=== PATIENT | female | born 1950 | race Caucasian/White ===

== ENCOUNTER → 2018-01-24 13:00 | Outpatient (CLI) | payer MEDICARE, OTHER, SELFPAY ==
[2018-01-24 14:26] LABS: Amphetamine Urine VISTA NEGATIVE (<1000 ng/mL); Barbiturate Urine VISTA NEGATIVE (< 200 ng/mL); Benzodiazepine Urine VISTA NEGATIVE (< 200 ng/mL); Cocaine Urine VISTA NEGATIVE (< 300 ng/mL); Ecstacy Urine VISTA NEGATIVE (< 500 ng/mL); Methadone Urine VISTA NEGATIVE (< 300 ng/mL); PCP Urine VISTA NEGATIVE (< 25 ng/mL); THC Urine VISTA NEGATIVE (< 50 ng/mL); Vista UDS pH Range 5
== END ==
PROVIDERS: Visit Provider Anesthesiology Pain Medicine
DX: F11.20 Opioid dependence, uncomplicated (principal)
CPT/HCPCS: 80307

== ENCOUNTER → 2018-02-11 12:52 | Outpatient (CLI) | payer MEDICARE, OTHER, SELFPAY ==
[2018-02-11 13:38] LABS: Hematocrit 37.8 % (37-47); Hemoglobin 12.4 g/dl (12.0-15.0); Mean Corp Hgb Conc 32.8 g/gl (32-36); Mean Corpuscular Hgb 30.4 pg (27.0-32.0); Mean Corpuscular Volume 92.6 fL (81-99); Mean Platelet Vol. 9.1 fl (6.2-12.0); Platelet Count 239 K/mm3 (150-450); RBC Distribution Width CV 13.7 % (11.6-14.6); RBC Distribution Width SD 45.7 fl (35.1-43.9); Red Blood Count 4.08 M/mm3 (4.2-5.4); White Blood Count 6.8 K/mm3 (4.4-11.0)
[2018-02-11 13:47] LABS: Scan Indicated on CBC? Y/N NO
[2018-02-11 14:03] LABS: Microalbumin,Random Urine 15.1 mg/L (NO RANGE EST.)
[2018-02-11 14:26] LABS: Albumin, Serum 3.6 g/dL (3.2-5.0); BUN 26 mg/dL (7-18); BUN/Creat Ratio 15.3 RATIO (10-20); Calcium,Total 8.7 mg/dL (8.5-10.1); Chloride 106 mmol/L (98-107); EST Glomerular Filtration Rate 32 mL/min (>60); Est Glom Filt Rate - Afr Amer 38 mL/min (>60); Glucose 118 mg/dL (74-106); Phosphorus 4.3 mg/dL (2.5-4.9); Potassium 4.3 mmol/L (3.5-5.1); Sodium Level 140 mmol/L (136-145)
== END ==
PROVIDERS: Visit Provider Internal Medicine Nephrology
DX: N17.9 Acute kidney failure, unspecified (principal); E11.22 Type 2 diabetes mellitus with diabetic chronic kidney disease; N18.3 Chronic kidney disease, stage 3 (moderate)
CPT/HCPCS: 36415; 80069; 82043; 82570; 85027

== ENCOUNTER → 2018-03-26 13:33 | Outpatient (CLI) | payer MEDICARE, OTHER, SELFPAY ==
[2018-03-26 15:29] LABS: Absolute Lymphocyte Count 1.73 X10^3/ul (0.83-4.51); Basophil# 0.05 X10^3/uL; Basophil% 0.5 % (0-1); Eosinophils% 1.8 % (0-5); Hematocrit 38.3 % (37-47); Hemoglobin 12.4 g/dl (12.0-15.0); Lymphocyte # 1.73 X10^3/ul (4.0); Lymphocyte % 15.8 % (19-41); Mean Corp Hgb Conc 32.4 g/gl (32-36); Mean Corpuscular Volume 92.7 fL (81-99); Mean Platelet Vol. 9.2 fl (6.2-12.0); Monocyte# 0.97 X10^3/uL; Monocyte% 8.9 % (0-10); Neutrophil # 7.97 X10^3/uL (2.7-7.7); Neutrophil % 72.8 % (47-70); POSITIVE COUNT NO; POSITIVE DIFFERENTIAL NO; POSITIVE MORPHOLOGY NO; Platelet Count 266 K/mm3 (150-450); RBC Distribution Width CV 13.8 % (11.6-14.6); RBC Distribution Width SD 46.9 fl (35.1-43.9); Red Blood Count 4.13 M/mm3 (4.2-5.4); White Blood Count 10.9 K/mm3 (4.4-11.0)
[2018-03-26 16:08] LABS: AST(SGOT) 29 U/L (15-37); Alanine Aminotransfer ALT/SGPT 32 U/L (13-56); Albumin, Serum 3.6 g/dL (3.2-5.0); Alkaline Phosphatase 86 U/L (45-117); Anion Gap 12 (5-15); BUN 19 mg/dL (7-18); BUN/Creat Ratio 11.8 RATIO (10-20); Calcium,Total 8.7 mg/dL (8.5-10.1); Chloride 105 mmol/L (98-107); Creatinine, Serum 1.61 mg/dL (0.55-1.02); EST Glomerular Filtration Rate 34 mL/min (>60); Est Glom Filt Rate - Afr Amer 41 mL/min (>60); Globulin 3.5 g/dL (2.2-4.2); Glucose 203 mg/dL (74-106); Protein, Total 7.1 g/dL (6.4-8.2); Sodium Level 140 mmol/L (136-145)
== END ==
PROVIDERS: Visit Provider Internal Medicine Rheumatology
DX: M06.4 Inflammatory polyarthropathy (principal); M79.7 Fibromyalgia; M35.00 Sjogren syndrome, unspecified; M15.9 Polyosteoarthritis, unspecified; M17.0 Bilateral primary osteoarthritis of knee; K58.0 Irritable bowel syndrome with diarrhea; M48.061 Spinal stenosis, lumbar region without neurogenic claudication; I10 Essential (primary) hypertension; E11.42 Type 2 diabetes mellitus with diabetic polyneuropathy
CPT/HCPCS: 36415; 80053; 85025

== ENCOUNTER → 2018-04-19 13:08 | Outpatient (CLI) | payer MEDICARE, OTHER, SELFPAY ==
--- NOTE | 2018-04-19 13:08 | DT_ITS ---
This patient was seen during an EMR downtime April 15, 2018 - April 22, 2018. This patient may have a combination of paper and electronic documentation or all paper documentation. All documentation is viewable within the e-chart portion of [employer] for each patient visit.
--- NOTE | 2018-04-19 13:08 | DT_ITS ---
This patient was seen during an EMR downtime April 15, 2018 - April 22, 2018. This patient may have a combination of paper and electronic documentation or all paper documentation. All documentation is viewable within the e-chart portion of [employer] for each patient visit.
--- NOTE | 2018-04-19 13:15 | RAD_ITS ---
STUDY: X-RAY - CERVICAL SPINE REASON FOR EXAM: Female, 67 years old. Left neck pain radiating left arm for one week. TECHNIQUE: 6 view(s) of the cervical spine were obtained. COMPARISON: July 10, 2016. FINDINGS: There are degenerative changes of the anterior atlantoaxial articulation. Normal odontoid process. There is straightening of the normal cervical lordosis. There is multi-level endplate spondylosis. There is multi-level degenerative disc disease with multilevel disc space narrowing. There is diffuse bilateral neural foraminal narrowing most marked in the upper neck. There is no evidence of acute fracture or loss of vertebral axial height. There is maintenance of normal alignment. The soft tissue structures are unremarkable. RAD/Cerv Spine 4 or 5 Views IMPRESSION: Stable degenerative changes of cervical spine. Electronically Signed: Jeremy Estrada DO at 8:34 EDT Tel [phone], Service support ,
== END ==
PROVIDERS: Visit Provider Anesthesiology Pain Medicine
DX: M54.2 Cervicalgia (principal)
CPT/HCPCS: 72050

== ENCOUNTER → 2018-06-27 12:58 | Outpatient (CLI) | payer MEDICARE, OTHER, SELFPAY ==
[2018-06-27 13:30] LABS: Hematocrit 32.1 % (37-47); Hemoglobin 10.8 g/dl (12.0-15.0); Mean Corp Hgb Conc 33.6 g/gl (32-36); Mean Corpuscular Hgb 30.9 pg (27.0-32.0); Mean Corpuscular Volume 91.7 fL (81-99); Mean Platelet Vol. 9.2 fl (6.2-12.0); Platelet Count 192 K/mm3 (150-450); RBC Distribution Width CV 13.2 % (11.6-14.6); Scan Indicated on CBC? Y/N NO; White Blood Count 7.5 K/mm3 (4.4-11.0)
[2018-06-27 13:56] LABS: Albumin, Serum 3.3 g/dL (3.2-5.0); BUN 17 mg/dL (7-18); BUN/Creat Ratio 12.8 RATIO (10-20); Calcium,Total 8.6 mg/dL (8.5-10.1); Chloride 107 mmol/L (98-107); Creatinine, Serum 1.33 mg/dL (0.55-1.02); EST Glomerular Filtration Rate 42 mL/min (>60); Est Glom Filt Rate - Afr Amer 51 mL/min (>60); Glucose 168 mg/dL (74-106); Potassium 4.3 mmol/L (3.5-5.1); Sodium Level 140 mmol/L (136-145)
[2018-06-27 14:03] LABS: Microalbumin:Creatinine Ratio 91.6 mg/g CRE (<30 mg/g CRE)
== END ==
PROVIDERS: Visit Provider Internal Medicine Nephrology
DX: N17.9 Acute kidney failure, unspecified (principal); D63.8 Anemia in other chronic diseases classified elsewhere; E11.9 Type 2 diabetes mellitus without complications; N39.0 Urinary tract infection, site not specified
CPT/HCPCS: 36415; 80069; 82043; 82570; 85027; 87077; 87086; 87088; 87186

== ENCOUNTER 2018-07-19 09:10 | Emergency (ER) | payer MEDICARE, OTHER, SELFPAY ==
[2018-07-19 09:11] VITALS: BP 104/66; PULSE 57; RESP 16; TEMP 37.1; O2SAT 97; BMI 36.3
--- NOTE | 2018-07-19 09:30 | ED.VISSUMM ---
- ER Visit Summary Date of Service: 07/19/18 Chief Complaint: Right shoulder injury History of Present Illness: The patient is a 68 F who presents after a right shoulder injury that occurred today. Patient states she slipped in her bare feet and fell. Patient states she landed on her right shoulder. Patient denies any head injury or loss of consciousness. Patient denies any paresthesias or weakness. Patient states her pain is worse with any movement. Patient denies any other injuries. Physical Examination: Vital signs are stable. Patient is afebrile. Patient is in no acute distress. Examination of the right shoulder revealed tenderness and edema over the right shoulder and proximal humerus. There is no obvious deformity noted. Range of motion was limited all motions of the right shoulder secondary to pain. Radial pulses are equal bilaterally. Sensation was intact to light touch in the radial, median, and ulnar areas. Strength is 5/5 in the radial, median, and ulnar areas. There is no tenderness over the elbow. There is no tenderness over the cervical spine. The remaining physical exam is within normal limits. Test Results: X-rays of the right shoulder and right humerus were obtained. There is no acute fracture. Emergency Department Course and Treatment: Patient was given a dose of [place] here. Patient was instructed to ice and elevate the right shoulder. Patient was instructed to take Tylenol or ibuprofen as needed for pain. Patient was instructed to follow-up with her primary care physician in 5-7 days. Patient and family understood and were agreeable with the plan. All questions were answered. Disposition: Discharge home Impression: Right arm contusion This note was generated with [employer] dictation software. It may contain incorrect words, spelling, and punctuation that were not noted in review of the chart prior to signing ED Disposition - Plan for ED Patient: Disposition: Home or Assisted Living Chief Complaint: Fall Diagnosis: Contusion of arm, right Instructions: ED Mechanical Fall, ED Contusion Upper Ext Referrals: Tigre Whitley [Primary Care Provider] -
[2018-07-19] MEDS: HYDROcodone Bitartrate/Apap 5/325 Tablet PO (10:06)
[2018-07-19 12:34] VITALS: BP 145/68; PULSE 59; RESP 18; O2SAT 100
== END 2018-07-19 12:35 | disposition home or self-care (01) ==
PROVIDERS: Emergency Provider Emergency Medicine
DX: S40.021A Contusion of right upper arm, initial encounter (principal); W01.0XXA Fall on same level from slipping, tripping and stumbling without subsequent striking against object, initial encounter; Y93.9 Activity, unspecified; Y92.9 Unspecified place or not applicable; Y99.9 Unspecified external cause status; E11.9 Type 2 diabetes mellitus without complications; Z79.84 Long term (current) use of oral hypoglycemic drugs; Z79.82 Long term (current) use of aspirin; Z79.899 Other long term (current) drug therapy
CPT/HCPCS: 73030; 73060; 99283

== ENCOUNTER → 2018-09-24 12:22 | Outpatient (CLI) | payer MEDICARE, OTHER, SELFPAY ==
[2018-09-24 13:37] LABS: Absolute Lymphocyte Count 0.83 X10^3/ul (0.83-4.51); Basophil# 0.03 X10^3/uL; Basophil% 0.4 % (0-1); Eosinophil# 0.04 X10^3/uL; Eosinophils% 0.5 % (0-5); Hematocrit 37.7 % (37-47); Lymphocyte # 0.83 X10^3/ul (4.0); Mean Corp Hgb Conc 31.8 g/gl (32-36); Mean Corpuscular Hgb 28.8 pg (27.0-32.0); Mean Corpuscular Volume 90.6 fL (81-99); Mean Platelet Vol. 9.1 fl (6.2-12.0); Monocyte# 0.43 X10^3/uL; Monocyte% 5.2 % (0-10); Neutrophil # 6.98 X10^3/uL (2.7-7.7); Neutrophil % 83.7 % (47-70); Platelet Count 157 K/mm3 (150-450); RBC Distribution Width CV 14.1 % (11.6-14.6); RBC Distribution Width SD 46.4 fl (35.1-43.9); Red Blood Count 4.16 M/mm3 (4.2-5.4); White Blood Count 8.3 K/mm3 (4.4-11.0)
[2018-09-24 13:38] LABS: POSITIVE COUNT NO; POSITIVE DIFFERENTIAL NO; POSITIVE MORPHOLOGY NO
[2018-09-24 14:09] LABS: ALB/GLOB Ratio 0.9 RATIO (0.9-2.4); AST(SGOT) 26 U/L (15-37); Alanine Aminotransfer ALT/SGPT 24 U/L (13-56); Albumin, Serum 3.4 g/dL (3.2-5.0); Alkaline Phosphatase 96 U/L (45-117); Anion Gap 12 (5-15); BUN 14 mg/dL (7-18); BUN/Creat Ratio 10.9 RATIO (10-20); Calcium,Total 8.7 mg/dL (8.5-10.1); Chloride 103 mmol/L (98-107); Creatinine, Serum 1.28 mg/dL (0.55-1.02); EST Glomerular Filtration Rate 44 mL/min (>60); Est Glom Filt Rate - Afr Amer 53 mL/min (>60); Globulin 3.7 g/dL (2.2-4.2); Glucose 115 mg/dL (74-106); Potassium 3.9 mmol/L (3.5-5.1); Protein, Total 7.1 g/dL (6.4-8.2); Sodium Level 142 mmol/L (136-145)
== END ==
PROVIDERS: Referring Provider Internal Medicine Rheumatology; Visit Provider Internal Medicine Rheumatology
DX: M06.4 Inflammatory polyarthropathy (principal); M35.00 Sjogren syndrome, unspecified; M79.7 Fibromyalgia; M17.0 Bilateral primary osteoarthritis of knee; K58.0 Irritable bowel syndrome with diarrhea; M48.061 Spinal stenosis, lumbar region without neurogenic claudication; I10 Essential (primary) hypertension; E11.42 Type 2 diabetes mellitus with diabetic polyneuropathy
CPT/HCPCS: 36415; 80053; 85025

== ENCOUNTER → 2019-01-20 12:16 | Outpatient (CLI) | payer MEDICARE, OTHER, SELFPAY ==
[2019-01-20 12:55] LABS: Color, Urine Yellow (Yellow); Glucose, Dipstick Normal (Normal); Ketone-Dipstick Negative (Negative); Leukocyte Esterase-Dipstick 500 /ul (Negative); Nitrite-Dipstick Negative (Negative); Occult Blood-Urine 25 /ul (Negative); Protein-Dipstick 30 mg/dl (Negative); Specific Gravity, Urine 1.015 (1.002-1.030); Urine Bilirubin Dipstick Negative (Negative); Urine Clarity Sl. Cloudy (Clear); Urine Urobilinogen Normal (Normal)
[2019-01-20 12:56] LABS: Absolute Lymphocyte Count 1.32 X10^3/ul (0.83-4.51); Absolute Neutrophil Count 5.8 X10^3/uL (2.0-7.7); Basophil# 0.06 X10^3/uL; Basophil% 0.7 % (0-1); Eosinophil# 0.17 X10^3/uL; Eosinophils% 2.1 % (0-5); Hematocrit 39.3 % (37-47); Hemoglobin 12.5 g/dl (12.0-15.0); Lymphocyte # 1.32 X10^3/ul (4.0); Lymphocyte % 16.3 % (19-41); Mean Corp Hgb Conc 31.8 g/gl (32-36); Mean Corpuscular Hgb 29.4 pg (27.0-32.0); Mean Corpuscular Volume 92.5 fL (81-99); Mean Platelet Vol. 9.2 fl (6.2-12.0); Monocyte# 0.68 X10^3/uL; Monocyte% 8.4 % (0-10); Neutrophil # 5.79 X10^3/uL (2.7-7.7); Neutrophil % 71.8 % (47-70); Platelet Count 188 K/mm3 (150-450); RBC Distribution Width CV 13.3 % (11.6-14.6); RBC Distribution Width SD 43.9 fl (35.1-43.9); Red Blood Count 4.25 M/mm3 (4.2-5.4); White Blood Count 8.1 K/mm3 (4.4-11.0)
[2019-01-20 12:57] LABS: POSITIVE COUNT NO; POSITIVE DIFFERENTIAL NO; POSITIVE MORPHOLOGY NO
[2019-01-20 13:25] LABS: Hemoglobin A1c 6.9 % (4.2-6.3)
[2019-01-20 13:28] LABS: Vitamin B12 1386 pg/mL (211-911)
[2019-01-20 13:57] LABS: ALB/GLOB Ratio 0.9 RATIO (0.9-2.4); AST(SGOT) 26 U/L (15-37); Alanine Aminotransfer ALT/SGPT 24 U/L (13-56); Albumin, Serum 3.6 g/dL (3.2-5.0); Alkaline Phosphatase 112 U/L (45-117); Anion Gap 13 (5-15); BUN 19 mg/dL (7-18); Calcium,Total 8.8 mg/dL (8.5-10.1); Chloride 106 mmol/L (98-107); Cholesterol 193 mg/dL (200); Creatinine, Serum 1.36 mg/dL (0.55-1.02); EST Glomerular Filtration Rate 41 mL/min (>60); Est Glom Filt Rate - Afr Amer 49 mL/min (>60); Globulin 3.9 g/dL (2.2-4.2); Glucose 123 mg/dL (74-106); High Density Lipoprotein 48 mg/dL; Iron 66 ug/dL (50-170); Potassium 4.6 mmol/L (3.5-5.1); Protein, Total 7.5 g/dL (6.4-8.2); Sodium Level 143 mmol/L (136-145); Triglycerides 281 mg/dL; Very Low Density Lipoprotein 56 mg/dL (5-40)
== END ==
PROVIDERS: Referring Provider Family Medicine; Visit Provider Family Medicine
DX: Z00.00 Encounter for general adult medical examination without abnormal findings (principal); E11.65 Type 2 diabetes mellitus with hyperglycemia; I10 Essential (primary) hypertension; D50.9 Iron deficiency anemia, unspecified; E53.8 Deficiency of other specified B group vitamins; E78.5 Hyperlipidemia, unspecified
CPT/HCPCS: 36415; 80053; 80061; 81002; 82607; 83036; 83540; 85025

== ENCOUNTER → 2019-02-19 11:46 | Outpatient (CLI) | payer MEDICARE, OTHER, SELFPAY ==
--- NOTE | 2019-02-19 11:50 | BI_ITS ---
MAMMOGRAPHY - BILATERAL SCREENING REASON FOR EXAM: Female, 68 years old. Routine annual screening examination. PERTINENT HISTORY: Sister with breast cancer. Aunt with breast cancer. TECHNIQUE: Digital bilateral breast gregory (3D mammographic acquisition) in the CC and MLO projections. 2-D mediolateral oblique (MLO) and craniocaudad (CC) views of both breasts were obtained. CAD: Full Field Digital Mammography with Computer Added Detection was performed. COMPARISON: Comparison is made with prior study dated July 17, 2017 and January 13, 2016. FINDINGS: Breast Composition: There are scattered areas of fibroglandular density. There are no dominant masses or suspicious calcifications. No other significant abnormalities are identified. There has been no significant change since the prior study. BI/SCREENING MAMM (CAD), BILAT IMPRESSION: Stable bilateral screening mammogram. Yearly follow-up mammogram recommended. (A) ASSESSMENT CATEGORY: BIRADS Category 1: Negative. A letter regarding these results will be sent to the patient by the facility within 30 days. Approximately 10% of breast cancers are not detected by mammography. A normal mammogram should not delay biopsy of a clinically suspicious abnormality. [id number] Electronically Signed: Wayne Guan, at 14:50 EDT , Service support ,
== END ==
PROVIDERS: Referring Provider Family Medicine; Visit Provider Family Medicine
DX: Z12.31 Encounter for screening mammogram for malignant neoplasm of breast (principal)
CPT/HCPCS: 77063; 77067

== ENCOUNTER → 2019-02-24 12:36 | Outpatient (CLI) | payer MEDICARE, OTHER, SELFPAY ==
[2019-02-24 13:41] LABS: Hematocrit 38.3 % (37-47); Hemoglobin 12.1 g/dl (12.0-15.0); Mean Corp Hgb Conc 31.6 g/gl (32-36); Mean Corpuscular Hgb 28.9 pg (27.0-32.0); Mean Corpuscular Volume 91.6 fL (81-99); Mean Platelet Vol. 9.1 fl (6.2-12.0); Platelet Count 165 K/mm3 (150-450); RBC Distribution Width CV 13.7 % (11.6-14.6); Red Blood Count 4.18 M/mm3 (4.2-5.4); White Blood Count 6.1 K/mm3 (4.4-11.0)
[2019-02-24 13:42] LABS: Scan Indicated on CBC? Y/N NO
[2019-02-24 14:21] LABS: Albumin, Serum 3.7 g/dL (3.2-5.0); BUN 13 mg/dL (7-18); BUN/Creat Ratio 9.8 RATIO (10-20); Calcium,Total 8.8 mg/dL (8.5-10.1); Chloride 105 mmol/L (98-107); Creatinine, Serum 1.32 mg/dL (0.55-1.02); EST Glomerular Filtration Rate 42 mL/min (>60); Est Glom Filt Rate - Afr Amer 51 mL/min (>60); Glucose 160 mg/dL (74-106); Phosphorus 3.1 mg/dL (2.5-4.9); Potassium 4.3 mmol/L (3.5-5.1); Sodium Level 141 mmol/L (136-145)
== END ==
PROVIDERS: Referring Provider Internal Medicine Nephrology; Visit Provider Internal Medicine Nephrology
DX: N18.3 Chronic kidney disease, stage 3 (moderate) (principal); D63.8 Anemia in other chronic diseases classified elsewhere
CPT/HCPCS: 36415; 80069; 85027

== ENCOUNTER → 2019-03-11 12:42 | Outpatient (CLI) | payer MEDICARE, OTHER, SELFPAY ==
[2019-03-11 13:43] LABS: Absolute Lymphocyte Count 1.17 X10^3/ul (0.83-4.51); Absolute Neutrophil Count 6.4 X10^3/uL (2.0-7.7); Basophil# 0.03 X10^3/uL; Basophil% 0.4 % (0-1); Eosinophil# 0.11 X10^3/uL; Eosinophils% 1.3 % (0-5); Hematocrit 37.6 % (37-47); Hemoglobin 12.3 g/dl (12.0-15.0); Lymphocyte # 1.17 X10^3/ul (4.0); Lymphocyte % 13.7 % (19-41); Mean Corp Hgb Conc 32.7 g/gl (32-36); Mean Corpuscular Hgb 29.5 pg (27.0-32.0); Mean Corpuscular Volume 90.2 fL (81-99); Mean Platelet Vol. 9.6 fl (6.2-12.0); Monocyte# 0.77 X10^3/uL; Neutrophil % 75.1 % (47-70); Platelet Count 182 K/mm3 (150-450); RBC Distribution Width CV 13.5 % (11.6-14.6); Red Blood Count 4.17 M/mm3 (4.2-5.4); White Blood Count 8.5 K/mm3 (4.4-11.0)
[2019-03-11 13:46] LABS: POSITIVE COUNT NO; POSITIVE DIFFERENTIAL NO; POSITIVE MORPHOLOGY NO
[2019-03-11 14:21] LABS: ALB/GLOB Ratio 1.1 RATIO (0.9-2.4); AST(SGOT) 23 U/L (15-37); Alanine Aminotransfer ALT/SGPT 25 U/L (13-56); Albumin, Serum 3.6 g/dL (3.2-5.0); Alkaline Phosphatase 82 U/L (45-117); Anion Gap 7 (5-15); BUN 23 mg/dL (7-18); BUN/Creat Ratio 15.2 RATIO (10-20); Calcium,Total 9.1 mg/dL (8.5-10.1); Chloride 107 mmol/L (98-107); Creatinine, Serum 1.51 mg/dL (0.55-1.02); EST Glomerular Filtration Rate 36 mL/min (>60); Est Glom Filt Rate - Afr Amer 44 mL/min (>60); Globulin 3.4 g/dL (2.2-4.2); Glucose 72 mg/dL (74-106); Potassium 4.6 mmol/L (3.5-5.1); Sodium Level 141 mmol/L (136-145)
== END ==
PROVIDERS: Referring Provider Internal Medicine Rheumatology; Visit Provider Internal Medicine Rheumatology
DX: M06.4 Inflammatory polyarthropathy (principal); M35.00 Sjogren syndrome, unspecified; M17.0 Bilateral primary osteoarthritis of knee; E11.42 Type 2 diabetes mellitus with diabetic polyneuropathy; I10 Essential (primary) hypertension; K58.0 Irritable bowel syndrome with diarrhea; M79.7 Fibromyalgia
CPT/HCPCS: 36415; 80053; 85025

== ENCOUNTER → 2019-03-25 13:19 | Outpatient (CLI) | payer MEDICARE, OTHER, SELFPAY ==
[2019-03-25 17:15] LABS: Microalbumin,Random Urine 78.5 mg/L (NO RANGE EST.)
== END ==
PROVIDERS: Visit Provider Internal Medicine Nephrology
DX: E11.9 Type 2 diabetes mellitus without complications (principal)
CPT/HCPCS: 82043; 82570

== ENCOUNTER → 2019-06-13 09:53 | Outpatient (CLI) | payer MEDICARE, SELFPAY ==
[2019-06-13 11:02] LABS: Absolute Lymphocyte Count 0.66 X10^3/uL (0.83-4.51); Absolute Neutrophil Count 6.4 X10^3/uL (2.0-7.7); Basophil# 0.05 X10^3/uL; Basophil% 0.6 % (0-1); Eosinophil# 0.19 X10^3/uL; Eosinophils% 2.4 % (0-5); Hematocrit 35.3 % (37-47); Hemoglobin 11.7 g/dL (12.0-15.0); Lymphocyte # 0.66 X10^3/ul (4.0); Lymphocyte % 8.3 % (19-41); Mean Corp Hgb Conc 33.1 g/dL (32-36); Mean Corpuscular Volume 93.6 fL (81-99); Mean Platelet Vol. 9.6 fl (6.2-12.0); Monocyte# 0.63 X10^3/uL; Monocyte% 7.9 % (0-10); NRBC Flagged by Analyzer 0 % (0-5); Neutrophil # 6.35 X10^3/uL (2.7-7.7); Neutrophil % 79.9 % (47-70); Platelet Count 159 K/mm3 (150-450); RBC Distribution Width SD 44.6 fl (35.1-43.9); Red Blood Count 3.77 M/mm3 (4.2-5.4)
[2019-06-13 11:28] LABS: Hemoglobin A1c 6.7 % (4.2-6.3); Vitamin B12 1297 pg/mL (211-911)
[2019-06-13 11:34] LABS: AST(SGOT) 28 U/L (15-37); Alanine Aminotransfer ALT/SGPT 20 U/L (13-56); Albumin, Serum 3.6 g/dL (3.2-5.0); Alkaline Phosphatase 91 U/L (45-117); Bilirubin, Direct 0.19 mg/dL (0.00-0.30); Cholesterol 147 mg/dL (200); Ferritin 29 ng/mL (8-252); Globulin 3.5 g/dL (2.2-4.2); High Density Lipoprotein 54 mg/dL; Iron 49 ug/dL (50-170); Protein, Total 7.1 g/dL (6.4-8.2); Triglycerides 166 mg/dL; Very Low Density Lipoprotein 33 mg/dL (5-40)
== END ==
PROVIDERS: Referring Provider Family Medicine; Visit Provider Family Medicine
DX: D50.9 Iron deficiency anemia, unspecified (principal); E11.65 Type 2 diabetes mellitus with hyperglycemia; E78.5 Hyperlipidemia, unspecified; E53.8 Deficiency of other specified B group vitamins
CPT/HCPCS: 36415; 80061; 80076; 82607; 82728; 83036; 83540; 85025

== ENCOUNTER → 2019-09-09 | Outpatient (CLI) | payer MEDICARE, SELFPAY ==
[2019-09-09 13:49] LABS: Absolute Lymphocyte Count 0.85 X10^3/uL (0.83-4.51); Absolute Neutrophil Count 6.1 X10^3/uL (2.0-7.7); Basophil# 0.06 X10^3/uL; Basophil% 0.8 % (0-1); Eosinophil# 0.17 X10^3/uL; Eosinophils% 2.2 % (0-5); Hematocrit 37.2 % (37-47); Hemoglobin 12.1 g/dL (12.0-15.0); Lymphocyte # 0.85 X10^3/ul (4.0); Lymphocyte % 10.8 % (19-41); Mean Corp Hgb Conc 32.5 g/dL (32-36); Mean Corpuscular Hgb 29.2 pg (27.0-32.0); Mean Corpuscular Volume 89.9 fL (81-99); Mean Platelet Vol. 9.9 fl (6.2-12.0); Monocyte# 0.62 X10^3/uL; Monocyte% 7.9 % (0-10); NRBC Flagged by Analyzer 0 % (0-5); Neutrophil # 6.07 X10^3/uL (2.7-7.7); Neutrophil % 77.3 % (47-70); Platelet Count 171 K/mm3 (150-450); RBC Distribution Width CV 13.6 % (11.6-14.6); RBC Distribution Width SD 44.5 fl (35.1-43.9); Red Blood Count 4.14 M/mm3 (4.2-5.4); White Blood Count 7.9 K/mm3 (4.4-11.0)
[2019-09-09 14:18] LABS: ALB/GLOB Ratio 0.9 RATIO (0.9-2.4); AST(SGOT) 23 U/L (15-37); Alanine Aminotransfer ALT/SGPT 19 U/L (13-56); Albumin, Serum 3.5 g/dL (3.2-5.0); Alkaline Phosphatase 93 U/L (45-117); Anion Gap 6 (5-15); BUN 18 mg/dL (7-18); BUN/Creat Ratio 13.5 RATIO (10-20); Chloride 109 mmol/L (98-107); Creatinine, Serum 1.33 mg/dL (0.55-1.02); EST Glomerular Filtration Rate 42 mL/min (>60); Est Glom Filt Rate - Afr Amer 51 mL/min (>60); Globulin 3.7 g/dL (2.2-4.2); Glucose 133 mg/dL (74-106); Potassium 4.2 mmol/L (3.5-5.1); Protein, Total 7.2 g/dL (6.4-8.2); Sodium Level 141 mmol/L (136-145)
== END | disposition home or self-care (01) ==
PROVIDERS: Referring Provider Internal Medicine Rheumatology; Visit Provider Internal Medicine Rheumatology
DX: M06.4 Inflammatory polyarthropathy (principal); M79.7 Fibromyalgia; M35.00 Sjogren syndrome, unspecified; M15.9 Polyosteoarthritis, unspecified; M17.0 Bilateral primary osteoarthritis of knee; K58.0 Irritable bowel syndrome with diarrhea; M48.061 Spinal stenosis, lumbar region without neurogenic claudication; I10 Essential (primary) hypertension; E11.42 Type 2 diabetes mellitus with diabetic polyneuropathy
CPT/HCPCS: 36415; 80053; 85025

== ENCOUNTER → 2019-10-16 12:25 | Outpatient (CLI) | payer MEDICARE, SELFPAY ==
[2019-10-16 13:46] LABS: Amphetamine Urine VISTA NEGATIVE (<1000 ng/mL); Barbiturate Urine VISTA NEGATIVE (< 200 ng/mL); Benzodiazepine Urine VISTA NEGATIVE (< 200 ng/mL); Cocaine Urine VISTA NEGATIVE (< 300 ng/mL); Ecstacy Urine VISTA NEGATIVE (< 500 ng/mL); Methadone Urine VISTA NEGATIVE (< 300 ng/mL); PCP Urine VISTA NEGATIVE (< 25 ng/mL); THC Urine VISTA NEGATIVE (< 50 ng/mL); Vista UDS pH Range 5
== END ==
PROVIDERS: Referring Provider Anesthesiology Pain Medicine; Visit Provider Anesthesiology Pain Medicine
DX: F11.20 Opioid dependence, uncomplicated (principal)
CPT/HCPCS: 80307

== ENCOUNTER → 2019-11-26 13:29 | Outpatient (CLI) | payer MEDICARE, SELFPAY ==
[2019-11-26 16:10] LABS: Albumin, Serum 3.5 g/dL (3.2-5.0); BUN 19 mg/dL (7-18); BUN/Creat Ratio 13.3 RATIO (10-20); Calcium,Total 8.8 mg/dL (8.5-10.1); Chloride 106 mmol/L (98-107); Creatinine, Serum 1.43 mg/dL (0.55-1.02); EST Glomerular Filtration Rate 38 mL/min (>60); Est Glom Filt Rate - Afr Amer 47 mL/min (>60); Glucose 136 mg/dL (74-106); Phosphorus 3.3 mg/dL (2.5-4.9); Potassium 4.1 mmol/L (3.5-5.1); Sodium Level 139 mmol/L (136-145)
== END ==
PROVIDERS: Referring Provider Internal Medicine Nephrology; Visit Provider Internal Medicine Nephrology
DX: N18.3 Chronic kidney disease, stage 3 (moderate) (principal)
CPT/HCPCS: 36415; 80069

== ENCOUNTER 2019-12-15 20:22 | Emergency (ER) | payer MEDICARE, SELFPAY ==
[2019-12-15 20:23] VITALS: BP 138/77; PULSE 70; RESP 20; TEMP 38; O2SAT 98; BMI 34.7
--- NOTE | 2019-12-15 21:19 | EKG12_ITS ---
Test Reason : DYSRHYTHMIA Blood Pressure : / mmHG Vent. Rate : 070 BPM Atrial Rate : 070 BPM P-R Int : 126 ms QRS Dur : 074 ms QT Int : 404 ms P-R-T Axes : -19 017 -77 degrees QTc Int : 436 ms Normal sinus rhythm Nonspecific ST & T wave abnormality Abnormal ECG Confirmed by DARIO MELGAR, ADELA ([id number]), editor [employer] SORIN GUZMAN ([id number]) on 12/17/2019 9:00:58 AM Referred By: WILLIAM Confirmed By:ADELA BISHOP MD
--- NOTE | 2019-12-15 21:20 | RAD_ITS ---
STUDY: X-RAY - RIGHT TIBIA AND FIBULA REASON FOR EXAM: Female, 69 years old. RIGHT LEG PAIN TECHNIQUE: 2 view(s) of the tibia and fibula were obtained. COMPARISON: None. FINDINGS: There is demineralization of the tibia. There is a age indeterminate partially visualized nondisplaced fracture of the medial malleolus. There is a suggestion of possible avulsion injury of the distal fibula. There is a small plantar spur visualized. RAD/Tibia & Fibula 2 Views IMPRESSION: Partial visualization of age indeterminate fracture of the medial malleolus recommend dedicated ankle x-ray. Cannot exclude subtle avulsion injury of the distal fibula. Electronically Signed: Trina Mcbride MD at 22:55 EST Tel , Service support ,
--- NOTE | 2019-12-15 21:24 | ED.RN ---
NO OLD EKG
--- NOTE | 2019-12-15 21:26 | US_ITS ---
STUDY: VENOUS DOPPLER ULTRASOUND - RIGHT LOWER EXTREMITY REASON FOR EXAM: Female, 69 years old. PAIN TECHNIQUE: Ultrasound evaluation of the deep vein system to include storey-scale imaging and compression was performed. Storey-scale imaging and Doppler sonographic evaluation, including duplex spectral analysis and qualitative color flow sonography, was performed. COMPARISON: None. FINDINGS: Common Femoral Vein: Normal compression, spontaneity and augmentation. Normal color Doppler. Common Femoral Vein/Greater Saphenous Junction: Normal compression, spontaneity and augmentation. Normal color Doppler. Deep Femoral Vein: Normal compression, spontaneity and augmentation. Normal color Doppler. Femoral Proximal: Normal compression, spontaneity and augmentation. Normal color Doppler. Femoral Middle: Normal compression, spontaneity and augmentation. Normal color Doppler. Femoral Distal: Normal compression, spontaneity and augmentation. Normal color Doppler. Popliteal Vein: Normal compression, spontaneity and augmentation. Normal color Doppler. Posterior Tibial Vein: Normal Doppler. US/Venous Duplex Imag/Limited/Uni IMPRESSION: Normal venous Doppler ultrasound of the lower extremity. Electronically Signed: Trina Mcbride MD at 23:13 EST Tel , Service support ,
[2019-12-15] MEDS: Meclizine HCl 25 MG Tablet PO (21:37)
[2019-12-15] MEDS: Morphine 4 MG/ML Syringe IV (21:38)
[2019-12-15] MEDS: Ondansetron 4 MG/2 ML Vial IV (21:38)
[2019-12-15 21:47] VITALS: BP 159/90; PULSE 68; RESP 15; O2SAT 98
[2019-12-15 21:58] LABS: Basophil# 0.04 X10^3/uL; Basophil% 0.7 % (0-1); Eosinophil# 0.08 X10^3/uL; Eosinophils% 1.3 % (0-5); Hematocrit 36.2 % (37-47); Hemoglobin 11.9 g/dL (12.0-15.0); Lymphocyte % 6.6 % (19-41); Mean Corp Hgb Conc 32.9 g/dL (32-36); Mean Corpuscular Hgb 30.1 pg (27.0-32.0); Mean Corpuscular Volume 91.4 fL (81-99); Mean Platelet Vol. 9.7 fl (6.2-12.0); Monocyte# 0.52 X10^3/uL; Monocyte% 8.6 % (0-10); NRBC Flagged by Analyzer 0 % (0-5); Neutrophil # 4.96 X10^3/uL (2.7-7.7); POSITIVE DIFFERENTIAL YES; Platelet Count 122 K/mm3 (150-450); RBC Distribution Width CV 13.4 % (11.6-14.6); Red Blood Count 3.96 M/mm3 (4.2-5.4); White Blood Count 6.1 K/mm3 (4.4-11.0)
[2019-12-15 22:01] LABS: Differential Indicated SCAN CRITERIA MET
--- NOTE | 2019-12-15 22:17 | RAD_ITS ---
STUDY: X-RAY CHEST REASON FOR EXAM: Female, 69 years old. WEAKNESS TECHNIQUE: PA and lateral views of the chest. COMPARISON: July 24, 2011 chest x-ray FINDINGS: The lungs are underexpanded. There is no demonstrated pleural abnormality. There is mild cardiac enlargement. Normal mediastinum and greg. Normal visualized pulmonary arteries. Normal visualized aortic arch and descending thoracic aorta. There are diffuse degenerative changes of the visualized thoracic spine. Normal visualized ribs, clavicles, and shoulders. There is no demonstrated abnormality of the visualized soft tissue structures of the upper abdomen. RAD/Chest PA and Lateral IMPRESSION: Nonspecific underexpansion of the lungs. There is central atelectasis. No definitive focal infiltrate. Electronically Signed: Trina Mcbride MD at 22:40 EST Tel , Service support ,
[2019-12-15 22:18] LABS: Differential Comment SCANNED
[2019-12-15 22:21] LABS: ALB/GLOB Ratio 0.9 RATIO (0.9-2.4); AST(SGOT) 21 U/L (15-37); Alanine Aminotransfer ALT/SGPT 21 U/L (13-56); Albumin, Serum 3.3 g/dL (3.2-5.0); Alkaline Phosphatase 79 U/L (45-117); Anion Gap 7 (5-15); BUN 12 mg/dL (7-18); BUN/Creat Ratio 9.1 RATIO (10-20); Calcium,Total 8.1 mg/dL (8.5-10.1); Chloride 104 mmol/L (98-107); Creatinine, Serum 1.32 mg/dL (0.55-1.02); EST Glomerular Filtration Rate 42 mL/min (>60); Est Glom Filt Rate - Afr Amer 51 mL/min (>60); Estimated Creatinine Clearance 48.15 ml/min; Globulin 3.5 g/dL (2.2-4.2); Glucose 110 mg/dL (74-106); Potassium 3.8 mmol/L (3.5-5.1); Protein, Total 6.8 g/dL (6.4-8.2); Sodium Level 138 mmol/L (136-145)
[2019-12-15 22:44] VITALS: BP 157/87; PULSE 70; RESP 19; O2SAT 99
--- NOTE | 2019-12-15 23:02 | RAD_ITS ---
STUDY: X-RAY - RIGHT ANKLE REASON FOR EXAM: Female, 69 years old. RIGHT LEG PAIN TECHNIQUE: 3 view(s) of the ankle. COMPARISON: None. FINDINGS: The bones are osteopenic of the distal tibia and fibula.. Normal medial and lateral malleoli. Normal tibiotalar articulation and ankle mortise. There is a well-corticated fragment distal to the medial malleolus. There is trace irregularity of the inferior aspect of the fibula which likely represents degenerative change. The visualized plantar spur. The visualized subtalar, talonavicular, calcaneocuboid and tarsal articulations are normal. The soft tissue structures are unremarkable. RAD/Ankle min 3 Views IMPRESSION: Probable old injuries of the distal tibia and fibula. Well-corticated soft tissue calcification distal to the medial malleolus. Calcaneal spur. Electronically Signed: Trina Mcbride MD at 23:53 EST Tel , Service support ,
--- NOTE | 2019-12-15 23:38 | ED.DCSUM_ITS ---
- ER Visit Summary Date of Service: 12/15/19 Chief Complaint: Cough History of Present Illness: The patient is a [address] Whitley. She reports she has a cough that began 2 weeks ago. She reports nonproductive at this point, but was productive yellow sputum initially. She has had chills, but no fever. She reports that she has had chest pain for the past 2 days. She reports still intermittent pain lasts seconds at a time. Is not seem to be caused by exertion. Reports that she has had mild shortness of breath. She denies any wheezing. Patient reports that she is had diarrhea for the past 2 weeks off and on. States that she does not get this daily. She is had it twice today. No blood in her stools or black tarry stools. She denies any abdominal pain. She had nausea without vomiting. Patient reports that she had right ankle swelling for the past 2 weeks. She denies any injury. No fall, MVA, or change in activity. However, she reports the pain is 10 on 10 in severity. Patient reports that she has vertigo once in a while. She states that last seconds. It seems to be worse today. Is brought on by movement of her head. She reports her left ear is been ringing for the past 2 weeks. She denies any change in her hearing. She reports that she is had similar symptoms previously with a vertigo approximate 5 years ago. Physical Examination: Vitals: Stable. Afebrile. General: Well-nourished and well-developed. Head: Normocephalic atraumatic. Neck: Supple, no lymphadenopathy. No JVD. Nontender. Cardiovascular: Regular rate and rhythm. No murmurs. Respiratory: No respiratory distress. Clear to auscultation bilaterally. Abdominal: Soft, nontender, nondistended, normal bowel sounds. No guarding, rebound, or peritoneal signs. Back: Nontender. Extremities: Mild tenderness palpation just distal to her lateral malleolus. There is soft tissue swelling in this back area. She also has mild pain to the proximal fibula. There is no pain over the medial malleolus. No pain over the base of the fifth metatarsal., no edema. Good range of motion with minimal pain. No erythema warmth to suggest a septic joint. Skin: Normal color, no rash. Neurologic: Alert and oriented ?3. Cranial nerves II through XII are intact. Normal strength and sensation. Psych: Normal affect. Test Results: EKG is sinus at [address] changes. She has T wave inversions lead V3 to V6. There is no old EKG for comparison. Opponent is negative. Chem-7 shows a glucose of 110, calcium of 8.1, creatinine 1.33. CBC shows an H&H 11.9 36.2, platelets 123, segmented for 72, lymphocytes of 7. Right lower extremity Doppler is negative. Clinical Impression(s) from Imaging Studies Tibia/Fibula X-Ray 12/15/19 21:20 IMPRESSION: Partial visualization of age indeterminate fracture of the medial malleolus recommend dedicated ankle x-ray. Cannot exclude subtle avulsion injury of the distal fibula. Electronically Signed: Trina Mcbride MD at 22:55 EST Tel , Service support , Venous Duplex 12/15/19 21:26 IMPRESSION: Normal venous Doppler ultrasound of the lower extremity. Electronically Signed: Trina Mcbride MD at 23:13 EST Tel , Service support , Chest X-Ray 12/15/19 22:17 IMPRESSION: Nonspecific underexpansion of the lungs. There is central atelectasis. No definitive focal infiltrate. Electronically Signed: Trina Mcbride MD at 22:40 EST Tel , Service support , Ankle X-Ray 12/15/19 23:02 IMPRESSION: Probable old injuries of the distal tibia and fibula. Well-corticated soft tissue calcification distal to the medial malleolus. Calcaneal spur. Electronically Signed: Trina Mcbride MD at 23:53 EST Tel , Service support , Emergency Department Course and Treatment: Patient was given a dose of Tylenol p.o. she was given Antivert p.o. She was given morphine and Zofran IV. She is resting comfortably. Treatment Plan: I discussed with the patient the findings of the ankle x-ray. She reports that she has a cane and a walker at home. She will be discharged in a walking boot to use as needed. Follow-up with her primary care physician 1 week if not improving. Return to the emergency department for any worsening symptoms. Disposition: To home in improved and stable condition. Impression: 1. URI. 2. Diarrhea. 3. Right ankle sprain. This note was generated with [employer] dictation software. It may contain incorrect words, spelling, and punctuation that were not noted in review of the chart prior to signing ED Disposition - Plan for ED Patient: Disposition: Home or Assisted Living Instructions: Sprain, Ankle, with X-Ray, URI, Viral, No Abx (Adult) Prescriptions: Docusate Sodium [Colace] 100 mg PO DAILY #20 cap Prescription Printed Hydrocodone Bitart/Apap 5-325 [[place] 5MG-325MG] 1 tab PO Q4H PRN PRN 2 Days #10 tab PRN Reason: Pain Prescription Printed Referrals: Tigre Whitley [Primary Care Provider] - 3-5 Days
[2019-12-15] MEDS: Acetaminophen 325 MG Tablet 1000 MG PO (23:58)
[2019-12-16 00:14] VITALS: PULSE 78; RESP 19; O2SAT 97
== END 2019-12-16 00:16 | disposition home or self-care (01) ==
LOC: ED 21:30
PROVIDERS: Emergency Provider Emergency Medicine
DX: J06.9 Acute upper respiratory infection, unspecified (principal); R19.7 Diarrhea, unspecified; S93.401A Sprain of unspecified ligament of right ankle, initial encounter; X58.XXXA Exposure to other specified factors, initial encounter; Y93.9 Activity, unspecified; M79.89 Other specified soft tissue disorders; I10 Essential (primary) hypertension; E11.9 Type 2 diabetes mellitus without complications; Z79.84 Long term (current) use of oral hypoglycemic drugs; Z79.899 Other long term (current) drug therapy
CPT/HCPCS: 71046; 73590; 73610; 80053; 84484; 85025; 93005; 93971; 96361; 96374; 96375; 99285; J7040; J2405

== ENCOUNTER → 2020-04-16 11:43 | Outpatient (CLI) | payer MEDICARE, SELFPAY ==
[2020-04-16 12:14] LABS: Absolute Lymphocyte Count 1.09 X10^3/uL (0.83-4.51); Absolute Neutrophil Count 7.5 X10^3/uL (2.0-7.7); Basophil# 0.07 X10^3/uL; Basophil% 0.7 % (0-1); Eosinophil# 0.17 X10^3/uL; Eosinophils% 1.7 % (0-5); Hematocrit 35.4 % (37-47); Hemoglobin 11.3 g/dL (12.0-15.0); Lymphocyte # 1.09 X10^3/ul (4.0); Lymphocyte % 11.2 % (19-41); Mean Corp Hgb Conc 31.9 g/dL (32-36); Mean Corpuscular Hgb 29.7 pg (27.0-32.0); Mean Corpuscular Volume 93.2 fL (81-99); Mean Platelet Vol. 9.1 fl (6.2-12.0); Monocyte# 0.87 X10^3/uL; Monocyte% 8.9 % (0-10); NRBC Flagged by Analyzer 0 % (0-5); Neutrophil # 7.47 X10^3/uL (2.7-7.7); Neutrophil % 76.8 % (47-70); Platelet Count 206 K/mm3 (150-450); RBC Distribution Width CV 14.2 % (11.6-14.6); RBC Distribution Width SD 47.6 fl (35.1-43.9); White Blood Count 9.7 K/mm3 (4.4-11.0)
[2020-04-16 13:07] LABS: ALB/GLOB Ratio 0.9 RATIO (0.9-2.4); AST(SGOT) 19 U/L (15-37); Alanine Aminotransfer ALT/SGPT 24 U/L (13-56); Albumin, Serum 3.3 g/dL (3.2-5.0); Alkaline Phosphatase 102 U/L (45-117); Anion Gap 8 (5-15); BUN 31 mg/dL (7-18); BUN/Creat Ratio 22.1 RATIO (10-20); Calcium,Total 8.8 mg/dL (8.5-10.1); Chloride 109 mmol/L (98-107); EST Glomerular Filtration Rate 39 mL/min (>60); Est Glom Filt Rate - Afr Amer 48 mL/min (>60); Globulin 3.6 g/dL (2.2-4.2); Glucose 134 mg/dL (74-106); Potassium 4.2 mmol/L (3.5-5.1); Protein, Total 6.9 g/dL (6.4-8.2); Sodium Level 141 mmol/L (136-145)
== END ==
PROVIDERS: Visit Provider Internal Medicine Rheumatology
DX: M06.4 Inflammatory polyarthropathy (principal); M79.7 Fibromyalgia; M35.00 Sjogren syndrome, unspecified; M15.9 Polyosteoarthritis, unspecified; K58.0 Irritable bowel syndrome with diarrhea; M48.061 Spinal stenosis, lumbar region without neurogenic claudication; I10 Essential (primary) hypertension; E11.42 Type 2 diabetes mellitus with diabetic polyneuropathy
CPT/HCPCS: 36415; 80053; 85025

== ENCOUNTER → 2020-05-17 14:07 | Outpatient (CLI) | payer MEDICARE, SELFPAY ==
[2020-05-17 15:05] LABS: Hemoglobin 11.6 g/dL (12.0-15.0); Mean Corp Hgb Conc 32.2 g/dL (32-36); Mean Corpuscular Hgb 30.2 pg (27.0-32.0); Mean Corpuscular Volume 93.8 fL (81-99); Mean Platelet Vol. 9.5 fl (6.2-12.0); Platelet Count 178 K/mm3 (150-450); RBC Distribution Width CV 14.5 % (11.6-14.6); RBC Distribution Width SD 49.3 fl (35.1-43.9); Red Blood Count 3.84 M/mm3 (4.2-5.4); White Blood Count 10.5 K/mm3 (4.4-11.0)
[2020-05-17 15:21] LABS: Albumin, Serum 3.3 g/dL (3.2-5.0); BUN 21 mg/dL (7-18); Calcium,Total 7.7 mg/dL (8.5-10.1); Chloride 107 mmol/L (98-107); Creatinine, Serum 1.61 mg/dL (0.55-1.02); EST Glomerular Filtration Rate 33 mL/min (>60); Est Glom Filt Rate - Afr Amer 41 mL/min (>60); Glucose 114 mg/dL (74-106); Phosphorus 4.1 mg/dL (2.5-4.9); Potassium 3.7 mmol/L (3.5-5.1); Sodium Level 139 mmol/L (136-145); Uric Acid 9.4 mg/dL (2.6-6.0)
== END ==
PROVIDERS: Referring Provider Internal Medicine Nephrology; Visit Provider Internal Medicine Nephrology
DX: E11.22 Type 2 diabetes mellitus with diabetic chronic kidney disease (principal); N18.3 Chronic kidney disease, stage 3 (moderate); D63.1 Anemia in chronic kidney disease
CPT/HCPCS: 36415; 80069; 84550; 85027

== ENCOUNTER → 2020-05-18 13:21 | Outpatient (CLI) | payer MEDICARE, SELFPAY ==
[2020-05-18 14:05] LABS: Microalbumin:Creatinine Ratio 48.1 mg/g CRE (<30 mg/g CRE)
== END ==
LOC: LABSPEC 13:23 → LAB 13:29
PROVIDERS: Referring Provider Internal Medicine Nephrology; Visit Provider Internal Medicine Nephrology
DX: E11.22 Type 2 diabetes mellitus with diabetic chronic kidney disease (principal); N18.3 Chronic kidney disease, stage 3 (moderate); D63.1 Anemia in chronic kidney disease
CPT/HCPCS: 82043; 82570

== ENCOUNTER → 2020-10-18 11:56 | Outpatient (CLI) | payer MEDICARE, SELFPAY ==
[2020-10-18 15:08] LABS: Absolute Lymphocyte Count 0.98 X10^3/uL (0.83-4.51); Absolute Neutrophil Count 9.3 X10^3/uL (2.0-7.7); Basophil# 0.07 X10^3/uL; Basophil% 0.6 % (0-1); Eosinophil# 0.19 X10^3/uL; Eosinophils% 1.7 % (0-5); Hematocrit 36.2 % (37-47); Hemoglobin 11.3 g/dL (12.0-15.0); Lymphocyte # 0.98 X10^3/ul (4.0); Lymphocyte % 8.6 % (19-41); Mean Corp Hgb Conc 31.2 g/dL (32-36); Mean Corpuscular Hgb 29.2 pg (27.0-32.0); Mean Corpuscular Volume 93.5 fL (81-99); Mean Platelet Vol. 10.5 fl (6.2-12.0); Monocyte# 0.84 X10^3/uL; Monocyte% 7.3 % (0-10); NRBC Flagged by Analyzer 0 % (0-5); Neutrophil # 9.28 X10^3/uL (2.7-7.7); Neutrophil % 81.2 % (47-70); Platelet Count 208 K/mm3 (150-450); RBC Distribution Width CV 13.4 % (11.6-14.6); RBC Distribution Width SD 45.9 fl (35.1-43.9); Red Blood Count 3.87 M/mm3 (4.2-5.4); White Blood Count 11.4 K/mm3 (4.4-11.0)
[2020-10-18 15:20] LABS: AST(SGOT) 22 U/L (15-37); Alanine Aminotransfer ALT/SGPT 18 U/L (13-56); Albumin, Serum 3.7 g/dL (3.2-5.0); Alkaline Phosphatase 94 U/L (45-117); Anion Gap 8 (5-15); BUN 23 mg/dL (7-18); Calcium,Total 8.5 mg/dL (8.5-10.1); Chloride 105 mmol/L (98-107); Creatinine, Serum 1.44 mg/dL (0.55-1.02); EST Glomerular Filtration Rate 38 mL/min (>60); Est Glom Filt Rate - Afr Amer 46 mL/min (>60); Globulin 3.6 g/dL (2.2-4.2); Glucose 138 mg/dL (74-106); Potassium 4.4 mmol/L (3.5-5.1); Protein, Total 7.3 g/dL (6.4-8.2); Sodium Level 136 mmol/L (136-145)
== END ==
PROVIDERS: Referring Provider Internal Medicine Rheumatology; Visit Provider Internal Medicine Rheumatology
DX: M06.4 Inflammatory polyarthropathy (principal); M79.7 Fibromyalgia; M35.00 Sjogren syndrome, unspecified; M15.9 Polyosteoarthritis, unspecified; K58.0 Irritable bowel syndrome with diarrhea; M48.061 Spinal stenosis, lumbar region without neurogenic claudication; I10 Essential (primary) hypertension; E11.42 Type 2 diabetes mellitus with diabetic polyneuropathy
CPT/HCPCS: 36415; 80053; 85025

== ENCOUNTER → 2020-10-21 11:27 | Outpatient (CLI) | payer MEDICARE, SELFPAY ==
--- NOTE | 2020-10-21 11:30 | RAD_ITS ---
STUDY: X-RAY - LEFT HUMERUS REASON FOR EXAM: Left humeral pain, fall. TECHNIQUE: 2 view(s) of the humerus. COMPARISON: None. FINDINGS: Normal visualized humerus. There is no demonstrated fracture or osseous destructive process. There is no demonstrated soft tissue abnormality. RAD/Humerus min 2 Views IMPRESSION: Normal x-ray examination of the left humerus. Electronically Signed: Greg Mueller MD at 12:35 EST Tel , Service support ,
--- NOTE | 2020-10-21 11:30 | RAD_ITS ---
STUDY: X-RAY - LEFT SHOULDER REASON FOR EXAM: Left shoulder pain, fall. TECHNIQUE: 4 view(s) of the shoulder. COMPARISON: None. FINDINGS: Normal glenohumeral articulation. There is acromioclavicular arthrosis. Normal acromion. Normal humeral head and visualized proximal humerus. There is narrowing of the acromiohumeral distance. Normal visualized pulmonary apex. RAD/Shoulder min 2 Views IMPRESSION: Narrowing of the acromiohumeral distance suggestive of rotator cuff pathology. Acromioclavicular arthrosis. Electronically Signed: Greg Mueller MD at 12:12 EST Tel , Service support ,
== END ==
PROVIDERS: Referring Provider Anesthesiology Pain Medicine; Visit Provider Anesthesiology Pain Medicine
DX: M19.012 Primary osteoarthritis, left shoulder (principal)
CPT/HCPCS: 73030; 73060

== ENCOUNTER 2020-12-09 13:50 | Inpatient (IN) | payer MEDICARE, SELFPAY ==
[2020-12-09] VITALS (7 sets, daily range): BP systolic 114–126; BP diastolic 63–84; PULSE 76–92; RESP 16–19; TEMP 36.6–36.7; O2SAT 99–100; BMI 31.1; BMI 31.2; BMI 30.3
[2020-12-09] MEDS: Dextrose 50%-Water 25 GM/50 ML DISP.SYRIN IV (14:02)
--- NOTE | 2020-12-09 14:10 | EKG12_ITS ---
Test Reason : Blood Pressure : / mmHG Vent. Rate : 083 BPM Atrial Rate : 083 BPM P-R Int : 172 ms QRS Dur : 086 ms QT Int : 486 ms P-R-T Axes : 051 030 193 degrees QTc Int : 571 ms Sinus rhythm with marked sinus arrhythmia ST & T wave abnormality, consider inferior ischemia ST & T wave abnormality, consider anterolateral ischemia Prolonged QT Abnormal ECG Confirmed by SUSANNA MELGAR, MALATHI ([id number]), electronic news gathering editor SORIN GUZMAN ([id number]) on 12/13/2020 10:51:14 AM Referred By: BRE Confirmed By:BANDAR MULLINS MD
[2020-12-09 14:11] LABS: Bedside Glucose 38 mg/dL (70-110)
[2020-12-09 14:29] LABS: Absolute Lymphocyte Count 0.45 X10^3/uL (0.83-4.51); Absolute Neutrophil Count 6.9 X10^3/uL (2.0-7.7); Basophil# 0.05 X10^3/uL; Basophil% 0.6 % (0-1); Eosinophils% 1.2 % (0-5); Hematocrit 36.1 % (37-47); Hemoglobin 11.5 g/dL (12.0-15.0); Lymphocyte # 0.45 X10^3/ul (4.0); Lymphocyte % 5.5 % (19-41); Mean Corp Hgb Conc 31.9 g/dL (32-36); Mean Corpuscular Hgb 29.3 pg (27.0-32.0); Mean Corpuscular Volume 91.9 fL (81-99); Mean Platelet Vol. 9.2 fl (6.2-12.0); Monocyte# 0.68 X10^3/uL; Monocyte% 8.3 % (0-10); NRBC Flagged by Analyzer 0 % (0-5); Neutrophil # 6.88 X10^3/uL (2.7-7.7); Neutrophil % 83.8 % (47-70); POSITIVE DIFFERENTIAL YES; Platelet Count 173 K/mm3 (150-450); RBC Distribution Width CV 15.4 % (11.6-14.6); RBC Distribution Width SD 51.8 fl (35.1-43.9); Red Blood Count 3.93 M/mm3 (4.2-5.4); White Blood Count 8.2 K/mm3 (4.4-11.0)
--- NOTE | 2020-12-09 14:29 | ED.VISSUMM ---
- ER Visit Summary Date of Service: 12/09/20 Chief Complaint: Low blood sugar History of Present Illness: The patient is a 70 F presenting with low blood sugar. EMS was called this morning due to a fall. She refused transport at that time. They helped her up. Family went to check on her later in the day and found her on the floor. EMS was called again. Her blood sugar on EMS arrival was 47. They gave her oral glucose. It came up to 110. On arrival to the ED her blood sugar was back down to 37. She states she has had some insurance changes and her medications have changed. She no longer takes insulin and is on oral hypoglycemics. She denies chest pain or other complaints. Physical Examination: Vitals are stable. Patient is afebrile. Alert no acute distress. HEENT exam is unremarkable. Neck is supple. Lungs are clear and equal bilaterally. Heart is regular rate and rhythm. Abdomen is soft nontender nondistended. Extremities symmetric edema Skin is warm and dry. No focal neurologic deficit. Remainder of exam is unremarkable. Emergency Department Course and Treatment: EKG is sinus rate of [address] depression and T wave inversion. CBC shows hemoglobin 11.5. BGT initially 38 after amp of D50 it increased to 98. Covid is negative. CK 272. Chest xray read by myself and radiology shows vascular congestion and mild CHF. Troponin is 2.97. She was started on heparin drip and given aspirin. Discussed with Dr. Berrios and the hospitalist for admission. Disposition: Admission Impression: NSTEMI, hypoglycemia This note was generated with [employer] dictation software. It may contain incorrect words, spelling, and punctuation that were not noted in review of the chart prior to signing ED Disposition - Plan for ED Patient: Referrals: Tigre Whitley [Primary Care Provider] -
[2020-12-09 14:31] LABS: Differential Indicated SCAN CRITERIA MET
[2020-12-09 14:42] LABS: ALB/GLOB Ratio 0.9 RATIO (0.9-2.4); AST(SGOT) 38 U/L (15-37); Alanine Aminotransfer ALT/SGPT 22 U/L (13-56); Albumin, Serum 2.9 g/dL (3.2-5.0); Alkaline Phosphatase 88 U/L (45-117); Anion Gap 5 (5-15); BUN 17 mg/dL (7-18); BUN/Creat Ratio 18.4 RATIO (10-20); Calcium,Total 7.8 mg/dL (8.5-10.1); Chloride 108 mmol/L (98-107); Creatinine, Serum 0.92 mg/dL (0.55-1.02); EST Glomerular Filtration Rate 63 mL/min (>60); Est Glom Filt Rate - Afr Amer 77 mL/min (>60); Estimated Creatinine Clearance 61.17 ml/min; Globulin 3.1 g/dL (2.2-4.2); Glucose 49 mg/dL (74-106); Potassium 3.4 mmol/L (3.5-5.1); Sodium Level 141 mmol/L (136-145)
--- NOTE | 2020-12-09 14:55 | RAD_ITS ---
STUDY: X-RAY CHEST REASON FOR EXAM: Female, 70 years old. SHORT OF BREATH, HYPOGLYCEMIA TECHNIQUE: Single AP portable view of the chest. COMPARISON: Comparison is made with prior study dated 12/15/2019. FINDINGS: EKG electrodes are seen. There is evidence of vascular congestion and mild degree of CHF. There is no demonstrated pleural abnormality. There is borderline cardiomegaly. Normal mediastinum and greg. Normal visualized pulmonary arteries. There is atherosclerotic tortuosity of the aortic arch and descending thoracic aorta. There are diffuse degenerative changes of the visualized thoracic spine. Normal visualized ribs, clavicles, and shoulders. There is no demonstrated abnormality of the visualized soft tissue structures of the upper abdomen. RAD/Chest 1 View (Portable) IMPRESSION: Vascular congestion and mild CHF. Electronically Signed: Wayne Guan MD at 15:18 EST , Service support ,
[2020-12-09 14:56] LABS: Bedside Glucose 98 mg/dL (70-110)
[2020-12-09 15:01] LABS: CPK Total, Creatine Kinase 272 U/L (26-192)
[2020-12-09 15:03] LABS: Differential Comment SCANNED
[2020-12-09 15:35] LABS: Mucous, Urine 0 SEEN /hpf (<or=2+)
[2020-12-09 15:47] LABS: Color, Urine Yellow (Yellow); Glucose, Dipstick 100 mg/dl (Normal); Ketone-Dipstick Negative (Negative); Leukocyte Esterase-Dipstick 500 /ul (Negative); Nitrite-Dipstick Positive (Negative); Occult Blood-Urine 10 /ul (Negative); Protein-Dipstick 15 mg/dl (Negative); Specific Gravity, Urine 1.015 (1.002-1.030); Urine Bilirubin Dipstick Negative (Negative); Urine Clarity Cloudy (Clear); Urine Urobilinogen Normal (Normal)
[2020-12-09 15:56] LABS: Bacteria 2+ /hpf (None Seen); Red Blood Cells-Urine 0-5 SEEN /hpf (0-5); Squamous Epithelial Cells - UA 0-5 SEEN /hpf (5-10); White Blood Cells >100 SEEN /hpf (0-5)
--- NOTE | 2020-12-09 16:01 | HP.PCM_ITS ---
<Sherri Mathias ARMHOLE PRESSER - Last Filed: 12/09/20 17:25> Problem List (1) Hypoglycemia Status: Acute (2) Chronic kidney disease, stage III (moderate) Status: Chronic (3) Chronic back pain Status: Chronic (4) Type II diabetes mellitus Status: Chronic (5) Hypertension Status: Chronic History of Present Illness Date of Admission: 12/09/20 Chief Complaint: Fall at home, low blood sugar. The patient is a 70 year old F who presents to the emergency room due to fall and low blood sugar. Patient states she fell early this morning and was unable to get herself up. EMS was called and helped her up, she refused transport at that time. Later in the day her daughter checked on her and found her lying on the floor. Her daughter checked her blood sugar and reports it was in the 40s. She received oral glucose and blood sugar improved. She denies chest pain. Patient states she has shortness of breath with exertion which has been ongoing and thinks it is due to getting old. She denies frequent falls. She states her daughter is typically with her during the day to help her. Patient states she had a cold about 4 weeks ago and reports chest pain during that time however she states it resolved when her cold symptoms resolved. She has a past medical history of type 2 diabetes mellitus, hypertension, chronic back pain, hyperlipidemia, depression, anxiety. Past Medical History Past Medical History (Chronic Problems): Chronic Problems Chronic kidney disease, stage III (moderate) (Chronic) Chronic back pain (Chronic) Type II diabetes mellitus (Chronic) Hypertension (Chronic) Allergies ciprofloxacin [From Cipro] Allergy (Verified 12/09/20 13:52) Hives ciprofloxacin HCl [From Cipro] Allergy (Verified 12/09/20 13:52) Hives Penicillins Allergy (Verified 12/09/20 13:52) Hives Home Medications: Ambulatory Orders Medication Instructions Recorded Amlodipine [Norvasc] 5 mg PO QHS 05/11/16 Duloxetine Hcl [Cymbalta] 60 mg PO QHS 05/11/16 Pregabalin [Lyrica] 75 mg PO DAILY 05/11/16 Atorvastatin Calcium [Lipitor] 10 mg PO QHS 08/16/17 Hydroxychloroquine Sulfate 300 mg PO DAILY 07/19/18 [Plaquenil] Sitagliptin Phosphate [Januvia] 100 mg PO DAILY 07/19/18 Allopurinol 100 mg PO DAILY 12/09/20 Bupropion HCl [Bupropion Xl] 150 mg PO DAILY 12/09/20 Glimepiride [Amaryl] 4 mg PO DAILY 12/09/20 Hydrochlorothiazide [Hctz] 25 mg PO DAILY 12/09/20 Hydrocodone Bitart/Apap 5-325 1 tab PO BID 12/09/20 [[place] 5MG-325MG] Hydroxyzine HCl 10 - 20 mg PO QHS 12/09/20 Lisinopril [Zestril] 10 mg PO DAILY 12/09/20 Prednisone 5 mg PO UD PRN 12/09/20 Surgical History: hysterectomy, total knee arthroplasty Psychiatric History: No 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 Denies: Cough, Sputum production, Wheezing Gastrointestinal: Denies: Abdominal Pain, Nausea, Vomiting Genitourinary: Denies: Dysuria Musculoskeletal: Denies: Joint Pain, Joint Tenderness Skin: Denies: Rash, Wounds Neurological: Denies: Numbness, Tingling, Focal weakness Psychiatric: Reports: Anxiety, Depression. Denies: Homicidal Ideations, Suicidal Ideations Hematologic/ Lymphatic: Denies: Easy Bruising, Easy Bleeding VTE Information - Inpt Only VTE Present on Admission: No VTE Mechan Device Prophylaxis: None VTE Pharm Prophylaxis ordered?: Yes - Physical Exam Vitals/I&O's: Vital Signs Temp Pulse Resp BP Pulse Ox 98.0 F 76 19 H 114/63 100 12/09/20 13:52 12/09/20 13:56 12/09/20 13:56 12/09/20 13:56 12/09/20 13:56 Oxygen Delivery Method Room Air Weight: 154 lb 8.705 oz Body Mass Index (BMI) 31.1 Finger Stick Blood Glucose 98 General: Alert, Oriented x3, Cooperative HEENT: Atraumatic, PERRLA, EOMI, Normocephalic Neck: Supple, No JVD, Negative Carotid Bruits Lungs: Clear to auscultation, Normal air movement Cardiovascular: Regular rate, No murmurs Abdomen: Bowel Sounds Present, Soft, Non Tender, Non-Distended Extremities: No clubbing, No cyanosis, Edema - +1 bilateral lower extremity edema Skin: No rashes, No breakdown Musculoskeletal: No Tenderness to Palpation of Joints or Extremities, - - Left arm weakness following left shoulder injury/fall Neurological: Cranial nerves II-XII grossly intact Psych/Mental Status: Normal Affect, Appropriate Microbiology Past 72 Hours 12/09/20 14:18 Mucosa - Nose SARS-CoV-2 Antigen (Rapid) - Final Laboratory Results 12/09/20 13:57: POC Glucose 38 L* 12/09/20 13:58: WBC 8.2, RBC 3.93 L, Hgb 11.5 L, Hct 36.1 L, MCV 91.9, MCH 29.3, MCHC 31.9 L, RDW Std Deviation 51.8 H, RDW Coeff of Janusz 15.4 H, Plt Count 173, MPV 9.2, Immature Gran % (Auto) 0.600, Neut % (Auto) 83.8 H, Lymph % (Auto) 5.5 L, Maverick % (Auto) 8.3, Eos % (Auto) 1.2, Baso % (Auto) 0.6, Absolute Neuts (auto) 6.9, Absolute Lymphs (auto) 0.45 L, Nucleated RBC % 0, Differential Comment SCANNED 12/09/20 13:58: Sodium 141, Potassium 3.4 L, Chloride 108 H, Carbon Dioxide 28.0, Anion Gap 5, BUN 17, Creatinine 0.92, Estim Creat Clear Calc 61.17, Est GFR (MDRD) Af Amer 77, Est GFR (MDRD) Non-Af 63, BUN/Creatinine Ratio 18.4, Glucose 49 L, Calcium 7.8 L, Total Bilirubin 0.90, AST 38 H, ALT 22, Alkaline Phosphatase 88, Total Protein 6.0 L, Albumin 2.9 L, Globulin 3.1, Albumin/Globulin Ratio 0.9 12/09/20 13:58: Total Creatine Kinase 272 H 12/09/20 13:58: Troponin I 2.970 H* 12/09/20 13:58: APTT Pending 12/09/20 14:46: POC Glucose 98 12/09/20 15:24: Urine Color Yellow, Urine Clarity Cloudy, Urine pH 5.0, Ur Specific [place] 1.015, Urine Protein 15 H, Urine Glucose (UA) 100 H, Urine Ketones Negative, Urine Occult Blood 10 H, Urine Nitrite Positive H, Urine Bilirubin Negative, Urine Urobilinogen Normal, Ur Leukocyte Esterase 500 H, Urine RBC 0-5 SEEN, Urine WBC >100 SEEN, Ur Squamous Epith Cells 0-5 SEEN, Urine Bacteria 2+, Urine Mucus 0 SEEN Current Medications Heparin Sodium (Porcine) (Heparin Injection (Vial) 5,000 Unit/Ml Vial) 0 unit IV UD PRN; Protocol PRN Reason: dose adjustment Heparin Sodium/Dextrose () 25,000 units in 250 mls @ 10 mls/hr IV .Q25H FREDERICK; Protocol Assessment/Plan All Active Problems Hypoglycemia (Acute) 1. NSTEMI-cardiology consulted in ER. On heparin drip. Trend enzymes. Heart cath in a.m. 2. Hypoglycemia in the context of type 2 diabetes mellitus-received dextrose in ER. Hold home oral regimen. Every 6 hours Accu-Cheks. 3. Probable UTI-patient denies symptoms. UA with 2+ bacteria, greater than 100 WBC and positive nitrite. Will obtain urine culture. IV Rocephin pending culture. 4. Mild traumatic rhabdomyolysis-secondary to recurrent fall, found on floor at home. Underlying debility with recurrent fall. IV fluids. PT/OT. 5. Hypertension-stable, continue amlodipine, lisinopril. Hold HCTZ. 6. Chronic back pain-as needed pain regimen. 7. Hyperlipidemia-continue statin. 8. Depression/Anxiety-continue Cymbalta, bupropion. DVT prophylaxis-Heparin drip This patient was seen by JENNY Danielson under the supervision of Dr. Shelton. <Ian Shelton F - Last Filed: 12/09/20 20:26> History of Present Illness The patient is a 70 year old F [] Past Medical History Allergies ciprofloxacin [From Cipro] Allergy (Verified 12/09/20 13:52) Hives ciprofloxacin HCl [From Cipro] Allergy (Verified 12/09/20 13:52) Hives Penicillins Allergy (Verified 12/09/20 13:52) Hives - Physical Exam Vitals/I&O's: Vital Signs Temp Pulse Resp BP Pulse Ox 97.9 F 81 16 115/84 H 100 12/09/20 17:12 12/09/20 17:12 12/09/20 17:12 12/09/20 17:12 12/09/20 17:12 Oxygen Delivery Method Room Air Weight: 150 lb 3.2 oz Body Mass Index (BMI) 30.3 Finger Stick Blood Glucose 98 Intake and Output for Last 24 Hours 12/07/20 12/08/20 12/09/20 23:59 23:59 23:59 Intake Total 500.2 / 500.2 Balance 500.2 / 500.2 Microbiology Past 72 Hours 12/09/20 14:18 Mucosa - Nose SARS-CoV-2 Antigen (Rapid) - Final Laboratory Results 12/09/20 13:57: POC Glucose 38 L* 12/09/20 13:58: WBC 8.2, RBC 3.93 L, Hgb 11.5 L, Hct 36.1 L, MCV 91.9, MCH 29.3, MCHC 31.9 L, RDW Std Deviation 51.8 H, RDW Coeff of Janusz 15.4 H, Plt Count 173, MPV 9.2, Immature Gran % (Auto) 0.600, Neut % (Auto) 83.8 H, Lymph % (Auto) 5.5 L, Maverick % (Auto) 8.3, Eos % (Auto) 1.2, Baso % (Auto) 0.6, Absolute Neuts (auto) 6.9, Absolute Lymphs (auto) 0.45 L, Nucleated RBC % 0, Differential Comment SCANNED 12/09/20 13:58: Sodium 141, Potassium 3.4 L, Chloride 108 H, Carbon Dioxide 28.0, Anion Gap 5, BUN 17, Creatinine 0.92, Estim Creat Clear Calc 61.17, Est GFR (MDRD) Af Amer 77, Est GFR (MDRD) Non-Af 63, BUN/Creatinine Ratio 18.4, Glucose 49 L, Calcium 7.8 L, Total Bilirubin 0.90, AST 38 H, ALT 22, Alkaline Phosphatase 88, Total Protein 6.0 L, Albumin 2.9 L, Globulin 3.1, Albumin/Globulin Ratio 0.9 12/09/20 13:58: Total Creatine Kinase 272 H 12/09/20 13:58: Troponin I 2.970 H* 12/09/20 13:58: APTT 31.0 12/09/20 14:46: POC Glucose 98 12/09/20 15:24: Urine Color Yellow, Urine Clarity Cloudy, Urine pH 5.0, Ur Speci fic [place] 1.015, Urine Protein 15 H, Urine Glucose (UA) 100 H, Urine Ketones Negative, Urine Occult Blood 10 H, Urine Nitrite Positive H, Urine Bilirubin Negative, Urine Urobilinogen Normal, Ur Leukocyte Esterase 500 H, Urine RBC 0-5 SEEN, Urine WBC >100 SEEN, Ur Squamous Epith Cells 0-5 SEEN, Urine Bacteria 2+, Urine Mucus 0 SEEN 12/09/20 15:31: APTT Cancelled 12/09/20 19:00: Troponin I 2.160 H* 12/09/20 22:15: APTT > 250.0 H* Current Medications Acetaminophen (Acetaminophen 325 Mg Tablet) 650 mg PO Q6H PRN PRN PRN Reason: Pain Score 1-10/Temp > 100.7 F Allopurinol (Allopurinol 100 Mg Tablet) 100 mg PO DAILYCM [facility] Amlodipine Besylate (Amlodipine 5 Mg Tablet) 5 mg PO QHS [facility] Atorvastatin Calcium (Atorvastatin Calcium 10 Mg Tablet) 10 mg PO QHS [facility] Bupropion HCl (Bupropion (Xl) 150 Mg Tablet.Xl) 150 mg PO DAILY [facility] Duloxetine HCl (Duloxetine Hcl 60 Mg Capsule) 60 mg PO QHS [facility] Heparin Sodium (Porcine) (Heparin Injection (Vial) 5,000 Unit/Ml Vial) 0 unit IV UD PRN; Protocol PRN Reason: dose adjustment Hydroxychloroquine Sulfate (Hydroxychloroquine 200 Mg Tablet) 300 mg PO DAILYCM [facility] Heparin Sodium/Dextrose () 25,000 units in 250 mls @ 10 mls/hr IV .Q25H [facility]; Protocol Last Admin: 12/09/20 17:55 Dose: Not Given Documented by: Lisinopril (Lisinopril 10 Mg Tablet) 10 mg PO DAILY [facility] Melatonin (Melatonin 3 Mg Tablet) 3 mg PO QHS PRN PRN PRN Reason: INSOMNIA Nitroglycerin (Nitroglycerin (Inpatient Use) 0.4 Mg Tab.Subl) 0.4 mg SUBLINGUAL Q5M PRN PRN Reason: CARDIAC/CHEST PAIN Ondansetron HCl (Ondansetron 4 Mg/2 Ml Vial) 4 mg IV Q8H PRN PRN PRN Reason: NAUSEA/VOMITING Oxycodone HCl (Oxycodone 5 Mg Tablet) 5 mg PO Q4H PRN PRN PRN Reason: Pain Score 6-10 Pregabalin (Pregabalin 75 Mg Capsule) 75 mg PO DAILY [facility] Trimethoprim/Sulfamethoxazole (Smz/Tmp Ds Tablet) 1 tablet PO BID [facility] Addendum: Dr. Shelton I personally examined the patient and reviewed the chart. I agree with the above. 70-year-old female with a history of hypertension, and hyperlipidemia, diabetes, anxiety, and depression presented to the hospital with some falls today and weakness. A couple weeks ago she said she had a cold and she had a chest pain with a tight brain band across her chest for about a day however did not seek any medical treatment at that time. Today however her daughter felt that she was not acting appropriately so she called EMS who checked a blood aldrich gar on her and it was low down in the 40s. She refused transfer to the hospital at that time so later on in the day her daughter checked checked on her and found her lying on the floor. She has been having some increased shortness of breath with exertion especially with going up stairs, she says now she is not able to go upstairs anymore. She does not have any issues with laying flat. However incidentally on admission she was found to have ST depressions and an elevated troponin to 2.97 which has decreased to 2.160. She was given a dose of aspirin in the ER and started on a heparin drip. Cardiology was consulted and will plan for a cardiac cath in the morning. Inpatient E&M: [id number] Init Hosp L3
[2020-12-09] MEDS: HEPARIN/D5w 25,000 UNITS 25,000 UNITS/250 ML IV.SOLN. 0.1 UNITS IV (16:18)
[2020-12-09] MEDS: Heparin Injection (Vial) 5,000 UNIT/ML VIAL 4500 UNIT IV (16:19)
[2020-12-09] MEDS: Aspirin 325 MG Tablet PO (16:19)
[2020-12-09 18:16] LABS: Partial Thromboplast Time > 250.0 Seconds (24.1-36.2)
[2020-12-09] MEDS: HEPARIN/D5w 25,000 UNITS 25,000 UNITS/250 ML IV.SOLN. 7 UNITS IV (20:15)
[2020-12-09] MEDS: amLODIPine 5 MG Tablet PO (20:42)
[2020-12-09] MEDS: Smz/Tmp Ds Tablet 1 TABLET PO (20:42)
[2020-12-09] MEDS: DULoxetine Hcl 60 MG Capsule PO (20:42)
[2020-12-09] MEDS: Atorvastatin Calcium 10 MG Tablet PO (20:42)
[2020-12-10] VITALS (17 sets, daily range): BP systolic 110–149; BP diastolic 66–83; PULSE 75–96; RESP 16–18; TEMP 36.6–36.8; O2SAT 95–99
--- NOTE | 2020-12-10 00:07 | NURSING ---
Pts primary rn aware of trop value of 1.08 at this time.
[2020-12-10 02:29] LABS: Absolute Lymphocyte Count 0.63 X10^3/uL (0.83-4.51); Basophil# 0.06 X10^3/uL; Basophil% 0.8 % (0-1); Eosinophil# 0.11 X10^3/uL; Eosinophils% 1.5 % (0-5); Hematocrit 32.2 % (37-47); Hemoglobin 10.3 g/dL (12.0-15.0); Lymphocyte # 0.63 X10^3/ul (4.0); Lymphocyte % 8.4 % (19-41); Mean Corpuscular Hgb 29.5 pg (27.0-32.0); Mean Corpuscular Volume 92.3 fL (81-99); Mean Platelet Vol. 9.1 fl (6.2-12.0); Monocyte# 0.64 X10^3/uL; Monocyte% 8.6 % (0-10); NRBC Flagged by Analyzer 0 % (0-5); Neutrophil # 5.98 X10^3/uL (2.7-7.7); Neutrophil % 80.2 % (47-70); Platelet Count 161 K/mm3 (150-450); RBC Distribution Width CV 15.4 % (11.6-14.6); RBC Distribution Width SD 52.7 fl (35.1-43.9); Red Blood Count 3.49 M/mm3 (4.2-5.4); White Blood Count 7.5 K/mm3 (4.4-11.0)
[2020-12-10 02:39] LABS: Partial Thromboplast Time 50.3 Seconds (24.1-36.2)
[2020-12-10 02:44] LABS: Anion Gap 6 (5-15); BUN 17 mg/dL (7-18); BUN/Creat Ratio 20.7 RATIO (10-20); Calcium,Total 7.5 mg/dL (8.5-10.1); Chloride 110 mmol/L (98-107); Cholesterol 177 mg/dL (200); Creatinine, Serum 0.82 mg/dL (0.55-1.02); EST Glomerular Filtration Rate 73 mL/min (>60); Est Glom Filt Rate - Afr Amer 88 mL/min (>60); Glucose 68 mg/dL (74-106); High Density Lipoprotein 52 mg/dL; Potassium 3.6 mmol/L (3.5-5.1); Sodium Level 141 mmol/L (136-145); Triglycerides 147 mg/dL; Very Low Density Lipoprotein 29 mg/dL (5-40)
--- NOTE | 2020-12-10 05:28 | EKG12_ITS ---
Test Reason : AM EKG Blood Pressure : / mmHG Vent. Rate : 079 BPM Atrial Rate : 079 BPM P-R Int : 146 ms QRS Dur : 084 ms QT Int : 470 ms P-R-T Axes : 021 056 183 degrees QTc Int : 538 ms Normal sinus rhythm ST & Marked T wave abnormality, consider anterolateral ischemia Prolonged QT Abnormal ECG When compared with ECG of 09-DEC-2020 14:37, MANUAL COMPARISON REQUIRED, DATA IS UNCONFIRMED Confirmed by MICAELA MELGAR, DESIRAE ([id number]), state editor RANDY ARCEO ([id number]) on 12/14/2020 8:47:29 AM Referred By: DR INIGUEZ Confirmed By:DESIRAE HINOJOSA MD
[2020-12-10 07:45] LABS: Bedside Glucose 96 mg/dL (70-110)
[2020-12-10 08:59] LABS: Partial Thromboplast Time 63.4 Seconds (24.1-36.2)
--- NOTE | 2020-12-10 11:41 | CASEMGMT ---
According to the [facility] PT website, the following are in-network tertiary facilities: [facility], [place], [facility], [facility], [facility], and . Erik ROJAS CM
[2020-12-10 11:45] LABS: Bedside Glucose 72 mg/dL (70-110)
--- NOTE | 2020-12-10 12:30 | CASEMGMT ---
RN CM DIRECTOR OF SEARCH ENGINE MARKETING CM to room to meet with patient for initial transition planning/care coordination assessment. CRYSTAL ADAMSON introduced self and role at [facility]. Pt voices understanding and consents to assessment at this time. Pt sitting up in chair in room in no distress at this time. Pt is A/O at this time and answers all questions appropriately. Care providers, pharmacy, and demographics verified/updated at this time. PCP: Dr Whitley Specialists:Dr Khoury--nephrology, Dr Persaud--pain mgmt, Dr Saenz--arthritis Preferred Pharmacy: [facility] Insurance: [employer] Prescription Benefit: Yes Living Will/HPOA: Has both LW and Healthcare POA, who is her daughter, Kacey LNOK: Daughter, Kacey Living Arrangements:Lives alone in 2-story home w/basement. 10 steps to enter. Pt states she does okay with the steps. I just take them one at a time. FFSU. Daughter works night auditor but goes to pt's home and stays with her most days from 8 or 9 AM to 7 PM. Daughter assists w/showering, laundry, meals/cooking, med mgmt. Pt able to dress herself independently and prepares light meals. Transportation: daughter DME: has the following DME: built-in shower seat, rails/grab bars, hand held shower, cane, walker, carton packaging machine operator, glucometer Pt is interested in getting a medical alert button. Information sheet of local [employer] that provide this given to pt at this time. SNF/HHC: no history of either. PT/OT notes reviewed and additional therapy recommended. Discussed options of SNF, HHC, and OP therapy--pt declines all of these. She was made aware, if in the future, she would have interest in HHC or OP therapy, to discuss this with her PCP. She voices understanding. Pt wishes to return home and states has no concerns with going home at time of discharge. CM to follow for any discharge planning/needs. Pt voices no home-going concerns/needs at this time. Advised pt to ask for CM if any questions/concerns/needs arise. Voices understanding. D/C Plan: Home w/family support and discharge plans in place. Elaine MOMIN RN, CM
--- NOTE | 2020-12-10 13:03 | PCM.CONS.C ---
Reason for Consult Date of Consultation: 12/10/20 Reason for Consultation: Elevated troponin History of Present Illness: The patient is a 70 year old F [coming to [facility] after a fall. Patient had 2 falls recently. During the first episode she was apparently watching TV and then dozed off and fell from her chair. The second time she is unsure exactly how it happened but does remember having a fall. After she had a fall she had some left-sided chest discomfort. She denies any chest discomfort prior to that. She is a somewhat poor historian. She says that sometimes she gets lightheaded when she gets up from a sitting position. Patient was found to be hypoglycemic after the fall. Patient's troponin went up to 2 and then came down to around 1. T wave inversions in the anterior leads. Review of systems: All systems reviewed. All others negative except that in HPI.] Past Medical History Allergies/Adverse Reactions: Allergies ciprofloxacin [From Cipro] Allergy (Verified 12/09/20 13:52) Hives ciprofloxacin HCl [From Cipro] Allergy (Verified 12/09/20 13:52) Hives Penicillins Allergy (Verified 12/09/20 13:52) Hives Home Medications: Ambulatory Orders Medication Instructions Recorded Amlodipine [Norvasc] 5 mg PO QHS 05/11/16 Duloxetine Hcl [Cymbalta] 60 mg PO QHS 05/11/16 Pregabalin [Lyrica] 75 mg PO DAILY 05/11/16 Atorvastatin Calcium [Lipitor] 10 mg PO QHS 08/16/17 Hydroxychloroquine Sulfate 300 mg PO DAILY 07/19/18 [Plaquenil] Sitagliptin Phosphate [Januvia] 100 mg PO DAILY 07/19/18 Allopurinol 100 mg PO DAILY 12/09/20 Bupropion HCl [Bupropion Xl] 150 mg PO DAILY 12/09/20 Glimepiride [Amaryl] 4 mg PO DAILY 12/09/20 Hydrochlorothiazide [Hctz] 25 mg PO DAILY 12/09/20 Hydrocodone Bitart/Apap 5-325 1 tab PO BID 12/09/20 [[place] 5MG-325MG] Hydroxyzine HCl 10 - 20 mg PO QHS 12/09/20 Lisinopril [Zestril] 10 mg PO DAILY 12/09/20 Prednisone 5 mg PO UD PRN 12/09/20 Past Medical History (Chronic Problems): Chronic Problems Chronic kidney disease, stage III (moderate) (Chronic) Chronic back pain (Chronic) Type II diabetes mellitus (Chronic) Hypertension (Chronic) Surgical History: hysterectomy, total knee arthroplasty Psychiatric History: No pertinent psych hx 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 - *Family History Maternal History Items: Cancer - Colon, Heart Disease, - Paternal History Items: Cancer - Colon, Heart Disease Lives: Alone Smoking Status: Former smoker Tobacco Use: Non-smoker Alcohol: None Drugs: None Objective: Vital Signs Temp Pulse Resp BP Pulse Ox 98.0 F 96 16 110/67 97 12/10/20 08:29 12/10/20 11:16 12/10/20 08:29 12/10/20 08:29 12/10/20 08:29 Oxygen Delivery Method Room Air Weight: 150 lb 3.2 oz Body Mass Index (BMI) 30.3 Finger Stick Blood Glucose 98 Intake and Output for Last 24 Hours 12/08/20 12/09/20 12/10/20 23:59 23:59 23:59 Intake Total 500.2 / 500.2 43.75 / 43.75 Output Total 3 / 3 Balance 500.2 / 500.2 40.75 / 40.75 General: Awake, Alert, Oriented x 3 HEENT: Atraumatic Oral: Moist Mucosa Neck: Supple Lungs: Clear to auscultation Cardiovascular: Regular Rhythm Abdomen: Soft Extremities: No edema Skin: No Rashes Psych/Mental Status: Appropriate 12/09/20 13:58: WBC 8.2, RBC 3.93 L, Hgb 11.5 L, Hct 36.1 L, MCV 91.9, MCH 29.3, MCHC 31.9 L, Plt Count 173, MPV 9.2, Immature Gran % (Auto) 0.600, Neut % (Auto) 83.8 H, Lymph % (Auto) 5.5 L, [place] % (Auto) 8.3, Eos % (Auto) 1.2, Baso % (Auto) 0.6, Absolute Neuts (auto) 6.9, Nucleated RBC % 0 12/09/20 13:58: Sodium 141, Potassium 3.4 L, Chloride 108 H, Carbon Dioxide 28.0, Anion Gap 5, BUN 17, Creatinine 0.92, Est GFR (MDRD) Af Amer 77, Est GFR (MDRD) Non-Af 63, BUN/Creatinine Ratio 18.4, Glucose 49 L, Calcium 7.8 L, Total Bilirubin 0.90 12/09/20 13:58: Troponin I 2.970 H* 12/09/20 13:58: APTT 31.0 12/09/20 15:24: Urine Color Yellow, Urine Clarity Cloudy, Urine pH 5.0, Ur Specific [place] 1.015, Urine Protein 15 H, Urine Glucose (UA) 100 H, Urine Ketones Negative, Urine Occult Blood 10 H, Urine Nitrite Positive H, Urine Bilirubin Negative, Urine Urobilinogen Normal, Ur Leukocyte Esterase 500 H, Urine RBC 0-5 SEEN, Urine WBC >100 SEEN 12/09/20 15:31: APTT Cancelled 12/09/20 19:00: Troponin I 2.160 H* 12/09/20 22:15: APTT > 250.0 H* 12/09/20 23:18: Troponin I 1.080 H* 12/10/20 02:20: WBC 7.5, RBC 3.49 L, Hgb 10.3 L, Hct 32.2 L, MCV 92.3, MCH 29.5, MCHC 32.0, Plt Count 161, MPV 9.1, Immature Gran % (Auto) 0.500, Neut % (Auto) 80.2 H, Lymph % (Auto) 8.4 L, [place] % (Auto) 8.6, Eos % (Auto) 1.5, Baso % (Auto) 0.8, Absolute Neuts (auto) 6.0, Nucleated RBC % 0 12/10/20 02:20: Sodium 141, Potassium 3.6, Chloride 110 H, Carbon Dioxide 25.0, Anion Gap 6, BUN 17, Creatinine 0.82, Est GFR (MDRD) Af Amer 88, Est GFR (MDRD) Non-Af 73, BUN/Creatinine Ratio 20.7 H, Glucose 68 L, Calcium 7.5 L, Triglycerides 147, Cholesterol 177, LDL Cholesterol 96, VLDL Cholesterol 29, HDL Cholesterol 52 12/10/20 02:20: APTT 50.3 H 12/10/20 08:37: APTT 63.4 H Rhythm: EKG: ECHO: Stress Test: Cardiac Cath: PCI: CT Surgery: Holter monitor: EPS: PPM: CXR: Chest CT Scan: Assessment/Plan 1. Elevated troponin: Patient had a fall and apparently was on the floor for a while before she could get up. She has mild rhabdomyolysis but troponin is out of proportion to that. She could have underlying Takotsubo cardiomyopathy and her EKG changes and troponin could be secondary to that. However it is reasonable to rule out significant LAD stenosis as a cause for her EKG changes and troponin elevation as well. We will proceed with coronary angiography. Rest of the management will be based on angiography findings. Telemetry has been unremarkable.
--- NOTE | 2020-12-10 14:07 | PN_ITS ---
<Sherri Mathias HOT BRAIDER - Last Filed: 12/10/20 14:19> Patient Problems: Active and Suspected Problems (Last Updated 12/10/20 @ 15:33 by Lucia Lee) Hypoglycemia (Acute) Subjective: Patient seen and examined. Denies chest pain, shortness of breath. To undergo heart cath later today. Patient amenable to plan. - Physical Exam Vitals/I&O's: Vital Signs Temp Pulse Resp BP Pulse Ox 98.0 F 96 16 110/67 97 12/10/20 08:29 12/10/20 11:16 12/10/20 08:29 12/10/20 08:29 12/10/20 08:29 Oxygen Delivery Method Room Air Weight: 150 lb 3.2 oz Body Mass Index (BMI) 30.3 Finger Stick Blood Glucose 98 Intake and Output for Last 24 Hours 12/08/20 12/09/20 12/10/20 23:59 23:59 23:59 Intake Total 500.2 / 500.2 43.75 / 43.75 Output Total 3 / 3 Balance 500.2 / 500.2 40.75 / 40.75 General: Alert, Oriented x3, Cooperative HEENT: Atraumatic, PERRLA, EOMI, Normocephalic Neck: Supple, No JVD, Negative Carotid Bruits Lungs: Clear to auscultation, Normal air movement Cardiovascular: Regular rate, No murmurs Abdomen: Bowel Sounds Present, Soft, Non Tender, Non-Distended Extremities: No clubbing, No cyanosis, Capillary Refill Less than 3 Seconds, Edema - 1+ bilateral lower extremities Skin: No rashes, No breakdown Musculoskeletal: No Tenderness to Palpation of Joints or Extremities, - - Left arm weakness following left shoulder injury/fall Neurological: Cranial nerves II-XII grossly intact, Neuro grossly intact Psych/Mental Status: Normal Affect, Appropriate Microbiology Past 72 Hours 12/09/20 19:05 Urine Catheter - Catheter Urine Culture - Preliminary Presumptive E. coli 12/09/20 14:18 Mucosa - Nose SARS-CoV-2 Antigen (Rapid) - Final Laboratory Results 12/09/20 13:57: POC Glucose 38 L* 12/09/20 13:58: WBC 8.2, RBC 3.93 L, Hgb 11.5 L, Hct 36.1 L, MCV 91.9, MCH 29.3, MCHC 31.9 L, RDW Std Deviation 51.8 H, RDW Coeff of Janusz 15.4 H, Plt Count 173, MPV 9.2, Immature Gran % (Auto) 0.600, Neut % (Auto) 83.8 H, Lymph % (Auto) 5.5 L, [place] % (Auto) 8.3, Eos % (Auto) 1.2, Baso % (Auto) 0.6, Absolute Neuts (auto) 6.9, Absolute Lymphs (auto) 0.45 L, Nucleated RBC % 0, Differential Comment SCANNED 12/09/20 13:58: Sodium 141, Potassium 3.4 L, Chloride 108 H, Carbon Dioxide 28.0, Anion Gap 5, BUN 17, Creatinine 0.92, Estim Creat Clear Calc 61.17, Est GFR (MDRD) Af Amer 77, Est GFR (MDRD) Non-Af 63, BUN/Creatinine Ratio 18.4, Glucose 49 L, Calcium 7.8 L, Total Bilirubin 0.90, AST 38 H, ALT 22, Alkaline Phosphatase 88, Total Protein 6.0 L, Albumin 2.9 L, Globulin 3.1, Albumin/Globulin Ratio 0.9 12/09/20 13:58: Total Creatine Kinase 272 H 12/09/20 13:58: Troponin I 2.970 H* 12/09/20 13:58: APTT 31.0 12/09/20 14:46: POC Glucose 98 12/09/20 15:24: Urine Color Yellow, Urine Clarity Cloudy, Urine pH 5.0, Ur Specific [place] 1.015, Urine Protein 15 H, Urine Glucose (UA) 100 H, Urine Ketones Negative, Urine Occult Blood 10 H, Urine Nitrite Positive H, Urine B ilirubin Negative, Urine Urobilinogen Normal, Ur Leukocyte Esterase 500 H, Urine RBC 0-5 SEEN, Urine WBC >100 SEEN, Ur Squamous Epith Cells 0-5 SEEN, Urine Bacteria 2+, Urine Mucus 0 SEEN 12/09/20 15:31: APTT Cancelled 12/09/20 19:00: Troponin I 2.160 H* 12/09/20 22:15: APTT > 250.0 H* 12/09/20 23:18: Troponin I 1.080 H* 12/10/20 02:20: WBC 7.5, RBC 3.49 L, Hgb 10.3 L, Hct 32.2 L, MCV 92.3, MCH 29.5, MCHC 32.0, RDW Std Deviation 52.7 H, RDW Coeff of Janusz 15.4 H, Plt Count 161, MPV 9.1, Immature Gran % (Auto) 0.500, Neut % (Auto) 80.2 H, Lymph % (Auto) 8.4 L, [place] % (Auto) 8.6, Eos % (Auto) 1.5, Baso % (Auto) 0.8, Absolute Neuts (auto) 6.0, Absolute Lymphs (auto) 0.63 L, Nucleated RBC % 0 12/10/20 02:20: Sodium 141, Potassium 3.6, Chloride 110 H, Carbon Dioxide 25.0, Anion Gap 6, BUN 17, Creatinine 0.82, Estim Creat Clear Calc 66.70, Est GFR (MDRD) Af Amer 88, Est GFR (MDRD) Non-Af 73, BUN/Creatinine Ratio 20.7 H, Glucose 68 L, Calcium 7.5 L, Triglycerides 147, Cholesterol 177, LDL Cholesterol 96, VLDL Cholesterol 29, HDL Cholesterol 52 12/10/20 02:20: APTT 50.3 H 12/10/20 07:40: POC Glucose 96 12/10/20 08:37: APTT 63.4 H 12/10/20 11:38: POC Glucose 72 Current Medications Acetaminophen (Acetaminophen 325 Mg Tablet) 650 mg PO Q6H PRN PRN PRN Reason: Pain Score 1-10/Temp > 100.7 F Allopurinol (All[facility]ol 100 Mg Tablet) [facility] Amlodipine Besylate (Amlodipine 5 Mg Tablet) 5 mg PO QHS [facility] Last Admin: 12/09/20 20:42 Dose: 5 mg Documented by: Atorvastatin Calcium (Atorvastatin Calcium 10 Mg Tablet) 10 mg PO QHS [facility] Last Admin: 12/09/20 20:42 Dose: 10 mg Documented by: Bupropion HCl (Bupropion (Xl) 150 Mg Tablet.Xl) 150 mg PO DAILY [facility] Duloxetine HCl (Duloxetine Hcl 60 Mg Capsule) 60 mg PO QHS [facility] Last Admin: 12/09/20 20:42 Dose: 60 mg Documented by: Heparin Sodium (Porcine) (Heparin Injection (Vial) 5,000 Unit/Ml Vial) 0 unit IV UD PRN; Protocol PRN Reason: dose adjustment Hydroxychloroquine Sulfate (Hydroxychloroquine 200 Mg Tablet) [facility] Heparin Sodium/Dextrose () 25,000 units in 250 mls @ 10 mls/hr IV .Q25H [facility]; Protocol Last Titration: 12/10/20 02:30 Dose: 800 units/hr, 8 mls/hr Documented by: Lisinopril (Lisinopril 10 Mg Tablet) 10 mg PO DAILY [facility] Melatonin (Melatonin 3 Mg Tablet) 3 mg PO QHS PRN PRN PRN Reason: INSOMNIA Nitroglycerin (Nitroglycerin (Inpatient Use) 0.4 Mg Tab.Subl) 0.4 mg SUBLINGUAL Q5M PRN PRN Reason: CARDIAC/CHEST PAIN Ondansetron HCl (Ondansetron 4 Mg/2 Ml Vial) 4 mg IV Q8H PRN PRN PRN Reason: NAUSEA/VOMITING Oxycodone HCl (Oxycodone 5 Mg Tablet) 5 mg PO Q4H PRN PRN PRN Reason: Pain Score 6-10 Pregabalin (Pregabalin 75 Mg Capsule) 75 mg PO DAILY [facility] Trimethoprim/Sulfamethoxazole (Smz/Tmp Ds Tablet) 1 tablet PO BID [facility] Last Admin: 12/09/20 20:42 Dose: 1 tablet Documented by: Medical Necessity - Tobacco Use Smoking Status: Former smoker Tobacco Use: Non-smoker Assessment/Plan All Active Problems (Last Updated 12/10/20 @ 15:33 by Lucia Lee) Hypoglycemia (Acute) 1. NSTEMI-cardiology consulted. On heparin drip. Enzymes trended down. Heart cath pending. Continue aspirin, statin. 2. Hypoglycemia in the context of type 2 diabetes mellitus-improved. Continue to hold home regimen. Every 6 hours Accu-Cheks. 3. Acute E. coli cystitis- Patient is asymptomatic, no leukocytosis, afebrile. Continue oral Bactrim. 4. Mild traumatic rhabdomyolysis-secondary to recurrent fall, found on floor at home. Underlying debility with recurrent fall. IV fluids. PT/OT. 5. Hypertension-stable, continue amlodipine, lisinopril. Hold HCTZ. 6. Chronic back pain-as needed pain regimen. 7. Hyperlipidemia-continue statin. 8. Depression/Anxiety-continue Cymbalta, bupropion. DVT prophylaxis-Heparin drip This patient was seen by JENNY Danielson under the supervision of Dr. Solorzano. <Manny Solorzano - Last Filed: 12/10/20 16:15> Subjective: Seen and examined. Patient was admitted with fall and possible syncope. Was found hypoglycemic. Objective: Please see discharge summary for full physical exam findings. - Physical Exam Vitals/I&O's: Vital Signs Temp Pulse Resp BP Pulse Ox 98.0 F 78 16 140/75 H 97 12/10/20 08:29 12/10/20 15:45 12/10/20 16:00 12/10/20 16:00 12/10/20 16:00 Oxygen Delivery Method Room Air Weight: 150 lb 3.2 oz Body Mass Index (BMI) 30.3 Finger Stick Blood Glucose 98 Intake and Output for Last 24 Hours 12/08/20 12/09/20 12/10/20 23:59 23:59 23:59 Intake Total 500.2 / 500.2 141.75 / 141.75 Output Total 3 / 3 Balance 500.2 / 500.2 138.75 / 138.75 Microbiology Past 72 Hours 12/09/20 19:05 Urine Catheter - Catheter Urine Culture - Preliminary Presumptive E. coli 12/09/20 14:18 Mucosa - Nose SARS-CoV-2 Antigen (Rapid) - Final Laboratory Results 12/09/20 13:58: APTT 31.0 12/09/20 15:31: APTT Cancelled 12/09/20 19:00: Troponin I 2.160 H* 12/09/20 22:15: APTT > 250.0 H* 12/09/20 23:18: Troponin I 1.080 H* 12/10/20 02:20: WBC 7.5, RBC 3.49 L, Hgb 10.3 L, Hct 32.2 L, MCV 92.3, MCH 29.5, MCHC 32.0, RDW Std Deviation 52.7 H, RDW Coeff of Janusz 15.4 H, Plt Count 161, MPV 9.1, Immature Gran % (Auto) 0.500, Neut % (Auto) 80.2 H, Lymph % (Auto) 8.4 L, [place] % (Auto) 8.6, Eos % (Auto) 1.5, Baso % (Auto) 0.8, Absolute Neuts (auto) 6.0, Absolute Lymphs (auto) 0.63 L, Nucleated RBC % 0 12/10/20 02:20: Sodium 141, Potassium 3.6, Chloride 110 H, Carbon Dioxide 25.0, Anion Gap 6, BUN 17, Creatinine 0.82, Estim Creat Clear Calc 66.70, Est GFR (MDRD) Af Amer 88, Est GFR (MDRD) Non-Af 73, BUN/Creatinine Ratio 20.7 H, Glucose 68 L, Calcium 7.5 L, Triglycerides 147, Cholesterol 177, LDL Cholesterol 96, VLDL Cholesterol 29, HDL Cholesterol 52 12/10/20 02:20: APTT 50.3 H 12/10/20 07:40: POC Glucose 96 12/10/20 08:37: APTT 63.4 H 12/10/20 11:38: POC Glucose 72 Current Medications Acetaminophen (Acetaminophen 325 Mg Tablet) 650 mg PO Q6H PRN PRN PRN Reason: Pain Score 1-10/Temp > 100.7 F Allopurinol (Allopurinol 100 Mg Tablet) [facility] Amlodipine Besylate (Amlodipine 5 Mg Tablet) 5 mg PO QHS [facility] Last Admin: 12/09/20 20:42 Dose: 5 mg Documented by: Aspirin (Aspirin E.C. 81 Mg Tablet) 81 mg PO DAILY@0800 [facility] Atorvastatin Calcium (Atorvastatin Calcium 10 Mg Tablet) 10 mg PO QHS [facility] Last Admin: 12/09/20 20:42 Dose: 10 mg Documented by: Bupropion HCl (Bupropion (Xl) 150 Mg Tablet.Xl) 150 mg PO DAILY [facility] Duloxetine HCl (Duloxetine Hcl 60 Mg Capsule) 60 mg PO QHS [facility] Last Admin: 12/09/20 20:42 Dose: 60 mg Documented by: Heparin Sodium (Porcine) (Heparin Injection (Vial) 5,000 Unit/Ml Vial) 0 unit IV UD PRN; Protocol PRN Reason: dose adjustment Hydroxychloroquine Sulfate (Hydroxychloroquine 200 Mg Tablet) 300 [facility] Sodium Chloride () 1,000 mls @ 60 mls/hr IV .[id number] [facility] Stop: 12/10/20 20:34 Last Admin: 12/10/20 15:10 Dose: 60 mls/hr Documented by: Lisinopril (Lisinopril 10 Mg Tablet) 10 mg PO DAILY [facility] Melatonin (Melatonin 3 Mg Tablet) 3 mg PO QHS PRN PRN PRN Reason: INSOMNIA Nitroglycerin (Nitroglycerin (Inpatient Use) 0.4 Mg Tab.Subl) 0.4 mg SUBLINGUAL Q5M PRN PRN Reason: CARDIAC/CHEST PAIN Nutritional Formula (Lactose Free) (Glucerna Shake 120 Ml Liquid) 120 ml PO TIDCM [facility] Ondansetron HCl (Ondansetron 4 Mg/2 Ml Vial) 4 mg IV Q8H PRN PRN PRN Reason: NAUSEA/VOMITING Oxycodone HCl (Oxycodone 5 Mg Tablet) 5 mg PO Q4H PRN PRN PRN Reason: Pain Score 6-10 Pregabalin (Pregabalin 75 Mg Capsule) 75 mg PO DAILY [facility] Trimethoprim/Sulfamethoxazole (Smz/Tmp Ds Tablet) 1 tablet PO BID [facility] Last Admin: 12/09/20 20:42 Dose: 1 tablet Documented by: Assessment/Plan This patient was seen in conjunction with HOT BRAIDERSherri. I have independently interviewed and examined the patient and reviewed pertinent history, examination findings, laboratory and plan of management. I have reviewed the note and agree with the documented findings with the few additional points. In brief, patient is admitted for hypoglycemia, fall and syncope. Was found to non-STEMI. Please see discharge summary for further details. I have discussed my assessment with Sherri CHARLES and orders have been reviewed.
--- NOTE | 2020-12-10 14:58 | CL.D_ITS ---
Patient Name: ERIK GARCIA Study Date: 12/10/2020 Performing: Toni Berrios MD Ht: 59 inches 150 cm : 1950 Wt: 150.1 lbs 68 kg Age: 70 Gender: female BSA: 1.63 PROCEDURE(S) PERFORMED YE17-MND/COR/LV DC11-AO ROOT ANGIO WITH HEART CATH CLINICAL PROFILE AND INDICATIONS Indications: ACS <= 24 hrs Heart Failure: None Stress/Imaging Stress/Image Study Performed: No CAD Presentations: Non-STEMI. Symptom onset Date/Time: 12/09/20 Time Not Available CONCLUSIONS Multivessel CAD. Severe LV dysfunction. EF is 25%. No significant or MR. Aberrant R subclavian art angelina RECOMMENDATIONS CT surgery consult to discuss revascularization options (CABG vs PCI of LCx +/- LAD) DESCRIPTION OF PROCEDURE The patient arrived to the procedure lab. The risks and benefits of the procedure as well as a full d escription of our services here and current unavailability of surgical backup were fully explained to the patient and/or their significant other prior to the catheterization. The Timeout was completed, verifying the correct patient and procedure. The patient's procedural site was prepped and draped in the usual fashion. Local anesthetic was given subcutaneously to right radial region with Lidocaine 2% . Local anesthetic was given subcutaneously to right groin region with Lidocaine 2%. Using a modified Seldinger technique, arterial access was obtained via the right radial artery, a 6Fr sheath was inse rted., arterial access was obtained via the right radial artery, a 5Fr sheath was inserted. LV to AO pullback pressures were then recorded. Left Coronary Artery selective angiography was performed in m ultiple views using a 5 Fr. JL3.5 catheter. Right Coronary Artery selective angiography was then performed in multiple views using a 5 Fr. JR 4 catheter. Left Ventriculography was performed in [place] projection using a 5 Fr. JR4. Ascending (root) aorta selective angiography was then performed in single view using a pigtail catheter. Ascending (root) aorta selective angiography was then perfo rmed in single view using a pigtail catheter.Contrast was injected through the sheath and the Right I liac and Femoral artery were assessed for possible closure device.The arterial sheath was pulled and a Starclose closure device was deployed for hemostasis. The arterial sheath was pulled and a TR Band was applied for hemostasis CORONARY ANGIOGRAPHY DOMINANCE: Right Dominant LEFT HEART ASSESSMENT Left Ventricular Ejection Fraction: by LV Gram 25 % LEFT MAIN: Mild luminal irregularities LEFT ANTERIOR DESCENDING ARTERY: PROX LAD: moderate diffuse disease MID LAD: 80 % Stenosis DISTAL LAD: 70 % Stenosis CIRCUMFLEX ARTERY: PROX CIRC: 99 % Stenosis RIGHT CORONARY ARTERY: PROX RCA: 100 % Stenosis. Distal RCA fills via L to R collaterals VALVE FINDINGS: No Mitral Insufficency No Aortic Valve Stenosis COMPLICATIONS No Complications PROCEDURE MEDICATIONS Fentanyl 50 mcg IV Oxygen: 2 L/min via nasal cannula Heparin given IA 12/10/2020 13:35:04 Verapamil 2.5mg, Ntg 100mcgs, 3000 units of Heparin given IA 12/10/2020 13:35:04 IV Bolus: .9 NaCl 100 ml total 12/10/2020 13:22:58 SUMMARY OF HEMODYNAMIC DATA Time AIR REST ECG 13:09:20 AO 134/72 (98) SA 13:30:41 LV 125/10, 20 13:32:21 LV 135/12, 21 13:32:27 LVp 134/14, 26 13:32:36 AOp 123/82 (101) 13:32:41 AO 145/77 (106) 13:50:39 LV 147/11, 31 13:57:49 LV 151/10, 34 13:57:56 Signed By Toni Berrios MD On 12/10/2020 3:01:56 PM Toni Berrios MD
[2020-12-10] MEDS: 0.9% Normal Saline 1,000 ML 60 ML IV (15:10)
--- NOTE | 2020-12-10 15:45 | PCM.DC.SUM ---
<Sherri Mathias [employer] - Last Filed: 12/10/20 15:50> Discharge Date and Diagnosis - Problem List Patient Problems: Active and Suspected Problems (Last Updated 12/10/20 @ 15:33 by Lucia Lee) Hypoglycemia (Acute) Date of Admission: 12/09/20 Date of Discharge: 12/10/20 - Primary Discharge Diagnosis Acute Problems: Active Problems (Last Updated 12/10/20 @ 15:33 by Lucia Lee) 1. NSTEMI, multivessel CAD 2. Hypoglycemia in the context of type 2 diabetes mellitus 3. Acute E. coli cystitis 4. Mild traumatic rhabdomyolysis-secondary to recurrent fall, found on floor at home. 5. Hypertension 6. Chronic back pain 7. Hyperlipidemia 8. Depression/Anxiety - Secondary Discharge Diagnosis Chronic Problems: Chronic Problems (Last Updated 12/10/20 @ 15:33 by Lucia Lee) Chronic kidney disease, stage III (moderate) (Chronic) Chronic back pain (Chronic) Type II diabetes mellitus (Chronic) Hypertension (Chronic) Hospital Course and Treatment Imaging Results: Diagnostic Data Chest X-Ray 12/09/20 14:55 IMPRESSION: Vascular congestion and mild CHF. Electronically Signed: Wayne Guan MD at 15:18 EST , Service support , Dr. Berrios- Cardiology Operations: None Procedures: Cardiac catheterization Summary of Care Provided: The patient is a 70 year old F admitted 12/09/2020 due to fall at home and low blood sugar. 1. NSTEMI, multivessel CAD, ischemic cardiomyopathy-cardiology consulted. On heparin drip. Enzymes trended down. Patient underwent heart cath which demonstrated multivessel CAD. EF 25%. Patient was recommended transfer for revascularization consult. Transfer to tertiary facility in stable condition. 2. Hypoglycemia in the context of type 2 diabetes mellitus-improved. Continue to hold home regimen. Every 6 hours Accu-Cheks. 3. Acute E. coli cystitis- Patient is asymptomatic, no leukocytosis, afebrile. Continue oral Bactrim. 4. Mild traumatic rhabdomyolysis-secondary to recurrent fall, found on floor at home. Underlying debility with recurrent fall. PT/OT. 5. Hypertension-stable, continue amlodipine, lisinopril. HCTZ on hold during admission. 6. Chronic back pain-as needed pain regimen. 7. Hyperlipidemia-continue statin. 8. Depression/Anxiety-continue Cymbalta, bupropion. General: Alert, Oriented x3, Cooperative HEENT: Atraumatic, PERRLA, EOMI, Normocephalic Neck: Supple, No JVD, Negative Carotid Bruits Lungs: Clear to auscultation, Normal air movement Cardiovascular: Regular rate, No murmurs Abdomen: Bowel Sounds Present, Soft, Non Tender, Non-Distended Extremities: No clubbing, No cyanosis, Capillary Refill Less than 3 Seconds, Edema - 1+ bilateral lower extremities Skin: No rashes, No breakdown Musculoskeletal: No Tenderness to Palpation of Joints or Extremities, - - Left arm weakness following left shoulder injury/fall Neurological: Cranial nerves II-XII grossly intact, Neuro grossly intact Psych/Mental Status: Normal Affect, Appropriate Patient seen and examined prior to discharge. Physical assessment as noted above. Patient is stable for discharge with follow up recommendations as noted above. This patient was seen by JENNY Danielson under the supervision of Dr. Solorzano. Patient Problems: Active and Suspected Problems (Last Updated 12/10/20 @ 15:33 by Lucia Lee) Hypoglycemia (Acute) - Physical Exam Vitals/I&O's: Vital Signs Temp Pulse Resp BP Pulse Ox 98.0 F 75 16 143/73 H 98 12/10/20 08:29 12/10/20 15:30 12/10/20 15:30 12/10/20 15:30 12/10/20 15:30 Oxygen Delivery Method Room Air Weight: 150 lb 3.2 oz Body Mass Index (BMI) 30.3 Finger Stick Blood Glucose 98 Intake and Output for Last 24 Hours 12/08/20 12/09/20 12/10/20 23:59 23:59 23:59 Intake Total 500.2 / 500.2 99.75 / 99.75 Output Total 3 / 3 Balance 500.2 / 500.2 96.75 / 96.75 Microbiology Past 72 Hours 12/09/20 19:05 Urine Catheter - Catheter Urine Culture - Preliminary Presumptive E. coli 12/09/20 14:18 Mucosa - Nose SARS-CoV-2 Antigen (Rapid) - Final Laboratory Results 12/09/20 13:58: APTT 31.0 12/09/20 15:24: Urine Color Yellow, Urine Clarity Cloudy, Urine pH 5.0, Ur Specific [place] 1.015, Urine Protein 15 H, Urine Glucose (UA) 100 H, Urine Ketones Negative, Urine Occult Blood 10 H, Urine Nitrite Positive H, Urine Bilirubin Negative, Urine Urobilinogen Normal, Ur Leukocyte Esterase 500 H, Urine RBC 0-5 SEEN, Urine WBC >100 SEEN, Ur Squamous Epith Cells 0-5 SEEN, Urine Bacteria 2+, Urine Mucus 0 SEEN 12/09/20 15:31: APTT Cancelled 12/09/20 19:00: Troponin I 2.160 H* 12/09/20 22:15: APTT > 250.0 H* 12/09/20 23:18: Troponin I 1.080 H* 12/10/20 02:20: WBC 7.5, RBC 3.49 L, Hgb 10.3 L, Hct 32.2 L, MCV 92.3, MCH 29.5, MCHC 32.0, RDW Std Deviation 52.7 H, RDW Coeff of Janusz 15.4 H, Plt Count 161, MPV 9.1, Immature Gran % (Auto) 0.500, Neut % (Auto) 80.2 H, Lymph % (Auto) 8.4 L, [place] % (Auto) 8.6, Eos % (Auto) 1.5, Baso % (Auto) 0.8, Absolute Neuts (auto) 6.0, Absolute Lymphs (auto) 0.63 L, Nucleated RBC % 0 12/10/20 02:20: Sodium 141, Potassium 3.6, Chloride 110 H, Carbon Dioxide 25.0, Anion Gap 6, BUN 17, Creatinine 0.82, Estim Creat Clear Calc 66.70, Est GFR (MDRD) Af Amer 88, Est GFR (MDRD) Non-Af 73, BUN/Creatinine Ratio 20.7 H, Glucose 68 L, Calcium 7.5 L, Triglycerides 147, Cholesterol 177, LDL Cholesterol 96, VLDL Cholesterol 29, HDL Cholesterol 52 12/10/20 02:20: APTT 50.3 H 12/10/20 07:40: POC Glucose 96 12/10/20 08:37: APTT 63.4 H 12/10/20 11:38: POC Glucose 72 Current Medications Acetaminophen (Acetaminophen 325 Mg Tablet) 650 mg PO Q6H PRN PRN PRN Reason: Pain Score 1-10/Temp > 100.7 F Allopurinol ([facility] 100 Mg Tablet) [facility] Amlodipine Besylate (Amlodipine 5 Mg Tablet) 5 mg PO QHS [facility] Last Admin: 12/09/20 20:42 Dose: 5 mg Documented by: Aspirin (Aspirin E.C. 81 Mg Tablet) 81 mg PO DAILY@0800 [facility] Atorvastatin Calcium (Atorvastatin Calcium 10 Mg Tablet) 10 mg PO QHS [facility] Last Admin: 12/09/20 20:42 Dose: 10 mg Documented by: Bupropion HCl (Bupropion (Xl) 150 Mg Tablet.Xl) 150 mg PO DAILY [facility] Duloxetine HCl (Duloxetine Hcl 60 Mg Capsule) 60 mg PO QHS [facility] Last Admin: 12/09/20 20:42 Dose: 60 mg Documented by: Heparin Sodium (Porcine) (Heparin Injection (Vial) 5,000 Unit/Ml Vial) 0 unit IV UD PRN; Protocol PRN Reason: dose adjustment Hydroxychloroquine Sulfate (Hydroxychloroquine 200 Mg Tablet) [facility] Heparin Sodium/Dextrose () 25,000 units in 250 mls @ 10 mls/hr IV .Q25H [facility]; Protocol Last Titration: 12/10/20 09:30 Dose: 800 units/hr, 8 mls/hr Documented by: Sodium Chloride () 1,000 mls @ 60 mls/hr IV .[id number] [facility] Stop: 12/10/20 20:34 Last Admin: 12/10/20 15:10 Dose: 60 mls/hr Documented by: Lisinopril (Lisinopril 10 Mg Tablet) 10 mg PO DAILY [facility] Melatonin (Melatonin 3 Mg Tablet) 3 mg PO QHS PRN PRN PRN Reason: INSOMNIA Nitroglycerin (Nitroglycerin (Inpatient Use) 0.4 Mg Tab.Subl) 0.4 mg SUBLINGUAL Q5M PRN PRN Reason: CARDIAC/CHEST PAIN Nutritional Formula (Lactose Free) (Glucerna Shake 120 Ml Liquid) 120 ml PO TIDCM [facility] Ondansetron HCl (Ondansetron 4 Mg/2 Ml Vial) 4 mg IV Q8H PRN PRN PRN Reason: NAUSEA/VOMITING Oxycodone HCl (Oxycodone 5 Mg Tablet) 5 mg PO Q4H PRN PRN PRN Reason: Pain Score 6-10 Pregabalin (Pregabalin 75 Mg Capsule) 75 mg PO DAILY [facility] Trimethoprim/Sulfamethoxazole (Smz/Tmp Ds Tablet) 1 tablet PO BID [facility] Last Admin: 12/09/20 20:42 Dose: 1 tablet Documented by: Home Medications: Medications to take at Discharge Amlodipine [Norvasc] 5 mg PO QHS 05/11/16 Duloxetine Hcl [Cymbalta] 60 mg PO QHS 05/11/16 Pregabalin [Lyrica] 75 mg PO DAILY 05/11/16 Atorvastatin Calcium [Lipitor] 10 mg PO QHS 08/16/17 Hydroxychloroquine Sulfate [Plaquenil] 300 mg PO DAILY 07/19/18 Sitagliptin Phosphate [Januvia] 100 mg PO DAILY 07/19/18 Allopurinol 100 mg PO DAILY 12/09/20 Bupropion HCl [Bupropion Xl] 150 mg PO DAILY 12/09/20 Glimepiride [Amaryl] 4 mg PO DAILY 12/09/20 Hydrochlorothiazide [Hctz] 25 mg PO DAILY 12/09/20 Hydrocodone Bitart/Apap 5-325 [[place] 5MG-325MG] 1 tab PO BID 12/09/20 Hydroxyzine HCl 10 - 20 mg PO QHS 12/09/20 Lisinopril [Zestril] 10 mg PO DAILY 12/09/20 Prednisone 5 mg PO UD PRN 12/09/20 Primary Care Physician: Tigre Whitley [Primary Care Provider] - Disposition: Acute care Hospital Minutes spent on discharge:: 35 Patient Condition:: Stable Medical Necessity - Tobacco Use Smoking Status: Former smoker Tobacco Use: Non-smoker Meaningful Use Info Meaningful Use Diagnoses (Choose all that apply): AMI - AMI/Post PCI/Angioplasty Aspirin given w/in 24hrs of arrival?: Yes ASA at discharge?: Yes Statins at discharge?: Yes Will/ARB at discharge?: Yes Beta Laz at discharge?: Yes Done w/ Acute [place] measure.: Yes <Manny Solorzano - Last Filed: 12/10/20 16:22> Discharge Date and Diagnosis - Primary Discharge Diagnosis Acute Problems: Active Problems (Last Updated 12/10/20 @ 15:33 by Lucia Lee) Hypoglycemia (Acute) - Secondary Discharge Diagnosis Chronic Problems: Chronic Problems (Last Updated 12/10/20 @ 15:33 by Lucia Lee) Chronic kidney disease, stage III (moderate) (Chronic) Chronic back pain (Chronic) Type II diabetes mellitus (Chronic) Hypertension (Chronic) Hospital Course and Treatment Summary of Care Provided: This patient was seen in conjunction with Sherri CHARLES. I have independently interviewed and examined the patient and reviewed pertinent history, examination findings, laboratory and plan of management. I have reviewed the note and agree with the documented findings with the few additional points. In brief, patient is 70-year-old female admitted with fall and hypoglycemia. She has dyspnea on exertion for last 3?4 weeks. Serial troponins were done as felt that she has syncope. Troponins were elevated in the range of non-NSTEMI. [facility] was consulted and found triple-vessel disease with EF 25%. Proximal LAD moderate diffuse disease, mid LAD 80%, distal LAD 70%. Proximal circumflex 99%. Proximal RCA 100% stenosis with distal RCA fills via [id number] collaterals. [facility] recommended coronary bypass graft and evaluation by cardiothoracic surgeon. Her daughter was called and she wanted transfer to [facility]. I talked to the transfer line coordinator and hospitalist Dr. Garg who accepted the patient. [facility] Dr. Berrios also talked to Dr. Hayes, cardiothoracic surgeon regarding cardiac cath findings. Patient is excepted and has been transferred to [facility]. Other comorbidities include hypoglycemia due to diabetes mellitus type 2. Glucose is 96 and 72. E. coli acute cystitis: Urine culture shows more than 100,000 E. coli. Patient on oral Bactrim and discontinued. Rest comorbidities as mentioned above Total time spent, exact 35 minutes on discharge meds reconciliation, examination, coordination of care with nurses and ancillary staff, review of imaging and blood test and discussion with the patient, her daughter present in the room, transfer line and hospitalist Dr. Garg in [facility] I have discussed my assessment with Sherri CHARLES and orders have been reviewed. [] Objective: Seen and examined. Heart rate and blood pressure in normal range. Patient is alert awake oriented x3. Denies chest pain but sometimes he feels dyspnea on exertion on 2 flight of stairs last 3 to 4 weeks. Was admitted with fall, hypoglycemia and syncope. Blood sugar is corrected. Denied palpitation, sweating, nervousness/anxiety and restlessness as symptoms of hypoglycemia. She fell forward but denies any major injury. Physical exam General: Alert, Oriented x3, Cooperative HEENT: Atraumatic, PERRLA, EOMI, Normocephalic Oral: No Gingival or Mucosal Lesions/ Ulcerations Neck: Supple, No JVD, Negative Carotid Bruits Lungs: Air entry diminished in bilateral lung bases. No crepitation/rhonchi Cardiovascular: Regular rate, Regular Rhythm, Normal S1, Normal S2, No murmurs Abdomen: Bowel Sounds Present, Soft, Non Tender, Non-Distended : No renal angle tenderness. No suprapubic tenderness. Extremities: No edema, Capillary Refill Less than 3 Seconds Skin: No rashes, No breakdown Musculoskeletal: No Tenderness to Palpation of Joints or Extremities Neurological: Cranial nerves II-XII grossly intact, Deep Tendon Reflexes 2+/4 and Symmetrical, Neuro grossly intact Psych/Mental Status: Normal Affect, Appropriate. - Physical Exam Vitals/I&O's: Vital Signs Temp Pulse Resp BP Pulse Ox 98.0 F 78 16 140/75 H 97 12/10/20 08:29 12/10/20 15:45 12/10/20 16:00 12/10/20 16:00 12/10/20 16:00 Oxygen Delivery Method Room Air Weight: 150 lb 3.2 oz Body Mass Index (BMI) 30.3 Finger Stick Blood Glucose 98 Intake and Output for Last 24 Hours 12/08/20 12/09/20 12/10/20 23:59 23:59 23:59 Intake Total 500.2 / 500.2 141.75 / 141.75 Output Total 3 / 3 Balance 500.2 / 500.2 138.75 / 138.75 Microbiology Past 72 Hours 12/09/20 19:05 Urine Catheter - Catheter Urine Culture - Preliminary Presumptive E. coli 12/09/20 14:18 Mucosa - Nose SARS-CoV-2 Antigen (Rapid) - Final Laboratory Results 12/09/20 15:31: APTT Cancelled 12/09/20 19:00: Troponin I 2.160 H* 12/09/20 22:15: APTT > 250.0 H* 12/09/20 23:18: Troponin I 1.080 H* 12/10/20 02:20: WBC 7.5, RBC 3.49 L, Hgb 10.3 L, Hct 32.2 L, MCV 92.3, MCH 29.5, MCHC 32.0, RDW Std Deviation 52.7 H, RDW Coeff of Janusz 15.4 H, Plt Count 161, MPV 9.1, Immature Gran % (Auto) 0.500, Neut % (Auto) 80.2 H, Lymph % (Auto) 8.4 L, [place] % (Auto) 8.6, Eos % (Auto) 1.5, Baso % (Auto) 0.8, Absolute Neuts (auto) 6.0, Absolute Lymphs (auto) 0.63 L, Nucleated RBC % 0 12/10/20 02:20: Sodium 141, Potassium 3.6, Chloride 110 H, Carbon Dioxide 25.0, Anion Gap 6, BUN 17, Creatinine 0.82, Estim Creat Clear Calc 66.70, Est GFR (MDRD) Af Amer 88, Est GFR (MDRD) Non-Af 73, BUN/Creatinine Ratio 20.7 H, Glucose 68 L, Calcium 7.5 L, Triglycerides 147, Cholesterol 177, LDL Cholesterol 96, VLDL Cholesterol 29, HDL Cholesterol 52 12/10/20 02:20: APTT 50.3 H 12/10/20 07:40: POC Glucose 96 12/10/20 08:37: APTT 63.4 H 12/10/20 11:38: POC Glucose 72 Current Medications Acetaminophen (Acetaminophen 325 Mg Tablet) 650 mg PO Q6H PRN PRN PRN Reason: Pain Score 1-10/Temp > 100.7 F Allopurinol (Allopurinol 100 Mg Tablet) [facility] Amlodipine Besylate (Amlodipine 5 Mg Tablet) 5 mg PO QHS [facility] Last Admin: 12/09/20 20:42 Dose: 5 mg Documented by: Aspirin (Aspirin E.C. 81 Mg Tablet) 81 mg PO DAILY@0800 [facility] Atorvastatin Calcium (Atorvastatin Calcium 10 Mg Tablet) 10 mg PO QHS [facility] Last Admin: 12/09/20 20:42 Dose: 10 mg Documented by: Bupropion HCl (Bupropion (Xl) 150 Mg Tablet.Xl) 150 mg PO DAILY [facility] Duloxetine HCl (Duloxetine Hcl 60 Mg Capsule) 60 mg PO QHS [facility] Last Admin: 12/09/20 20:42 Dose: 60 mg Documented by: Heparin Sodium (Porcine) (Heparin Injection (Vial) 5,000 Unit/Ml Vial) 0 unit IV UD PRN; Protocol PRN Reason: dose adjustment Hydroxychloroquine Sulfate (Hydroxychloroquine 200 Mg Tablet) [facility] Sodium Chloride () 1,000 mls @ 60 mls/hr IV .[id number] [facility] Stop: 12/10/20 20:34 Last Admin: 12/10/20 15:10 Dose: 60 mls/hr Documented by: Lisinopril (Lisinopril 10 Mg Tablet) 10 mg PO DAILY [facility] Melatonin (Melatonin 3 Mg Tablet) 3 mg PO QHS PRN PRN PRN Reason: INSOMNIA Nitroglycerin (Nitroglycerin (Inpatient Use) 0.4 Mg Tab.Subl) 0.4 mg SUBLINGUAL Q5M PRN PRN Reason: CARDIAC/CHEST PAIN Nutritional Formula (Lactose Free) (Glucerna Shake 120 Ml Liquid) 120 ml PO TIDCM [facility] Ondansetron HCl (Ondansetron 4 Mg/2 Ml Vial) 4 mg IV Q8H PRN PRN PRN Reason: NAUSEA/VOMITING Oxycodone HCl (Oxycodone 5 Mg Tablet) 5 mg PO Q4H PRN PRN PRN Reason: Pain Score 6-10 Pregabalin (Pregabalin 75 Mg Capsule) 75 mg PO DAILY [facility] Trimethoprim/Sulfamethoxazole (Smz/Tmp Ds Tablet) 1 tablet PO BID [facility] Last Admin: 12/09/20 20:42 Dose: 1 tablet Documented by: Inpatient E&M: [id number] [facility]
[2020-12-10] MEDS: Smz/Tmp Ds Tablet 1 TABLET PO (16:50)
[2020-12-10] MEDS: Lisinopril 10 MG Tablet PO (16:51)
[2020-12-10] MEDS: Hydroxychloroquine 200 MG Tablet 300 MG PO (16:51)
[2020-12-10] MEDS: Allopurinol 100 MG Tablet PO (16:51)
[2020-12-10] MEDS: buPROPion (XL) 150 MG TABLET.XL PO (16:52)
[2020-12-10] MEDS: Pregabalin 75 MG Capsule PO (16:54)
[2020-12-10 20:31] LABS: Bedside Glucose 132 mg/dL (70-110)
== END 2020-12-10 20:30 | disposition short-term general hospital (02) | DRG 281 ==
LOC: ED 14:47 → PCU 16:25
PROVIDERS: Admitting Provider Family Medicine; Emergency Provider Emergency Medicine; Visit Provider Internal Medicine
DX: I21.4 Non-ST elevation (NSTEMI) myocardial infarction (principal); I13.0 Hypertensive heart and chronic kidney disease with heart failure and stage 1 through stage 4 chronic kidney disease, or unspecified chronic kidney disease; N30.00 Acute cystitis without hematuria; B96.20 Unspecified Escherichia coli [E. coli] as the cause of diseases classified elsewhere; E11.22 Type 2 diabetes mellitus with diabetic chronic kidney disease; N18.30 Chronic kidney disease, stage 3 unspecified; E11.649 Type 2 diabetes mellitus with hypoglycemia without coma; T79.6XXA Traumatic ischemia of muscle, initial encounter; R29.6 Repeated falls; I25.10 Atherosclerotic heart disease of native coronary artery without angina pectoris; I25.5 Ischemic cardiomyopathy; W07.XXXA Fall from chair, initial encounter; Y93.9 Activity, unspecified; Y92.009 Unspecified place in unspecified non-institutional (private) residence as the place of occurrence of the external cause; Y99.9 Unspecified external cause status; E78.5 Hyperlipidemia, unspecified; Z20.822 Contact with and (suspected) exposure to COVID-19; M54.9 Dorsalgia, unspecified; G89.29 Other chronic pain; F32.9 Major depressive disorder, single episode, unspecified; F41.9 Anxiety disorder, unspecified; Z79.84 Long term (current) use of oral hypoglycemic drugs; Z79.52 Long term (current) use of systemic steroids; Z79.899 Other long term (current) drug therapy; Z87.891 Personal history of nicotine dependence
CPT/HCPCS: 36415; 71045; 80048; 80053; 80061; 81001; 82550; 82962; 84484; 85025; 85730; 87086; 87088; 87186; 87426; 93005; 93458; 93567; 97162; 97166; 99152; 99153; 99285; J7030; J7040; Q9967; A4216; C1760; C1769; C1887; C1894

== ENCOUNTER → 2020-12-31 16:33 | Outpatient (CLI) | payer MEDICARE, SELFPAY ==
[2020-12-31 15:47] VITALS: BMI 27.2
[2020-12-31 17:29] LABS: Absolute Lymphocyte Count 0.66 X10^3/uL (0.83-4.51); Basophil# 0.07 X10^3/uL; Basophil% 0.7 % (0-1); Eosinophil# 0.18 X10^3/uL; Eosinophils% 1.8 % (0-5); Hematocrit 34.6 % (37-47); Hemoglobin 11.2 g/dL (12.0-15.0); Lymphocyte # 0.66 X10^3/ul (4.0); Lymphocyte % 6.7 % (19-41); Mean Corp Hgb Conc 32.4 g/dL (32-36); Mean Corpuscular Hgb 30.4 pg (27.0-32.0); Mean Corpuscular Volume 93.8 fL (81-99); Mean Platelet Vol. 9.8 fl (6.2-12.0); Monocyte# 0.88 X10^3/uL; Monocyte% 8.9 % (0-10); NRBC Flagged by Analyzer 0 % (0-5); Neutrophil # 8.01 X10^3/uL (2.7-7.7); Platelet Count 196 K/mm3 (150-450); RBC Distribution Width CV 16.1 % (11.6-14.6); RBC Distribution Width SD 55.8 fl (35.1-43.9); Red Blood Count 3.69 M/mm3 (4.2-5.4); White Blood Count 9.9 K/mm3 (4.4-11.0)
[2020-12-31 17:49] LABS: Anion Gap 8 (5-15); BUN 23 mg/dL (7-18); BUN/Creat Ratio 20.2 RATIO (10-20); Chloride 108 mmol/L (98-107); Creatinine, Serum 1.14 mg/dL (0.55-1.02); EST Glomerular Filtration Rate 50 mL/min (>60); Est Glom Filt Rate - Afr Amer 60 mL/min (>60); Glucose 145 mg/dL (74-106); Potassium 3.6 mmol/L (3.5-5.1); Sodium Level 141 mmol/L (136-145)
[2020-12-31 17:52] LABS: BNP,B-Type NATRIURETIC PEPTIDE 399.3 pg/mL (0-100)
== END ==
PROVIDERS: Referring Provider Physician Assistant Medical; Visit Provider Physician Assistant Medical
DX: I25.10 Atherosclerotic heart disease of native coronary artery without angina pectoris (principal); I25.5 Ischemic cardiomyopathy; I10 Essential (primary) hypertension; R06.00 Dyspnea, unspecified
CPT/HCPCS: 36415; 80048; 83880; 85025

== ENCOUNTER → 2021-03-09 13:56 | Outpatient (CLI) | payer MEDICARE, SELFPAY ==
[2021-02-25 08:51] VITALS: BMI 29.0
[2021-03-09 15:58] LABS: Anion Gap 10 (5-15); BUN 39 mg/dL (7-18); BUN/Creat Ratio 21.4 RATIO (10-20); Calcium,Total 8.9 mg/dL (8.5-10.1); Chloride 100 mmol/L (98-107); Creatinine, Serum 1.82 mg/dL (0.55-1.02); EST Glomerular Filtration Rate 29 mL/min (>60); Est Glom Filt Rate - Afr Amer 35 mL/min (>60); Glucose 339 mg/dL (74-106); Potassium 4.3 mmol/L (3.5-5.1); Sodium Level 133 mmol/L (136-145)
== END ==
PROVIDERS: Referring Provider Physician Assistant Medical; Visit Provider Physician Assistant Medical
DX: I25.10 Atherosclerotic heart disease of native coronary artery without angina pectoris (principal)
CPT/HCPCS: 36415; 80048

== ENCOUNTER → 2021-03-30 12:31 | Outpatient (CLI) | payer MEDICARE, SELFPAY ==
[2021-02-25 08:51] VITALS: BMI 29.0
[2021-03-30 14:07] LABS: Absolute Lymphocyte Count 1.03 X10^3/uL (0.83-4.51); Absolute Neutrophil Count 10.4 X10^3/uL (2.0-7.7); Basophil# 0.03 X10^3/uL; Basophil% 0.2 % (0-1); Eosinophil# 0.07 X10^3/uL; Eosinophils% 0.6 % (0-5); Hemoglobin 13.1 g/dL (12.0-15.0); Lymphocyte # 1.03 X10^3/ul (0.83-4.51); Lymphocyte % 8.2 % (19-41); Mean Corp Hgb Conc 32.8 g/dL (32-36); Mean Corpuscular Hgb 30.2 pg (27.0-32.0); Mean Corpuscular Volume 92.2 fL (81-99); Mean Platelet Vol. 10.1 fl (6.2-12.0); Monocyte# 0.93 X10^3/uL; Monocyte% 7.4 % (0-10); NRBC Flagged by Analyzer 0 % (0-5); Neutrophil # 10.39 X10^3/uL (2.7-7.7); Neutrophil % 82.3 % (47-70); Platelet Count 210 K/mm3 (150-450); RBC Distribution Width CV 13.4 % (11.6-14.6); RBC Distribution Width SD 45.7 fl (35.1-43.9); Red Blood Count 4.34 M/mm3 (4.2-5.4); White Blood Count 12.6 K/mm3 (4.4-11.0)
[2021-03-30 14:31] LABS: PTHIN 140.6 pg/mL (18.4-80.1)
[2021-03-30 14:36] LABS: AST(SGOT) 19 U/L (15-37); Alanine Aminotransfer ALT/SGPT 27 U/L (13-56); Albumin, Serum 3.5 g/dL (3.2-5.0); Alkaline Phosphatase 94 U/L (45-117); Anion Gap 8 (5-15); BUN 34 mg/dL (7-18); BUN/Creat Ratio 26.8 RATIO (10-20); Calcium,Total 8.7 mg/dL (8.5-10.1); Chloride 104 mmol/L (98-107); Creatinine, Serum 1.27 mg/dL (0.55-1.02); EST Glomerular Filtration Rate 44 mL/min (>60); Est Glom Filt Rate - Afr Amer 53 mL/min (>60); Globulin 3.5 g/dL (2.2-4.2); Glucose 252 mg/dL (74-106); Potassium 4.1 mmol/L (3.5-5.1); Sodium Level 138 mmol/L (136-145)
== END ==
LOC: LAB 12:35 → LAB.FUTURE 13:07 → LAB 03-31 06:07
PROVIDERS: Physician Assistant Medical; Referring Provider Internal Medicine Rheumatology; Visit Provider Internal Medicine Rheumatology
DX: M06.4 Inflammatory polyarthropathy (principal); M79.7 Fibromyalgia; M35.00 Sjogren syndrome, unspecified; M17.0 Bilateral primary osteoarthritis of knee; M48.061 Spinal stenosis, lumbar region without neurogenic claudication; K58.0 Irritable bowel syndrome with diarrhea; E11.42 Type 2 diabetes mellitus with diabetic polyneuropathy; M10.9 Gout, unspecified; I12.9 Hypertensive chronic kidney disease with stage 1 through stage 4 chronic kidney disease, or unspecified chronic kidney disease; E11.22 Type 2 diabetes mellitus with diabetic chronic kidney disease; N18.30 Chronic kidney disease, stage 3 unspecified
CPT/HCPCS: 36415; 80053; 83970; 84550; 85025

== ENCOUNTER 2021-05-02 14:20 | Emergency (ER) | payer MEDICARE, SELFPAY ==
[2021-02-25 08:51] VITALS: BMI 29.0
[2021-05-02 14:21] VITALS: BP 109/76; PULSE 73; RESP 18; TEMP 36.5; O2SAT 97; BMI 28.3
--- NOTE | 2021-05-02 15:40 | ED.RN ---
PT [id number]
== END 2021-05-02 15:40 | disposition left against medical advice (07) ==
LOC: ED 15:51
PROVIDERS: Emergency Provider Emergency Medicine
DX: Z53.21 Procedure and treatment not carried out due to patient leaving prior to being seen by health care provider (principal)

== ENCOUNTER → 2021-06-01 13:17 | Outpatient (CLI) | payer MEDICARE, SELFPAY ==
[2021-05-02 14:21] VITALS: BMI 28.3
[2021-06-01 17:04] LABS: Color, Urine Yellow (Yellow); Glucose, Dipstick Normal (Normal); Ketone-Dipstick Negative (Negative); Leukocyte Esterase-Dipstick 500 /ul (Negative); Nitrite-Dipstick Negative (Negative); Occult Blood-Urine 25 /ul (Negative); Protein-Dipstick 30 mg/dl (Negative); Specific Gravity, Urine 1.025 (1.002-1.030); Urine Bilirubin Dipstick Negative (Negative); Urine Clarity Turbid (Clear); Urine Urobilinogen Normal (Normal)
== END ==
PROVIDERS: Referring Provider Family Medicine; Visit Provider Family Medicine
DX: R30.0 Dysuria (principal)
CPT/HCPCS: 81002

== ENCOUNTER 2021-06-30 15:33 | Emergency (ER) | payer MEDICARE, SELFPAY ==
[2021-06-30 15:35] VITALS: BP 140/82; PULSE 70; RESP 14; TEMP 36.2; O2SAT 100; BMI 26.2
--- NOTE | 2021-06-30 16:22 | CT_ITS ---
STUDY: CT BRAIN WITHOUT CONTRAST REASON FOR EXAM: Female, 71 years old. Injury. Pain. Fell and hit back of head. No loss of consciousness. RADIATION DOSAGE (If Supplied By Facility): CTDIvol = ( 44.99 ) mGy, DLP = ( 745.49 ) mGycm TECHNIQUE: Transaxial CT imaging of the brain was performed without administration of intravenous contrast material. Individualized dose optimization techniques were used for this CT. COMPARISON: No relevant priors. FINDINGS: There is a soft tissue hematoma of the midline occipitoparietal region. Normal calvarium. There is mild cerebral atrophy with widening of the extra-axial spaces and ventricular dilatation. There are areas of decreased attenuation within the white matter tracts of the supratentorial brain, consistent with microvascular disease changes. There are small punctate calcifications of the basal ganglia which are seen in the aging brain as a normal variant. Normal brainstem. Normal cerebellum. There is no intracranial hemorrhage. There are no findings of an acute ischemic infarction. Normal visualized paranasal sinuses. CT/Brain/Head without Contrast IMPRESSION: 1. Chronic involutional changes without evidence of acute intracranial or calvarial abnormality. 2. Soft tissue hematoma over the posterior aspect of the skull. There is no underlying fracture. Electronically Signed: Jeremy Estrada DO at 17:08 EDT Tel [phone], Service support ,
--- NOTE | 2021-06-30 16:22 | RAD_ITS ---
STUDY: X-RAY - RIGHT SHOULDER REASON FOR EXAM: Female, 71 years old. Fall. Injury. Pain. TECHNIQUE: 4 view(s) of the shoulder. COMPARISON: Right shoulder, 07/19/2018. FINDINGS: There is cephalad migration of the humeral head consistent with rotator cuff pathology. There is progressive degenerative changes of the acromioclavicular joint. Normal acromion. There is no acute fracture, dislocation or destructive osseous pathology. Normal humeral head and visualized proximal humerus. The soft tissue structures are unremarkable. Normal visualized pulmonary apex. RAD/Shoulder min 2 Views IMPRESSION: Degenerative changes of the right shoulder. Question rotator cuff pathology. Electronically Signed: Jeremy Estrada DO at 17:45 EDT Tel [phone], Service support ,
--- NOTE | 2021-06-30 16:22 | RAD_ITS ---
STUDY: X-RAY - RIGHT RADIUS AND ULNA REASON FOR EXAM: Female, 71 years old. Injury. Pain. TECHNIQUE: 2 view(s) of the forearm. COMPARISON: Humerus, 07/19/2018. FINDINGS: There is no demonstrated soft tissue swelling. There is slight irregularity about the radial head which appears unchanged from prior study thought represent a healed fracture. The radius is otherwise unremarkable. Normal visualized ulna. There is no acute fracture, dislocation or destructive osseous pathology. There are degenerative changes of the wrist and elbow. RAD/Forearm 2 Views IMPRESSION: No acute fracture or dislocation. Electronically Signed: Jeremy Estrada DO at 17:43 EDT Tel [phone], Service support ,
--- NOTE | 2021-06-30 16:22 | RAD_ITS ---
STUDY: X-RAY - THORACIC SPINE REASON FOR EXAM: Female, 71 years old. Injury. Fall. Pain. TECHNIQUE: 3 view(s) of the thoracic spine were obtained. COMPARISON: PA and lateral view of the chest, 12/15/2019. FINDINGS: Normal kyphosis of the thoracic spine. There is no substantial scoliosis. There is demineralization of the thoracic spine with endplate spondylosis. There is multilevel disc space narrowing of the thoracic spine. There is no evidence of acute fracture or loss of vertebral axial height. The soft tissue structures are unremarkable. RAD/Thoracic Spine 2 Views IMPRESSION: Stable degenerative changes of the thoracic spine. There is no acute fracture or subluxation. Electronically Signed: Jeremy Estrada DO at 17:46 EDT Tel [phone], Service support ,
--- NOTE | 2021-06-30 16:23 | EDS_ITS ---
HPI HPI - Fall History of Present Illness Chief Complaint: Fall Informant: patient Occured/Mechanism Occurred: Today Mechanism/Context: Yes same level fall Usually ambulates: Cane Pain/Injury Pain Location: head, back and upper extremity Worsened by: Movement Relieved by: Nothing Associated Symptoms Associated Symptoms: Positive for Parasthesias (Briefly); Negative for Weakness, Loss of function and Loss of consciousness Narrative Narrative: Patient presents for a fall that occurred today. Patient was walking out of the bathroom at [facility] when the door was heavier than she thought and caused her to fall. Patient hit the back of her head. Patient states that the wind was knocked out of her but she did not lose any consciousness. Patient complains of pain in the back of her head, right shoulder, and bilateral forearms. Patient states she did have some tingling in her fingers initially but states this only lasted a few seconds and is resolved. Patient describes her pain as stabbing. Patient denies any pain in her lower extremities. [facility] Medical History ASHD (arteriosclerotic heart disease) Atherosclerosis of coronary artery of [place] without angina pectoris Benign essential hypertension Cardiomyopathy Hyperlipidemia Home Medications pregabalin 75 mg PO DAILY 05/11/16 [History Last Taken 12/08/20] hydroxychloroquine 300 mg PO DAILY 07/19/18 [History Last Taken 07/19/18 200 MG] sitagliptin 100 mg PO DAILY 07/19/18 [History Last Taken 12/08/20] Prednisone 5 mg PO UD PRN 12/09/20 [History Last Taken Unknown] glimepiride 4 mg PO DAILY 12/09/20 [History Last Taken 12/08/20] aspirin 81 mg chewable tablet 1 ea PO DAILY 12/31/20 [History Last Taken Unknown] atorvastatin 40 mg tablet 40 mg PO QHS #30 tab 12/31/20 [Rx Last Taken Unknown] carvedilol 3.125 mg tablet 3.125 mg PO BID #60 tab 12/31/20 [Rx Last Taken Unknown] clopidogrel 75 mg tablet 75 mg PO DAILY #30 tab 12/31/20 [Rx Last Taken Unknown] furosemide 20 mg tablet 20 mg PO DAILY #30 tab 01/05/21 [Rx Last Taken Unknown] lisinopril 2.5 mg tablet 2.5 mg PO DAILY #90 tablet 04/16/21 [Rx Last Taken Unknown] hydrocodone-acetaminophen 1 tab PO Q6H PRN PRN 3 Days #10 tablet 06/30/21 [Rx Last Taken Unknown] Allergy/AdvReac Type Severity Reaction Status Date / Time ciprofloxacin [From Cipro] Allergy Hives Verified 06/30/21 15:35 ciprofloxacin HCl Allergy Hives Verified 06/30/21 15:35 [From Cipro] Penicillins Allergy Hives Verified 06/30/21 15:35 Surgical History History of left heart catheterization (12/10/20) Social History Smoking Status: Former smoker ROS ROS ED Constitutional Constitutional ED: Denies chills or fever(s) Eyes Eyes: Denies blurry vision or change in vision ENT ENT ED: Denies rhinorrhea or sore throat Cardiovascular Cardiovascular: Denies chest pain or palpitations Respiratory/Chest Respiratory/Chest: Denies cough or dyspnea Gastrointestinal Gastrointestinal: Denies nausea or vomiting Genitourinary Genitourinary ED: Denies dysuria or hematuria Musculoskeletal Musculoskeletal: Reports back pain; Denies neck pain Integumentary Denies abscess or rash Neurologic Neurologic: Reports headache(s); Denies weakness Allergic/Immunologic Allergic/Immunologic ED: Denies mouth swelling or urticaria EXAM Physical Exam Const Vital Signs: 06/30/21 15:35 06/30/21 16:40 Temperature 97.1 F L Temperature Source Temporal Pulse Rate 70 Respiratory Rate 14 Respiratory Effort Normal Non-Labored Respiratory Depth Normal Respiratory Pattern Normal Blood Pressure 140/82 H Blood Pressure Mean 101 Pulse Ox 100 Oxygen Delivery Method Room Air Room Air Positive well nourished and well developed General Appearance ED: well developed and NAD HEENT trauma, hematoma and tenderness Eyes PERRL and EOMs intact bilaterally Neck supple General: Negative for tenderness Resp normal respiratory effort and clear to auscultation bilaterally Cardio regular rate and regular rhythm GI non-tender and non-distended Auscultation: normoactive bowel sounds Palpation: soft Back/Spine Thoracic Spine / Upper Back: thoracic spinal tenderness Extremity Extremity Narrative: There is tenderness over the right shoulder and proximal humerus area. There is no obvious deformity noted. Range of motion was limited in all motions of the right shoulder secondary to pain. There is mild tenderness over the forearms bilaterally. There is no edema or ecchymosis. There is no deformity noted. There is good range of motion of the forearms bilaterally. Radial pulses are equal bilaterally. Sensation was intact to light touch bilaterally in the upper and lower extremities. Strength is 5/5 bilaterally upper and lower extremities. Neuro oriented x3, CN's II-XII intact bilaterally, moves all extremities, no focal motor deficits and no sensory deficits noted Sensorium / Orientation: alert Psych mental status grossly normal MDM MDM MDM Narrative Medical decision making narrative: Patient was given a dose of morphine here. CT scan of the brain was obtained. There is no acute intracranial abnormality. There is a soft tissue hematoma of the right occipital area of the scalp. This was interpreted by the radiologist and reviewed by myself. X-rays of the right forearm were obtained. There are 2 views. On my interpretation, there is no acute fracture or dislocation noted. There is no soft tissue swelling. X-rays of the left forearm were obtained. There are 2 views. On my interpretation, there is no acute fracture dislocation noted. There is no soft tissue swelling. X-rays of the right shoulder were obtained. There are 4 views. On my interpretation, there is no acute fracture or dislocation. There are some mild degenerative changes. There is no soft tissue swelling noted. X-rays of the thoracic spine were obtained. There are 2 views. On my interpretation, there are some degenerative changes. There is no acute fracture or spondylolisthesis noted. Radiologist also interpreted all the x-rays and agrees. Patient feels somewhat better on reevaluation. Patient was given a dose of Leoma here. Patient was given a prescription for Leoma. Patient was instructed to follow-up with her primary care physician in 3 to 5 days. Patient and family understood and were agreeable with the plan. All questions were answered. Radiography Diagnostic Testing: Radiology Impression Brain CT 06/30/21 16:22 IMPRESSION: 1. Chronic involutional changes without evidence of acute intracranial or calvarial abnormality. 2. Soft tissue hematoma over the posterior aspect of the skull. There is no underlying fracture. Electronically Signed: Jeremy Estrada DO at 17:08 EDT Tel [phone], Service support , Forearm X-Ray 06/30/21 16:22 IMPRESSION: No acute fracture or dislocation. Electronically Signed: Jeremy Estrada DO at 17:43 EDT Tel [phone], Service support , Shoulder X-Ray 06/30/21 16:22 IMPRESSION: Degenerative changes of the right shoulder. Question rotator cuff pathology. Electronically Signed: Jeremy Estrada DO at 17:45 EDT Tel [phone], Service support , Thoracic Spine X-Ray 06/30/21 16:22 IMPRESSION: Stable degenerative changes of the thoracic spine. There is no acute fracture or subluxation. Electronically Signed: Jeremy Estrada DO at 17:46 EDT Tel [phone], Service support , Forearm X-Ray 06/30/21 16:23 IMPRESSION: No acute fracture or dislocation. Electronically Signed: Jeremy Estrada DO at 17:44 EDT Tel [phone], Service support , Discharge Plan Triage Chief Complaint: Fall ED Provider: Bro Gan Dx/Rx/DC Orders Clinical Impression: Closed head injury, Contusion of right shoulder, initial encounter, Acute thoracic myofascial strain Instructions: ED Back Sprain/Strain, ED Contusion, Upper Extremity, ED Head Injury (Adult) Prescriptions: New hydrocodone-acetaminophen [hydrocodone-acetaminophen] 1 TABLET tablet 1 tab PO Q6H PRN PRN (Reason: Pain) 3 Days Qty: 10 RF: 0 No Action aspirin 81 mg tablet,chewable 1 ea PO DAILY RF: 0 carvedilol 3.125 mg tablet 3.125 mg PO BID Qty: 60 RF: 11 clopidogrel 75 mg tablet 75 mg PO DAILY Qty: 30 RF: 11 atorvastatin 40 mg tablet 40 mg PO QHS Qty: 30 RF: 11 furosemide [Lasix] 20 mg tablet 20 mg PO DAILY Qty: 30 RF: 11 lisinopril 2.5 mg tablet 2.5 mg PO DAILY Qty: 90 RF: 3 Hold Instructions: worsened renal function pregabalin 75 MG capsule 75 mg PO DAILY RF: 0 hydroxychloroquine 200 MG tablet 300 mg PO DAILY RF: 0 sitagliptin 50 MG tablet 100 mg PO DAILY RF: 0 Prednisone 5 MG tablet 5 mg PO UD PRN (Reason: FLARE) RF: 0 glimepiride 4 MG tablet 4 mg PO DAILY RF: 0 Primary Care Provider: Tigre Whitley Referrals: Tigre Whitley [Primary Care Provider] - 3-5 Days Disposition Disposition: Home, Self Care Discharge Date/Time: 06/30/21 18:54
--- NOTE | 2021-06-30 16:23 | RAD_ITS ---
STUDY: X-RAY - LEFT RADIUS AND ULNA REASON FOR EXAM: Female, 71 years old. Pain. Injury. TECHNIQUE: 2 view(s) of the forearm. COMPARISON: None. FINDINGS: There is no demonstrated soft tissue swelling. Normal visualized radius. Normal visualized ulna. There is no acute fracture, dislocation or destructive osseous pathology. There is mild arthrosis of the wrist and elbow. RAD/Forearm 2 Views IMPRESSION: No acute fracture or dislocation. Electronically Signed: Jeremy Estrada DO at 17:44 EDT Tel [phone], Service support ,
[2021-06-30] MEDS: Morphine 4 MG/ML Syringe IM (16:38)
[2021-06-30] MEDS: HYDROcodone Bitartrate/Apap 5/325 Tablet PO (18:48)
== END 2021-06-30 18:54 | disposition home or self-care (01) ==
PROVIDERS: Emergency Provider Emergency Medicine
DX: S00.03XA Contusion of scalp, initial encounter (principal); S40.011A Contusion of right shoulder, initial encounter; S29.012A Strain of muscle and tendon of back wall of thorax, initial encounter; W18.39XA Other fall on same level, initial encounter; Y93.01 Activity, walking, marching and hiking; Y92.512 Supermarket, store or market as the place of occurrence of the external cause; Y99.8 Other external cause status; M19.011 Primary osteoarthritis, right shoulder; I10 Essential (primary) hypertension; E78.5 Hyperlipidemia, unspecified; I25.10 Atherosclerotic heart disease of native coronary artery without angina pectoris; I42.9 Cardiomyopathy, unspecified; Z79.82 Long term (current) use of aspirin; Z79.899 Other long term (current) drug therapy; Z87.891 Personal history of nicotine dependence
CPT/HCPCS: 70450; 72070; 72072; 73030; 73090; 96372; 99283

== ENCOUNTER 2021-07-28 10:00 | Outpatient (RCR) | payer MEDICARE, SELFPAY ==
[2021-07-14 10:10] VITALS: BP 130/72; PULSE 80; RESP 22; TEMP 36.6; BMI 26.4
--- NOTE | 2021-07-14 19:02 | PCM.WC.HP ---
History of Present Illness Date of Service: 07/14/21 Chief Complaint: Left buttock ulcer History of Wound: Ms. Abreu is a 71-year-old who was referred by her primary care physician due to nonhealing left buttock ulcer. Has been present for about a month. She denies any known precipitating factor. Her daughter has been helping and has been applying calmoseptine cream daily. Daughter states that it has improved compared to original size but has been unable to close it. Denies significant drainage. Last A1c was at 6.7. No chills, fever or otherwise feeling of unwell. [facility] Medical History (Updated 07/14/21 @ 19:[address] Joyce Riley MD) ASHD (arteriosclerotic heart disease) Atherosclerosis of coronary artery of [place] heart without angina pectoris Benign essential hypertension Cardiomyopathy Decubitus ulcer of left buttock, stage 3 Hyperlipidemia Home Medications pregabalin 75 mg PO DAILY 05/11/16 [History Last Taken 12/08/20] hydroxychloroquine 300 mg PO DAILY 07/19/18 [History Last Taken 07/19/18 200 MG] sitagliptin 100 mg PO DAILY 07/19/18 [History Last Taken 12/08/20] Prednisone 5 mg PO UD PRN 12/09/20 [History Last Taken Unknown] glimepiride 4 mg PO DAILY 12/09/20 [History Last Taken 12/08/20] aspirin 81 mg chewable tablet 1 ea PO DAILY 12/31/20 [History Last Taken Unknown] atorvastatin 40 mg tablet 40 mg PO QHS #30 tab 12/31/20 [Rx Last Taken Unknown] carvedilol 3.125 mg tablet 3.125 mg PO BID #60 tab 12/31/20 [Rx Last Taken Unknown] clopidogrel 75 mg tablet 75 mg PO DAILY #30 tab 12/31/20 [Rx Last Taken Unknown] furosemide 20 mg tablet 20 mg PO DAILY #30 tab 01/05/21 [Rx Last Taken Unknown] lisinopril 2.5 mg tablet 2.5 mg PO DAILY #90 tablet 02/25/21 [Rx Last Taken Unknown] hydrocodone-acetaminophen 1 tab PO Q6H PRN PRN 3 Days #10 tablet 06/30/21 [Rx Last Taken Unknown] Allergy/AdvReac Type Severity Reaction Status Date / Time ciprofloxacin [From Cipro] Allergy Hives Verified 07/14/21 10:27 ciprofloxacin HCl Allergy Hives Verified 07/14/21 10:27 [From Cipro] Penicillins Allergy Hives Verified 07/14/21 10:27 Surgical History History of left heart catheterization (12/10/20) Social History Smoking Status: Smoker, status unknown tobacco type: cigarettes ROS Constitutional Constitutional: Denies fatigue, frequent falls, headache(s), lethargy or malaise Eyes Eyes: Denies change in eye color, change in vision, discharge from eye(s), dry eyes or erythema ENT HEENT: Denies dysphagia, ear discharge, ear pain, epistaxis or facial pain Cardiovascular Cardiovascular: Denies claudication, clubbing, cold extremities, cyanosis, dyspnea at rest or dyspnea on exertion Respiratory/Chest Respiratory/Chest: Denies dusky skin, dyspnea, excessive phlegm production, hemoptysis or hoarseness Gastrointestinal Gastrointestinal: Denies diarrhea, dry heaves, dyspepsia, dysphagia, hematemesis or hematochezia Genitourinary Genitourinary: Denies abdominal discomfort, anuria, burning urination, dysuria or genital lesions Musculoskeletal Musculoskeletal: Denies joint swelling, muscle cramps, muscle spasms, muscle weakness, myalgias or neck pain Integumentary Integumentary: Denies erythema, furuncle, hirsutism, jaundice or lesions Neurologic Neurologic: Denies convulsions, disequilibrium, dizziness, focal weakness or frequent falls Psychiatric Psychiatric: Denies confusion, hallucinations, homicidal ideation, hopelessness, irritability or mood swings Endocrine Endocrinology: Denies excessive sweating, fatigue, flushing or heat intolerance Hematologic/Lymphatic Hematologic/Lymphatic: Denies anemia, easy bleeding, easy bruising or lymphadenopathy Allergic/Immunologic Allergic/Immunologic: Denies tongue swelling, hives, urticaria, eczemia or wheezing Vital Signs Vital Signs Vital Signs: 07/14/21 10:10 Temperature 98 F Temperature Source Temporal Pulse Rate 80 Respiratory Rate 22 H Blood Pressure 130/72 H Blood Pressure Mean 91 Blood Pressure Source Monitor Weight Weight: 130 lb 9.615 oz Body Mass Index (BMI) 26.4 Physical Exam Const alert, oriented x3 and no apparent distress General Appearance: cooperative, comfortable and well kempt HEENT normocephalic and head/scalp atraumatic Eyes General Eye: normal appearance of both eyes Neck full ROM General: normal visual inspection Resp Effort and Inspection: able to speak in complete sentences Cardio regular rate, regular rhythm, S1 normal heart sound and S2 normal heart sound GI Palpation: soft Skin Wounds: wounds noted Neuro oriented x3, CN's II-XII intact bilaterally, moves all extremities and no focal motor deficits Psych mental status grossly normal Appearance: grossly normal Attitude: calm Speech: normal speech Debridement Note Debridement Note Wound debrided: Left buttock Wound Grade/Stage: Stage III Type of Debridement: Excisional debridement Anesthesia Used: 4% Lidocaine Solution Depth: Down to and including healthy tissue Percentage of wound debrided: 100 Instrument Used: 3mm curette Tissue Removed: Slough and devitalized tissue Severity: Fat Layer Exposed Amount of bleeding with debridement: Mild Bleeding Controlled with: Pressure Patient tolerated procedure: Patient tolerated procedure well Post-Debridement Measurements and Additional Note: Post-Debridement Measurements/Treatment - Nurse 1 - General Ulcer Assessment Start: 07/14/21 10:04 Freq: Status: Active Protocol: PRASANNA.SATNAM Activity Type Activity Date Activity User E-Sign Co-Sign Detail Recorded Client Recorded Date Recorded By Document 07/14/21 10:10 [id number] [id number] 07/14/21 10:23 DL 07/14/21 10:10 - Today's Visit Information Type of service Initial Visit Arrival Mode Ambulatory,Cane Transfer Assistance None Patient Identification Verified (Name & Yes ) Patient Requires Transmission-Based No Precautions Finger Stick Blood Sugar(mg/dl) (if not checked indicated): Blood Sugar Stated by Patient Height and Weight Height 4 ft 11 in Weight 130 lb 9.615 oz Weight in Pounds 130.6 lbs Body Mass Index (BMI) 26.4 BMI Classification Overweight BSA - Graham 1.54 Vital Signs Temperature (97.8 F-99.1 F) 98 F Temperature Source Temporal Pulse Rate (60-100) 80 Pulse Location Monitor Respiratory Rate (12-18) 22 H Respiratory rate source Observation Blood Pressure (90/60-120/80) 130/72 H Blood Pressure Mean 91 Source Monitor Pain Scale: 0-10 Numeric Is Patient Pain Free? Yes Communication Assessment Preferred language Portuguese Able to Read Yes Able to Write No Communication Tools None Right Hearing Abillity Hard of Hearing Left Hearing Abillity Hard of Hearing Visual Assistive Devices Glasses Teaching Assessment Preferences Verbal,Written, Demonstration Barriers to Learning Knowledge Deficit,Hearing Impairment Readiness To Learn Good Willingness to Engage in Self Management Med Activies Readiness to Engage in Self Management Med Activities Anxiety Level Calm Cooperation Cooperative Perception Coherent Interest in Health Problem Asks Questions Education Importance Acknowledges Need Does Patient Smoke tobacco or other No substances Smoking Status Smoker, status unknown Is Patient Diabetic Yes Functional Assessment Recent Decline in Ability to Perform Denies Any Declines Culture/Lutheran/Television Tube Inspector Cultural/Lutheran Needs that may affect No Treatment Plan Would you allow our [facility] kerfer machine operator to No meet you for the purpose of spiritual/ emotional support? Television Tube Inspector to contact place of temple No Teaching: Wound Center Skin Care -Person Taught Patient Diagnostic Tests Ordered -Person Taught Patient Dressing Your Wound -Person Taught Patient *Welcome to the Wound Center -Person Taught Patient WC - Nurse 1 - General Ulcer Measurement Start: 07/14/21 10:04 Freq: Status: Active Protocol: Activity Type Activity Date Activity User E-Sign Co-Sign Detail Recorded Client Recorded Date Recorded By Document 07/14/21 10:10 DL [id number] 07/14/21 10:23 DL 07/14/21 10:10 Wound Center Nurse 1 #1 L Buttocks -Current Size (cm) - Length 0.5 -Current Size (cm) - Width 0.5 -Current Size (cm) - Depth 0.1 -Total Square Cm 0.25 -Photo Taken Yes -Exudate Amt None Present -Wound Margin Distinct, Outline Attached -Granulation Amt Large (67-100%) -Granulation Quality Pale,[place] -Necrosis Amt None Present (0 %) -Structure Exposed N/A -Texture (Kim-wound Skin Appearance) Scarring -Moisture (Kim-wound Skin Appearance) Assessed -Color (Kim-wound Skin Appearance) Erythema,Rubor -Temperature (Kim-wound Skin No Abnormality Appearance) (Pt Warm) -Tenderness on Palpation (Kim-wound No Skin Appearance) -Ulcer Cleansing Wound Cleanser -Foul Odor after Cleansing No -Anesthetic Used 4% Lidocaine Solution WC - Nurse 2 - General Ulcer CM Notes Start: 07/14/21 10:04 Freq: Status: Active Protocol: Activity Type Activity Date Activity User E-Sign Co-Sign Detail Recorded Client Recorded Date Recorded By Document 07/14/21 10:38 PR [id number] 07/14/21 10:45 PR 07/14/21 10:38 Wound Center Nurse 2 -Time 10:40 -Correct Patient Yes -Correct Side, Site, Position Yes -Correct Procedure Yes -Procedure Performed Yes -Type of Procedure Debridement -Clinical Debridement Subcutaneous -Tissue Removed Subcutaneous -Post Debridement (cm) - Length 0.5 -Post Debridement (cm) - Width 0.4 -Post Debridement (cm) - Depth 0.1 -Total Square (Post) (cm) 0.20 -Area of Debridement (cm) - Length 0.5 -Area of Debridement (cm) - Width 0.4 -Total Square (Area) (cm) 0.20 -Tunneling No -Undermining/Tunneling No -Circular Undermining No -Wound/Ulcer Outcome Not Healed -Ulcer Cleansing Rinsed/ Irrigated with Saline -Foul Odor after Cleansing No -Bioengineered Tissue No -Bleeding Controlled with Pressure -Offloading No -Treatment Response Procedure Tolerated Well -Debridement - Subq, 1st 20sq cm Yes Pain Scale: 0-10 Numeric Is Patient Pain Free? Yes Charges/Coding Visit Charges Office Visits / Consults: [id number] OV L3 New Procedures Integumentary [id number]: [id number] Tejal subq tissue 20 sq cm/< Assessment/Plan Assessment/Plan (1) Decubitus ulcer of left buttock, stage 3: CODE(S): L89.323 - Pressure ulcer of left buttock, stage 3 (2) Type II diabetes mellitus: CODE(S): E11.9 - Type 2 diabetes mellitus without complications PLAN: Chronic nonhealing left buttock ulcer with fat layer exposed. Debridement done as documented above, procedure was well-tolerated. Promogran daily with ABD over top. May change twice daily depending on drainage or soilage. Offloading discussed. Increase protein intake. Vitamin C and zinc also recommended. Continue optimal diabetes control. Her questions were answered and they were advised to call with any further questions or concerns. Follow-up in a week. This note was generated with [employer] software. It may contain incorrect words, spelling, and punctuation that were not noted in checking the note before signing.
[2021-07-21 09:41] VITALS: BP 114/63; PULSE 78; TEMP 36.6; BMI 26.4
--- NOTE | 2021-07-21 10:20 | PN.PCM_ITS ---
History of Present Illness Date of Service: 07/21/21 Chief Complaint: Left buttock ulcer History of Wound: Ms. Abreu is a 71-year-old who was referred by her primary care physician due to nonhealing left buttock ulcer. Has been present for about a month. She denies any known precipitating factor. Her daughter has been helping and has been applying calmoseptine cream daily. Daughter states that it has improved compared to original size but has been unable to close it. Denies significant drainage. Last A1c was at 6.7. No chills, fever or otherwise feeling of unwell. Subjective Subjective Improving ulcer. No new concerns at this time. Objective Data Objective Data Vital Signs: Vital Signs Temp Pulse Resp BP 97.9 F 78 22 H 114/63 07/21/21 09:41 07/21/21 09:41 07/14/21 10:10 07/21/21 09:41 Weight: 130 lb 9.615 oz Body Mass Index (BMI) 26.4 Charges/Coding Procedures Integumentary [id number]: [id number] Tejal subq tissue 20 sq cm/< Physical Exam Const alert, oriented x3 and no apparent distress General Appearance: cooperative, comfortable and well kempt HEENT normocephalic and head/scalp atraumatic Eyes General Eye: normal appearance of both eyes Neck full ROM General: normal visual inspection Resp Effort and Inspection: able to speak in complete sentences Cardio regular rate, regular rhythm, S1 normal heart sound and S2 normal heart sound GI Palpation: soft Skin Wounds: wounds noted Neuro oriented x3, CN's II-XII intact bilaterally, moves all extremities and no focal motor deficits Psych mental status grossly normal Appearance: grossly normal Attitude: calm Speech: normal speech Debridement Note Debridement Note Wound debrided: Left buttock Type of Debridement: Excisional debridement Anesthesia Used: 4% Lidocaine Solution Depth: Down to and including healthy tissue and in the subcutaneous layer Percentage of wound debrided: 100 Instrument Used: - (1mm) Severity: Fat Layer Exposed Amount of bleeding with debridement: Mild Bleeding Controlled with: Pressure Patient tolerated procedure: Patient tolerated procedure well Post-Debridement Measurements and Additional Note: Post-Debridement Measurements/Treatment PRASANNA - Nurse 1 - General Ulcer Assessment Start: 07/14/21 10:04 Freq: Status: Active Protocol: SARI Activity Type Activity Date Activity User E-Sign Co-Sign Detail Recorded Client Recorded Date Recorded By Document 07/14/21 10:10 DL [id number] 07/14/21 10:23 DL Document 07/21/21 09:41 KR [id number] 07/21/21 09:45 KR 07/14/21 07/21/21 10:10 09:41 WC - Today's Visit Information Type of service Initial Visit Follow-up Visit (Physician/CLINICAL RESEARCH ANALYST ) Arrival Mode Ambulatory,Cane Ambulatory Transfer Assistance None Patient Identification Verified (Name & Yes Yes ) Patient Requires Transmission-Based No Precautions Finger Stick Blood Sugar(mg/dl) (if not checked indicated): Blood Sugar Stated by Patient Height and Weight Height 4 ft 11 in Weight 130 lb 9.615 oz Weight in Pounds 130.6 lbs Body Mass Index (BMI) 26.4 26.4 BMI Classification Overweight Overweight BSA - Graham 1.54 Vital Signs Temperature (97.8 F-99.1 F) 98 F 97.9 F Temperature Source Temporal Temporal Pulse Rate (60-100) 80 78 Pulse Location Monitor Monitor Respiratory Rate (12-18) 22 H Respiratory rate source Observation Blood Pressure (90/60-120/80) 130/72 H 114/63 Blood Pressure Mean (mm Hg) 91 80 Source Monitor Monitor Position Semi-Fowlers Blood Pressure Location Right Arm History Since Last Visit- (Skip if this is Patient's initial visit) Have you changed medications since your No last visit? Any new allergies or adverse reactions No Had a fall/change in ADL's that may No increase risk of falls Signs or symptoms of abuse and/or No neglect since last visit Have you been in the hospital since your No last visit? Has dressing in place as prescribed Yes Has compression in place as prescribed N/A Has offloadiing in place as prescribed N/A Experienced any changes in pain level or No management Left Footwear Regular Shoe Right Footwear Regular Shoe Pain Scale: 0-10 Numeric Is Patient Pain Free? Yes Yes Communication Assessment Preferred language [place] Able to Read Yes Able to Write No Communication Tools None Right Hearing Abillity Hard of Hearing Left Hearing Abillity Hard of Hearing Visual Assistive Devices Glasses Teaching Assessment Preferences Verbal,Written, Demonstration Barriers to Learning Knowledge Deficit,Hearing Impairment Readiness To Learn Good Willingness to Engage in Self Management Med Activies Readiness to Engage in Self Management Med Activities Anxiety Level Calm Cooperation Cooperative Perception Coherent Interest in Health Problem Asks Questions Education Importance Acknowledges Need Does Patient Smoke tobacco or other No substances Smoking Status Smoker, status unknown Is Patient Diabetic Yes Functional Assessment Recent Decline in Ability to Perform Denies Any Declines Culture/Rastafari/Patrol Supervisor Cultural/Rastafari Needs that may affect No Treatment Plan Would you allow our hospital zone manager to No meet you for the purpose of spiritual/ emotional support? Patrol Supervisor to contact place of adventism No Teaching: Wound Center Skin Care -Person Taught Patient Diagnostic Tests Ordered -Person Taught Patient Dressing Your Wound -Person Taught Patient *Welcome to the Wound Center -Person Taught Patient PRASANNA - Nurse 1 - General Ulcer Measurement Start: 07/14/21 10:04 Freq: Status: Active Protocol: Activity Type Activity Date Activity User E-Sign Co-Sign Detail Recorded Client Recorded Date Recorded By Document 07/14/21 10:10 DL [id number] 07/14/21 10:23 DL Document 07/21/21 09:41 KR [id number] 07/21/21 09:45 KR 07/14/21 07/21/21 10:10 09:41 Wound Center Nurse 1 #1 L Buttocks -Current Size (cm) - Length 0.5 0.1 -Current Size (cm) - Width 0.5 0.1 -Current Size (cm) - Depth 0.1 0.1 -Total Square Cm 0.25 0.01 -Photo Taken Yes -Exudate Amt None Present None Present -Wound Margin Distinct, Distinct, Outline Outline Attached Attached -Granulation Amt Large (67-100%) Small (1-33%) -Granulation Quality Pale,[place] -Necrosis Amt None Present (0 None Present (0 %) %) -Structure Exposed N/A -Texture (Kim-wound Skin Appearance) Scarring Assessed, Scarring -Moisture (Kim-wound Skin Appearance) Assessed No Abnormality, Assessed -Color (Kim-wound Skin Appearance) Erythema,Rubor No Abnormality, Assessed -Temperature (Kim-wound Skin No Abnormality No Abnormality Appearance) (Pt Warm) (Pt Warm) -Tenderness on Palpation (Kim-wound No No Skin Appearance) -Ulcer Cleansing Wound Cleanser Rinsed/ Irrigated with Saline -Foul Odor after Cleansing No No -Anesthetic Used 4% Lidocaine 4% Lidocaine Solution Solution WC - Nurse 2 - General Ulcer CM Notes Start: 07/14/21 10:04 Freq: Status: Active Protocol: Activity Type Activity Date Activity User E-Sign Co-Sign Detail Recorded Client Recorded Date Recorded By Document 07/14/21 10:38 UT [id number] 07/14/21 10:45 UT Document 07/21/21 10:05 UT [id number] 07/21/21 10:07 UT 07/14/21 07/21/21 10:38 10:05 Wound Center Nurse 2 #1 L Buttocks -Time 10:40 10:05 -Correct Patient Yes Yes -Correct Side, Site, Position Yes Yes -Correct Procedure Yes -Procedure Performed Yes -Type of Procedure Debridement Debridement -Clinical Debridement Subcutaneous Subcutaneous -Tissue Removed Subcutaneous Subcutaneous -Post Debridement (cm) - Length 0.5 0.3 -Post Debridement (cm) - Width 0.4 0.2 -Post Debridement (cm) - Depth 0.1 0.1 -Total Square (Post) (cm) 0.20 0.06 -Area of Debridement (cm) - Length 0.5 0.3 -Area of Debridement (cm) - Width 0.4 0.2 -Total Square (Area) (cm) 0.20 0.06 -Tunneling No No -Undermining/Tunneling No No -Circular Undermining No No -Wound/Ulcer Outcome Not Healed Not Healed -Ulcer Cleansing Rinsed/ Rinsed/ Irrigated with Irrigated with Saline Saline -Foul Odor after Cleansing No No -Bioengineered Tissue No No -Bleeding Controlled with Pressure Pressure -Offloading No No -Treatment Response Procedure Procedure Tolerated Well Tolerated Well -Debridement - Subq, 1st 20sq cm Yes Yes Pain Scale: 0-10 Numeric Is Patient Pain Free? Yes Assessment/Plan Assessment/Plan (1) Decubitus ulcer of left buttock, stage 3: CODE(S): L89.323 - Pressure ulcer of left buttock, stage 3 (2) Type II diabetes mellitus: CODE(S): E11.9 - Type 2 diabetes mellitus without complications PLAN: Improving. Debridement done as documented above, procedure was well-tolerated. Promogran daily with ABD over top. May change twice daily depending on drainage or soilage. Continue offloading and increased protein intake. Vitamin C and zinc also recommended. Continue optimal diabetes control. Her questions were answered and they were advised to call with any further questions or concerns. Follow-up in a week. This note was generated with [employer] software. It may contain incorrect words, spelling, and punctuation that were not noted in checking the note before signing.
[2021-07-28 10:07] VITALS: BP 116/65; PULSE 84; TEMP 36.2; BMI 26.4
--- NOTE | 2021-07-28 10:30 | PCM.WC.PN ---
History of Present Illness Date of Service: 07/28/21 Chief Complaint: Left buttock ulcer History of Wound: Ms. Abreu is a 71-year-old who was referred by her primary care physician due to nonhealing left buttock ulcer. Has been present for about a month. She denies any known precipitating factor. Her daughter has been helping and has been applying calmoseptine cream daily. Daughter states that it has improved compared to original size but has been unable to close it. Denies significant drainage. Last A1c was at 6.7. No chills, fever or otherwise feeling of unwell. Subjective Subjective No new concerns. Healed. Objective Data Objective Data Vital Signs: Vital Signs Temp Pulse Resp BP 97.2 F L 84 22 H 116/65 07/28/21 10:07 07/28/21 10:07 07/14/21 10:10 07/28/21 10:07 Weight: 130 lb 9.615 oz Body Mass Index (BMI) 26.4 Charges/Coding Visit Charges Office Visits / Consults: [id number] OV L3 Est Physical Exam Const alert, oriented x3 and no apparent distress General Appearance: cooperative, comfortable and well kempt HEENT normocephalic and head/scalp atraumatic Eyes General Eye: normal appearance of both eyes Neck full ROM General: normal visual inspection Resp Effort and Inspection: able to speak in complete sentences Cardio regular rate, regular rhythm, S1 normal heart sound and S2 normal heart sound GI Palpation: soft Neuro oriented x3, CN's II-XII intact bilaterally, moves all extremities and no focal motor deficits Psych mental status grossly normal Appearance: grossly normal Attitude: calm Speech: normal speech Assessment/Plan Assessment/Plan (1) Decubitus ulcer of left buttock, stage 3: CODE(S): L89.323 - Pressure ulcer of left buttock, stage 3 (2) Type II diabetes mellitus: CODE(S): E11.9 - Type 2 diabetes mellitus without complications PLAN: Healed. No debridement completed today. Zinc oxide twice daily and may cover with gauze. Continue for 1 to 2 weeks. Continue offloading and increased protein intake. Vitamin C and zinc also recommended. Continue optimal diabetes control. Her questions were answered and they were advised to call with any further questions or concerns. Discharge from the wound clinic. This note was generated with [employer] software. It may contain incorrect words, spelling, and punctuation that were not noted in checking the note before signing.
== END 2021-07-28 10:23 | disposition home or self-care (01) ==
LOC: WC 10:00
PROVIDERS: Visit Provider Internal Medicine
DX: E11.622 Type 2 diabetes mellitus with other skin ulcer (principal); L89.323 Pressure ulcer of left buttock, stage 3; E78.5 Hyperlipidemia, unspecified; I25.10 Atherosclerotic heart disease of native coronary artery without angina pectoris; I10 Essential (primary) hypertension; Z79.84 Long term (current) use of oral hypoglycemic drugs; Z79.82 Long term (current) use of aspirin; Z79.899 Other long term (current) drug therapy
CPT/HCPCS: 11042; 99213; G0463

== ENCOUNTER → 2021-09-27 11:34 | Outpatient (CLI) | payer MEDICARE, SELFPAY ==
[2021-09-27 12:38] LABS: Absolute Lymphocyte Count 0.79 X10^3/uL (0.83-4.51); Basophil# 0.05 X10^3/uL; Basophil% 0.7 % (0-1); Eosinophil# 0.17 X10^3/uL; Eosinophils% 2.2 % (0-5); Hematocrit 32.4 % (37-47); Hemoglobin 10.4 g/dL (12.0-15.0); Lymphocyte # 0.79 X10^3/ul (0.83-4.51); Lymphocyte % 10.4 % (19-41); Mean Corp Hgb Conc 32.1 g/dL (32-36); Mean Corpuscular Volume 90.3 fL (81-99); Mean Platelet Vol. 9.5 fl (6.2-12.0); Monocyte# 0.49 X10^3/uL; Monocyte% 6.5 % (0-10); NRBC Flagged by Analyzer 0 % (0-5); Neutrophil # 5.98 X10^3/uL (2.7-7.7); Neutrophil % 79.1 % (47-70); Platelet Count 215 K/mm3 (150-450); RBC Distribution Width CV 13.5 % (11.6-14.6); RBC Distribution Width SD 44.7 fl (35.1-43.9); Red Blood Count 3.59 M/mm3 (4.2-5.4); White Blood Count 7.6 K/mm3 (4.4-11.0)
[2021-09-27 13:08] LABS: BUN 29 mg/dL (7-18); BUN/Creat Ratio 22.3 RATIO (10-20); EST Glomerular Filtration Rate 43 mL/min (>60); Est Glom Filt Rate - Afr Amer 52 mL/min (>60); Glucose 178 mg/dL (74-106); Protein, Total 7.1 g/dL (6.4-8.2)
[2021-09-27 13:09] LABS: ALB/GLOB Ratio 0.7 RATIO (0.9-2.4); AST(SGOT) 16 U/L (15-37); Alanine Aminotransfer ALT/SGPT 13 U/L (13-56); Alkaline Phosphatase 105 U/L (45-117); Anion Gap 9 (5-15); Calcium,Total 8.8 mg/dL (8.5-10.1); Chloride 105 mmol/L (98-107); Globulin 4.1 g/dL (2.2-4.2); Potassium 3.9 mmol/L (3.5-5.1); Sodium Level 137 mmol/L (136-145)
== END ==
PROVIDERS: Referring Provider Internal Medicine Rheumatology; Visit Provider Internal Medicine Rheumatology
DX: M06.4 Inflammatory polyarthropathy (principal); M79.7 Fibromyalgia; M35.00 Sjogren syndrome, unspecified; M17.0 Bilateral primary osteoarthritis of knee; M48.061 Spinal stenosis, lumbar region without neurogenic claudication; K58.0 Irritable bowel syndrome with diarrhea; I10 Essential (primary) hypertension; E11.42 Type 2 diabetes mellitus with diabetic polyneuropathy; I25.10 Atherosclerotic heart disease of native coronary artery without angina pectoris; I25.5 Ischemic cardiomyopathy; Z79.899 Other long term (current) drug therapy
CPT/HCPCS: 36415; 80053; 85025

== ENCOUNTER → 2021-11-01 14:29 | Outpatient (CLI) | payer MEDICARE, SELFPAY ==
[2021-11-01 15:32] LABS: Hematocrit 37.5 % (37-47); Hemoglobin 12.3 g/dL (12.0-15.0); Mean Corp Hgb Conc 32.8 g/dL (32-36); Mean Corpuscular Hgb 29.4 pg (27.0-32.0); Mean Corpuscular Volume 89.5 fL (81-99); Mean Platelet Vol. 8.9 fl (6.2-12.0); Platelet Count 157 K/mm3 (150-450); RBC Distribution Width CV 14.4 % (11.6-14.6); RBC Distribution Width SD 47.2 fl (35.1-43.9); Red Blood Count 4.19 M/mm3 (4.2-5.4); White Blood Count 7.2 K/mm3 (4.4-11.0)
[2021-11-01 15:46] LABS: Albumin, Serum 3.1 g/dL (3.2-5.0); BUN 20 mg/dL (7-18); BUN/Creat Ratio 15.4 RATIO (10-20); Calcium,Total 8.6 mg/dL (8.5-10.1); Chloride 101 mmol/L (98-107); EST Glomerular Filtration Rate 43 mL/min (>60); Est Glom Filt Rate - Afr Amer 52 mL/min (>60); Glucose 383 mg/dL (74-106); Phosphorus 3.1 mg/dL (2.5-4.9); Potassium 3.6 mmol/L (3.5-5.1); Sodium Level 136 mmol/L (136-145)
[2021-11-01 15:51] LABS: Vitamin D,25 Hydroxy 35.4 ng/mL
[2021-11-01 16:00] LABS: Protein, Urine (Random) 29.3 mg/dL (<11.9); Protein:Creat Ratio 613 mg/g CRE (0-200)
[2021-11-02 08:31] LABS: PTHIN 104.6 pg/mL (18.4-80.1)
== END ==
PROVIDERS: Referring Provider Internal Medicine Nephrology; Visit Provider Internal Medicine Nephrology
DX: E11.22 Type 2 diabetes mellitus with diabetic chronic kidney disease (principal); N18.30 Chronic kidney disease, stage 3 unspecified; D63.1 Anemia in chronic kidney disease; E55.9 Vitamin D deficiency, unspecified
CPT/HCPCS: 36415; 80069; 82306; 82570; 83970; 84156; 85027

== ENCOUNTER → 2021-11-09 | Outpatient (CLI) | payer MEDICARE, SELFPAY | END | disposition home or self-care (01) | LOC: POLAB3 13:24 → LABSPEC 13:25 | PROVIDERS: Visit Provider Internal Medicine Nephrology | DX: R35.0 Frequency of micturition (principal) | CPT/HCPCS: 87086; 87088; 87186 ==

== ENCOUNTER 2021-12-26 12:34 | Outpatient (CLI) | payer MEDICARE, SELFPAY ==
[2021-12-26 14:04] LABS: AST(SGOT) 16 U/L (15-37); Alanine Aminotransfer ALT/SGPT 17 U/L (13-56); Albumin, Serum 3.4 g/dL (3.2-5.0); Alkaline Phosphatase 114 U/L (45-117); Bilirubin, Direct 0.14 mg/dL (0.00-0.30); Cholesterol 160 mg/dL (200); Globulin 3.2 g/dL (2.2-4.2); High Density Lipoprotein 48 mg/dL; Protein, Total 6.6 g/dL (6.4-8.2); Triglycerides 324 mg/dL; Very Low Density Lipoprotein 65 mg/dL (5-40)
== END 2021-12-26 23:59 | disposition home or self-care (01) ==
LOC: LAB 12:34
PROVIDERS: Visit Provider Internal Medicine Cardiovascular Disease
DX: I25.10 Atherosclerotic heart disease of native coronary artery without angina pectoris (principal); E78.5 Hyperlipidemia, unspecified
CPT/HCPCS: 36415; 80061; 80076

== ENCOUNTER 2022-01-31 10:45 | Outpatient (CLI) | payer MEDICARE, SELFPAY ==
--- NOTE | 2022-01-31 10:52 | ECHOD_ITS ---
Reason For Study: CAD/ASHD Procedure This was a 2D Doppler, Color Flow transthoracic echocardiogram. The study was technically difficult. Exam performed in department. Left Ventricle Normal LV size. Mild segmental systolic dysfunction (see wall motion). The estimated ejection fraction is 50 %. Septal bounce. Diastolic function is indeterminate. Mid-inferoseptal : Hypokinetic. Mid-anteroseptal : Hypokinetic. Right Ventricle Normal RV size. Normal systolic function. Atria Normal left atrium. Normal right atrium. No doppler evidence for ASD. Mitral Valve There is no mitral annular calcification. Mild diffuse mitral valve thickening. Mild focal mitral valve calcification of the posterior leaflet. Trivial mitral valve insufficiency. Tricuspid Valve Normal tricuspid valve. Mild tricuspid valve insufficiency. Right ventricular systolic pressure estimated to be 26 mmHg. Aortic Valve Trisinus/trileaflet aortic valve. Mild focal aortic valve calcification. Trivial eccentric aortic valve insufficiency. Pulmonic Valve The pulmonic valve is not well visualized. Great Vessels The aortic valve is not well visualized. Pericardium/Pleural No pericardial effusion. MMode/2D Measurements & Calculations LVIDd: 4.9 cm IVSd: 0.96 cm LAV(MOD-bp): 45.2 ml LVIDs: 3.6 cm LVPWd: 1.0 cm LAV(MOD-bp) Indexed: 28.2 ml/m2 RVDd: 3.1 cm FS: 26.8 % LAV(MOD-sp2): 51.0 ml LAV(MOD-sp4): 31.9 ml EDV(MOD-sp4): 75.0 ml EDV(MOD-sp2): 84.4 ml SV(MOD-sp4): 38.3 ml ESV(MOD-sp4): 36.7 ml ESV(MOD-sp2): 41.2 ml EF(MOD-sp4): 51.1 % EF(MOD-sp2): 51.2 % SV(MOD-sp2): 43.2 ml LA dimension(2D): 3.6 cm LA A4 area: 13.0 cm2 RA A4 area: 12.9 cm2 Time Measurements MV dec time: 0.28 sec Doppler Measurements & Calculations MV E max jeffery: 63.4 cm/sec Lat Peak E' Jeffery: 7.4 cm/sec Med Peak E' Jeffery: 3.8 cm/sec MV A max jeffery: 108.5 cm/sec E/E' lat: 8.6 E/E' med: 16.6 MV E/A: 0.58 Ao V2 max: 136.9 cm/sec LV V1 max: 105.0 cm/sec PA V2 max: 92.4 cm/sec Ao max P.5 mmHg LV V1 max P.4 mmHg TR max jeffery: 238.6 cm/sec TR max P.8 mmHg ECHO/Echo Complete Interpretation Summary The study was technically difficult. Mild segmental systolic dysfunction (see wall motion). The estimated ejection fraction is 50 %. Septal bounce. Mild diffuse mitral valve thickening. Mild focal mitral valve calcification of the posterior leaflet. Trivial mitral valve insufficiency. Mild tricuspid valve insufficiency. Mild focal aortic valve calcification. Right ventricular systolic pressure estimated to be 26 mmHg. Diastolic function is indeterminate. Ordering Physician: Mitchel Saini Referring Physician: Tigre Whitley Performed By: Kacey Soares, OUMOU, RVT
== END 2022-01-31 23:59 | disposition home or self-care (01) ==
LOC: CVS 10:46
PROVIDERS: Referring Provider Internal Medicine Cardiovascular Disease; Visit Provider Internal Medicine Cardiovascular Disease
DX: I25.10 Atherosclerotic heart disease of native coronary artery without angina pectoris (principal); I25.5 Ischemic cardiomyopathy; I10 Essential (primary) hypertension; E78.5 Hyperlipidemia, unspecified; Z95.5 Presence of coronary angioplasty implant and graft
CPT/HCPCS: 93306

== ENCOUNTER 2022-03-18 07:33 | Inpatient (IN) | payer MEDICARE, SELFPAY ==
[2022-03-18] VITALS (15 sets, daily range): BP systolic 92–168; BP diastolic 60–95; PULSE 106–137; RESP 20–29; TEMP 36.8–38.7; O2SAT 92–98; BMI 27.9; BMI 27.1
--- NOTE | 2022-03-18 07:56 | RAD_ITS ---
STUDY: X-RAY CHEST REASON FOR EXAM: Female, 71 years old. fever TECHNIQUE: Single AP portable view of the chest. COMPARISON: 12/09/2020 FINDINGS: The lungs are clear and expanded. There is no demonstrated pleural abnormality. Normal size heart. Normal mediastinum and greg. Normal visualized pulmonary arteries. Normal visualized aortic arch and descending thoracic aorta. Normal visualized thoracic spine. Normal visualized ribs, clavicles, and shoulders. There is no demonstrated abnormality of the visualized soft tissue structures of the upper abdomen. RAD/Chest 1 View (Portable) IMPRESSION: Normal x-ray examination of the chest. Electronically Signed: Jason Delatorre MD at 8:48 EDT ,
--- NOTE | 2022-03-18 07:56 | EKG12_ITS ---
Test Reason : SEPSIS Blood Pressure : / mmHG Vent. Rate : 107 BPM Atrial Rate : 107 BPM P-R Int : 164 ms QRS Dur : 082 ms QT Int : 368 ms P-R-T Axes : 054 037 032 degrees QTc Int : 491 ms Sinus tachycardia Otherwise normal ECG Confirmed by MICAELA MELGAR, DESIRAE ([id number]), senior editor SORIN GUZMAN ([id number]) on 03/20/2022 1:28:39 PM Referred By: Confirmed By:DESIRAE HINOJOSA MD
--- NOTE | 2022-03-18 07:57 | CT_ITS ---
STUDY: CT BRAIN WITHOUT CONTRAST REASON FOR EXAM: Female, 71 years old. ams RADIATION DOSAGE (If Supplied By Facility): CTDIvol = ( 44.99 ) mGy, DLP = ( 1490.98 ) mGycm TECHNIQUE: Transaxial CT imaging of the brain was performed without administration of intravenous contrast material. Individualized dose optimization techniques were used for this CT. COMPARISON: 06/30/2021 FINDINGS: Normal soft tissue structures. Normal calvarium. There is mild cerebral atrophy with widening of the extra-axial spaces and ventricular dilatation. There are areas of decreased attenuation within the white matter tracts of the supratentorial brain, consistent with microvascular disease changes. Normal basal ganglia and thalami. Normal brainstem. Normal cerebellum. There is no intracranial hemorrhage. There are no findings of an acute ischemic infarction. Normal visualized paranasal sinuses. CT/Brain/Head without Contrast IMPRESSION: Chronic involutional changes of the brain. Electronically Signed: Jason Delatorre MD at 10:00 EDT ,
--- NOTE | 2022-03-18 08:05 | EDS_ITS ---
HPI History of Present Illness Chief Complaint: Fever Informant: patient, family and EMS Narrative Narrative: 71-year-old female brought to the emergency department for altered mental status. Daughter notes that last night around midnight she got up to urinate and could not get up off the bathroom floor. She had to have the neighbors come and help get her up. Patient noted to be confused and febrile per EMS. Family notes no cough vomiting or diarrhea. Daughter notes that there is a skin tear in the right forearm that occurred last night when she was being helped down to the floor. [facility] Medical History Atherosclerosis of coronary artery of [place] heart without angina pectoris Atherosclerotic heart disease of [place] coronary artery without angina pectoris Benign essential hypertension Cardiomyopathy Decubitus ulcer of left buttock, stage 3 Essential hypertension Hyperlipidemia Ischemic cardiomyopathy Home Medications pregabalin 75 mg PO DAILY 05/11/16 [History Last Taken 12/08/20] hydroxychloroquine 300 mg PO DAILY 07/19/18 [History Last Taken 07/19/18 200 MG] sitagliptin 100 mg PO DAILY 07/19/18 [History Last Taken 12/08/20] Prednisone 5 mg PO UD PRN 12/09/20 [History Last Taken Unknown] glimepiride 4 mg PO DAILY 12/09/20 [History Last Taken 12/08/20] aspirin 81 mg chewable tablet 1 ea PO DAILY 12/31/20 [History Last Taken Unknown] atorvastatin 40 mg tablet 40 mg PO QHS #30 tab 12/31/20 [Rx Last Taken Unknown] bupropion HCl 150 mg 24 hr tablet, extended release 150 mg PO QAM 12/30/21 [History Last Taken Unknown] carvedilol 6.25 mg tablet 6.25 mg PO BID #60 tab 12/30/21 [Rx Last Taken Unknown] clopidogrel 75 mg tablet 75 mg PO DAILY #30 tab 12/30/21 [Rx Last Taken Unknown] duloxetine 60 mg capsule,delayed release 60 mg PO DAILY 12/30/21 [History Last Taken Unknown] furosemide 20 mg tablet 20 mg PO .COMPLEX #30 tab 12/30/21 [Rx Last Taken Unk nown] Allergy/AdvReac Type Severity Reaction Status Date / Time ciprofloxacin [From Cipro] Allergy Hives Verified 12/30/21 13:06 ciprofloxacin HCl Allergy Hives Verified 12/30/21 13:06 [From Cipro] Penicillins Allergy Hives Verified 12/30/21 13:06 Surgical History History of left heart catheterization (12/10/20) Presence of coronary angioplasty implant and graft (~12/16/20) Presence of stent in coronary artery (~12/16/20) Social History Smoking Status: Smoker, status unknown tobacco type: cigarettes ROS ROS ED Review of Systems ROS Unobtainable: due to mental status EXAM Physical Exam Const Vital Signs: 03/18/22 07:42 03/18/22 07:57 03/18/22 09:19 Temperature 100.9 F H 98.3 F 100.5 F H Temperature Source Temporal Oral Temporal Pulse Rate 106 H 115 H Respiratory Rate 29 H 25 H Blood Pressure 168/94 H 147/68 H Blood Pressure Mean 118 94 Pulse Ox 97 97 Oxygen Delivery Method Room Air Room Air 03/18/22 10:00 Temperature 98.3 F Temperature Source Oral Pulse Rate 127 H Respiratory Rate 21 H Blood Pressure 145/95 H Blood Pressure Mean 111 Pulse Ox 97 Oxygen Delivery Method Room Air Positive well nourished and well developed General Appearance ED: well developed HEENT Reports normocephalic, head/scalp atraumatic, TM's clear and dry mucous membranes Negative for trauma Tympanic Membrane ED: Yes TM's clear Mouth ED: Yes dry mucous membranes Mouth: dry mucous membranes Eyes PERRL and EOMs intact bilaterally Neck no lymphadenopathy, supple and no JVD Resp normal respiratory effort and clear to auscultation bilaterally Cardio Rate: tachycardic Rhythm: abnormal rhythm irregularly irregular GI normal to inspection, nondistended, normoactive bowel sounds and non-tender Palpation: soft Back/Spine no CVA tenderness and normal ROM Extremity normal to inspection General Extremety ED: Negative for edema General Extremity: Negative for edema Neuro CN's II-XII intact bilaterally Sensorium / Orientation: alert Motor Exam: strength 5/5 throughout Psych Mood & Affect: Negative for depressed or tearful Skin no rashes or lesions noted Skin Narrative: Decubitus ulcer MDM MDM MDM Narrative Medical decision making narrative: White count 20.9 with a hemoglobin of 12.7 and platelet count of 142. BUN of 24 with a creatinine of 1.36. Sodium of 130. Troponin is 285. Lactic acid is elevated at 3.3. Urinalysis shows 0-5 whites 3+ bacteria negative nitrites. This was sent for culture. Blood cultures obtained. Patient received a dose of Rocephin and Tylenol. She also received a liter of IV fluids. My interpretation of the chest x-ray is no acute process. CT of the brain is negative. Lab Data Attestation: I reviewed the patient's lab results. Labs: Laboratory Results - last 24 hr 03/18/22 03/18/22 03/18/22 08:00 08:00 08:00 WBC 20.9 H RBC 4.01 L Hgb 12.7 Hct 37.9 MCV 94.5 MCH 31.7 MCHC 33.5 RDW Std Deviation 42.7 RDW Coeff of Janusz 12.2 Plt Count 142 L MPV 9.0 Immature Gran % (Auto) 1.500 H Neut % (Auto) 94.3 H Lymph % (Auto) 1.1 L [place] % (Auto) 3.0 Eos % (Auto) 0.0 Baso % (Auto) 0.1 Absolute Neuts (auto) 19.7 H Absolute Lymphs (auto) 0.22 L Nucleated RBC % 0 Differential Comment SCANNED PT 15.8 H INR 1.3 APTT 32.8 Sodium 130 L Potassium 3.5 Chloride 93 L Carbon Dioxide 24.0 Anion Gap 13 BUN 24 H Creatinine 1.36 H Estim Creat Clear Calc 36.47 Est GFR (MDRD) Af Amer 49 L Est GFR (MDRD) Non-Af 40 L BUN/Creatinine Ratio 17.6 Glucose 202 H Lactic Acid Calcium 8.9 Total Bilirubin 1.10 H AST 37 ALT 24 Alkaline Phosphatase 99 Troponin I High Sens 285 H* Total Protein 7.9 Albumin 3.3 Globulin 4.6 H Albumin/Globulin Ratio 0.7 L Urine Color Urine Clarity Urine pH Ur Specific [place] Urine Protein Urine Glucose (UA) Urine Ketones Urine Occult Blood Urine Nitrite Urine Bilirubin Urine Urobilinogen Ur Leukocyte Esterase Urine RBC Urine WBC Ur Squamous Epith Cells Urine Bacteria Urine Mucus 03/18/22 03/18/22 08:00 08:00 WBC RBC Hgb Hct MCV MCH MCHC RDW Std Deviation RDW Coeff of Janusz Plt Count MPV Immature Gran % (Auto) Neut % (Auto) Lymph % (Auto) [place] % (Auto) Eos % (Auto) Baso % (Auto) Absolute Neuts (auto) Absolute Lymphs (auto) Nucleated RBC % Differential Comment PT INR APTT Sodium Potassium Chloride Carbon Dioxide Anion Gap BUN Creatinine Estim Creat Clear Calc Est GFR (MDRD) Af Amer Est GFR (MDRD) Non-Af BUN/Creatinine Ratio Glucose Lactic Acid 3.3 H* Calcium Total Bilirubin AST ALT Alkaline Phosphatase Troponin I High Sens Total Protein Albumin Globulin Albumin/Globulin Ratio Urine Color Yellow Urine Clarity Sl. Cloudy Urine pH 6.0 Ur Specific [place] 1.015 Urine Protein 500 H Urine Glucose (UA) 50 H Urine Ketones 5 H Urine Occult Blood 250 H Urine Nitrite Negative Urine Bilirubin Negative Urine Urobilinogen Normal Ur Leukocyte Esterase Negative Urine RBC 5-10 SEEN Urine WBC 0-5 SEEN Ur Squamous Epith Cells 0 SEEN Urine Bacteria 3+ Urine Mucus 0 SEEN Radiography Diagnostic Testing: Clinical Impression(s) from Imaging Studies Chest X-Ray 03/18/22 07:56 IMPRESSION: Normal x-ray examination of the chest. Electronically Signed: Jason Delatorre MD at 8:48 EDT Reading Location ID and State: [id number] / [employer] Tel , Service support , Brain CT 03/18/22 07:57 IMPRESSION: Chronic involutional changes of the brain. Electronically Signed: Jason Delatorre MD at 10:00 EDT , EKG Initial EKG: Attestation: I personally reviewed and interpreted this EKG as follows: Comments: Sinus tachycardia with a ventricular rate of 107 bpm Discharge Plan Dx/Rx/DC Orders Clinical Impression: Encephalopathy acute, Acute febrile illness, Sepsis, Bacteriuria Disposition Disposition: Located within [facility]
[2022-03-18 08:22] LABS: Mucous, Urine 0 SEEN /hpf (<or=2+); Squamous Epithelial Cells - UA 0 SEEN /hpf (5-10)
[2022-03-18] MEDS: 0.9% Normal Saline 1,000 ML 999 ML IV (08:24)
[2022-03-18] MEDS: Acetaminophen 500 MG Tablet 1000 MG PO (08:24)
[2022-03-18 08:27] LABS: Absolute Lymphocyte Count 0.22 X10^3/uL (0.83-4.51); Absolute Neutrophil Count 19.7 X10^3/uL (2.0-7.7); Basophil# 0.03 X10^3/uL; Basophil% 0.1 % (0-1); Hematocrit 37.9 % (37-47); Hemoglobin 12.7 g/dL (12.0-15.0); Lymphocyte # 0.22 X10^3/ul (0.83-4.51); Lymphocyte % 1.1 % (19-41); Mean Corp Hgb Conc 33.5 g/dL (32-36); Mean Corpuscular Hgb 31.7 pg (27.0-32.0); Mean Corpuscular Volume 94.5 fL (81-99); Monocyte# 0.62 X10^3/uL; NRBC Flagged by Analyzer 0 % (0-5); Neutrophil # 19.74 X10^3/uL (2.7-7.7); Neutrophil % 94.3 % (47-70); POSITIVE DIFFERENTIAL YES; Platelet Count 142 K/mm3 (150-450); RBC Distribution Width CV 12.2 % (11.6-14.6); RBC Distribution Width SD 42.7 fl (35.1-43.9); Red Blood Count 4.01 M/mm3 (4.2-5.4); White Blood Count 20.9 K/mm3 (4.4-11.0)
[2022-03-18 08:28] LABS: Differential Indicated SCAN CRITERIA MET
[2022-03-18 08:40] LABS: Color, Urine Yellow (Yellow); Glucose, Dipstick 50 mg/dl (Normal); International Normalized Ratio 1.3; Ketone-Dipstick 5 mg/dl (Negative); Leukocyte Esterase-Dipstick Negative /ul (Negative); Nitrite-Dipstick Negative (Negative); Occult Blood-Urine 250 /ul (Negative); Partial Thromboplast Time 32.8 Seconds (24.1-36.2); Protein-Dipstick 500 mg/dl (Negative); Prothrombin Time (Protime)PT. 15.8 SECONDS (11.7-14.9); Specific Gravity, Urine 1.015 (1.002-1.030); Urine Bilirubin Dipstick Negative (Negative); Urine Clarity Sl. Cloudy (Clear); Urine Urobilinogen Normal (Normal)
[2022-03-18 08:47] LABS: ALB/GLOB Ratio 0.7 RATIO (0.9-2.4); AST(SGOT) 37 U/L (15-37); Alanine Aminotransfer ALT/SGPT 24 U/L (13-56); Albumin, Serum 3.3 g/dL (3.2-5.0); Alkaline Phosphatase 99 U/L (45-117); Anion Gap 13 (5-15); BUN 24 mg/dL (7-18); BUN/Creat Ratio 17.6 RATIO (10-20); Calcium,Total 8.9 mg/dL (8.5-10.1); Chloride 93 mmol/L (98-107); Creatinine, Serum 1.36 mg/dL (0.55-1.02); EST Glomerular Filtration Rate 40 mL/min (>60); Est Glom Filt Rate - Afr Amer 49 mL/min (>60); Estimated Creatinine Clearance 36.47 ml/min; Globulin 4.6 g/dL (2.2-4.2); Glucose 202 mg/dL (74-106); Potassium 3.5 mmol/L (3.5-5.1); Protein, Total 7.9 g/dL (6.4-8.2); Sodium Level 130 mmol/L (136-145); Troponin-I HS 285 pg/mL (3.0-54.0)
[2022-03-18 08:50] LABS: Differential Comment SCANNED
[2022-03-18 08:58] LABS: Bacteria 3+ /hpf (None Seen); Red Blood Cells-Urine 5-10 SEEN /hpf (0-5); White Blood Cells 0-5 SEEN /hpf (0-5)
[2022-03-18 09:05] LABS: Lactic Acid 3.3 mmol/L (0.4-1.9)
[2022-03-18] MEDS: Ceftriaxone 1 GM/50 ML BAG IV (09:17)
--- NOTE | 2022-03-18 10:21 | NURSING ---
DR JERRICA GODFREY
--- NOTE | 2022-03-18 10:30 | NURSING ---
MED SURG KITTOE SEPSIS, ENCEPHALOPATHY
--- NOTE | 2022-03-18 10:34 | DS.PCM_ITS ---
Providers Primary Care Physician: Tigre Whitley Reason For Visit: Altered Mental Status Medications at Discharge Home Medications pregabalin 75 mg PO DAILY 05/11/16 hydroxychloroquine 300 mg PO DAILY 07/19/18 sitagliptin 100 mg PO DAILY 07/19/18 Prednisone 5 mg PO UD PRN 12/09/20 glimepiride 4 mg PO DAILY 12/09/20 aspirin 81 mg chewable tablet 1 ea PO DAILY 12/31/20 atorvastatin 40 mg tablet 40 mg PO QHS #30 tab 12/31/20 bupropion HCl 150 mg 24 hr tablet, extended release 150 mg PO QAM 12/30/21 carvedilol 6.25 mg tablet 6.25 mg PO BID #60 tab 12/30/21 clopidogrel 75 mg tablet 75 mg PO DAILY #30 tab 12/30/21 duloxetine 60 mg capsule,delayed release 60 mg PO DAILY 12/30/21 furosemide 20 mg tablet 20 mg PO .COMPLEX #30 tab 12/30/21 Weight / BMI Weight Weight: 62.7 kg Body Mass Index (BMI) 27.9 ABG / Lab / Microbiology Data Result Diagrams: 03/18/22 08:00 03/18/22 08:00 Laboratory: Laboratory Results - last 24 hr 03/18/22 08:00: WBC 20.9 H, RBC 4.01 L, Hgb 12.7, Hct 37.9, MCV 94.5, MCH 31.7, MCHC 33.5, RDW Std Deviation 42.7, RDW Coeff of Janusz 12.2, Plt Count 142 L, MPV 9.0, Immature Gran % (Auto) 1.500 H, Neut % (Auto) 94.3 H, Lymph % (Auto) 1.1 L, [place] % (Auto) 3.0, Eos % (Auto) 0.0, Baso % (Auto) 0.1, Absolute Neuts (auto) 19.7 H, Absolute Lymphs (auto) 0.22 L, Nucleated RBC % 0, Differential Comment SCANNED 03/18/22 08:00: PT 15.8 H, INR 1.3, APTT 32.8 03/18/22 08:00: Sodium 130 L, Potassium 3.5, Chloride 93 L, Carbon Dioxide 24.0, Anion Gap 13, BUN 24 H, Creatinine 1.36 H, Estim Creat Clear Calc 36.47, Est GFR (MDRD) Af Amer 49 L, Est GFR (MDRD) Non-Af 40 L, BUN/Creatinine Ratio 17.6, Glucose 202 H, Calcium 8.9, Total Bilirubin 1.10 H, AST 37, ALT 24, Alkaline Phosphatase 99, Troponin I High Sens 285 H*, Total Protein 7.9, Albumin 3.3, Globulin 4.6 H, Albumin/Globulin Ratio 0.7 L 03/18/22 08:00: Lactic Acid 3.3 H* 03/18/22 08:00: Urine Color Yellow, Urine Clarity Sl. Cloudy, Urine pH 6.0, Ur Specific [place] 1.015, Urine Protein 500 H, Urine Glucose (UA) 50 H, Urine Ketones 5 H, Urine Occult Blood 250 H, Urine Nitrite Negative, Urine Bilirubin Negative, Urine Urobilinogen Normal, Ur Leukocyte Esterase Negative, Urine RBC 5-10 SEEN, Urine WBC 0-5 SEEN, Ur Squamous Epith Cells 0 SEEN, Urine Bacteria 3+, Urine Mucus 0 SEEN Microbiology: Microbiology 03/18/22 09:00 Nasal Secretion SARS-CoV-2 & FLU Antigen (Rapid) - Final Radiography Diagnostic Testing: Radiology Impression Chest X-Ray 03/18/22 07:56 IMPRESSION: Normal x-ray examination of the chest. Electronically Signed: Jason Delatorre MD at 8:48 EDT Reading Location ID and State: [id number] / [facility] Tel , Service support , Brain CT 03/18/22 07:57 IMPRESSION: Chronic involutional changes of the brain. Electronically Signed: Jason Delatorre MD at 10:00 EDT , Discharge Plan Dx/Rx/DC Orders Clinical Impression: Encephalopathy acute, Acute febrile illness, Sepsis, Bacteriuria Disposition Disposition: [facility]
--- NOTE | 2022-03-18 10:52 | HP.PCM.HOS_ITS ---
HPI - General General Date of Admission: 03/18/22 Date of Service: 03/18/22 Chief Complaint: Altered mental status HPI Narrative ERIK GARCIA, is a 71 F with multiple comorbidities including diabetes mellitus type 2, chronic kidney disease stage III coronary artery disease who was brought to the emergency department by her daughter on account of altered mental status. Patient history was provided by her daughter who was with her at the time of my assessment. Per patient's daughter patient was found to be profoundly weak and night prior to her being admitted. She had no complaint of any fever no chills no dysuria no shortness of breath. On the morning of her presentation patient was found to be delirious according to the daughter, hence the decision for the ER visit. In the emergency department patient was found to be febrile with leukocytosis and elevated lactic acid level. Chest x-ray obtained did not reveal any infiltrate. Urinalysis was essentially unremarkable except for 3+ bacteria. An assessment of sepsis possibly secondary to cystitis made treatment initiated per protocol with IV fluid resuscitation broad-spectrum antibiotic therapy after cultures have been obtained [facility] Medical History Atherosclerosis of coronary artery of [place] heart without angina pectoris Atherosclerotic heart disease of [place] coronary artery without angina pectoris Benign essential hypertension Cardiomyopathy Decubitus ulcer of left buttock, stage 3 Essential hypertension Hyperlipidemia Ischemic cardiomyopathy Home Medications pregabalin 75 mg PO DAILY 05/11/16 [History Last Taken 12/08/20] hydroxychloroquine 300 mg PO DAILY 07/19/18 [History Last Taken 07/19/18 200 MG] sitagliptin 100 mg PO DAILY 07/19/18 [History Last Taken 12/08/20] Prednisone 5 mg PO UD PRN 12/09/20 [History Last Taken Unknown] glimepiride 4 mg PO DAILY 12/09/20 [History Last Taken 12/08/20] aspirin 81 mg chewable tablet 1 ea PO DAILY 12/31/20 [History Last Taken Unknown] atorvastatin 40 mg tablet 40 mg PO QHS #30 tab 12/31/20 [Rx Last Taken Unknown] bupropion HCl 150 mg 24 hr tablet, extended release 150 mg PO QAM 12/30/21 [History Last Taken Unknown] carvedilol 6.25 mg tablet 6.25 mg PO BID #60 tab 12/30/21 [Rx Last Taken Unknown] clopidogrel 75 mg tablet 75 mg PO DAILY #30 tab 12/30/21 [Rx Last Taken Unknown] duloxetine 60 mg capsule,delayed release 60 mg PO DAILY 12/30/21 [History Last Taken Unknown] furosemide 20 mg tablet 20 mg PO .COMPLEX #30 tab 12/30/21 [Rx Last Taken Unknown] Allergy/AdvReac Type Severity Reaction Status Date / Time ciprofloxacin [From Cipro] Allergy Hives Verified 12/30/21 13:06 ciprofloxacin HCl Allergy Hives Verified 12/30/21 13:06 [From Cipro] Penicillins Allergy Hives Verified 12/30/21 13:06 Family History Father No problems noted. Mother No problems noted. Surgical History History of left heart catheterization (12/10/20) Presence of coronary angioplasty implant and graft (~12/16/20) Presence of stent in coronary artery (~12/16/20) Social History Smoking Status: Smoker, status unknown tobacco type: cigarettes ROS Review of Systems ROS Unobtainable: due to encephalopathy Vital Signs Vital Signs Vital Signs: 03/18/22 07:42 03/18/22 07:57 03/18/22 09:19 Temperature 100.9 F H 98.3 F 100.5 F H Temperature Source Temporal Oral Temporal Pulse Rate 106 H 115 H Respiratory Rate 29 H 25 H Blood Pressure 168/94 H 147/68 H Blood Pressure Mean 118 94 Pulse Ox 97 97 Oxygen Delivery Method Room Air Room Air 03/18/22 10:00 03/18/22 10:29 Temperature 98.3 F 101.6 F H Temperature Source Oral Temporal Pulse Rate 127 H 127 H Respiratory Rate 21 H 21 H Blood Pressure 145/95 H 145/95 H Blood Pressure Mean 111 111 Pulse Ox 97 97 Oxygen Delivery Method Room Air Room Air Weight Weight: 62.7 kg Body Mass Index (BMI) 27.9 Physical Exam Narrative GENERAL: Awake but slow to respond to questions HEENT: Atraumatic; EYES; Anicteric, Normal Conjunctiva NECK; supple, normal thyroid, RESPIRATORY: Diminished to auscultation CARDIOVASCULAR: Regular S1 S2, GI: soft, normoactive bowel sounds, : No Renal angle tenderness; EXTREMITIES: No edema, no clubbing, MUSCULOSKELETAL: no muscle wasting NEURO: Awake; no lateralizing signs. SKIN: No Rash PSYCH; Flat affect Results Lab / Micro Data Result Diagrams: 03/18/22 08:00 03/18/22 08:00 Labs: Laboratory Results - last 24 hr 03/18/22 08:00: WBC 20.9 H, RBC 4.01 L, Hgb 12.7, Hct 37.9, MCV 94.5, MCH 31.7, MCHC 33.5, RDW Std Deviation 42.7, RDW Coeff of Janusz 12.2, Plt Count 142 L, MPV 9.0, Immature Gran % (Auto) 1.500 H, Neut % (Auto) 94.3 H, Lymph % (Auto) 1.1 L, [place] % (Auto) 3.0, Eos % (Auto) 0.0, Baso % (Auto) 0.1, Absolute Neuts (auto) 19.7 H, Absolute Lymphs (auto) 0.22 L, Nucleated RBC % 0, Differential Comment SCANNED 03/18/22 08:00: PT 15.8 H, INR 1.3, APTT 32.8 03/18/22 08:00: Sodium 130 L, Potassium 3.5, Chloride 93 L, Carbon Dioxide 24.0, Anion Gap 13, BUN 24 H, Creatinine 1.36 H, Estim Creat Clear Calc 36.47, Est GFR (MDRD) Af Amer 49 L, Est GFR (MDRD) Non-Af 40 L, BUN/Creatinine Ratio 17.6, Glucose 202 H, Calcium 8.9, Total Bilirubin 1.10 H, AST 37, ALT 24, Alkaline Phosphatase 99, Troponin I High Sens 285 H*, Total Protein 7.9, Albumin 3.3, Globulin 4.6 H, Albumin/Globulin Ratio 0.7 L 03/18/22 08:00: Lactic Acid 3.3 H* 03/18/22 08:00: Urine Color Yellow, Urine Clarity Sl. Cloudy, Urine pH 6.0, Ur Specific [place] 1.015, Urine Protein 500 H, Urine Glucose (UA) 50 H, Urine Ketones 5 H, Urine Occult Blood 250 H, Urine Nitrite Negative, Urine Bilirubin Negative, Urine Urobilinogen Normal, Ur Leukocyte Esterase Negative, Urine RBC 5-10 SEEN, Urine WBC 0-5 SEEN, Ur Squamous Epith Cells 0 SEEN, Urine Bacteria 3+, Urine Mucus 0 SEEN Micro: Microbiology 03/18/22 09:00 Nasal Secretion SARS-CoV-2 & FLU Antigen (Rapid) - Final Radiology Impression Chest X-Ray 03/18/22 07:56 IMPRESSION: Normal x-ray examination of the chest. Electronically Signed: Jason Delatorre MD at 8:48 EDT Reading Location ID and State: [id number] / [facility] Tel , Service support , Brain CT 03/18/22 07:57 IMPRESSION: Chronic involutional changes of the brain. Electronically Signed: Jason Delatorre MD at 10:00 EDT Reading Location ID and State: [id number] / [facility] Tel , Service support , Assessment & Plan Assessment/Plan (1) Bacteriuria: (2) Sepsis: (3) Acute febrile illness: (4) Encephalopathy acute: PLAN: Patient is a 71-year-old lady admitted with altered mental status 1. Sepsis ? Evidenced by patient WBC count of 20,000, heart rate of 125 on the monitor, respiratory rate of 25 on admission, with lactic acid level of 3.3 with a possible source of an infection possibly urinary source. Patient has been admitted to a monitored bed currently being managed per protocol with aggressive IV fluid resuscitation with serial monitoring of lactic acid level ordered. Patient also started on broad-spectrum antibiotic therapy with Rocephin after cultures were obtained in the ED 2. Elevated troponin ? Possibly secondary to demand ischemia from patient being septic. Patient carmen tracy has significant coronary artery disease with previous intervention. Patient has subsequently been admitted to monitored bed for continuous telemetry monitoring. Ordered serial cardiac enzymes for follow-up 3. Coronary artery disease ? With previous history of non-STEMI with subsequent left heart catheterization which demonstrated multivessel disease. Patient was transferred to a tertiary care center for high risk PCI 4. 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 Placed on long acting insulin, Accu-Cheks a.c. and at bedtime and covered with sliding scale insulin 4. Chronic kidney disease stage III AA ? Secondary to diabetic nephropathy monitoring with daily BMPs 6. Dyslipidemia -Patient is on statin therapy, continued at home dose 7. Use of rheumatoid Plaquenil ?? Rheumatoid arthritis patient's daughter was not sure of the reason why patient was on Plaquenil 8. DVT prophylaxis ? Enoxaparin dose adjusted for kidney function Advance planning; did discuss with the patient's daughter regarding advanced d irectives as well as CODE STATUS. Did explain the various scenarios involved ( FULL CODE, DNR CCA, DNR CCA with no intubation, and DNR CC and what each meant) patient's daughter stated that patient CODE STATUS is DNR CCA no intubation.. Order was placed. Time spent on discussion 18 minutes. Charges/Coding Visit Charges Inpatient E&M: 48328 Init Hosp L3 Procedures Hospitalists Procedures: 32892 Advncd Care Plan 30 Min
[2022-03-18 11:49] LABS: Troponin-I HS 646 pg/mL (3.0-54.0)
[2022-03-18 12:19] LABS: Reflex Lactate? Y
--- NOTE | 2022-03-18 12:30 | CASEMGMT ---
CRYSTAL ADAMSON assessment: Face to Face with patient for initial transition planning/care coordination assessment. CRYSTAL ADAMSON introduced self and role at [facility], pt voices understanding and consents to assessment. Pt is sitting up in bed in no distress on room air. Pt is sleeping and daughter is at bedside to answer questions. Care providers, pharmacy, and demographics verified. Presentation: Pt confused and with fever Admitting dx: Sepsis PCP: Gutierrez Specialists: Arthritis ; moses Khoury Preferred Pharmacy: [facility] Insurance: [employer] Prescription Benefit: [employer] Living Will/HPOA: Pt has LW/HPOA and is aware that they are not on file at [facility]. Pt's daughter, Kacey Granger, is HPOA. LNOK: Kacey Granger, daughter/HPOA Living Arrangements: Pt lives with daughter in raised ranch with 8-10 steps in and daughter states pt struggles to get in and out of steps. Pt's daughter assists with ADL's. Transportation: Pt's daughter drives and states no transportation concerns. DME/HHC: Pt has the following DME: cane, walker, grab bars, and shower bench. Daughter states no need for any further DME. Pt states no hx of HHC or SNF. Daughter states no concerns with going home at time of discharge. Pt is retired. Pt does not smoke cigarettes or drink ETOH. Daughter states no further concerns/needs. CM to follow for therapy evals and any further discharge planning/needs. Advised pt/daughter to ask for CM if any further questions/concerns/needs arise, voices understanding. Pt Goal: Home Plan: Home with daughter SStoswaldo ROJAS CM
[2022-03-18] MEDS: 0.9% Normal Saline 1,000 ML 150 ML IV ×2 (12:53→19:34)
[2022-03-18] MEDS: Enoxaparin 30 MG/0.3 ML Syringe SC (12:53)
[2022-03-18 12:56] LABS: Bedside Glucose 111 mg/dL (74-106)
[2022-03-18 13:47] LABS: Lactic Acid 3.6 mmol/L (0.4-1.9)
[2022-03-18 14:54] LABS: Troponin-I HS 789 pg/mL (3.0-54.0)
--- NOTE | 2022-03-18 15:02 | EKG12_ITS ---
Test Reason : Blood Pressure : / mmHG Vent. Rate : 110 BPM Atrial Rate : 110 BPM P-R Int : 168 ms QRS Dur : 086 ms QT Int : 360 ms P-R-T Axes : 023 008 073 degrees QTc Int : 487 ms Sinus tachycardia Nonspecific T wave abnormality Abnormal ECG When compared with ECG of 18-MAR-2022 15:25, MANUAL COMPARISON REQUIRED, DATA IS UNCONFIRMED Confirmed by MICAELA MELGAR, DESIRAE ([id number]), editor newspaper SORIN GUZMAN ([id number]) on 03/21/2022 8:17:19 AM Referred By: MICAELA Confirmed By:DESIRAE HINOJOSA MD
--- NOTE | 2022-03-18 15:13 | ECHOLC_ITS ---
Reason For Study: s/p DE Procedure This was a limited 2D transthoracic echocardiogram. Contrast injection was performed. Exam performed portable in patient room. Left Ventricle Normal LV size. Left ventricular systolic function is normal. The estimated ejection fraction is 60 %. No regional wall motion abnormalities noted. Right Ventricle Normal RV size. Normal systolic function. Atria Normal left atrium. Normal right atrium. Mitral Valve Normal mitral valve. Tricuspid Valve Normal tricuspid valve. Mild (1+) tricuspid valve insufficiency. Pulmonary artery systolic pressure is 40 mmHg. Aortic Valve Trisinus/trileaflet aortic valve. Pulmonic Valve Normal pulmonic valve. Great Vessels Normal aortic root. The pulmonary artery is normal size. Normal inferior vena cava. Pericardium/Pleural No pericardial effusion. Medication Diluted definity 1.5ml given slow IV push to enhance endocardial definition. MMode/2D Measurements & Calculations LVIDd: 5.0 cm IVSd: 0.99 cm LVIDs: 4.2 cm LVPWd: 0.92 cm LVAd ap4: 28.4 cm2 FS: 16.3 % LVLd ap4: 7.3 cm EDV(MOD-sp4): 91.3 ml EDV(sp4-el): 94.6 ml LVAs ap4: 20.2 cm2 LVLs ap4: 6.3 cm ESV(MOD-sp4): 52.9 ml ESV(sp4-el): 54.8 ml EF(MOD-sp4): 42.1 % EF(sp4-el): 42.1 % SV(MOD-sp4): 38.5 ml SV(sp4-el): 39.9 ml Doppler Measurements & Calculations Ao V2 max: 152.1 cm/sec TR max yolanda: 301.2 cm/sec Ao max P.2 mmHg TR max P.3 mmHg Ao V2 mean: 96.9 cm/sec Ao mean P.3 mmHg Ao V2 VTI: 23.2 cm ECHO/Echo Limited w/Contrast Interpretation Summary Normal LV size. Left ventricular systolic function is normal. The estimated ejection fraction is 60 %. Mild (1+) tricuspid valve insufficiency. Pulmonary artery systolic pressure is 40 mmHg. Contrast injection was performed. Ordering Physician: Abran Eaton Referring Physician: Tigre Whitley Performed By: Catrina Olguin, OUMOU, RVT
--- NOTE | 2022-03-18 15:39 | PN.HOSP_ITS ---
Hospitalist Note 71-year-old lady admitted with suspected sepsis. Admitted to to a telemetry bed for monitoring in view of elevated troponin on admission. Patient troponin continues to trend up. She has significant past cardiac history including previous high risk PCI at a tertiary care center. Patient currently denies any chest pain. EKG did not show any acute ST?T-segment abnormalities suggestive of gross ischemia. Patient was however found to have sinus tachycardia. As part of her management patient is started on heparin elevated echo ordered in a ddition to D-dimer. Consult will be placed to cardiology given patient's significant past history
[2022-03-18 16:55] LABS: D-Dimer Quantitative (DVT/PE) 12.89 FEU/ug/m (0.27-0.49)
[2022-03-18 17:05] LABS: Bedside Glucose 94 mg/dL (74-106)
--- NOTE | 2022-03-18 17:15 | CT_ITS ---
STUDY: CTA CHEST REASON FOR EXAM: Female, 71 years old. Elevated D-Dimer RADIATION DOSAGE (If Supplied By Facility): CTDIvol = ( 12.48 ) mGy, DLP = ( 420.17 ) mGycm TECHNIQUE: The examination was performed with the intravenous administration of IV 75mL Isovue-370. Post-processing of the angiographic images was performed, with multiplanar reformation and 3D reconstruction. Individualized dose optimization techniques were used for this CT. COMPARISON: Chest x-ray 03/18/2022 FINDINGS: Normal enhancement of the main pulmonary artery and right and left pulmonary arteries. Normal enhancement of the bilateral peripheral pulmonary arteries. There is no demonstrated pulmonary embolism. Normal thoracic aorta and visualized great vessels. There is no demonstrated aortic dissection. Normal heart and pericardium. Normal mediastinum. Normal hilar regions. Normal visualized trachea and bronchi. The lungs are well expanded. Normal pulmonary parenchyma. Normal pleura. Normal chest wall structures. Normal osseous structures. Normal visualized upper abdomen. CT/CTA Chest W/WO Contrast IMPRESSION: Normal CTA chest examination, without a demonstrated pulmonary embolism or arterial dissection. Electronically Signed: Jason Delatorre MD at 18:11 EDT ,
[2022-03-18] MEDS: Heparin Injection (Vial) 5,000 UNIT/ML VIAL 4000 UNIT IV (17:22)
--- NOTE | 2022-03-18 19:05 | PCM.RX.CS ---
Consult Pharmacy has been consulted to manage selected antiobiotic: Vancomycin Type of Consult: New start Suspected Infection: Sepsis Labs: Sodium 130 mmol/L (136-145) L 03/18/22 08:00 Potassium 3.5 mmol/L (3.5-5.1) 03/18/22 08:00 Chloride 93 mmol/L (98-107) L 03/18/22 08:00 Carbon Dioxide 24.0 mmol/L (21.0-32.0) 03/18/22 08:00 Anion Gap 13 (5-15) 03/18/22 08:00 BUN 24 mg/dL (7-18) H 03/18/22 08:00 Creatinine 1.36 mg/dL (0.55-1.02) H 03/18/22 08:00 Est GFR (MDRD) Af Amer 49 mL/min (>60) L 03/18/22 08:00 Est GFR (MDRD) Non-Af 40 mL/min (>60) L 03/18/22 08:00 BUN/Creatinine Ratio 17.6 RATIO (10-20) 03/18/22 08:00 Glucose 202 mg/dL (74-106) H 03/18/22 08:00 Microbiology: Microbiology 03/18/22 08:40 Blood Culture (Wb) - Left Forearm Blood Culture - Preliminary 03/18/22 08:00 Blood Culture (Wb) - Anticubital Left Blood Culture - Preliminary 03/18/22 11:06 Mucosa - Nasopharyngeal - Final 03/18/22 09:00 Nasal Secretion SARS-CoV-2 & FLU Antigen (Rapid) - Final Goal Trough: 15-20 mcg/mL Pharmacy Plan for Drug Dosing: NEW START IV VANCOMYCIN Consulting Physician: Uma Indication: Sepsis Goal Trough: 15-20 SrCr: 1.36 CrCl: 26.5 Comments: pt to receive a 1500mg loading dose 03/18/22 at 1900 Vancomcyin Dose: based on pts renal function and weight, recommend an initial dose of 750mg q24h starting 03/19/22 at 1900. trough before the 3rd total dose Pending Level: 03/20/22 at 1830 Pharmacy Service will continue to monitor and adjust dosing as required. Follow-Up Labs: Trough Vancomycin - 03/20/22 at 1830
--- NOTE | 2022-03-18 21:40 | PCM.HOSP.N ---
Hospitalist Note Patient with prelim positive Blx Cx x 2 with gram positive cocci, already on IV vancomycin and rocephin of note.
[2022-03-18] MEDS: Atorvastatin Calcium 40 MG Tablet PO (22:36)
[2022-03-18] MEDS: Carvedilol 6.25 MG Tablet PO (22:36)
[2022-03-18 22:51] LABS: Bedside Glucose 93 mg/dL (74-106)
[2022-03-19] VITALS (30 sets, daily range): BP systolic 92–142; BP diastolic 60–90; PULSE 81–150; RESP 20–40; TEMP 36.6–37.7; O2SAT 94–100
[2022-03-19 01:12] LABS: Partial Thromboplast Time 145.6 Seconds (24.1-36.2)
--- NOTE | 2022-03-19 01:14 | NURSING ---
Pts primary rn aware of ptt of 145.6 at this time.
[2022-03-19] MEDS: 0.9% Normal Saline 1,000 ML 150 ML IV (02:22)
[2022-03-19] MEDS: Carvedilol 6.25 MG Tablet PO ×2 (06:27→21:06)
[2022-03-19 06:40] LABS: Bedside Glucose 50 mg/dL (74-106)
[2022-03-19] MEDS: Albuterol 2.5 MG/3 ML VIAL.NEB. INHALATION ×8 (07:00→20:58)
--- NOTE | 2022-03-19 07:07 | NURSING ---
RN contacted respiratory this morning for a breathing treatment for pt d/t pt's audible wheezing and increase respiratory rate. Pt O2 is 94% on RA, Respiratory is in room now giving breathing treatment.
--- NOTE | 2022-03-19 07:15 | RAD_ITS ---
STUDY: X-RAY CHEST REASON FOR EXAM: Female, 71 years old. sob TECHNIQUE: Single AP portable view of the chest. COMPARISON: 03/18/2022 FINDINGS: Poor inspiration with some bibasilar atelectasis. There is no demonstrated pleural abnormality. Normal size heart. Normal mediastinum and greg. Normal visualized pulmonary arteries. Normal visualized aortic arch and descending thoracic aorta. Normal visualized thoracic spine. Normal visualized ribs, clavicles, and shoulders. There is no demonstrated abnormality of the visualized soft tissue structures of the upper abdomen. RAD/Chest 1 View (Portable) IMPRESSION: Poor inspiration with some bibasilar atelectasis. Electronically Signed: Jason Delatorre MD at 7:48 EDT ,
[2022-03-19 07:16] LABS: Bedside Glucose 64 mg/dL (74-106)
[2022-03-19] MEDS: 0.9% Saline Lock 10 ML Syringe IV ×4 (07:21→21:07)
[2022-03-19] MEDS: Furosemide 40 MG/4 ML Vial IV ×2 (07:21→07:41)
[2022-03-19] MEDS: Dextrose 10%-Water 250 ML 999 ML IV (07:27)
--- NOTE | 2022-03-19 08:18 | CON.PCM.CA_ITS ---
Assessment & Plan Assessment/Plan (1) NSTEMI (non-ST elevated myocardial infarction): PLAN: * Patient since now with a non-ST elevation myocardial infarction in the throes of sepsis. It is likely that this is a type II event. However the patient recently had stents placed in her all her coronary anatomy and also had evidence of collateralization of her right coronary artery. It is possible that she has outstripped her collaterals with the above and this is contributing to her cardiac enzyme abnormality. * Determination as to whether she is a candidate for repeat cardiac catheterization will be made based on her response to her sepsis treatment as well as evaluation by primary lead driver. (2) Ischemic cardiomyopathy: PLAN: He does have evidence of ischemic cardiomyopathy. Would recommend reevaluation of the above. This is especially in light of the fact that the patient appears to have gone into congestive heart failure (3) Presence of stent in coronary artery: PLAN: She does have recent angioplasty and stenting of the right coronary artery, left anterior descending artery, and left circumflex artery. As noted above this may be reevaluated at a later date. (4) Essential hypertension: PLAN: Her blood pressure appears to be under fair control at this time though she is still septic. (5) CHF (congestive heart failure), NYHA class III: PLAN: She appears to have gone into congestive heart failure which is likely multifactorial. It is secondary to the coronary disease, the cardiomyopathy, the sepsis as well as the fluid administration. * She has been aggressively diuresed at this morning and will continue to balance her fluid requirements with a treatment for sepsis. * * Thank you for allowing me to participate in the care of your patient. Please don't hesitate to call if any issues arise. (6) SVT (supraventricular tachycardia): PLAN: We will start her on amiodarone short-term to control her heart rate. This will be reevaluated in the next 24 hours. Thank you for allowing me to participate in the care of your patient. Please don't hesitate to call if any issues arise. HPI Consult Data Date of Consult: 03/19/22 HPI Narrative HPI Narrative: ERIK GARCIA, is a 71 F who presents with altered mental status mild fever and was noted to have urinalysis with significant bacteremia. Her troponin was also elevated as well as her lactic acid. She was being treated for sepsis. Cardiology was consulted due to her previous cardiac condition. She does have a history of non-ST elevation myocardial infarction and underwent a cardiac catheterization which demonstrated significant triple- vessel disease. She was transferred to [facility] where she underwent a repeat cardiac catheterization on December 16 and it was noted that she had recanalization of the old total occlusion of the right coronary artery utilizing a bare-metal stent. She also underwent successful bare-metal stenting to the proximal and mid left anterior descending artery and bare-metal stenting to the nondominant circumflex artery. Her ejection fraction at that time was noted to be approximately 35%. She did have evidence of segmental wall motion abnormalities involving the anterior wall, inferior wall and her left ventricle was dilated. She had a phone visit recently with my colleague Dr. Mitchel Saini and was noted to be fairly stable. She was being treated for sepsis during this admission and last night became more short of breath. She was given intravenous Lasix with some improvement. At this morning she appears to be rather tachycardic with a narrow complex tachycardia with a rate of 142 bpm which appears to be consistent with supraventricular tachycardia. [facility] Medical History Atherosclerosis of coronary artery of [place] heart without angina pectoris Atherosclerotic heart disease of [place] coronary artery without angina pectoris Benign essential hypertension Cardiomyopathy Decubitus ulcer of left buttock, stage 3 Essential hypertension Hyperlipidemia Ischemic cardiomyopathy Home Medications pregabalin 75 mg PO DAILY 05/11/16 [History Last Taken 03/17/22] hydroxychloroquine 200 mg PO DAILY 07/19/18 [History Last Taken 03/17/22] sitagliptin 100 mg PO DAILY 07/19/18 [History Last Taken 03/17/22] Prednisone 5 mg PO UD PRN 12/09/20 [History Last Taken Unknown] glimepiride 4 mg PO DAILY 12/09/20 [History Last Taken 03/17/22] aspirin 81 mg chewable tablet 1 ea PO DAILY 12/31/20 [History Last Taken 03/17/22] atorvastatin 40 mg tablet 40 mg PO QHS #30 tab 12/31/20 [Rx Last Taken 03/17/22] bupropion HCl 150 mg 24 hr tablet, extended release 150 mg PO QAM 12/30/21 [History Last Taken 03/17/22] carvedilol 6.25 mg tablet 6.25 mg PO BID #60 tab 12/30/21 [Rx Last Taken 03/17/22] clopidogrel 75 mg tablet 75 mg PO DAILY #30 tab 12/30/21 [Rx Last Taken 03/17/22] duloxetine 60 mg capsule,delayed release 60 mg PO DAILY 12/30/21 [History Last Taken 03/17/22] furosemide 20 mg tablet 20 mg PO .COMPLEX #30 tab 12/30/21 [Rx Last Taken 03/17/22] Allergy/AdvReac Type Severity Reaction Status Date / Time ciprofloxacin [From Cipro] Allergy Hives Verified 12/30/21 13:06 ciprofloxacin HCl Allergy Hives Verified 12/30/21 13:06 [From Cipro] Penicillins Allergy Hives Verified 12/30/21 13:06 Family History Father No problems noted. Mother No problems noted. Surgical History History of left heart catheterization (12/10/20) Presence of coronary angioplasty implant and graft (~12/16/20) Presence of stent in coronary artery (~12/16/20) Social History Smoking Status: Smoker, status unknown tobacco type: cigarettes ROS Constitutional Constitutional: Reports fever(s), weight loss and other Eyes Eyes: Reports systems reviewed and no addt'l complaints, except as documented ENT HEENT: Reports systems reviewed and no addt'l complaints, except as documented Cardiovascular Cardiovascular: Denies chest pain at rest, chest pain with activity, dyspnea at rest, dyspnea on exertion, edema, palpitations or paroxysmal nocturnal dyspnea Respiratory/Chest Respiratory/Chest: Reports dyspnea, dyspnea on exertion, shortness of breath at rest and shortness of breath with exertion; Denies productive cough Gastrointestinal Gastrointestinal: Denies change in bowel habits, nausea, vomiting or weight changes Genitourinary Genitourinary: Denies difficulty urinating Musculoskeletal Musculoskeletal: Denies joint stiffness or muscle weakness Integumentary Integumentary: Denies lesions Neurologic Neurologic: Denies dizziness or syncope Psychiatric Psychiatric: Denies anxiety Endocrine Endocrinology: Denies excessive sweating or fatigue Hematologic/Lymphatic Hematologic/Lymphatic: Denies anemia Allergic/Immunologic Allergic/Immunologic: Denies seasonal rhinorrhea Physical Exam Const alert and oriented x3 General Appearance: anxious and ill appearing HEENT hearing grossly normal bilaterally Head and Scalp: atraumatic Eyes EOMs intact bilaterally Neck General: normal visual inspection Chest inspection of chest normal and palpation of chest normal Resp normal respiratory effort Auscultation: diminished lung sounds Cardio regular rate, regular rhythm, S1 normal heart sound and S2 normal heart sound Jugular Venous Distention: JVD GI normal to inspection, nondistended, normoactive bowel sounds Extremity normal capillary refill and no pedal edema Peripheral Pulses: Yes pulses 2+ throughout and femoral pulses present Skin no rashes or lesions noted Neuro oriented x3 and CN's II-XII intact bilaterally Psych Appearance: grossly normal and appropriate Risk Stratification Risk Stratification Applicable: Yes Age >/= 65: Yes >/= 3 CAD Risk Factors (HTN, HLD, DM, family hx of CAD, or current smoker): Yes Aspirin Use in the Past 7 Days: Yes Severe Angina (>/= episodes in 24 hours): No EKG ST Changes >/= 0.5mm: No Positive Cardiac Marker: Yes RONALD Risk Stratification Score: 4 RONALD % Risk: 20% Risk Objective Data Vital Signs: Vital Signs Temp Pulse Resp BP Pulse Ox 99.8 F H 150 H 28 H 142/90 H 94 03/19/22 07:00 03/19/22 07:00 03/19/22 07:00 03/19/22 07:00 03/19/22 07:00 Oxygen Delivery Method Room Air Weight: 134 lb 14.766 oz Body Mass Index (BMI) 27.1 Intake & Output: Intake and Output for Last 24 Hours 03/17/22 03/18/22 03/19/22 23:59 23:59 23:59 Intake Total 2700 / 2700 1322.5 / 1322.5 Output Total 650 / 650 250 / 250 Balance 2049 / 2049 1072.5 / 1072.5 Lab / Micro Data Result Diagrams: 03/19/22 08:05 03/19/22 08:05 Labs: Laboratory Results - last 24 hr 03/18/22 08:00: WBC 20.9 H, RBC 4.01 L, Hgb 12.7, Hct 37.9, MCV 94.5, MCH 31.7, MCHC 33.5, RDW Std Deviation 42.7, RDW Coeff of Janusz 12.2, Plt Count 142 L, MPV 9.0, Immature Gran % (Auto) 1.500 H, Neut % (Auto) 94.3 H, Lymph % (Auto) 1.1 L, [place] % (Auto) 3.0, Eos % (Auto) 0.0, Baso % (Auto) 0.1, Absolute Neuts (auto) 19.7 H, Absolute Lymphs (auto) 0.22 L, Nucleated RBC % 0, Differential Comment SCANNED 03/18/22 08:00: PT 15.8 H, INR 1.3, APTT 32.8 03/18/22 08:00: Sodium 130 L, Potassium 3.5, Chloride 93 L, Carbon Dioxide 24.0, Anion Gap 13, BUN 24 H, Creatinine 1.36 H, Estim Creat Clear Calc 36.47, Est GFR (MDRD) Af Amer 49 L, Est GFR (MDRD) Non-Af 40 L, BUN/Creatinine Ratio 17.6, Glucose 202 H, Calcium 8.9, Total Bilirubin 1.10 H, AST 37, ALT 24, Alkaline Phosphatase 99, Troponin I High Sens 285 H*, Total Protein 7.9, Albumin 3.3, Globulin 4.6 H, Albumin/Globulin Ratio 0.7 L 03/18/22 08:00: Lactic Acid 3.3 H* 03/18/22 08:00: Urine Color Yellow, Urine Clarity Sl. Cloudy, Urine pH 6.0, Ur Specific [place] 1.015, Urine Protein 500 H, Urine Glucose (UA) 50 H, Urine Ketones 5 H, Urine Occult Blood 250 H, Urine Nitrite Negative, Urine Bilirubin Negative, Urine Urobilinogen Normal, Ur Leukocyte Esterase Negative, Urine RBC 5-10 SEEN, Urine WBC 0-5 SEEN, Ur Squamous Epith Cells 0 SEEN, Urine Bacteria 3+, Urine Mucus 0 SEEN 03/18/22 11:13: Troponin I High Sens 646 H* 03/18/22 12:34: Lactic Acid 3.6 H* 03/18/22 12:48: POC Glucose 111 H 03/18/22 14:06: Troponin I High Sens 789 H* 03/18/22 16:30: D-Dimer Quant (PE/DVT) 12.89 H* 03/18/22 16:53: POC Glucose 94 03/18/22 22:26: POC Glucose 93 03/19/22 00:40: APTT 145.6 H* 03/19/22 06:34: POC Glucose 50 L 03/19/22 06:52: POC Glucose 64 L Micro: Microbiology 03/18/22 08:00 Blood Culture (Wb) - Anticubital Left Bacteria Detection (PCR) - Final Staphylococcus aureus 03/18/22 08:00 Blood Culture (Wb) - Anticubital Left Blood Culture - Preliminary Staphylococcus aureus 03/18/22 08:40 Blood Culture (Wb) - Left Forearm Blood Culture - Preliminary Staphylococcus aureus 03/18/22 22:31 Urine, Random Legionella Antigen - Final 03/18/22 22:31 Urine, Random Streptococcus pneumoniae Antigen (M - Final 03/18/22 11:06 Mucosa - Nasopharyngeal - Final 03/18/22 09:00 Nasal Secretion SARS-CoV-2 & FLU Antigen (Rapid) - Final Cardiology Labs/Tests 03/18/22 08:00: WBC 20.9 H, RBC 4.01 L, Hgb 12.7, Hct 37.9, MCV 94.5, MCH 31.7, MCHC 33.5, Plt Count 142 L, MPV 9.0, Immature Gran % (Auto) 1.500 H, Neut % (Auto) 94.3 H, Lymph % (Auto) 1.1 L, [place] % (Auto) 3.0, Eos % (Auto) 0.0, Baso % (Auto) 0.1, Absolute Neuts (auto) 19.7 H, Nucleated RBC % 0 03/18/22 08:00: PT 15.8 H, INR 1.3, APTT 32.8 03/18/22 08:00: Sodium 130 L, Potassium 3.5, Chloride 93 L, Carbon Dioxide 24.0, Anion Gap 13, BUN 24 H, Creatinine 1.36 H, Est GFR (MDRD) Af Amer 49 L, Est GFR (MDRD) Non-Af 40 L, BUN/Creatinine Ratio 17.6, Glucose 202 H, Calcium 8.9, Total Bilirubin 1.10 H 03/18/22 08:00: Lactic Acid 3.3 H* 03/18/22 08:00: Urine Color Yellow, Urine Clarity Sl. Cloudy, Urine pH 6.0, Ur Specific [place] 1.015, Urine Protein 500 H, Urine Glucose (UA) 50 H, Urine Ketones 5 H, Urine Occult Blood 250 H, Urine Nitrite Negative, Urine Bilirubin Negative, Urine Urobilinogen Normal, Ur Leukocyte Esterase Negative, Urine RBC 5-10 SEEN, Urine WBC 0-5 SEEN 03/18/22 12:34: Lactic Acid 3.6 H* 03/18/22 16:30: D-Dimer Quant (PE/DVT) 12.89 H* 03/19/22 00:40: APTT 145.6 H* Rhythm: EKG: ECHO: Stress Test: Cardiac Cath: PCI: CT Surgery: Holter monitor: EPS: PPM: CXR: Chest CT Scan: Radiography Diagnostic Testing: Radiology Impression Chest X-Ray 03/18/22 07:56 IMPRESSION: Normal x-ray examination of the chest. Electronically Signed: Jason Delatorre MD at 8:48 EDT Reading Location ID and State: [employer] / [employer] Tel , Service support , Brain CT 03/18/22 07:57 IMPRESSION: Chronic involutional changes of the brain. Electronically Signed: Jason Delatorre MD at 10:00 EDT Reading Location ID and State: [employer] Tel , Service support , Chest CTA 03/18/22 17:15 IMPRESSION: Normal CTA chest examination, without a demonstrated pulmonary embolism or arterial dissection. Electronically Signed: Jason Delatorre MD at 18:11 EDT Reading Location ID and State: [employer] / [employer] Tel , Service support , Chest X-Ray 03/19/22 07:15 IMPRESSION: Poor inspiration with some bibasilar atelectasis. Electronically Signed: Jason Delatorre MD at 7:48 EDT Reading Location ID and State: [employer] Tel , Service support ,
[2022-03-19 08:20] LABS: Absolute Lymphocyte Count 0.25 X10^3/uL (0.83-4.51); Absolute Neutrophil Count 9.8 X10^3/uL (2.0-7.7); Basophil# 0.03 X10^3/uL; Basophil% 0.3 % (0-1); Hematocrit 30.9 % (37-47); Hemoglobin 10.1 g/dL (12.0-15.0); Lymphocyte # 0.25 X10^3/ul (0.83-4.51); Lymphocyte % 2.3 % (19-41); Mean Corp Hgb Conc 32.7 g/dL (32-36); Mean Corpuscular Hgb 31.2 pg (27.0-32.0); Mean Corpuscular Volume 95.4 fL (81-99); Mean Platelet Vol. 9.5 fl (6.2-12.0); Monocyte# 0.41 X10^3/uL; Monocyte% 3.8 % (0-10); NRBC Flagged by Analyzer 0 % (0-5); Neutrophil # 9.75 X10^3/uL (2.7-7.7); Neutrophil % 89.1 % (47-70); POSITIVE DIFFERENTIAL YES; POSITIVE MORPHOLOGY YES; Platelet Count 100 K/mm3 (150-450); RBC Distribution Width CV 12.8 % (11.6-14.6); RBC Distribution Width SD 44.8 fl (35.1-43.9); Red Blood Count 3.24 M/mm3 (4.2-5.4); White Blood Count 10.9 K/mm3 (4.4-11.0)
[2022-03-19 08:24] LABS: Differential Indicated SCAN CRITERIA MET
[2022-03-19] MEDS: Aspirin 81 MG TAB.CHEW PO (08:51)
[2022-03-19] MEDS: Clopidogrel Bisulfate 75 MG Tablet PO (08:51)
[2022-03-19 08:59] LABS: Anion Gap 13 (5-15); BUN 25 mg/dL (7-18); BUN/Creat Ratio 18.5 RATIO (10-20); Chloride 102 mmol/L (98-107); Creatinine, Serum 1.35 mg/dL (0.55-1.02); EST Glomerular Filtration Rate 41 mL/min (>60); Est Glom Filt Rate - Afr Amer 49 mL/min (>60); Estimated Creatinine Clearance 35.86 ml/min; Glucose 196 mg/dL (74-106); Magnesium 1.1 mg/dL (1.6-2.6); Phosphorus 3.4 mg/dL (2.5-4.9); Potassium 3.5 mmol/L (3.5-5.1); Sodium Level 133 mmol/L (136-145)
[2022-03-19 09:01] LABS: Lactic Acid 3.4 mmol/L (0.4-1.9)
[2022-03-19 09:05] LABS: Differential Comment SCANNED
[2022-03-19 09:15] LABS: Partial Thromboplast Time 69.5 Seconds (24.1-36.2)
[2022-03-19 10:11] LABS: Bedside Glucose 213 mg/dL (74-106)
--- NOTE | 2022-03-19 10:24 | NURSING ---
tried to call daughter at 0745 and no answer this nurse has called x 4 cell phone and home phone and left message for daughter to call.
[2022-03-19] MEDS: Ceftriaxone 1 GM/50 ML BAG IV (10:54)
--- NOTE | 2022-03-19 11:07 | EKG12_ITS ---
Test Reason : Blood Pressure : / mmHG Vent. Rate : 140 BPM Atrial Rate : 140 BPM P-R Int : 000 ms QRS Dur : 086 ms QT Int : 362 ms P-R-T Axes : 000 037 085 degrees QTc Int : 552 ms Supraventricular tachycardia Nonspecific ST and T wave abnormality Abnormal ECG When compared with ECG of 18-MAR-2022 08:08, MANUAL COMPARISON REQUIRED, DATA IS UNCONFIRMED Confirmed by MICAELA MELGAR, DESIRAE ([id number]), videotape editor SORIN GUZMAN ([id number]) on 03/21/2022 8:18:07 AM Referred By: JERRICA Confirmed By:DESIRAE HINOJOSA MD
--- NOTE | 2022-03-19 11:44 | PN.HOSP_ITS ---
Documented by User: Sherri Mathias NP, [employer] EXTING[employer]ER REPAIRER-C 03/19/22 12:13 Subjective Subjective Patient seen and examined. Appears dyspneic, fatigued. Patient reports shortness of breath. Intermittent fever, chills. Denies chest pain. Objective Data Objective Data Vital Signs: Vital Signs Temp Pulse Resp BP Pulse Ox 99.1 F 127 H 40 H 108/76 96 03/19/22 08:31 03/19/22 10:45 03/19/22 10:45 03/19/22 10:45 03/19/22 10:45 Oxygen Flow Rate (L/min) 2 Oxygen Delivery Method Room Air Weight: 134 lb 14.766 oz Body Mass Index (BMI) 27.1 Intake & Output: Intake and Output for Last 24 Hours 03/17/22 03/18/22 03/19/22 23:59 23:59 23:59 Intake Total 2700 / 2700 2512.68 / 2512.68 Output Total 650 / 650 675 / 675 Balance 2049 / 2049 1837.68 / 1837.68 Lab / Micro Data Result Diagrams: 03/19/22 08:05 03/19/22 08:05 Labs: Laboratory Results - last 24 hr 03/18/22 11:13: Troponin I High Sens 646 H* 03/18/22 12:34: Lactic Acid 3.6 H* 03/18/22 12:48: POC Glucose 111 H 03/18/22 14:06: Troponin I High Sens 789 H* 03/18/22 16:30: D-Dimer Quant (PE/DVT) 12.89 H* 03/18/22 16:53: POC Glucose 94 03/18/22 22:26: POC Glucose 93 03/19/22 00:40: APTT 145.6 H* 03/19/22 06:34: POC Glucose 50 L 03/19/22 06:52: POC Glucose 64 L 03/19/22 08:05: Sodium 133 L, Potassium 3.5, Chloride 102, Carbon Dioxide 18.0 L , Anion Gap 13, BUN 25 H, Creatinine 1.35 H, Estim Creat Clear Calc 35.86, Est GFR (MDRD) Af Amer 49 L, Est GFR (MDRD) Non-Af 41 L, BUN/Creatinine Ratio 18.5, Glucose 196 H, Calcium 7.0 L, Phosphorus 3.4, Magnesium 1.1 L 03/19/22 08:05: APTT 69.5 H 03/19/22 08:05: Lactic Acid 3.4 H* 03/19/22 08:05: WBC 10.9, RBC 3.24 L, Hgb 10.1 L, Hct 30.9 L, MCV 95.4, MCH 31.2, MCHC 32.7, RDW Std Deviation 44.8 H, RDW Coeff of Janusz 12.8, Plt Count 100 L, MPV 9.5, Immature Gran % (Auto) 4.500 H, Neut % (Auto) 89.1 H, Lymph % (Auto) 2.3 L, [place] % (Auto) 3.8, Eos % (Auto) 0.0, Baso % (Auto) 0.3, Absolute Neuts (auto) 9.8 H, Absolute Lymphs (auto) 0.25 L, Nucleated RBC % 0, Differential Comment SCANNED 03/19/22 08:33: POC Glucose 213 H Micro: Microbiology 03/18/22 08:00 Urine Catheter - Catheter Urine Culture - Preliminary Gram positive vanessa 03/18/22 08:00 Blood Culture (Wb) - Anticubital Left Bacteria Detection (PCR) - Final Staphylococcus aureus 03/18/22 08:00 Blood Culture (Wb) - Anticubital Left Blood Culture - Preliminary Staphylococcus aureus 03/18/22 08:40 Blood Culture (Wb) - Left Forearm Blood Culture - Preliminary Staphylococcus aureus 03/18/22 22:31 Urine, Random Legionella Antigen - Final 03/18/22 22:31 Urine, Random Streptococcus pneumoniae Antigen (M - Final 03/18/22 11:06 Mucosa - Nasopharyngeal - Final 03/18/22 09:00 Nasal Secretion SARS-CoV-2 & FLU Antigen (Rapid) - Final Radiography Diagnostic Testing: Radiology Impression Chest CTA 03/18/22 17:15 IMPRESSION: Normal CTA chest examination, without a demonstrated pulmonary embolism or arterial dissection. Electronically Signed: Jason Delatorre MD at 18:11 EDT , Chest X-Ray 03/19/22 07:15 IMPRESSION: Poor inspiration with some bibasilar atelectasis. Electronically Signed: Jason Delatorre MD at 7:48 EDT , Physical Exam Const alert and oriented x3 Constitutional Narrative: Fatigued appearing, dyspneic Orientation / Consciousness: awake, oriented to person, oriented to place and oriented to time Nutritional Appearance: cachectic HEENT normocephalic Mouth: dry mucous membranes Eyes PERRL, EOMs intact bilaterally and conjunctivae normal Neck no lymphadenopathy Resp Effort and Inspection: tachypneic and labored Auscultation: crackles and diminished lung sounds Cardio regular rhythm and no murmurs Rate: tachycardic Peripheral Pulses: pulses 2+ throughout GI normal to inspection, nondistended, normoactive bowel sounds, non-tender and non-distended Extremity normal to inspection Skin no rashes or lesions noted Lesions: no lesions Rashes: no rashes Trauma: no lacerations or abrasions Neuro CN's II-XII intact bilaterally, no focal motor deficits, no sensory deficits noted and deep tendon reflexes 2+ bilaterally Psych mental status grossly normal and affect normal Assessment & Plan Assessment/Plan (1) NSTEMI (non-ST elevated myocardial infarction): (2) Sepsis: PLAN: 1. Sepsis secondary to staph aureus bacteremia-chest x-ray without infiltrate. UA/urine culture unremarkable. On IV vancomycin and IV Rocephin. ID consult. 2. Sinus tachycardia/SVT-on amnio drip. Cardiology following. Improved. 3. NSTEMI-likely demand ischemia secondary to #1/#2. Cardiology following for further management. Continue aspirin, statin, carvedilol, Plavix. Echo ordered. CTA without PE. 4. Hypomagnesia- replaced per protocol. Trend labs. 5. Multivessel CAD/ischemic cardiomyopathy-recent angioplasty and stenting to RCA, left anterior descending artery and left circumflex artery. Continue aspirin, statin, Plavix, beta-migue. Echocardiogram 01/31/2022 demonstrated an EF of 50%. EF improved from prior echo. IV lasix X1. Repeat echo ordered. 6. Hypertension-stable, continue carvedilol. 7. Type 2 diabetes mellitus-oral regimen on hold. Accu-Cheks with sliding scale insulin. 8. Chronic kidney disease stage IIIa-stable, trend BMP. 9. Hyperlipidemia- continue statin. 10. Depression/anxiety-continue Cymbalta, bupropion. 11. Rheumatoid arthritis? Chronic back pain-Plaquenil held. DVT prophylaxis-Lovenox subcu This patient was seen by JENNY Danielson under the supervision of Dr. Leonard vidal. Documented by User: Dr. Abran Eaton MD 03/19/22 12:54 Objective Data Lab / Micro Data Result Diagrams: 03/19/22 08:05 03/19/22 08:05 Assessment & Plan Addt'l Comments This patient was seen in conjunction with JENNY Danielson . I have independently interviewed and examined the patient and reviewed pertinent historical, laboratory, and other data. Please refer to JENNY Danielson note for details of this patient's presentation, findings, and recommendations. I have reviewed JENNY Danielson note and concur with documented findings. In brief, Patient is a 71-year-old lady admitted with altered mental status. An assessment of sepsis of unknown etiology made. Treatment initiated per protocol. Blood and and urine so far positive for gram-positive cocci. Patient is on vancomycin and Rocephin with ID on consult. Patient was found to have elevated troponin consistent with acute non-STEMI (giving past significant cardiac history consult was placed to cardiology). CT of the chest obtained as a result of elevated D-dimer unremarkable. Patient went into acute respiratory distress on the morning of 03/19/2022. Did receive Lasix. Patient was also noted to be in SVT amiodarone started by cardiology Physical Examination: GENERAL: Frail looking, dyspneic at rest HEENT: Atraumatic; EYES; Anicteric, Normal Conjunctiva NECK; supple, normal thyroid, RESPIRATORY: Diminished to auscultation CARDIOVASCULAR: Regular S1 S2, GI: soft, normoactive bowel sounds, : No Renal angle tenderness; EXTREMITIES: No edema, no clubbing, MUSCULOSKELETAL: no muscle wasting NEURO: Awake; no lateralizing signs. SKIN: No Rash PSYCH; Flat affect Assessment: 1. Sepsis 2. Gram-positive cocci bacteremia 3. Acute non-STEMI possibly type II 4. Acute congestive heart failure with preserved ejection fraction 5. Coronary artery disease with known multivessel disease with previous high risk PCI to multiple vessels 6. Chronic kidney disease stage III AA 7. Use of immunosuppressant agents?Plaquenil 8. Dyslipidemia 9. SVT 10.. DVT prophylaxis Recommendations: 1. I have discussed the results of my overview and impressions with the patient 2. Options for management were reviewed Total time spent by myself and the advanced practice practitioner evaluating patient, reviewing labs, subsequent management decisions, discussion with patient as well as other providers 45 minutes ( 25 of which was spent by myself) Charges/Coding Visit Charges Inpatient E&M: 04565 Subs Hosp L3
[2022-03-19 12:15] LABS: Reflex Lactate? Y
[2022-03-19 12:16] LABS: Bedside Glucose 163 mg/dL (74-106)
[2022-03-19] MEDS: Magnesium Sulfate 4gm/100mL 4 GM/100 ML IV.SOLN. IV (12:23)
[2022-03-19 14:31] LABS: Partial Thromboplast Time 78.3 Seconds (24.1-36.2)
[2022-03-19 16:06] LABS: Allen Test Positive; Base Excess -9 mmol/L (-2 to +2); Bicarbonate 14.2 mmol/L (22-26); Blood Gas Specimen Type ART; FI02 21; PO2 52 mmHG (75-100); SITE L Radial; SO2 90 % (95-99); Total Carbon Dioxide 15 mmol/L; pCO2 18.6 mmHg (35-45); pH 7.49 (7.35-7.45)
--- NOTE | 2022-03-19 17:10 | NURSING ---
parient respirations still 30-40s wheezing now called for breathing tx o2 2l applied to assist . md notified labs drawn
[2022-03-19 17:16] LABS: Bedside Glucose 154 mg/dL (74-106)
[2022-03-19 17:24] LABS: Anion Gap 14 (5-15); BUN 30 mg/dL (7-18); BUN/Creat Ratio 16.9 RATIO (10-20); Calcium,Total 7.3 mg/dL (8.5-10.1); Chloride 100 mmol/L (98-107); Creatinine, Serum 1.78 mg/dL (0.55-1.02); EST Glomerular Filtration Rate 30 mL/min (>60); Est Glom Filt Rate - Afr Amer 36 mL/min (>60); Glucose 137 mg/dL (74-106); Sodium Level 130 mmol/L (136-145)
[2022-03-19] MEDS: Potassium Chloride 10mEq/100mL 10 MEQ/100 ML IV.SOLN. 100 MEQ IV BOLUS ×4 (17:47→21:06)
--- NOTE | 2022-03-19 20:07 | NURSING ---
Pt wheezing throughout, PRN albuterol given via nebulizer. MD notified.
[2022-03-19] MEDS: Morphine 2 MG/ML Syringe 1 MG IV (20:58)
[2022-03-19] MEDS: Atorvastatin Calcium 40 MG Tablet PO (21:06)
[2022-03-19 21:16] LABS: Bedside Glucose 179 mg/dL (74-106)
[2022-03-19 21:54] LABS: Partial Thromboplast Time 65.9 Seconds (24.1-36.2)
[2022-03-20] VITALS (30 sets, daily range): BP systolic 106–147; BP diastolic 61–87; PULSE 72–98; RESP 12–37; TEMP 36.1–36.8; O2SAT 94–100
[2022-03-20] MEDS: Albuterol 2.5 MG/3 ML VIAL.NEB. INHALATION ×5 (01:04→23:55)
--- NOTE | 2022-03-20 01:04 | NURSING ---
Pt wheezing throughout, increased work of breathing. PRN albuterol given. MD notified.
[2022-03-20] MEDS: Morphine 2 MG/ML Syringe 1 MG IV (02:31)
--- NOTE | 2022-03-20 02:45 | NURSING ---
Pt has exp wheezing throughout, PRN Albuterol given via nebulizer. MD notified.
[2022-03-20 04:17] LABS: Absolute Lymphocyte Count 0.21 X10^3/uL (0.83-4.51); Absolute Neutrophil Count 9.1 X10^3/uL (2.0-7.7); Basophil# 0.01 X10^3/uL; Basophil% 0.1 % (0-1); Eosinophil# 0.03 X10^3/uL; Eosinophils% 0.3 % (0-5); Hematocrit 25.5 % (37-47); Hemoglobin 8.7 g/dL (12.0-15.0); Lymphocyte # 0.21 X10^3/ul (0.83-4.51); Lymphocyte % 2.1 % (19-41); Mean Corp Hgb Conc 34.1 g/dL (32-36); Mean Corpuscular Volume 93.8 fL (81-99); Mean Platelet Vol. 9.9 fl (6.2-12.0); Monocyte# 0.49 X10^3/uL; Monocyte% 4.9 % (0-10); NRBC Flagged by Analyzer 0 % (0-5); Neutrophil # 9.09 X10^3/uL (2.7-7.7); Neutrophil % 91.9 % (47-70); POSITIVE COUNT YES; POSITIVE DIFFERENTIAL YES; POSITIVE MORPHOLOGY YES; Platelet Count 97 K/mm3 (150-450); RBC Distribution Width CV 12.9 % (11.6-14.6); RBC Distribution Width SD 44.2 fl (35.1-43.9); Red Blood Count 2.72 M/mm3 (4.2-5.4); White Blood Count 9.9 K/mm3 (4.4-11.0)
[2022-03-20 04:23] LABS: Differential Indicated SCAN CRITERIA MET
[2022-03-20 04:32] LABS: Partial Thromboplast Time 56.1 Seconds (24.1-36.2)
[2022-03-20 04:33] LABS: Anion Gap 15 (5-15); BUN 31 mg/dL (7-18); BUN/Creat Ratio 15.7 RATIO (10-20); Calcium,Total 6.6 mg/dL (8.5-10.1); Chloride 95 mmol/L (98-107); Creatinine, Serum 1.98 mg/dL (0.55-1.02); EST Glomerular Filtration Rate 26 mL/min (>60); Est Glom Filt Rate - Afr Amer 32 mL/min (>60); Estimated Creatinine Clearance 24.45 ml/min; Glucose 165 mg/dL (74-106); Magnesium 2.6 mg/dL (1.6-2.6); Potassium 3.5 mmol/L (3.5-5.1); Sodium Level 128 mmol/L (136-145)
[2022-03-20 04:45] LABS: Differential Comment SCANNED
--- NOTE | 2022-03-20 06:00 | CPS ---
RN gave PRN tx
--- NOTE | 2022-03-20 06:01 | CPS ---
RN gave PRN tx
--- NOTE | 2022-03-20 06:02 | CPS ---
RN gave PRN tx
--- NOTE | 2022-03-20 07:54 | RAD_ITS ---
STUDY: X-RAY CHEST REASON FOR EXAM: Female, 71 years old. sob TECHNIQUE: Single AP portable view of the chest. COMPARISON: Comparison is made with prior study dated 03/19/2022. FINDINGS: EKG electrodes are seen. Residual bibasilar infiltrates. This is worse in the left hemithorax. There has been a mild degree of improvement. There is no demonstrated pleural abnormality. Normal size heart. Normal mediastinum and greg. Normal visualized pulmonary arteries. There is atherosclerotic tortuosity of the aortic arch and descending thoracic aorta. There are diffuse degenerative changes of the visualized thoracic spine. Normal visualized ribs, clavicles, and shoulders. There is no demonstrated abnormality of the visualized soft tissue structures of the upper abdomen. RAD/Chest 1 View (Portable) IMPRESSION: Since prior study, there has been improved aeration with residual changes present worse in the left hemithorax. Electronically Signed: Wayne Guan MD at 10:05 EDT ,
[2022-03-20] MEDS: Furosemide 100 MG/10 ML Vial 80 MG IV (08:08)
[2022-03-20] MEDS: 0.9% Saline Lock 10 ML Syringe IV ×2 (08:08→13:23)
[2022-03-20 08:15] LABS: BNP,B-Type NATRIURETIC PEPTIDE 520.8 pg/mL (0-100)
--- NOTE | 2022-03-20 08:49 | PN.CARD_ITS ---
Subjective Subjective The patient is currently in the PCU and appears to be resting comfortably. It appears she has required supportive therapy with multiple IV medications and BiPAP/CPAP support. Objective Data Vital Signs: Vital Signs Temp Pulse Resp BP Pulse Ox 98.0 F 89 31 H 146/87 H 99 03/20/22 08:00 03/20/22 08:00 03/20/22 08:00 03/20/22 08:00 03/20/22 08:00 Oxygen Flow Rate (L/min) 2 Oxygen Delivery Method Bi-pap Weight: 134 lb 14.766 oz Body Mass Index (BMI) 27.1 Intake & Output: Intake and Output for Last 24 Hours 03/18/22 03/19/22 03/20/22 23:59 23:59 23:59 Intake Total 2700 / 2700 4584.87 / 4676.57 1695.47 / 1695.47 Output Total 650 / 650 1175 / 1475 750 / 750 Balance 2049 / 2049 3409.87 / 3201.57 945.47 / 945.47 Lab / Micro Data Result Diagrams: 03/20/22 03:55 03/20/22 03:55 Labs: Laboratory Results - last 24 hr 03/19/22 08:05: Sodium 133 L, Potassium 3.5, Chloride 102, Carbon Dioxide 18.0 L , Anion Gap 13, BUN 25 H, Creatinine 1.35 H, Estim Creat Clear Calc 35.86, Est GFR (MDRD) Af Amer 49 L, Est GFR (MDRD) Non-Af 41 L, BUN/Creatinine Ratio 18.5, Glucose 196 H, Calcium 7.0 L, Phosphorus 3.4, Magnesium 1.1 L 03/19/22 08:05: APTT 69.5 H 03/19/22 08:05: Lactic Acid 3.4 H* 03/19/22 08:05: Differential Comment SCANNED 03/19/22 08:05: B-Natriuretic Peptide 1562.8 H 03/19/22 08:33: POC Glucose 213 H 03/19/22 12:01: POC Glucose 163 H 03/19/22 12:31: Lactic Acid 3.0 H* 03/19/22 14:06: APTT 78.3 H 03/19/22 17:05: Sodium 130 L, Potassium 3.0 L, Chloride 100, Carbon Dioxide 16.0 L, Anion Gap 14, BUN 30 H, Creatinine 1.78 H, Estim Creat Clear Calc 27.20, Est GFR (MDRD) Af Amer 36 L, Est GFR (MDRD) Non-Af 30 L, BUN/Creatinine Ratio 16.9, Glucose 137 H, Calcium 7.3 L 03/19/22 17:05: POC Glucose 154 H 03/19/22 21:05: POC Glucose 179 H 03/19/22 21:15: APTT 65.9 H 03/20/22 03:55: WBC 9.9, RBC 2.72 L, Hgb 8.7 L, Hct 25.5 L, MCV 93.8, MCH 32.0, MCHC 34.1, RDW Std Deviation 44.2 H, RDW Coeff of Janusz 12.9, Plt Count 97 L, MPV 9.9, Immature Gran % (Auto) 0.700, Neut % (Auto) 91.9 H, Lymph % (Auto) 2.1 L, Hunt % (Auto) 4.9, Eos % (Auto) 0.3, Baso % (Auto) 0.1, Absolute Neuts (auto) 9.1 H, Absolute Lymphs (auto) 0.21 L, Nucleated RBC % 0, Differential Comment SCANNED 03/20/22 03:55: Sodium 128 L, Potassium 3.5, Chloride 95 L, Carbon Dioxide 18.0 L, Anion Gap 15, BUN 31 H, Creatinine 1.98 H, Estim Creat Clear Calc 24.45, Est GFR (MDRD) Af Amer 32 L, Est GFR (MDRD) Non-Af 26 L, BUN/Creatinine Ratio 15.7, Glucose 165 H, Calcium 6.6 L, Magnesium 2.6 03/20/22 03:55: APTT 56.1 H 03/20/22 03:55: B-Natriuretic Peptide 520.8 H Micro: Microbiology 03/18/22 08:40 Blood Culture (Wb) - Left Forearm Blood Culture - Final Staphylococcus aureus 03/18/22 08:00 Urine Catheter - Catheter Urine Culture - Final Lactobacillus gasseri 03/18/22 08:00 Blood Culture (Wb) - Anticubital Left Bacteria Detection (PCR) - Final Staphylococcus aureus 03/18/22 08:00 Blood Culture (Wb) - Anticubital Left Blood Culture - Preliminary Staphylococcus aureus ABG Data ABG results: ABG 03/19/22 15:56 Specimen Type ART Sample Site L Radial pH 7.49 H Bicarbonate Actual 14.2 L Total CO2 15 Base Excess -9 L O2 Saturation 90 L O2 % 21 ABG pCO2 18.6 L* ABG pO2 52 L Raoul Test Positive Crit Call To/Read Back Yes Blood Gas Notified Whom roberto uriostegui Cardiology Labs/Tests 03/19/22 08:05: Sodium 133 L, Potassium 3.5, Chloride 102, Carbon Dioxide 18.0 L , Anion Gap 13, BUN 25 H, Creatinine 1.35 H, Est GFR (MDRD) Af Amer 49 L, Est GFR (MDRD) Non-Af 41 L, BUN/Creatinine Ratio 18.5, Glucose 196 H, Calcium 7.0 L, Phosphorus 3.4, Magnesium 1.1 L 03/19/22 08:05: APTT 69.5 H 03/19/22 08:05: Lactic Acid 3.4 H* 03/19/22 08:05: B-Natriuretic Peptide 1562.8 H 03/19/22 12:31: Lactic Acid 3.0 H* 03/19/22 14:06: APTT 78.3 H 03/19/22 15:56: pH 7.49 H, Bicarbonate Actual 14.2 L, Base Excess -9 L, O2 Saturation 90 L, ABG pCO2 18.6 L*, ABG pO2 52 L, Raoul Test Positive 03/19/22 17:05: Sodium 130 L, Potassium 3.0 L, Chloride 100, Carbon Dioxide 16.0 L, Anion Gap 14, BUN 30 H, Creatinine 1.78 H, Est GFR (MDRD) Af Amer 36 L, Est GFR (MDRD) Non-Af 30 L, BUN/Creatinine Ratio 16.9, Glucose 137 H, Calcium 7.3 L 03/19/22 21:15: APTT 65.9 H 03/20/22 03:55: WBC 9.9, RBC 2.72 L, Hgb 8.7 L, Hct 25.5 L, MCV 93.8, MCH 32.0, MCHC 34.1, Plt Count 97 L, MPV 9.9, Immature Gran % (Auto) 0.700, Neut % (Auto) 91.9 H, Lymph % (Auto) 2.1 L, Hunt % (Auto) 4.9, Eos % (Auto) 0.3, Baso % (Auto) 0.1, Absolute Neuts (auto) 9.1 H, Nucleated RBC % 0 03/20/22 03:55: Sodium 128 L, Potassium 3.5, Chloride 95 L, Carbon Dioxide 18.0 L, Anion Gap 15, BUN 31 H, Creatinine 1.98 H, Est GFR (MDRD) Af Amer 32 L, Est GFR (MDRD) Non-Af 26 L, BUN/Creatinine Ratio 15.7, Glucose 165 H, Calcium 6.6 L, Magnesium 2.6 03/20/22 03:55: APTT 56.1 H 03/20/22 03:55: B-Natriuretic Peptide 520.8 H Rhythm: Sinus rhythm ECHO: Pending Stress Test: Cardiac Cath: 12/10/2020 (per Dr. Berrios) CONCLUSIONS Multivessel CAD. Severe LV dysfunction. EF is 25%. No significant or MR. Aberrant R subclavian artery RECOMMENDATIONS CT surgery consult to discuss revascularization options (CABG vs PCI of LCx +/- LAD) DESCRIPTION OF PROCEDURE The patient arrived to the procedure lab. The risks and benefits of the procedure as well as a full description of our services here and current unavailability of surgical backup were fully explained to the patient and/or their significant other prior to the catheterization. The Timeout was completed, verifying the correct patient and procedure. The patient's procedural site was prepped and draped in the usual fashion. Local anesthetic was given subcutaneously to right radial region with Lidocaine 2%. Local anesthetic was given subcutaneously to right groin region with Lidocaine 2%. Using a modified Seldinger technique, arterial access was obtained via the right radial artery, a 6Fr sheath was inserted., arterial access was obtained via the right radial artery, a 5Fr sheath was inserted. LV to AO pullback pressures were then recorded. Left Coronary Artery selective angiography was performed in multiple views using a 5 Fr. JL3.5 catheter. Right Coronary Artery selective angiography was then performed in multiple views using a 5 Fr. JR 4 catheter. Left Ventriculography was performed in [place] projection using a 5 Fr. JR4. Ascending (root) aorta selective angiography was then performed in single view using a pigtail catheter. Ascending (root) aorta selective angiography was then performed in single view using a pigtail catheter.Contrast was injected through the sheath and the Right Iliac and Femoral artery were assessed for possible closure device.The arterial sheath was pulled and a Starclose closure device was deployed for hemostasis. The arterial sheath was pulled and a TR Band was applied for hemostasis CORONARY ANGIOGRAPHY DOMINANCE: Right Dominant LEFT HEART ASSESSMENT Left Ventricular Ejection Fraction: by LV Gram 25 % LEFT MAIN: Mild luminal irregularities LEFT ANTERIOR DESCENDING ARTERY: PROX LAD: moderate diffuse disease MID LAD: 80 % Stenosis DISTAL LAD: 70 % Stenosis CIRCUMFLEX ARTERY: PROX CIRC: 99 % Stenosis RIGHT CORONARY ARTERY: PROX RCA: 100 % Stenosis. Distal RCA fills via L to R collaterals VALVE FINDINGS: No Mitral Insufficency No Aortic Valve Stenosis PCI: 12/16/2020: [facility], [place], [place] Proximal and mid LAD: Bare-metal stent Mid LCx: Bare-metal stent RCA: Old total occlusion recanalized with bare-metal stents Physical Exam Narrative awake but sleepy appearing Neck supple and no JVD Resp Auscultation: rhonchi throughout Cardio regular rate, regular rhythm, S1 normal heart sound and S2 normal heart sound GI normal to inspection, nondistended, normoactive bowel sounds Extremity no pedal edema Skin no rashes or lesions noted Assessment & Plan Assessment/Plan (1) Atherosclerotic heart disease of [place] coronary artery without angina pectoris: PLAN: The patient has a history of extensive CAD. It appears she has undergone invasive evaluation and care in the past locally and at [facility] in [place], [place]. She will need continued monitoring. She will need continued medical therapy with adjustment as deemed appropriate in and around the time of both her cardiac and her noncardiac comorbidities. (2) Presence of stent in coronary artery: PLAN: The patient was evaluated at [facility] in [place], [place] for possible CABG versus multivessel PCI. It appears the patient underwent multivessel PCI. At the present time she is being monitored. She will continue medical therapy. Depending upon her clinical course she may or may not need reevaluation of her coronary/stent status either noninvasively or invasively. (3) NSTEMI (non-ST elevated myocardial infarction): PLAN: The patient has abnormal cardiac enzymes. At the moment there is concern this is a type II event brought out by her sepsis syndrome. She will continue to be monitored. She will continue noninvasive valuation at this time with reassessment of her left ventricular wall motion and systolic function with a transthoracic echocardiogram. Again depending upon her overall clinical course she may or may not need additional noninvasive or invasive cardiovascular studies. (4) Ischemic cardiomyopathy: PLAN: The patient has had an ischemic mediated cardiomyopathy diagnosis in the past. She is pending reassessment of her left ventricular wall motion and systolic function to reassess her cardiovascular status. In the meantime she will need to continue medical therapy as she is able. (5) CHF (congestive heart failure), NYHA class III: PLAN: The patient was also diagnosed with CHF. There is concern this may be multifactorial secondary to IV volume status superimposed upon her history of underlying ischemic mediated cardiomyopathy and diminished LV systolic function. She will need to continue medical therapy assist with her volume status. This will include diuretic therapy as tolerated. (6) SVT (supraventricular tachycardia): PLAN: At the present time it appears the patient is in a sinus rhythm. Her medications will be adjusted with respect to her rate and her rhythm. This will include adjusting beta-blockers as she is able. I would also include placing her IV amiodarone on hold at this time. (7) Hyperlipidemia: PLAN: The patient should continue risk factor modification medical manag ement. (8) Essential hypertension: PLAN: The patient's blood pressure will need to be followed with her medicines being adjusted taking into consideration her multiple comorbidities and renal function. (9) Sepsis: PLAN: The patient is continuing evaluation care per internal medicine. Also an infectious disease consultation is pending. (10) Chronic kidney disease, stage III (moderate): PLAN: The patient does have chronic renal insufficiency. Her creatinine level has been increasing. There is related to her sepsis syndrome as well as her volume shifts. This would have to be taken into consideration if the patient were to proceed with any imaging studies requiring IV contrast based on concerns of IV contrast related nephropathy. (11) Anemia: PLAN: The patient's hemoglobin has also declined. May be secondary to her volume shows. However she does need to be monitored for any concerns with respect any obvious hemorrhagic related issues. Addt'l Comments The patient's case was discussed and reviewed with Dr. Khoury. This note was generated using a voice recognition system and there may be incorrect words, spelling or punctuation that were not noted when reviewing the office note prior to saving. Procedure Criteria Type of Procedure Procedure Type: Elective Elective Risks - COVID COVID Risk Discussion: The surgeon/proceduralist and patient have discussed in detail the risk of exposure to and/or potential harm posed by the COVID-19 virus with having a surgery/procedure at this time versus the risk of delaying the surgery/procedure. It is not possible to know either the risk of delaying the surgery or procedure or chance of getting an infection with perfect accuracy, but a joint decision was made between the patient and the surgeon/proceduralist to proceed at this time with the scheduled surgery/procedure as indicated on the consent form.
[2022-03-20] MEDS: Ceftriaxone 1 GM/50 ML BAG IV (08:52)
[2022-03-20 09:30] LABS: Blood Gas Specimen Type VEN; VBG BASE EXCESS -5 mmol/L (-1.0-3.5); VBG Bicarbonate 19 mmol/L (22-26); VBG PO2 54 mmHg (25-40); VBG SO2 90 % (50-70); VBG TCO2 20 mmol/L (23-33); VBG pH 7.46 (7.32-7.42)
[2022-03-20 10:01] LABS: Bedside Glucose 114 mg/dL (74-106)
[2022-03-20 10:55] LABS: Bedside Glucose 123 mg/dL (74-106)
--- NOTE | 2022-03-20 12:56 | CON.PCM.ID_ITS ---
Assessment & Plan Assessment/Plan (1) Sepsis: PLAN: MSSA bacteremia and elderly female with multiple comorbidities. We will treat with cefazolin 2 g IV every 8 hours. Repeat blood cultures were sent. Echocardiogram done earlier this morning and results are pending. Discussed with the patient's daughter at the bedside. HPI Consult Data Date of Consult: 03/20/22 HPI Narrative HPI Narrative: ERIK GARCIA, is a 71 F who presents on March 18 with altered mental status and worsening of her chronic renal disease. Interestingly patient's admission blood cultures are growing Staph aureus, PCR data reviewed. Patient is currently on noninvasive ventilatory support to maintain oxygen levels. Patient is currently on vancomycin plus ceftriaxone. Patient is responsive denies any specific pain. History is obtained through talking to the patient's daughter at the bedside. Chest film report reviewed. Patient denies any back pain at this time. Patient does have a Zepeda catheter in place. Of note is her worsening renal function. Patient has multiple comorbidities including diabetes mellitus, heart disease, chronic renal disease, rheumatoid arthritis [facility] Medical History (Updated 03/20/22 @ 09:[address] Mitchel Saini MD) Anemia Atherosclerosis of coronary artery of [place] heart without angina pectoris Atherosclerotic heart disease of [place] coronary artery without angina pectoris Benign essential hypertension Cardiomyopathy Decubitus ulcer of left buttock, stage 3 Essential hypertension Hyperlipidemia Ischemic cardiomyopathy Home Medications pregabalin 75 mg PO DAILY 05/11/16 [History Last Taken 03/17/22] hydroxychloroquine 200 mg PO DAILY 07/19/18 [History Last Taken 03/17/22] sitagliptin 100 mg PO DAILY 07/19/18 [History Last Taken 03/17/22] Prednisone 5 mg PO UD PRN 12/09/20 [History Last Taken Unknown] glimepiride 4 mg PO DAILY 12/09/20 [History Last Taken 03/17/22] aspirin 81 mg chewable tablet 1 ea PO DAILY 12/31/20 [History Last Taken 03/17/22] atorvastatin 40 mg tablet 40 mg PO QHS #30 tab 12/31/20 [Rx Last Taken 03/17/22] bupropion HCl 150 mg 24 hr tablet, extended release 150 mg PO QAM 12/30/21 [History Last Taken 03/17/22] carvedilol 6.25 mg tablet 6.25 mg PO BID #60 tab 12/30/21 [Rx Last Taken 03/17/22] clopidogrel 75 mg tablet 75 mg PO DAILY #30 tab 12/30/21 [Rx Last Taken 03/17/22] duloxetine 60 mg capsule,delayed release 60 mg PO DAILY 12/30/21 [History Last Taken 03/17/22] furosemide 20 mg tablet 20 mg PO .COMPLEX #30 tab 12/30/21 [Rx Last Taken 03/17/22] Allergy/AdvReac Type Severity Reaction Status Date / Time ciprofloxacin [From Cipro] Allergy Hives Verified 12/30/21 13:06 ciprofloxacin HCl Allergy Hives Verified 12/30/21 13:06 [From Cipro] Penicillins Allergy Hives Verified 12/30/21 13:06 Family History Father No problems noted. Mother No problems noted. Surgical History History of left heart catheterization (12/10/20) Presence of coronary angioplasty implant and graft (~12/16/20) Presence of stent in coronary artery (~12/16/20) Social History Smoking Status: Smoker, status unknown tobacco type: cigarettes ROS ROS Narrative Noncontributory Physical Exam Narrative Patient is alert and responsive on noninvasive ventilatory support lungs some scattered wheezing. Heart exam S1-S2 no gallops or murmurs appreciated. Abdomen soft nontender. No peripheral skin lesions noted Lab / Micro Data Result Diagrams: 03/20/22 03:55 03/20/22 03:55 Labs: Laboratory Results - last 24 hr 03/19/22 12:31: Lactic Acid 3.0 H* 03/19/22 14:06: APTT 78.3 H 03/19/22 17:05: Sodium 130 L, Potassium 3.0 L, Chloride 100, Carbon Dioxide 16.0 L, Anion Gap 14, BUN 30 H, Creatinine 1.78 H, Estim Creat Clear Calc 27.20, Est GFR (MDRD) Af Amer 36 L, Est GFR (MDRD) Non-Af 30 L, BUN/Creatinine Ratio 16.9, Glucose 137 H, Calcium 7.3 L 03/19/22 17:05: POC Glucose 154 H 03/19/22 21:05: POC Glucose 179 H 03/19/22 21:15: APTT 65.9 H 03/20/22 03:55: WBC 9.9, RBC 2.72 L, Hgb 8.7 L, Hct 25.5 L, MCV 93.8, MCH 32.0, MCHC 34.1, RDW Std Deviation 44.2 H, RDW Coeff of Janusz 12.9, Plt Count 97 L, MPV 9.9, Immature Gran % (Auto) 0.700, Neut % (Auto) 91.9 H, Lymph % (Auto) 2.1 L, [place] % (Auto) 4.9, Eos % (Auto) 0.3, Baso % (Auto) 0.1, Absolute Neuts (auto) 9.1 H, Absolute Lymphs (auto) 0.21 L, Nucleated RBC % 0, Differential Comment SCANNED 03/20/22 03:55: Sodium 128 L, Potassium 3.5, Chloride 95 L, Carbon Dioxide 18.0 L, Anion Gap 15, BUN 31 H, Creatinine 1.98 H, Estim Creat Clear Calc 24.45, Est GFR (MDRD) Af Amer 32 L, Est GFR (MDRD) Non-Af 26 L, BUN/Creatinine Ratio 15.7, Glucose 165 H, Calcium 6.6 L, Magnesium 2.6 03/20/22 03:55: APTT 56.1 H 03/20/22 03:55: B-Natriuretic Peptide 520.8 H 03/20/22 09:57: POC Glucose 114 H 03/20/22 10:51: POC Glucose 123 H Micro: Microbiology 03/18/22 08:40 Blood Culture (Wb) - Left Forearm Blood Culture - Final Staphylococcus aureus 03/18/22 08:00 Urine Catheter - Catheter Urine Culture - Final Lactobacillus gasseri ABG Data ABG results: ABG 03/19/22 03/20/22 15:56 09:22 Specimen Type ART TONEY Sample Site L Radial pH 7.49 H Bicarbonate Actual 14.2 L Total CO2 15 Base Excess -9 L O2 Saturation 90 L O2 % 21 ABG pCO2 18.6 L* ABG pO2 52 L Raoul Test Positive VBG pH 7.46 H VBG pO2 54 H VBG HCO3 19 L VBG Total CO2 20 L VBG O2 Sat (Calc) 90 H VBG Base Excess -5 L POC Mix VBG pCO2 Pt Tmp 27.0 L Crit Call To/Read Back Yes Blood Gas Notified Whom roberto uriostegui Radiology Impression Chest X-Ray 03/20/22 07:54 IMPRESSION: Since prior study, there has been improved aeration with residual changes present worse in the left hemithorax. Electronically Signed: Wayne Guan MD at 10:05 EDT ,
--- NOTE | 2022-03-20 13:00 | PCM.PN.HOSP ---
Documented by User: Roberto Mathias PSYCHIATRIC SECURITY NURSE, PSYCHIATRIC SECURITY NURSE-C 03/20/22 13:09 Subjective Subjective Patient seen and examined. On BiPAP. Drowsy, confused. Tachypnea improved. Objective Data Objective Data Vital Signs: Vital Signs Temp Pulse Resp BP Pulse Ox 98.1 F 98 28 H 118/63 97 03/20/22 11:00 03/20/22 11:00 03/20/22 11:00 03/20/22 11:00 03/20/22 11:00 Oxygen Flow Rate (L/min) 2 Oxygen Delivery Method Bi-pap Weight: 134 lb 14.766 oz Body Mass Index (BMI) 27.1 Intake & Output: Intake and Output for Last 24 Hours 03/18/22 03/19/22 03/20/22 23:59 23:59 23:59 Intake Total 2700 / 2700 4584.87 / 4676.57 1764.40 / 1764.40 Output Total 650 / 650 1175 / 1475 1850 / 1850 Balance 2049 / 2049 3409.87 / 3201.57 -85.60 / -85.60 Lab / Micro Data Result Diagrams: 03/20/22 03:55 03/20/22 03:55 Labs: Laboratory Results - last 24 hr 03/19/22 12:31: Lactic Acid 3.0 H* 03/19/22 14:06: APTT 78.3 H 03/19/22 17:05: Sodium 130 L, Potassium 3.0 L, Chloride 100, Carbon Dioxide 16.0 L, Anion Gap 14, BUN 30 H, Creatinine 1.78 H, Estim Creat Clear Calc 27.20, Est GFR (MDRD) Af Amer 36 L, Est GFR (MDRD) Non-Af 30 L, BUN/Creatinine Ratio 16.9, Glucose 137 H, Calcium 7.3 L 03/19/22 17:05: POC Glucose 154 H 03/19/22 21:05: POC Glucose 179 H 03/19/22 21:15: APTT 65.9 H 03/20/22 03:55: WBC 9.9, RBC 2.72 L, Hgb 8.7 L, Hct 25.5 L, MCV 93.8, MCH 32.0, MCHC 34.1, RDW Std Deviation 44.2 H, RDW Coeff of Janusz 12.9, Plt Count 97 L, MPV 9.9, Immature Gran % (Auto) 0.700, Neut % (Auto) 91.9 H, Lymph % (Auto) 2.1 L, [place] % (Auto) 4.9, Eos % (Auto) 0.3, Baso % (Auto) 0.1, Absolute Neuts (auto) 9.1 H, Absolute Lymphs (auto) 0.21 L, Nucleated RBC % 0, Differential Comment SCANNED 03/20/22 03:55: Sodium 128 L, Potassium 3.5, Chloride 95 L, Carbon Dioxide 18.0 L, Anion Gap 15, BUN 31 H, Creatinine 1.98 H, Estim Creat Clear Calc 24.45, Est GFR (MDRD) Af Amer 32 L, Est GFR (MDRD) Non-Af 26 L, BUN/Creatinine Ratio 15.7, Glucose 165 H, Calcium 6.6 L, Magnesium 2.6 03/20/22 03:55: APTT 56.1 H 03/20/22 03:55: B-Natriuretic Peptide 520.8 H 03/20/22 09:57: POC Glucose 114 H 03/20/22 10:51: POC Glucose 123 H Micro: Microbiology 03/18/22 08:40 Blood Culture (Wb) - Left Forearm Blood Culture - Final Staphylococcus aureus 03/18/22 08:00 Urine Catheter - Catheter Urine Culture - Final Lactobacillus gasseri 03/18/22 08:00 Blood Culture (Wb) - Anticubital Left Bacteria Detection (PCR) - Final Staphylococcus aureus 03/18/22 08:00 Blood Culture (Wb) - Anticubital Left Blood Culture - Preliminary Staphylococcus aureus 03/18/22 22:31 Urine, Random Legionella Antigen - Final 03/18/22 22:31 Urine, Random Streptococcus pneumoniae Antigen (M - Final 03/18/22 11:06 Mucosa - Nasopharyngeal - Final 03/18/22 09:00 Nasal Secretion SARS-CoV-2 & FLU Antigen (Rapid) - Final ABG Data ABG results: ABG 03/19/22 03/20/22 15:56 09:22 Specimen Type ART TONEY Sample Site L Radial pH 7.49 H Bicarbonate Actual 14.2 L Total CO2 15 Base Excess -9 L O2 Saturation 90 L O2 % 21 ABG pCO2 18.6 L* ABG pO2 52 L Raoul Test Positive VBG pH 7.46 H VBG pO2 54 H VBG HCO3 19 L VBG Total CO2 20 L VBG O2 Sat (Calc) 90 H VBG Base Excess -5 L POC Mix VBG pCO2 Pt Tmp 27.0 L Crit Call To/Read Back Yes Blood Gas Notified Whom roberto mathias Radiography Diagnostic Testing: Radiology Impression Chest X-Ray 03/20/22 07:54 IMPRESSION: Since prior study, there has been improved aeration with residual changes present worse in the left hemithorax. Electronically Signed: Wayne Guan MD at 10:05 EDT , Physical Exam Const Constitutional Narrative: Drowsy, confused Nutritional Appearance: cachectic HEENT normocephalic Mouth: dry mucous membranes Eyes PERRL, EOMs intact bilaterally and conjunctivae normal Neck no lymphadenopathy Resp Effort and Inspection: tachypneic Auscultation: rhonchi and diminished lung sounds Cardio regular rate, regular rhythm and no murmurs Peripheral Pulses: pulses 2+ throughout GI normal to inspection, nondistended, normoactive bowel sounds, non-tender and non-distended Extremity normal to inspection Skin no rashes or lesions noted Lesions: no lesions Rashes: no rashes Trauma: no lacerations or abrasions Neuro CN's II-XII intact bilaterally, no focal motor deficits, no sensory deficits noted and deep tendon reflexes 2+ bilaterally Psych mental status grossly normal and affect normal Assessment & Plan Assessment/Plan (1) SVT (supraventricular tachycardia): (2) Sepsis: PLAN: 1. Sepsis secondary to MSSA bacteremia-chest x-ray without infiltrate. UA/urine culture unremarkable. ID consulted. Transition to IV cefazolin. Repeat blood cultures pending. Echocardiogram pending. 2. Sinus tachycardia/SVT-cardiology consulted. Previously on amiodarone drip which has since been discontinued. Improved. Continue treatment of sepsis per above. 3. NSTEMI-likely demand ischemia secondary to #1/#2. Cardiology following for further management. Continue aspirin, statin, carvedilol, Plavix. Echo ordered. CTA without PE. 4. Metabolic encephalopathy-multifactorial secondary to sepsis/MSSA bacteremia, CHF, metabolic alkalosis. Treat underlying processes. 5. Acute on chronic heart failure with preserved ejection fraction, multivessel CAD/ischemic cardiomyopathy-recent angioplasty and stenting to RCA, left anterior descending artery and left circumflex artery. Continue aspirin, statin, Plavix, beta-migue. Echocardiogram 01/31/2022 demonstrated an EF of 50%. EF improved from prior echo. Intermittent IV Lasix. Repeat echo ordered. 6. Hypertension-stable, continue carvedilol. 7. Type 2 diabetes mellitus-oral regimen on hold. Accu-Cheks with sliding scale insulin. 8. Chronic kidney disease stage IIIa-stable, trend BMP. 9. Hyperlipidemia- continue statin. 10. Depression/anxiety-continue Cymbalta, bupropion. 11. Rheumatoid arthritis? Chronic back pain-Plaquenil held. DVT prophylaxis-Lovenox subcu This patient was seen by ALEKSANDRA DanielsonC under the supervision of Dr. Khoury. Documented by User: Dr. Mechelle Khoury DO 03/20/22 15:54 Subjective Subjective This patient was seen in conjunction with Roberto Mathias NP. The following represents my independent history and physical examination. Please see below for addendum the above. Patient with continued somnolence and tachypnea. Is awake but interactive and is minimal. Rapid response called earlier today when the patient had an episode of change in level of consciousness and desaturation while she was getting her echocardiogram. By the time we arrived she was back to her baseline and vital signs were stable. Etiology is unclear however we will get an EEG to rule out seizure. Objective Data Lab / Micro Data Result Diagrams: 03/20/22 03:55 03/20/22 03:55 Physical Exam Const Constitutional Narrative: Overweight, older white female lying in bed, appears older than stated age, patient is awake however fairly somnolent and sleeps fairly easily, does try to communicate but is currently on BiPAP, appears nontoxic but ill Exam Limitations: altered mental status Nutritional Appearance: overweight HEENT head/scalp atraumatic HEENT Narrative: BiPAP in place Head and Scalp: normocephalic Eyes Eyes Narrative: Mild conjunctival pallor Neck no lymphadenopathy, supple and no JVD Neck Narrative: Trachea midline, neck is short and thick, no thyroid enlargement Resp no retractions and no use of accessory muscles Resp Narrative: Marked tachypnea, diffusely diminished with few scattered crackles at bases bilaterally Auscultation: crackles and rales; Negative for rhonchi or wheezes Cardio regular rate, regular rhythm, S1 normal heart sound, S2 normal heart sound, no murmurs, no rub, no gallops, no clicks and no JVD GI normal to inspection, nondistended, normoactive bowel sounds, soft to palpation, non-tender and non-distended; Negative for hepatosplenomegaly Extremity Extremity Narrative: Trace bilateral lower extremity edema, no cyanosis or clubbing Peripheral Pulses: Yes pulses 2+ throughout Skin no rashes or lesions noted, no wounds, skin turgor normal, no jaundice, no petechiae and no mottling Neuro Neuro Narrative: Moves all extremities spontaneously however fairly somnolent but does interact some, no focal deficits noted at this time Psych Psych Narrative: Difficult to assess with BiPAP in place Assessment & Plan Assessment/Plan (1) MSSA bacteremia: (2) CHF (congestive heart failure), NYHA class III: (3) NSTEMI (non-ST elevated myocardial infarction): (4) Encephalopathy acute: (5) Anemia: (6) Thrombocytopenia: (7) Respiratory alkalosis: (8) [place] (acute kidney injury): (9) Stage 3b chronic kidney disease (CKD): (10) Lactic acidosis: (11) Hyponatremia: (12) Hypokalemia: PLAN: Assessment: Sepsis secondary to MSSA bacteremia Respiratory alkalosis ? Syncopal episode Hyponatremia Hypochloremia [place] on CKD stage IIIa Decompensated acute on chronic heart failure with preserved ejection fraction Toxic/metabolic encephalopathy NSTEMI-suspect type II related to demand ischemia Lactic acidosis Acute anemia Acute thrombocytopenia CAD Hypertension Hyperlipidemia DM-2 Depression/anxiety Rheumatoid arthritis Plan: -Respiratory alkalosis based on labs this is a partially compensated or acute superimposed on chronic primary respiratory alkalosis or a mixed acute respiratory alkalosis with a small metabolic acidosis -Low bicarb as a compensation for this so I suspect that this may be a little bit more of a chronic issue and baseline bicarb on admission was 24 -Patient diuresed well yesterday and shows improvement on her chest x-ray today--> repeat Lasix 1 more time today -We will need to monitor renal function closely -Discontinue bicarb drip as this was hypotonic and patient has an alkalosis -We will trial bicarb -Check EEG -Continue telemetry -Echocardiogram done and shows an EF of 60% with pulmonary artery pressures at 40 mmHg and mild tricuspid valve insufficiency -Repeat blood cultures are pending -Suspect CBC abnormalities are related to sepsis -ID consult to drive antibiotic therapy and her plan for her sepsis was discussed with the family at the bedside by ID -Repeat CBC and CMP tomorrow -May need further work-up for [place] -Vancomycin discontinued -We will trial off BiPAP Charges/Coding Visit Charges Inpatient E&M: 91021 [facility] Hosp L3
[2022-03-20] MEDS: Cefazolin 2 GM in 0.9% Normal Saline 100 ML IV ×2 (13:23→21:48)
--- NOTE | 2022-03-20 15:56 | CHAPLAIN ---
Type of Pastoral Visit _x__ Initial Visit ___ Follow-up Visit ___ On-call Visit ___ General Patient Visit ___ Spiritual Assessment ___ Family Conference ___ Bereavement ___ Rapid Response ___ Code Blue ___ Other (describe below) Pastoral Care Referral From ___ Patient _x__ Family ___ Nurse ___ Physician ___ Pharmaceutical Physician ___ Media Sales Consultant ___ Other (describe below) Sacrament/Intervention _x__ Active listening ___ Anointing ___ Amish ___ Bereavement ___ Communion _x__ Kenzie exploration ___ ___ Life review _x__ Prayer ___ Reconciliation ___ Sacrament of Sick _x__ Supportive presence ___ Wedding ___ Other (describe below) Pastoral Comments daughter of patient requested spiritual care and especially prayer support; daughter is at bedside but patient is on bi-pap and sleeping during whole visit; daughter expresses her fears that pt will pass away soon and that not only is she the only support for patient but that patient is her only support too; daughter is tearful throughout the visit; daughter looks to kenzie in God for support but she is unable to attend her amish at this time; daughter asks for prayer
[2022-03-20 16:11] LABS: Bedside Glucose 49 mg/dL (74-106)
[2022-03-20 16:35] LABS: Bedside Glucose 81 mg/dL (74-106)
[2022-03-20 19:27] LABS: Vancomycin, Trough Level 16.5 ug/mL (5.0-15.0)
--- NOTE | 2022-03-20 21:44 | NURSING ---
Addendum entered by Ruth Easton 03/20/22 22:14: BGL checked again after 2 glasses of OJ. BGL reading 53. Hypoglycemia protocol ordered and D10 being administered. Original Note: Pt BGL checked around 2124 and it was 43. Pt alert enough to drink fluids, so one glass of orange juice was given. BGL checked 10 min later and was only 51. Provider notified to add hypoglycemia protocol and another half glass of orange juice was given and pt became more responsive.
[2022-03-20] MEDS: Carvedilol 6.25 MG Tablet PO (21:52)
[2022-03-20] MEDS: Dextrose 10%-Water 250 ML 999 ML IV (22:11)
[2022-03-20 23:01] LABS: Bedside Glucose 118 mg/dL (74-106)
[2022-03-20 23:01] LABS: Bedside Glucose 53 mg/dL (74-106)
[2022-03-21] VITALS (15 sets, daily range): BP systolic 95–150; BP diastolic 58–95; PULSE 55–74; RESP 18–31; TEMP 36.1–36.8; O2SAT 97–100
--- NOTE | 2022-03-21 03:46 | CPS ---
Pt was unable to tolerate BIPAP. Placed on Nasal cannula at 2 lpm
[2022-03-21 06:09] LABS: Absolute Lymphocyte Count 0.31 X10^3/uL (0.83-4.51); Absolute Neutrophil Count 12.5 X10^3/uL (2.0-7.7); Basophil# 0.02 X10^3/uL; Basophil% 0.1 % (0-1); Eosinophil# 0.08 X10^3/uL; Eosinophils% 0.5 % (0-5); Hematocrit 27.1 % (37-47); Hemoglobin 9.3 g/dL (12.0-15.0); Lymphocyte # 0.31 X10^3/ul (0.83-4.51); Lymphocyte % 2.1 % (19-41); Mean Corp Hgb Conc 34.3 g/dL (32-36); Mean Corpuscular Hgb 31.2 pg (27.0-32.0); Mean Corpuscular Volume 90.9 fL (81-99); Mean Platelet Vol. 10.5 fl (6.2-12.0); Monocyte# 1.37 X10^3/uL; Monocyte% 9.4 % (0-10); NRBC Flagged by Analyzer 0 % (0-5); Neutrophil # 12.53 X10^3/uL (2.7-7.7); POSITIVE DIFFERENTIAL YES; Platelet Count 100 K/mm3 (150-450); RBC Distribution Width CV 12.7 % (11.6-14.6); RBC Distribution Width SD 42.3 fl (35.1-43.9); Red Blood Count 2.98 M/mm3 (4.2-5.4); White Blood Count 14.6 K/mm3 (4.4-11.0)
[2022-03-21 06:15] LABS: Differential Indicated SCAN CRITERIA MET
[2022-03-21 06:19] LABS: Partial Thromboplast Time 49.3 Seconds (24.1-36.2)
[2022-03-21 06:37] LABS: Differential Comment SCANNED
[2022-03-21] MEDS: Cefazolin 2 GM in 0.9% Normal Saline 100 ML IV (06:38)
[2022-03-21 06:39] LABS: Anion Gap 12 (5-15); BUN 36 mg/dL (7-18); BUN/Creat Ratio 15.7 RATIO (10-20); Calcium,Total 7.5 mg/dL (8.5-10.1); Chloride 93 mmol/L (98-107); EST Glomerular Filtration Rate 22 mL/min (>60); Est Glom Filt Rate - Afr Amer 27 mL/min (>60); Estimated Creatinine Clearance 21.05 ml/min; Glucose 32 mg/dL (74-106); Magnesium 2.2 mg/dL (1.6-2.6); Potassium 2.6 mmol/L (3.5-5.1); Sodium Level 129 mmol/L (136-145)
[2022-03-21] MEDS: Dextrose 10%-Water 250 ML 999 ML IV (06:45)
[2022-03-21 06:54] LABS: Phosphorus 4.8 mg/dL (2.5-4.9)
[2022-03-21 06:56] LABS: Bedside Glucose 45 mg/dL (74-106)
[2022-03-21 07:36] LABS: Bedside Glucose 43 mg/dL (74-106)
[2022-03-21 07:36] LABS: Bedside Glucose 51 mg/dL (74-106)
--- NOTE | 2022-03-21 07:37 | TELEMED_ITS ---
[facility] has confirmed receipt of a request for visit. This document confirms receipt of the order initiating the consult. To find the results of the consultation, please view the patient's reports for the scanned Telemed Consult.
--- NOTE | 2022-03-21 07:46 | US_ITS ---
STUDY: RENAL ULTRASOUND - COMPLETE REASON FOR EXAM: Female, 71 years old. [place] TECHNIQUE: Ultrasound evaluation of the kidneys was performed with real-time and static mullen-scale imaging. COMPARISON: None. FINDINGS: The right kidney measures 10.1 x 5.0 x 5.9 cm and the left kidney measures 8.5 x 4.8 x 4.8 cm. There is no hydronephrosis or definite nephrolithiasis on either side. A 1.5 cm simple cyst is noted in the left kidney. US/Kidney and Bladder IMPRESSION: No hydronephrosis on either side. Electronically Signed: Carlitos Aguilar MD at 16:53 EDT ,
[2022-03-21] MEDS: Carvedilol 6.25 MG Tablet PO (08:29)
[2022-03-21] MEDS: Aspirin 81 MG TAB.CHEW PO (08:29)
[2022-03-21] MEDS: Potassium Chloride Oral Tablet 20 MEQ PO (08:29)
[2022-03-21] MEDS: Clopidogrel Bisulfate 75 MG Tablet PO (08:29)
[2022-03-21 09:30] LABS: Bedside Glucose 217 mg/dL (74-106)
[2022-03-21 09:35] LABS: Bedside Glucose 162 mg/dL (74-106)
--- NOTE | 2022-03-21 10:19 | PCM.PN.ID ---
Physical Exam Narrative Feeling ok, no pain, no fever Const no apparent distress General Appearance: cooperative Resp normal air movement and clear to auscultation bilaterally Cardio regular rate and regular rhythm GI soft to palpation, non-tender and non-distended Skin no rashes or lesions noted Skin Narrative: no splinter hemorrhages on hands or feet ID ID: Route of nutrition/ use of supplements: [] Nutritional Intake: [] IV Site: [] Zepeda Catheter: [] Assessment & Plan Assessment/Plan (1) MSSA bacteremia: PLAN: MSSA bacteremia complicated by [place]. Unclear source of bacteremia. Will decrease dose of cefazolin due to worsening GFR. Will check repeat bcx and renal us. TTE neg for veg. Will follow, d/w primary team
[2022-03-21] MEDS: Potassium Chloride Oral Tablet 20 MEQ 40 MEQ PO (10:32)
[2022-03-21 10:41] LABS: Bedside Glucose 173 mg/dL (74-106)
--- NOTE | 2022-03-21 11:41 | PN.CARD_ITS ---
Subjective Subjective The patient appears to be somewhat more awake today. However her main response to most of the questions is that she is okay . Objective Data Vital Signs: Vital Signs Temp Pulse Resp BP Pulse Ox 97.5 F L 57 L 20 H 96/68 98 03/21/22 11:15 03/21/22 11:15 03/21/22 11:15 03/21/22 11:15 03/21/22 11:15 Oxygen Flow Rate (L/min) 2 Oxygen Delivery Method Nasal Cannula Weight: 134 lb 14.766 oz Body Mass Index (BMI) 27.1 Intake & Output: Intake and Output for Last 24 Hours 03/19/22 03/20/22 03/21/22 23:59 23:59 23:59 Intake Total 4584.87 / 4676.57 2594.40 / 2894.40 1280 / 1280 Output Total 1175 / 1475 2600 / 2950 2004 Balance 3409.87 / 3201.57 -5.60 / -55.60 -725 / -725 Lab / Micro Data Result Diagrams: 03/21/22 05:26 03/21/22 05:26 Labs: Laboratory Results - last 24 hr 03/20/22 16:02: POC Glucose 49 L 03/20/22 16:29: POC Glucose 81 03/20/22 18:35: Vancomycin Trough 16.5 H 03/20/22 21:25: POC Glucose 43 L* 03/20/22 21:38: POC Glucose 51 L 03/20/22 21:59: POC Glucose 53 L 03/20/22 22:55: POC Glucose 118 H 03/21/22 05:26: WBC 14.6 H, RBC 2.98 L, Hgb 9.3 L, Hct 27.1 L, MCV 90.9, MCH 31.2, MCHC 34.3, RDW Std Deviation 42.3, RDW Coeff of Janusz 12.7, Plt Count 100 L, MPV 10.5, Immature Gran % (Auto) 1.900 H, Neut % (Auto) 86.0 H, Lymph % (Auto) 2.1 L, [place] % (Auto) 9.4, Eos % (Auto) 0.5, Baso % (Auto) 0.1, Absolute Neuts (auto) 12.5 H, Absolute Lymphs (auto) 0.31 L, Nucleated RBC % 0, Differential Comment SCANNED 03/21/22 05:26: Sodium 129 L, Potassium 2.6 L*, Chloride 93 L, Carbon Dioxide 2 4.0, Anion Gap 12, BUN 36 H, Creatinine 2.30 H, Estim Creat Clear Calc 21.05, Est GFR (MDRD) Af Amer 27 L, Est GFR (MDRD) Non-Af 22 L, BUN/Creatinine Ratio 15.7, Glucose 32 L*, Calcium 7.5 L, Magnesium 2.2 03/21/22 05:26: APTT 49.3 H 03/21/22 05:26: Phosphorus 4.8 03/21/22 06:42: POC Glucose 45 L 03/21/22 07:19: POC Glucose 217 H 03/21/22 09:30: POC Glucose 162 H 03/21/22 10:37: POC Glucose 173 H Micro: Microbiology 03/20/22 09:15 Blood Culture (Wb) - Right Wrist Blood Culture - Preliminary 03/20/22 09:25 Blood Culture (Wb) - Left Hand Blood Culture - Preliminary 03/18/22 08:40 Blood Culture (Wb) - Left Forearm Blood Culture - Final Staphylococcus aureus 03/18/22 08:00 Blood Culture (Wb) - Anticubital Left Bacteria Detection (PCR) - Final Staphylococcus aureus 03/18/22 08:00 Blood Culture (Wb) - Anticubital Left Blood Culture - Final Staphylococcus aureus 03/18/22 08:00 Urine Catheter - Catheter Urine Culture - Final Lactobacillus gasseri Cardiology Labs/Tests 03/21/22 05:26: WBC 14.6 H, RBC 2.98 L, Hgb 9.3 L, Hct 27.1 L, MCV 90.9, MCH 31.2, MCHC 34.3, Plt Count 100 L, MPV 10.5, Immature Gran % (Auto) 1.900 H, Neut % (Auto) 86.0 H, Lymph % (Auto) 2.1 L, [place] % (Auto) 9.4, Eos % (Auto) 0.5, Baso % (Auto) 0.1, Absolute Neuts (auto) 12.5 H, Nucleated RBC % 0 03/21/22 05:26: Sodium 129 L, Potassium 2.6 L*, Chloride 93 L, Carbon Dioxide 24.0, Anion Gap 12, BUN 36 H, Creatinine 2.30 H, Est GFR (MDRD) Af Amer 27 L, Est GFR (MDRD) Non-Af 22 L, BUN/Creatinine Ratio 15.7, Glucose 32 L*, Calcium 7.5 L, Magnesium 2.2 03/21/22 05:26: APTT 49.3 H 03/21/22 05:26: Phosphorus 4.8 Rhythm: Sinus rhythm Radiography Diagnostic Testing: Radiology Impression Echocardiogram 03/18/22 15:13 Interpretation Summary Normal LV size. Left ventricular systolic function is normal. The estimated ejection fraction is 60 %. Mild (1+) tricuspid valve insufficiency. Pulmonary artery systolic pressure is 40 mmHg. Contrast injection was performed. Ordering Physician: Abran Eaton Referring Physician: Tigre Whitley Performed By: Catrina Olguin, OUMOU, RVT Physical Exam Narrative awake but sleepy appearing Const alert and oriented x3 General Appearance: anxious and ill appearing HEENT hearing grossly normal bilaterally Eyes EOMs intact bilaterally Neck supple and no JVD General: normal visual inspection Chest inspection of chest normal and palpation of chest normal Resp normal respiratory effort Resp Narrative: Diminished inspiratory effort; no obvious rales or rhonchi at the moment Cardio regular rate, regular rhythm, S1 normal heart sound and S2 normal heart sound Jugular Venous Distention: JVD GI normal to inspection, nondistended, normoactive bowel sounds Extremity normal capillary refill and no pedal edema Skin no rashes or lesions noted Neuro oriented x3 and CN's II-XII intact bilaterally Psych Appearance: grossly normal and appropriate Assessment & Plan Assessment/Plan (1) Atherosclerotic heart disease of [place] coronary artery without angina pectoris: PLAN: The patient has a history of extensive CAD. It appears she has undergone invasive evaluation and care in the past locally and at [facility] in [place], [place]. She will need continued monitoring. She will need continued medical therapy with adjustment as deemed appropriate in and around the time of both her cardiac and her noncardiac comorbidities. (2) Presence of stent in coronary artery: PLAN: The patient was evaluated at [facility] in [place], [place] for possible CABG versus multivessel PCI. It appears the patient underwent multivessel PCI. At the present time she is being monitored. She will continue medical therapy. Depending upon her clinical course she may or may not need reevaluation of her coronary/stent status either noninvasively or invasively. (3) NSTEMI (non-ST elevated myocardial infarction): PLAN: The patient has abnormal cardiac enzymes. At the moment there is concern this is a type II event brought out by her sepsis syndrome. She will continue to be monitored. She has undergone reassessment of her left ventricular wall motion and systolic function with a transthoracic echocardiogram. Her overall LV systolic function was reported as preserved with an estimated LVEF of 60%. (4) Ischemic cardiomyopathy: PLAN: The patient has had an ischemic mediated cardiomyopathy diagnosis in the past. She does appear to have had a transthoracic echocardiogram performed. Again her overall LV systolic function was reported as preserved with an estimated LVEF of 60%. She will continue medical therapy as she is able. (5) CHF (congestive heart failure), NYHA class III: PLAN: The patient was also diagnosed with CHF. There is concern this may be multifactorial secondary to IV volume status sup erimposed upon her history of underlying ischemic mediated cardiomyopathy. At the present time she will continue diuretic therapy with adjustment of the dose and frequency based upon her overall clinical status, vital signs, and other objective findings. (6) SVT (supraventricular tachycardia): PLAN: At the present time it appears the patient is in a sinus rhythm. Her medications will be adjusted with respect to her rate and her rhythm. This will include adjusting beta-blockers as she is able. If she has recurrence of atrial dysrhythmias she may once again need additional antiarrhythmic therapy such as the IV amiodarone or an attempt at oral agents. (7) Hyperlipidemia: PLAN: The patient should continue risk factor modification medical management. (8) Essential hypertension: PLAN: The patient's blood pressure will need to be followed with her medicines being adjusted taking into consideration her multiple comorbidities and renal function. (9) Sepsis: PLAN: The patient is continuing evaluation care per internal medicine. Also an infectious disease consultation is pending. (10) Chronic kidney disease, stage III (moderate): PLAN: The patient does have chronic renal insufficiency. Her creatinine level has been increasing. There is related to her sepsis syndrome as well as her volume shifts. This would have to be taken into consideration if the patient were to proceed with any imaging studies requiring IV contrast based on concerns of IV contrast related nephropathy. (11) Anemia: PLAN: The patient's hemoglobin also requires monitoring. Her hemoglobin levels may impact her overall status. Addt'l Comments Thank you for allowing me to participate in the care of your patient. Please don't hesitate to call if any issues arise. This note was generated using a voice recognition system and there may be incorrect words, spelling or punctuation that were not noted when reviewing the office note prior to saving. Procedure Criteria Type of Procedure Procedure Type: Elective Elective Risks - COVID COVID Risk Discussion: The surgeon/proceduralist and patient have discussed in detail the risk of exposure to and/or potential harm posed by the COVID-19 virus with having a surgery/procedure at this time versus the risk of delaying the surgery/procedure. It is not possible to know either the risk of delaying the surgery or procedure or chance of getting an infection with perfect accuracy, but a joint decision was made between the patient and the surgeon/proceduralist to proceed at this time with the scheduled surgery/procedure as indicated on the consent form.
--- NOTE | 2022-03-21 12:34 | PCM.PN.HOSP ---
Documented by User: Sherri Mathias NP, PREPARATION SUPERVISOR [employer]ZING-C 03/21/22 12:56 Subjective Subjective Patient seen and examined. More alert today, breathing improved. Off of BiPAP. Patient denies symptoms or complaints. Objective Data Objective Data Vital Signs: Vital Signs Temp Pulse Resp BP Pulse Ox 97.5 F L 57 L 20 H 96/68 98 03/21/22 11:15 03/21/22 11:15 03/21/22 11:15 03/21/22 11:15 03/21/22 11:15 Oxygen Flow Rate (L/min) 2 Oxygen Delivery Method Nasal Cannula Weight: 134 lb 14.766 oz Body Mass Index (BMI) 27.1 Intake & Output: Intake and Output for Last 24 Hours 03/19/22 03/20/22 03/21/22 23:59 23:59 23:59 Intake Total 4584.87 / 4676.57 2594.40 / 2894.40 1280 / 1280 Output Total 1175 / 1475 2600 / 2950 2004 / 2004 Balance 3409.87 / 3201.57 -5.60 / -55.60 -725 / -725 Lab / Micro Data Result Diagrams: 03/21/22 05:26 03/21/22 05:26 Labs: Laboratory Results - last 24 hr 03/20/22 16:02: POC Glucose 49 L 03/20/22 16:29: POC Glucose 81 03/20/22 18:35: Vancomycin Trough 16.5 H 03/20/22 21:25: POC Glucose 43 L* 03/20/22 21:38: POC Glucose 51 L 03/20/22 21:59: POC Glucose 53 L 03/20/22 22:55: POC Glucose 118 H 03/21/22 05:26: WBC 14.6 H, RBC 2.98 L, Hgb 9.3 L, Hct 27.1 L, MCV 90.9, MCH 31.2, MCHC 34.3, RDW Std Deviation 42.3, RDW Coeff of Janusz 12.7, Plt Count 100 L, MPV 10.5, Immature Gran % (Auto) 1.900 H, Neut % (Auto) 86.0 H, Lymph % (Auto) 2.1 L, [place] % (Auto) 9.4, Eos % (Auto) 0.5, Baso % (Auto) 0.1, Absolute Neuts (auto) 12.5 H, Absolute Lymphs (auto) 0.31 L, Nucleated RBC % 0, Differential Comment SCANNED 03/21/22 05:26: Sodium 129 L, Potassium 2.6 L*, Chloride 93 L, Carbon Dioxide 24.0, Anion Gap 12, BUN 36 H, Creatinine 2.30 H, Estim Creat Clear Calc 21.05, Est GFR (MDRD) Af Amer 27 L, Est GFR (MDRD) Non-Af 22 L, BUN/Creatinine Ratio 15.7, Glucose 32 L*, Calcium 7.5 L, Magnesium 2.2 03/21/22 05:26: APTT 49.3 H 03/21/22 05:26: Phosphorus 4.8 03/21/22 06:42: POC Glucose 45 L 03/21/22 07:19: POC Glucose 217 H 03/21/22 09:30: POC Glucose 162 H 03/21/22 10:37: POC Glucose 173 H Micro: Microbiology 03/20/22 09:15 Blood Culture (Wb) - Right Wrist Blood Culture - Preliminary 03/20/22 09:25 Blood Culture (Wb) - Left Hand Blood Culture - Preliminary 03/18/22 08:40 Blood Culture (Wb) - Left Forearm Blood Culture - Final Staphylococcus aureus 03/18/22 08:00 Blood Culture (Wb) - Anticubital Left Bacteria Detection (PCR) - Final Staphylococcus aureus 03/18/22 08:00 Blood Culture (Wb) - Anticubital Left Blood Culture - Final Staphylococcus aureus 03/18/22 08:00 Urine Catheter - Catheter Urine Culture - Final Lactobacillus gasseri 03/18/22 22:31 Urine, Random Legionella Antigen - Final 03/18/22 22:31 Urine, Random Streptococcus pneumoniae Antigen (M - Final 03/18/22 11:06 Mucosa - Nasopharyngeal - Final 03/18/22 09:00 Nasal Secretion SARS-CoV-2 & FLU Antigen (Rapid) - Final Radiography Diagnostic Testing: Radiology Impression Echocardiogram 03/18/22 15:13 Interpretation Summary Normal LV size. Left ventricular systolic function is normal. The estimated ejection fraction is 60 %. Mild (1+) tricuspid valve insufficiency. Pulmonary artery systolic pressure is 40 mmHg. Contrast injection was performed. Ordering Physician: Abran Eaton Referring Physician: Tigre Whitley Performed By: Catrina Olguin, OUMOU, RVT Physical Exam Const alert Orientation / Consciousness: awake, oriented to person and oriented to place Nutritional Appearance: cachectic HEENT normocephalic Mouth: dry mucous membranes Eyes PERRL, EOMs intact bilaterally and conjunctivae normal Neck no lymphadenopathy Resp Auscultation: crackles and diminished lung sounds Cardio regular rate, regular rhythm and no murmurs Peripheral Pulses: pulses 2+ throughout GI normal to inspection, nondistended, normoactive bowel sounds, non-tender and non-distended Extremity normal to inspection Skin no rashes or lesions noted Lesions: no lesions Rashes: no rashes Trauma: no lacerations or abrasions Neuro CN's II-XII intact bilaterally, no focal motor deficits, no sensory deficits noted and deep tendon reflexes 2+ bilaterally Psych mental status grossly normal and affect normal Assessment & Plan Assessment/Plan (1) MSSA bacteremia: PLAN: 1. Sepsis secondary to MSSA bacteremia-chest x-ray without infiltrate. UA/urine culture unremarkable. ID consulted. IV cefazolin. Repeat blood cultures 03/20 preliminary positive, repeat cultures 03/21. Echocardiogram without vegetation. 2. Sinus tachycardia/SVT-cardiology consulted. Previously on amiodarone drip which has since been discontinued. Improved. Continue treatment of sepsis per above. 3. NSTEMI-likely demand ischemia secondary to #1/#2. Cardiology following for further management. Continue aspirin, statin, carvedilol, Plavix. Echo with EF 60%, mild tricuspid valve insufficiency, pulmonary artery systolic pressure 40 mmHg. CTA without PE. 4. Metabolic encephalopathy-multifactorial secondary to sepsis/MSSA bacteremia, CHF, alkalosis. Treat underlying processes. Improving. 5. Acute on chronic heart failure with preserved ejection fraction, multivessel CAD/ischemic cardiomyopathy-recent angioplasty and stenting to RCA, left anterior descending artery and left circumflex artery. Continue aspirin, statin, Plavix, beta-migue. Echocardiogram with EF 60% as noted above. Previously received intermittent IV Lasix. Further Lasix held due to increasing creatinine. 6. Hypokalemia-replace per protocol, trend BMP. 7. Acute kidney injury on chronic kidney disease stage IIIa-further Lasix held. IV fluids X500cc. Trend BMP. Renal ultrasound ordered. 8. Hypoglycemia- Improved. SSI held. Continue Accu-Cheks. 9. Hypertension-stable, continue carvedilol. 10. Type 2 diabetes mellitus-oral regimen on hold. Accu-Cheks with sliding scale insulin. 11. Hyperlipidemia- continue statin. 12. Depression/anxiety-continue Cymbalta, bupropion. 13. Rheumatoid arthritis? Chronic back pain-Plaquenil held. DVT prophylaxis-Lovenox subcu This patient was seen by ALEKSANDRA DanielsonC under the supervision of Dr. Khoury. Documented by User: Dr. Mechelle Khoury DO 03/21/22 14:00 Subjective Subjective This patient was seen with Sherri Mathias NP. The following represents my independent history and physical examination. Please see below for addendum the above. Patient has been off BiPAP through the night and done well. She is much more alert today. Has no acute complaints at this time. Interacts much more appropriately and appears that she is feeling better. She does indicate that she is overall feeling much better. Objective Data Lab / Micro Data Result Diagrams: 03/21/22 05:26 03/21/22 05:26 Physical Exam Const alert Constitutional Narrative: Overweight, older white female sitting up in bed, appears alert and oriented, follows commands well, much improved in the last 24 hours Orientation / Consciousness: awake, oriented to person and oriented to place Exam Limitations: altered mental status Nutritional Appearance: overweight HEENT normocephalic, head/scalp atraumatic and moist oral mucous membranes HEENT Narrative: Mallampati is 2-3, no thrush Head and Scalp: normocephalic Resp normal respiratory effort, no retractions, no use of accessory muscles and clear to auscultation bilaterally Resp Narrative: Improved respiratory status Effort and Inspection: tachypneic and labored Auscultation: crackles, rales and diminished lung sounds; Negative for rhonchi or wheezes Cardio regular rate, regular rhythm, S1 normal heart sound, S2 normal heart sound, no murmurs, no rub, no gallops, no clicks and no JVD Rate: tachycardic Peripheral Pulses: pulses 2+ throughout GI normal to inspection, nondistended, normoactive bowel sounds, soft to palpation, non-tender and non-distended; Negative for hepatosplenomegaly Extremity normal to inspection Extremity Narrative: Trace bilateral lower extremity edema, no cyanosis or clubbing Peripheral Pulses: Yes pulses 2+ throughout Skin Lesions: no lesions Rashes: no rashes Trauma: no lacerations or abrasions Neuro CN's II-XII intact bilaterally, moves all extremities, no focal motor deficits and deep tendon reflexes 2+ bilaterally Neuro Narrative: Much improved neurological exam today with regards to alertness and appropriateness, patient was confused on her current location but was able to tell me her name and date of as well as month, year, and vice president tax Sensorium / Orientation: awake and alert Speech: speech normal Psych mental status grossly normal Psych Narrative: Affect is mildly flat Assessment & Plan Assessment/Plan (1) [place] (acute kidney injury): (2) Hypokalemia: (3) Hyponatremia: (4) Respiratory alkalosis: (5) Thrombocytopenia: (6) Hypoglycemia: PLAN: Assessment: Sepsis secondary to MSSA bacteremia Respiratory alkalosis ? Syncopal episode Hyponatremia Hypochloremia Hypoglycemia [place] on CKD stage IIIa Chronic heart failure with preserved ejection fraction Toxic/metabolic encephalopathy NSTEMI-suspect type II related to demand ischemia Lactic acidosis-resolved Acute anemia Acute thrombocytopenia CAD Hypertension Hyperlipidemia DM-2 Depression/anxiety Rheumatoid arthritis Plan: -Alkalosis is much improved -Okay to keep off BiPAP -EEG is pending -Repeat blood cultures are positive and new blood cultures have been drawn today to assess for clearance -Echocardiogram shows no valvular vegetations with an EF of 60% and pulmonary systolic pressures of 40 mmHg -Bump in renal function however patient has had Lasix the last 2 days given her respiratory status -Suspect this is prerenal with diuresis -I do anticipate she has baseline renal disease from her diabetes and hypertension -We will check renal ultrasound -500 cc of IV fluids to be given slowly -Repeat BMP in a.m. -Aggressive potassium replacement given -Sodium is stabilizing and slowly trending up -Antibiotic duration and will depend on culture clearance -Appreciate ID input -Patient with some hypoglycemia through the night and early this morning and we will therefore discontinue her sliding scale I suspect this may be related to sliding scale she received yesterday but had delayed clearance secondary to renal function -Overall patient is much improved clinically speaking--> will likely need rehab at discharge prior to going home Charges/Coding Visit Charges Inpatient E&M: 24237 Subs Hosp L2
--- NOTE | 2022-03-21 13:31 | CASEMGMT ---
SW met with patient and her daughter. ABDON introduced self and role at [facility]. SW asked patient's daughter Kacey if she feels patient will need to go to a correction for rehab. 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 Kacey told SW to talk with patient. Patient is now alert and oriented. SW spoke directly to patient and asked her if rehab is recommended would she be in agreement. Patient asked where? SW provided a list of SNF providers including quality and resource use data and consistent with the patient?s preferred geographic region, medical needs, and insurance network. SW explained to patient that the facilities that are highlighted in pink are the ones that take her insurance so those are the ones she has to choose from. SW told patient that she and her daughter can review the list and pick at least 3 that she would be okay with and SW can call the facilities for them. SW told them SW can stop back by a little later. Maddi Malone EARTH BORING MACHINE OPERATOR REBEKAH
--- NOTE | 2022-03-21 14:04 | CASEMGMT ---
RN brought out the skilled nursing list for SW. Patient and her daughter numbered 3 facilities. Their first choice was [facility]. ABDON called Jeanine in TCU regarding referral. [facility] can accept patient. ABDON went to patient's room. ABDON let both patient and her daughter know that [facility] can take her whenever she is ready. They thanked ABDON. Plan: [facility] pending patient being medically ready and insurance approval. Maddi Malone HOUSEHOLD APPLIANCE INSTALLER [employer]BEKAH
[2022-03-21 14:20] LABS: Partial Thromboplast Time 47.3 Seconds (24.1-36.2)
[2022-03-21 16:26] LABS: Bedside Glucose 156 mg/dL (74-106)
[2022-03-21] MEDS: Potassium Chloride Oral Tablet 20 MEQ 60 MEQ PO (17:18)
[2022-03-21 21:07] LABS: Partial Thromboplast Time 33.9 Seconds (24.1-36.2)
[2022-03-21] MEDS: Cefazolin 1 GM/50 ML BAG IV (23:06)
[2022-03-21] MEDS: 0.9% Saline Lock 10 ML Syringe IV (23:10)
[2022-03-21] MEDS: Heparin Injection (Vial) 5,000 UNIT/ML VIAL 5000 UNIT SC (23:11)
[2022-03-21] MEDS: Atorvastatin Calcium 40 MG Tablet PO (23:12)
[2022-03-21] MEDS: Acetaminophen 325 MG Tablet 650 MG PO (23:22)
[2022-03-21 23:25] LABS: Bedside Glucose 109 mg/dL (74-106)
[2022-03-22] VITALS (12 sets, daily range): BP systolic 102–153; BP diastolic 59–68; PULSE 60–75; RESP 12–25; TEMP 36.2–37.1; O2SAT 95–100
[2022-03-22 06:15] LABS: Absolute Lymphocyte Count 0.61 X10^3/uL (0.83-4.51); Absolute Neutrophil Count 8.3 X10^3/uL (2.0-7.7); Basophil# 0.02 X10^3/uL; Basophil% 0.2 % (0-1); Eosinophil# 0.16 X10^3/uL; Eosinophils% 1.5 % (0-5); Hematocrit 29.6 % (37-47); Hemoglobin 10.2 g/dL (12.0-15.0); Lymphocyte # 0.61 X10^3/ul (0.83-4.51); Lymphocyte % 5.8 % (19-41); Mean Corp Hgb Conc 34.5 g/dL (32-36); Mean Corpuscular Hgb 31.3 pg (27.0-32.0); Mean Corpuscular Volume 90.8 fL (81-99); Mean Platelet Vol. 10.5 fl (6.2-12.0); Monocyte# 1.27 X10^3/uL; Monocyte% 12.1 % (0-10); NRBC Flagged by Analyzer 0 % (0-5); Neutrophil # 8.29 X10^3/uL (2.7-7.7); Neutrophil % 79.2 % (47-70); Platelet Count 102 K/mm3 (150-450); RBC Distribution Width CV 12.9 % (11.6-14.6); RBC Distribution Width SD 43.2 fl (35.1-43.9); Red Blood Count 3.26 M/mm3 (4.2-5.4); White Blood Count 10.5 K/mm3 (4.4-11.0)
[2022-03-22 06:21] LABS: Bedside Glucose 81 mg/dL (74-106)
[2022-03-22 06:40] LABS: Anion Gap 8 (5-15); BUN 39 mg/dL (7-18); BUN/Creat Ratio 16.2 RATIO (10-20); Calcium,Total 7.6 mg/dL (8.5-10.1); Chloride 100 mmol/L (98-107); Creatinine, Serum 2.41 mg/dL (0.55-1.02); EST Glomerular Filtration Rate 21 mL/min (>60); Est Glom Filt Rate - Afr Amer 25 mL/min (>60); Estimated Creatinine Clearance 20.09 ml/min; Glucose 72 mg/dL (74-106); Potassium 3.4 mmol/L (3.5-5.1); Sodium Level 131 mmol/L (136-145)
[2022-03-22] MEDS: Potassium Chloride Oral Tablet 20 MEQ 60 MEQ PO (07:59)
[2022-03-22] MEDS: 0.9% Normal Saline 1,000 ML 60 ML IV (07:59)
[2022-03-22] MEDS: Clopidogrel Bisulfate 75 MG Tablet PO (08:00)
[2022-03-22] MEDS: Aspirin 81 MG TAB.CHEW PO (08:01)
[2022-03-22] MEDS: Heparin Injection (Vial) 5,000 UNIT/ML VIAL 5000 UNIT SC ×2 (08:01→20:40)
[2022-03-22] MEDS: Cefazolin 1 GM/50 ML BAG IV ×2 (08:02→20:40)
[2022-03-22 08:45] LABS: Urine Sodium 71 mmol/L (Not Establ.)
--- NOTE | 2022-03-22 09:02 | PN.CARD_ITS ---
Subjective Subjective The patient appears to be resting comfortably in a supine position. Objective Data Vital Signs: Vital Signs Temp Pulse Resp BP Pulse Ox 97.1 F L 65 20 H 119/64 100 03/22/22 08:30 03/22/22 08:30 03/22/22 08:30 03/22/22 08:30 03/22/22 08:30 Oxygen Flow Rate (L/min) 2 Oxygen Delivery Method Nasal Cannula Weight: 134 lb 14.766 oz Body Mass Index (BMI) 27.1 Intake & Output: Intake and Output for Last 24 Hours 03/20/22 03/21/22 03/22/22 23:59 23:59 23:59 Intake Total 2594.40 / 2894.40 300 / 300 Output Total 2600 / 2950 2555 / 2555 850 / 850 Balance -5.60 / -55.60 -536.87 / -536.87 -550 / -550 Lab / Micro Data Result Diagrams: 03/22/22 06:00 03/22/22 06:00 Labs: Laboratory Results - last 24 hr 03/21/22 07:19: POC Glucose 217 H 03/21/22 09:30: POC Glucose 162 H 03/21/22 10:37: POC Glucose 173 H 03/21/22 14:05: APTT 47.3 H 03/21/22 16:11: POC Glucose 156 H 03/21/22 20:35: APTT 33.9 03/21/22 22:34: POC Glucose 109 H 03/22/22 06:00: WBC 10.5, RBC 3.26 L, Hgb 10.2 L, Hct 29.6 L, MCV 90.8, MCH 31.3, MCHC 34.5, RDW Std Deviation 43.2, RDW Coeff of Janusz 12.9, Plt Count 102 L, MPV 10.5, Immature Gran % (Auto) 1.200 H, Neut % (Auto) 79.2 H, Lymph % (Auto) 5.8 L, [place] % (Auto) 12.1 H, Eos % (Auto) 1.5, Baso % (Auto) 0.2, Absolute Neuts (auto) 8.3 H, Absolute Lymphs (auto) 0.61 L, Nucleated RBC % 0 03/22/22 06:00: Sodium 131 L, Potassium 3.4 L, Chloride 100, Carbon Dioxide 23.0, Anion Gap 8, BUN 39 H, Creatinine 2.41 H, Estim Creat Clear Calc 20.09, Est GFR (MDRD) Af Amer 25 L, Est GFR (MDRD) Non-Af 21 L, BUN/Creatinine Ratio 16.2, Glucose 72 L, Calcium 7.6 L 03/22/22 06:00: POC Glucose 81 03/22/22 08:25: Ur Random Sodium 71, Urine Creatinine 28.70 Micro: Microbiology 03/20/22 09:15 Blood Culture (Wb) - Right Wrist Blood Culture - Preliminary Staphylococcus aureus 03/20/22 09:25 Blood Culture (Wb) - Left Hand Blood Culture - Preliminary Staphylococcus aureus 03/18/22 08:40 Blood Culture (Wb) - Left Forearm Blood Culture - Final Staphylococcus aureus 03/18/22 08:00 Blood Culture (Wb) - Anticubital Left Bacteria Detection (PCR) - Final Staphylococcus aureus 03/18/22 08:00 Blood Culture (Wb) - Anticubital Left Blood Culture - Final Staphylococcus aureus Cardiology Labs/Tests 03/21/22 14:05: APTT 47.3 H 03/21/22 20:35: APTT 33.9 03/22/22 06:00: WBC 10.5, RBC 3.26 L, Hgb 10.2 L, Hct 29.6 L, MCV 90.8, MCH 31.3, MCHC 34.5, Plt Count 102 L, MPV 10.5, Immature Gran % (Auto) 1.200 H, Neut % (Auto) 79.2 H, Lymph % (Auto) 5.8 L, [place] % (Auto) 12.1 H, Eos % (Auto) 1.5, Baso % (Auto) 0.2, Absolute Neuts (auto) 8.3 H, Nucleated RBC % 0 03/22/22 06:00: Sodium 131 L, Potassium 3.4 L, Chloride 100, Carbon Dioxide 23.0, Anion Gap 8, BUN 39 H, Creatinine 2.41 H, Est GFR (MDRD) Af Amer 25 L, Est GFR (MDRD) Non-Af 21 L, BUN/Creatinine Ratio 16.2, Glucose 72 L, Calcium 7.6 L Rhythm: Sinus rhythm Radiography Diagnostic Testing: Radiology Impression Renal Ultrasound 03/21/22 07:46 IMPRESSION: No hydronephrosis on either side. Electronically Signed: Carlitos Aguilar MD at 16:53 EDT , Physical Exam Const General Appearance: anxious and ill appearing Orientation / Consciousness: awake HEENT hearing grossly normal bilaterally Eyes EOMs intact bilaterally Neck supple and no JVD General: normal visual inspection Chest inspection of chest normal and palpation of chest normal Resp normal respiratory effort Resp Narrative: Diminished inspiratory effort; no obvious rales or rhonchi at the moment Auscultation: diminished lung sounds Cardio regular rate, regular rhythm, S1 normal heart sound and S2 normal heart sound Jugular Venous Distention: JVD GI normal to inspection, nondistended, normoactive bowel sounds Extremity normal capillary refill and no pedal edema Skin no rashes or lesions noted Neuro oriented x3 and CN's II-XII intact bilaterally Psych Appearance: grossly normal and appropriate Assessment & Plan Assessment/Plan (1) Atherosclerotic heart disease of [place] coronary artery without angina pectoris: PLAN: The patient has a history of extensive CAD. It appears she has undergone invasive evaluation and care in the past locally and at [facility] in [place], [place]. She will need continued monitoring. She will need continued medical therapy with adjustment as deemed appropriate in and around the time of both her cardiac and her noncardiac comorbidities. (2) Presence of stent in coronary artery: PLAN: The patient was evaluated at [facility] in [place], [place] for possible CABG versus multivessel PCI. It appears the patient underwent multivessel PCI. At the present time she is being monitored. She will continue medical therapy. Depending upon her clinical course she may or may not need reevaluation of her coronary/stent status either noninvasively or invasively. (3) NSTEMI (non-ST elevated myocardial infarction): PLAN: The patient has abnormal cardiac enzymes. At the moment there is concern this is a type II event brought out by her sepsis syndrome. She will continue to be monitored. She has undergone reassessment of her left ventricular wall motion and systolic function with a transthoracic echocardiogram. Her overall LV systolic function was reported as preserved with an estimated LVEF of 60%. (4) Ischemic cardiomyopathy: PLAN: The patient has had an ischemic mediated cardiomyopathy diagnosis in the past. She does appear to have had a transthoracic echocardiogram performed. Again her overall LV systolic function was reported as preserved with an estimated LVEF of 60%. She will continue medical therapy as she is able. (5) CHF (congestive heart failure), NYHA class III: PLAN: The patient was also diagnosed with CHF. There is concern this may be multifactorial secondary to IV volume status superimposed upon her history of underlying ischemic mediated cardiomyopathy. Her diuretics have been on hold secondary to fluctuations in her renal status and her potassium level. She appears to be resting comfortably from a respiratory standpoint in the supine position at this time. (6) SVT (supraventricular tachycardia): PLAN: At the present time it appears the patient is in a sinus rhythm. Her medications will be adjusted with respect to her rate and her rhythm. This will include adjusting beta-blockers as she is able. If she has recurrence of atrial dysrhythmias she may once again need additional antiarrhythmic therapy such as the IV amiodarone or an attempt at oral agents. (7) Hyperlipidemia: PLAN: The patient should continue risk factor modification medical management. (8) Essential hypertension: PLAN: The patient's blood pressure will need to be followed with her medicines being adjusted taking into consideration her multiple comorbidities and renal function. (9) Sepsis: PLAN: The patient is continuing evaluation care per internal medicine. Also an infectious disease consultation is pending. (10) Chronic kidney disease, stage III (moderate): PLAN: The patient does have chronic renal insufficiency. Her creatinine level has been increasing. There is related to her sepsis syndrome as well as her volume shifts. This would have to be taken into consideration if the patient were to proceed with any imaging studies requiring IV contrast based on concerns of IV contrast related nephropathy. In the interim her diuretics have been on hold. She has also been receiving potassium supplements. (11) Anemia: PLAN: The patient's hemoglobin also requires monitoring. Her hemoglobin levels may impact her overall status. Addt'l Comments This note was generated using a voice recognition system and there may be incorrect words, spelling or punctuation that were not noted when reviewing the office note prior to saving.
[2022-03-22 11:05] LABS: Bedside Glucose 190 mg/dL (74-106)
--- NOTE | 2022-03-22 11:23 | PCM.PN.HOSP ---
Documented by User: Sherri Mathias NP, [employer]-C 03/22/22 11:29 Subjective Subjective Patient seen and examined. Remains more alert, appears improved. Patient denies current symptoms or complaints. Objective Data Objective Data Vital Signs: Vital Signs Temp Pulse Resp BP Pulse Ox 97.1 F L 65 20 H 119/64 96 03/22/22 08:30 03/22/22 08:30 03/22/22 08:30 03/22/22 08:30 03/22/22 11:01 Oxygen Flow Rate (L/min) 2 Oxygen Delivery Method Room Air Weight: 134 lb 14.766 oz Body Mass Index (BMI) 27.1 Intake & Output: Intake and Output for Last 24 Hours 03/20/22 03/21/22 03/22/22 23:59 23:59 23:59 Intake Total 2594.40 / 2894.40 350 / 350 Output Total 2600 / 2950 2555 / 2555 1200 / 1200 Balance -5.60 / -55.60 -536.87 / -536.87 -850 / -850 Lab / Micro Data Result Diagrams: 03/22/22 06:00 03/22/22 06:00 Labs: Laboratory Results - last 24 hr 03/21/22 14:05: APTT 47.3 H 03/21/22 16:11: POC Glucose 156 H 03/21/22 20:35: APTT 33.9 03/21/22 22:34: POC Glucose 109 H 03/22/22 06:00: WBC 10.5, RBC 3.26 L, Hgb 10.2 L, Hct 29.6 L, MCV 90.8, MCH 31.3, MCHC 34.5, RDW Std Deviation 43.2, RDW Coeff of Janusz 12.9, Plt Count 102 L, MPV 10.5, Immature Gran % (Auto) 1.200 H, Neut % (Auto) 79.2 H, Lymph % (Auto) 5.8 L, [place] % (Auto) 12.1 H, Eos % (Auto) 1.5, Baso % (Auto) 0.2, Absolute Neuts (auto) 8.3 H, Absolute Lymphs (auto) 0.61 L, Nucleated RBC % 0 03/22/22 06:00: Sodium 131 L, Potassium 3.4 L, Chloride 100, Carbon Dioxide 23.0, Anion Gap 8, BUN 39 H, Creatinine 2.41 H, Estim Creat Clear Calc 20.09, Est GFR (MDRD) Af Amer 25 L, Est GFR (MDRD) Non-Af 21 L, BUN/Creatinine Ratio 16.2, Glucose 72 L, Calcium 7.6 L 03/22/22 06:00: POC Glucose 81 03/22/22 08:25: Ur Random Sodium 71, Urine Creatinine 28.70 03/22/22 10:55: POC Glucose 190 H Micro: Microbiology 03/20/22 09:15 Blood Culture (Wb) - Right Wrist Blood Culture - Preliminary Staphylococcus aureus 03/20/22 09:25 Blood Culture (Wb) - Left Hand Blood Culture - Preliminary Staphylococcus aureus 03/18/22 08:40 Blood Culture (Wb) - Left Forearm Blood Culture - Final Staphylococcus aureus 03/18/22 08:00 Blood Culture (Wb) - Anticubital Left Bacteria Detection (PCR) - Final Staphylococcus aureus 03/18/22 08:00 Blood Culture (Wb) - Anticubital Left Blood Culture - Final Staphylococcus aureus 03/18/22 08:00 Urine Catheter - Catheter Urine Culture - Final Lactobacillus gasseri 03/18/22 22:31 Urine, Random Legionella Antigen - Final 03/18/22 22:31 Urine, Random Streptococcus pneumoniae Antigen (M - Final 03/18/22 11:06 Mucosa - Nasopharyngeal - Final 03/18/22 09:00 Nasal Secretion SARS-CoV-2 & FLU Antigen (Rapid) - Final Radiography Diagnostic Testing: Radiology Impression Renal Ultrasound 03/21/22 07:46 IMPRESSION: No hydronephrosis on either side. Electronically Signed: Carlitos Aguilar MD at 16:53 EDT , Physical Exam Const alert, oriented x3 and no apparent distress Orientation / Consciousness: awake, oriented to person, oriented to place and oriented to time Nutritional Appearance: cachectic HEENT normocephalic Mouth: dry mucous membranes Eyes PERRL, EOMs intact bilaterally and conjunctivae normal Neck no lymphadenopathy Resp clear to auscultation bilaterally Auscultation: diminished lung sounds Cardio regular rate, regular rhythm and no murmurs Peripheral Pulses: pulses 2+ throughout GI normal to inspection, nondistended, normoactive bowel sounds, non-tender and non-distended Extremity normal to inspection Skin no rashes or lesions noted Lesions: no lesions Rashes: no rashes Trauma: no lacerations or abrasions Neuro CN's II-XII intact bilaterally, no focal motor deficits, no sensory deficits noted and deep tendon reflexes 2+ bilaterally Psych mental status grossly normal and affect normal Assessment & Plan Assessment/Plan (1) MSSA bacteremia: PLAN: 1. Sepsis secondary to MSSA bacteremia-chest x-ray without infiltrate. UA/urine culture unremarkable. ID consulted. IV cefazolin. Repeat blood cultures 03/20 remainb positive, repeat cultures 03/21 pending. Echocardiogram without vegetation. We will repeat additional cultures if most recent return positive. 2. Sinus tachycardia/SVT-cardiology consulted. Previously on amiodarone drip which has since been discontinued. Improved. Continue treatment of sepsis per above. 3. NSTEMI-likely demand ischemia secondary to #1/#2. Cardiology following for further management. Continue aspirin, statin, carvedilol, Plavix. Echo with EF 60%, mild tricuspid valve insufficiency, pulmonary artery systolic pressure 40 mmHg. CTA without PE. 4. Metabolic encephalopathy-multifactorial secondary to sepsis/MSSA bacteremia, CHF, alkalosis. Treat underlying processes. Improved 5. Acute on chronic heart failure with preserved ejection fraction, multivessel CAD/ischemic cardiomyopathy-recent angioplasty and stenting to RCA, left anterior descending artery and left circumflex artery. Continue aspirin, statin, Plavix, beta-migue. Echocardiogram with EF 60% as noted above. Previously received intermittent IV Lasix. Further Lasix held due to increasing creatinine. 6. Hypokalemia-replace per protocol, trend BMP. 7. Acute kidney injury on chronic kidney disease stage IIIa-further Lasix held. Renal ultrasound unremarkable. Urine studies ordered. Gentle IV fluids, trend BMP. 8. Hypoglycemia- Improved. SSI held. Continue Accu-Cheks. 9. Hypertension-stable, continue carvedilol. 10. Type 2 diabetes mellitus-oral regimen on hold. Accu-Cheks with sliding scale insulin. 11. Hyperlipidemia- continue statin. 12. Depression/anxiety-continue Cymbalta, bupropion. 13. Rheumatoid arthritis? Chronic back pain-Plaquenil held. DVT prophylaxis-Heparin subcu Discharge planning: TCU when medically stable, await blood cultures to clear This patient was seen by Sherri Mathias NP-C under the supervision of Dr. Khoury. Documented by User: Dr. Mechelle Khoury DO 03/22/22 14:06 Subjective Subjective This patient was seen in conjunction with Sherri Mathias NP. The following represents my independent history and physical examination. Please see below for addendum. Patient reports that she is feeling much better overall. It we are awaiting blood cultures to clear as her most recent ones still are positive for MRSA. Urine output is good despite [place] on CKD. Patient has been able to be weaned to room air this morning and denies any respiratory issues. Still complains of significant weakness. Appetite is so-so. Objective Data Lab / Micro Data Result Diagrams: 03/22/22 06:00 03/22/22 06:00 Physical Exam Const alert, oriented x3 and no apparent distress Constitutional Narrative: Overweight, older, white female who appears older than stated age, sitting up in bed, appears comfortable nontoxic, watching television Exam Limitations: no limitations Nutritional Appearance: overweight HEENT head/scalp atraumatic and moist oral mucous membranes HEENT Narrative: Mallampati is 2, no thrush Head and Scalp: normocephalic Resp normal respiratory effort, no retractions, no use of accessory muscles and clear to auscultation bilaterally Auscultation: Negative for crackles, rales, rhonchi or wheezes Cardio regular rate, regular rhythm, S1 normal heart sound, S2 normal heart sound, no rub, no gallops, no clicks and no JVD; Negative for no murmurs Cardio Narrative: 2 out of 6 systolic murmur GI normal to inspection, nondistended, normoactive bowel sounds, soft to palpation, non-tender and non-distended Extremity no clubbing, cyanosis or edema Peripheral Pulses: Yes pulses 2+ throughout Neuro oriented x3, moves all extremities and no focal motor deficits Neuro Narrative: Significant generalized weakness, mental status is much improved in response times have normalized Sensorium / Orientation: awake and alert Speech: speech normal Assessment & Plan Assessment/Plan (1) MSSA bacteremia: (2) Thrombocytopenia: (3) [place] (acute kidney injury): (4) Stage 3b chronic kidney disease (CKD): (5) Hyponatremia: (6) Hypokalemia: (7) Hypoglycemia: (8) NSTEMI (non-ST elevated myocardial infarction): (9) Sepsis: PLAN: Assessment: Sepsis secondary to MSSA bacteremia Respiratory alkalosis Hyponatremia Hypochloremia Hypoglycemia [place] on CKD stage IIIa Chronic heart failure with preserved ejection fraction Toxic/metabolic encephalopathy NSTEMI-suspect type II related to demand ischemia Lactic acidosis-resolved Acute anemia Acute thrombocytopenia CAD Hypertension Hyperlipidemia DM-2 Depression/anxiety Rheumatoid arthritis Plan: -Patient is now on room air and has weaned off oxygen -EEG showed mild irregularities of cerebral function which reflect toxic/metabolic/neurodegenerative/inflammatory/infectious/or structural abnormalities but no seizures or definitive focal lateralized or epileptiform abnormalities noted -Repeat blood cultures are pending from 03/21/2022 -Echocardiogram shows no valvular vegetations with an EF of 60% and pulmonary systolic pressures of 40 mmHg -Renal function appears to have stabilized at 2.41 today with rate of rise being significantly less in the last 24 hours -Retroperitoneal ultrasound is unrevealing -Urine lites are pending -Will run 1 L IV fluids at a slow rate and monitor clinically -Do anticipate that soon she will have an improvement in her renal function -Continue Zepeda until creatinine starts to drop -We will give 60 more milliequivalents of potassium and then recheck in a.m. -Sodium has improved to 131 from 129 yesterday and is slowly trending up -Antibiotic duration and will depend on culture clearance -Appreciate ID input -No further hypoglycemic episodes -Overall patient is much improved clinically speaking--> will likely need rehab at discharge prior to going home -Plan is for TCU at discharge once medically stable and pre-CERT obtained Charges/Coding Visit Charges Inpatient E&M: 71584 Subs Hosp L2
--- NOTE | 2022-03-22 12:12 | PCM.PN.ID ---
Physical Exam Narrative Feeling better, no fever, no n/v/d. Const alert General Appearance: cooperative Resp normal air movement and clear to auscultation bilaterally Cardio regular rate and regular rhythm GI soft to palpation, non-tender and non-distended Skin no rashes or lesions noted ID ID: Route of nutrition/ use of supplements: [] Nutritional Intake: [] IV Site: [] Zepeda Catheter: [] Assessment & Plan Assessment/Plan (1) MSSA bacteremia: PLAN: MSSA bacteremia complicated by [place]. Unclear source of bacteremia. Cont cefazolin. Will check repeat bcx. TTE neg for veg. Will follow
--- NOTE | 2022-03-22 13:43 | PCM.PN.HOSP ---
Subjective Subjective Patient does state that she is feeling much better today. We have been able to wean her to room air. We are waiting for cultures to clear. Urine output is good. No overnight events noted. Objective Data Objective Data Vital Signs: Vital Signs Temp Pulse Resp BP Pulse Ox 97.1 F L 65 20 H 119/64 96 03/22/22 08:30 03/22/22 08:30 03/22/22 08:30 03/22/22 08:30 03/22/22 11:01 Oxygen Flow Rate (L/min) 2 Oxygen Delivery Method Room Air Weight: 61.2 kg Body Mass Index (BMI) 27.1 Intake & Output: Intake and Output for Last 24 Hours 03/20/22 03/21/22 03/22/22 23:59 23:59 23:59 Intake Total 2594.40 / 2894.40 350 / 350 Output Total 2600 / 2950 2555 / 2555 1200 / 1200 Balance -5.60 / -55.60 -536.87 / -536.87 -850 / -850 Lab / Micro Data Result Diagrams: 03/22/22 06:00 03/22/22 06:00 Labs: Laboratory Results - last 24 hr 03/21/22 14:05: APTT 47.3 H 03/21/22 16:11: POC Glucose 156 H 03/21/22 20:35: APTT 33.9 03/21/22 22:34: POC Glucose 109 H 03/22/22 06:00: WBC 10.5, RBC 3.26 L, Hgb 10.2 L, Hct 29.6 L, MCV 90.8, MCH 31.3, MCHC 34.5, RDW Std Deviation 43.2, RDW Coeff of Janusz 12.9, Plt Count 102 L, MPV 10.5, Immature Gran % (Auto) 1.200 H, Neut % (Auto) 79.2 H, Lymph % (Auto) 5.8 L, [place] % (Auto) 12.1 H, Eos % (Auto) 1.5, Baso % (Auto) 0.2, Absolute Neuts (auto) 8.3 H, Absolute Lymphs (auto) 0.61 L, Nucleated RBC % 0 03/22/22 06:00: Sodium 131 L, Potassium 3.4 L, Chloride 100, Carbon Dioxide 23.0, Anion Gap 8, BUN 39 H, Creatinine 2.41 H, Estim Creat Clear Calc 20.09, Est GFR (MDRD) Af Amer 25 L, Est GFR (MDRD) Non-Af 21 L, BUN/Creatinine Ratio 16.2, Glucose 72 L, Calcium 7.6 L 03/22/22 06:00: POC Glucose 81 03/22/22 08:25: Ur Random Sodium 71, Urine Creatinine 28.70 03/22/22 10:55: POC Glucose 190 H Micro: Microbiology 03/20/22 09:15 Blood Culture (Wb) - Right Wrist Blood Culture - Preliminary Staphylococcus aureus 03/20/22 09:25 Blood Culture (Wb) - Left Hand Blood Culture - Preliminary Staphylococcus aureus 03/18/22 08:40 Blood Culture (Wb) - Left Forearm Blood Culture - Final Staphylococcus aureus 03/18/22 08:00 Blood Culture (Wb) - Anticubital Left Bacteria Detection (PCR) - Final Staphylococcus aureus 03/18/22 08:00 Blood Culture (Wb) - Anticubital Left Blood Culture - Final Staphylococcus aureus 03/18/22 08:00 Urine Catheter - Catheter Urine Culture - Final Lactobacillus gasseri 03/18/22 22:31 Urine, Random Legionella Antigen - Final 03/18/22 22:31 Urine, Random Streptococcus pneumoniae Antigen (M - Final 03/18/22 11:06 Mucosa - Nasopharyngeal - Final 03/18/22 09:00 Nasal Secretion SARS-CoV-2 & FLU Antigen (Rapid) - Final Radiography Diagnostic Testing: Radiology Impression Renal Ultrasound 03/21/22 07:46 IMPRESSION: No hydronephrosis on either side. Electronically Signed: Carlitos Aguilar MD at 16:53 EDT , Physical Exam Const alert, oriented x3 and no apparent distress Constitutional Narrative: Overweight, older white female sitting up in bed, appears alert and oriented, follows commands well, much improved in the last 24 hours Orientation / Consciousness: awake, oriented to person, oriented to place and oriented to time Exam Limitations: altered mental status Nutritional Appearance: cachectic and overweight HEENT normocephalic and head/scalp atraumatic Eyes PERRL, EOMs intact bilaterally and conjunctivae normal Eyes Narrative: Mild conjunctival pallor Neck no lymphadenopathy, supple and no JVD Neck Narrative: Trachea midline, neck is short and thick, no thyroid enlargement Resp no retractions, no use of accessory muscles and clear to auscultation bilaterally Resp Narrative: Improved respiratory status Effort and Inspection: tachypneic and labored Auscultation: crackles, rales and diminished lung sounds; Negative for rhonchi or wheezes Cardio regular rate, regular rhythm, S1 normal heart sound, S2 normal heart sound, no murmurs, no rub, no gallops, no clicks and no JVD Rate: tachycardic Peripheral Pulses: pulses 2+ throughout GI normal to inspection, nondistended, normoactive bowel sounds, soft to palpation, non-tender and non-distended; Negative for hepatosplenomegaly Extremity normal to inspection Extremity Narrative: Trace bilateral lower extremity edema, no cyanosis or clubbing Skin no rashes or lesions noted, no wounds, skin turgor normal, no jaundice, no petechiae and no mottling Lesions: no lesions Rashes: no rashes Trauma: no lacerations or abrasions Neuro CN's II-XII intact bilaterally, moves all extremities, no focal motor deficits, no sensory deficits noted and deep tendon reflexes 2+ bilaterally Neuro Narrative: Much improved neurological exam today with regards to alertness and appropriateness, patient was confused on her current location but was able to tell me her name and date of as well as month, year, and vice [employer] Sensorium / Orientation: awake and alert Speech: speech normal Psych mental status grossly normal and affect normal Psych Narrative: Affect is mildly flat Assessment & Plan Assessment/Plan (1) MSSA bacteremia: (2) Thrombocytopenia: (3) [place] (acute kidney injury): (4) Stage 3b chronic kidney disease (CKD): (5) Hypokalemia: (6) Hyponatremia: (7) Lactic acidosis: (8) Hypoglycemia: PLAN: 1. Sepsis secondary to MSSA bacteremia-chest x-ray without infiltrate. UA/urine culture unremarkable. ID consulted. IV cefazolin. Repeat blood cultures 03/20 remainb positive, repeat cultures 03/21 pending. Echocardiogram without vegetation. We will repeat additional cultures if most recent return positive. 2. Sinus tachycardia/SVT-cardiology consulted. Previously on amiodarone drip which has since been discontinued. Improved. Continue treatment of sepsis per above. 3. NSTEMI-likely demand ischemia secondary to #1/#2. Cardiology following for further management. Continue aspirin, statin, carvedilol, Plavix. Echo with EF 60%, mild tricuspid valve insufficiency, pulmonary artery systolic pressure 40 mmHg. CTA without PE. 4. Metabolic encephalopathy-multifactorial secondary to sepsis/MSSA bacteremia, CHF, alkalosis. Treat underlying processes. Improved 5. Acute on chronic heart failure with preserved ejection fraction, multivessel CAD/ischemic cardiomyopathy-recent angioplasty and stenting to RCA, left anterior descending artery and left circumflex artery. Continue aspirin, statin, Plavix, beta-migue. Echocardiogram with EF 60% as noted above. Previously received intermittent IV Lasix. Further Lasix held due to increasing creatinine. 6. Hypokalemia-replace per protocol, trend BMP. 7. Acute kidney injury on chronic kidney disease stage IIIa-further Lasix held. Renal ultrasound unremarkable. Urine studies ordered. Gentle IV fluids, trend BMP. 8. Hypoglycemia- Improved. SSI held. Continue Accu-Cheks. 9. Hypertension-stable, continue carvedilol. 10. Type 2 diabetes mellitus-oral regimen on hold. Accu-Cheks with sliding scale insulin. 11. Hyperlipidemia- continue statin. 12. Depression/anxiety-continue Cymbalta, bupropion. 13. Rheumatoid arthritis? Chronic back pain-Plaquenil held. DVT prophylaxis-Heparin subcu Discharge planning: TCU when medically stable, await blood cultures to clear This patient was seen by JENNY Danielson under the supervision of Dr. Khoury.
[2022-03-22] MEDS: Atorvastatin Calcium 40 MG Tablet PO (20:40)
[2022-03-22 21:30] LABS: Bedside Glucose 216 mg/dL (74-106)
[2022-03-23] VITALS (10 sets, daily range): BP systolic 96–156; BP diastolic 73–89; PULSE 76–90; RESP 18–20; TEMP 36.6–37.3; O2SAT 96–98
[2022-03-23 06:23] LABS: Absolute Lymphocyte Count 0.57 X10^3/uL (0.83-4.51); Absolute Neutrophil Count 10.1 X10^3/uL (2.0-7.7); Basophil# 0.02 X10^3/uL; Basophil% 0.2 % (0-1); Eosinophil# 0.06 X10^3/uL; Eosinophils% 0.5 % (0-5); Hematocrit 31.7 % (37-47); Hemoglobin 10.8 g/dL (12.0-15.0); Lymphocyte # 0.57 X10^3/ul (0.83-4.51); Lymphocyte % 4.8 % (19-41); Mean Corp Hgb Conc 34.1 g/dL (32-36); Mean Corpuscular Volume 91.1 fL (81-99); Mean Platelet Vol. 9.8 fl (6.2-12.0); Monocyte# 1.02 X10^3/uL; Monocyte% 8.5 % (0-10); NRBC Flagged by Analyzer 0 % (0-5); Neutrophil # 10.07 X10^3/uL (2.7-7.7); Neutrophil % 84.2 % (47-70); POSITIVE DIFFERENTIAL YES; Platelet Count 177 K/mm3 (150-450); RBC Distribution Width CV 12.9 % (11.6-14.6); RBC Distribution Width SD 42.5 fl (35.1-43.9); Red Blood Count 3.48 M/mm3 (4.2-5.4)
[2022-03-23 06:29] LABS: Differential Indicated SCAN CRITERIA MET
[2022-03-23 06:48] LABS: Differential Comment SCANNED
[2022-03-23 06:49] LABS: Anion Gap 10 (5-15); BUN 32 mg/dL (7-18); Calcium,Total 8.2 mg/dL (8.5-10.1); Chloride 98 mmol/L (98-107); EST Glomerular Filtration Rate 26 mL/min (>60); Est Glom Filt Rate - Afr Amer 31 mL/min (>60); Glucose 208 mg/dL (74-106); Potassium 3.9 mmol/L (3.5-5.1); Sodium Level 130 mmol/L (136-145)
--- NOTE | 2022-03-23 07:28 | PN.CARD_ITS ---
Subjective Subjective He is to rest comfortably in supine position with no acute complaints. Objective Data Vital Signs: Vital Signs Temp Pulse Resp BP Pulse Ox 99.2 F H 77 20 H 142/76 H 96 03/23/22 02:30 03/23/22 03:16 03/23/22 02:30 03/23/22 02:30 03/23/22 02:30 Oxygen Flow Rate (L/min) 2 Oxygen Delivery Method Room Air Weight: 134 lb 14.766 oz Body Mass Index (BMI) 27.1 Intake & Output: Intake and Output for Last 24 Hours 03/21/22 03/22/22 03/23/22 23:59 23:59 23:59 Intake Total 500 / 500 1000 / 1000 Output Total 2555 / 2555 1800 / 1800 400 / 400 Balance -536.87 / -536.87 -1300 / -1300 600 / 600 Lab / Micro Data Result Diagrams: 03/23/22 06:11 03/23/22 06:11 Labs: Laboratory Results - last 24 hr 03/22/22 08:25: Ur Random Sodium 71, Urine Creatinine 28.70 03/22/22 10:55: POC Glucose 190 H 03/22/22 20:45: POC Glucose 216 H 03/23/22 06:11: WBC 12.0 H, RBC 3.48 L, Hgb 10.8 L, Hct 31.7 L, MCV 91.1, MCH 31.0, MCHC 34.1, RDW Std Deviation 42.5, RDW Coeff of Janusz 12.9, Plt Count 177, MPV 9.8, Immature Gran % (Auto) 1.800 H, Neut % (Auto) 84.2 H, Lymph % (Auto) 4.8 L, Callaway % (Auto) 8.5, Eos % (Auto) 0.5, Baso % (Auto) 0.2, Absolute Neuts (auto) 10.1 H, Absolute Lymphs (auto) 0.57 L, Nucleated RBC % 0, Differential Comment SCANNED 03/23/22 06:11: Sodium 130 L, Potassium 3.9, Chloride 98, Carbon Dioxide 22.0, Anion Gap 10, BUN 32 H, Creatinine 2.00 H, Estim Creat Clear Calc 24.20, Est GFR (MDRD) Af Amer 31 L, Est GFR (MDRD) Non-Af 26 L, BUN/Creatinine Ratio 16.0, Glucose 208 H, Calcium 8.2 L Micro: Microbiology 03/21/22 12:30 Blood Culture (Wb) - Right Hand Blood Culture - Preliminary No growth in 48 hours. 03/20/22 09:15 Blood Culture (Wb) - Right Wrist Blood Culture - Preliminary Staphylococcus aureus Cardiology Labs/Tests 03/23/22 06:11: WBC 12.0 H, RBC 3.48 L, Hgb 10.8 L, Hct 31.7 L, MCV 91.1, MCH 31.0, MCHC 34.1, Plt Count 177, MPV 9.8, Immature Gran % (Auto) 1.800 H, Neut % (Auto) 84.2 H, Lymph % (Auto) 4.8 L, Callaway % (Auto) 8.5, Eos % (Auto) 0.5, Baso % (Auto) 0.2, Absolute Neuts (auto) 10.1 H, Nucleated RBC % 0 03/23/22 06:11: Sodium 130 L, Potassium 3.9, Chloride 98, Carbon Dioxide 22.0, A nion Gap 10, BUN 32 H, Creatinine 2.00 H, Est GFR (MDRD) Af Amer 31 L, Est GFR (MDRD) Non-Af 26 L, BUN/Creatinine Ratio 16.0, Glucose 208 H, Calcium 8.2 L Rhythm: Sinus rhythm Physical Exam Const alert and oriented x3 General Appearance: anxious and ill appearing Orientation / Consciousness: awake HEENT hearing grossly normal bilaterally Eyes EOMs intact bilaterally Neck supple and no JVD General: normal visual inspection Chest inspection of chest normal and palpation of chest normal Resp normal respiratory effort Resp Narrative: Diminished inspiratory effort; no obvious rales or rhonchi at the moment Auscultation: diminished lung sounds Cardio regular rate, regular rhythm, S1 normal heart sound and S2 normal heart sound Jugular Venous Distention: JVD GI normal to inspection, nondistended, normoactive bowel sounds Extremity normal capillary refill and no pedal edema Skin no rashes or lesions noted Neuro oriented x3 and CN's II-XII intact bilaterally Psych Appearance: grossly normal and appropriate Assessment & Plan Assessment/Plan (1) Atherosclerotic heart disease of bois forte coronary artery without angina pectoris: PLAN: The patient has a history of extensive CAD. It appears she has undergone invasive evaluation and care in the past locally and at [facility] in [place], [place]. She will need continued monitoring. She will continue medical therapy. An attempt will be made to advance her beta- migue dose which may benefit her overall cardiovascular status. (2) Presence of stent in coronary artery: PLAN: The patient was evaluated at [facility] in [place], [place] for possible CABG versus multivessel PCI. It appears the patient underwent multivessel PCI. At the present time she is being monitored. She will continue medical therapy. At the moment it appears she is continuing conservative medical therapy for her multiple comorbidities. (3) NSTEMI (non-ST elevated myocardial infarction): PLAN: The patient has abnormal cardiac enzymes. At the moment there is concern this is a type II event brought out by her sepsis syndrome. She will continue to be monitored. She has undergone reassessment of her left ventricular wall motion and systolic function with a transthoracic echocardiogram. Her overall LV systolic function was reported as preserved with an estimated LVEF of 60%. She will continue medical therapy with attempt to increase her beta-migue dose. Again it appears she is continuing conservative medical management for her multiple comorbidities. (4) Ischemic cardiomyopathy: PLAN: The patient has had an ischemic mediated cardiomyopathy diagnosis in the past. She does appear to have had a transthoracic echocardiogram performed. Again her overall LV systolic function was reported as preserved with an estimated LVEF of 60%. She will continue medical therapy as she is able. (5) CHF (congestive heart failure), NYHA class III: PLAN: The patient was also diagnosed with CHF. There is concern this may be multifactorial secondary to IV volume status superimposed upon her history of underlying ischemic mediated cardiomyopathy. Her diuretics have been on hold secondary to fluctuations in her renal status and her potassium level. She appears to be resting comfortably from a respiratory standpoint in the supine position at this time with no evidence of acute volume overload. She will continue medical management. (6) SVT (supraventricular tachycardia): PLAN: At the present time it appears the patient is in a sinus rhythm. Her medications will be adjusted with respect to her rate and her rhythm. An attempt will be made to increase her beta-migue therapy as tolerated. If she has recurrence of atrial dysrhythmias she may once again need additional antiarrhythmic therapy such as the IV amiodarone or an attempt at oral agents. (7) Hyperlipidemia: PLAN: The patient should continue risk factor modification medical management. (8) Essential hypertension: PLAN: The patient's blood pressure will need to be followed with her medicines being adjusted taking into consideration her multiple comorbidities and renal function. (9) Sepsis: PLAN: The patient is continuing evaluation care per internal medicine and infectious disease. (10) Chronic kidney disease, stage III (moderate): PLAN: The patient does have chronic renal insufficiency. Her creatinine level has demonstrated a decline since yesterday. In the interim her diuretics have been on hold. Thus far she has had no evidence of recurrent acute volume overload. (11) Anemia: PLAN: The patient's hemoglobin also requires monitoring. Her hemoglobin levels may impact her overall status. Addt'l Comments The patient denies symptoms considered classic for angina pectoris, CHF / pulmonary edema (with respect to orthopnea / PND), ongoing palpitations, or near syncope / syncope. Procedure Criteria Type of Procedure Procedure Type: Elective Elective Risks - COVID COVID Risk Discussion: The surgeon/proceduralist and patient have discussed in detail the risk of exposure to and/or potential harm posed by the COVID-19 virus with having a surgery/procedure at this time versus the risk of delaying the surgery/procedure. It is not possible to know either the risk of delaying the surgery or procedure or chance of getting an infection with perfect accuracy, but a joint decision was made between the patient and the surgeon/proceduralist to proceed at this time with the scheduled surgery/procedure as indicated on the consent form.
[2022-03-23] MEDS: Aspirin 81 MG TAB.CHEW PO (09:28)
[2022-03-23] MEDS: Clopidogrel Bisulfate 75 MG Tablet PO (09:28)
[2022-03-23] MEDS: Heparin Injection (Vial) 5,000 UNIT/ML VIAL 5000 UNIT SC ×2 (09:28→20:00)
[2022-03-23] MEDS: Cefazolin 1 GM/50 ML BAG IV ×2 (09:29→19:58)
--- NOTE | 2022-03-23 09:30 | CASEMGMT ---
ABDON [facility] to [facility]. 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
--- NOTE | 2022-03-23 10:05 | CASEMGMT ---
ABDON received a return call from [facility] with [facility]. Patient is approved to go to TCU. ABDON notified Jeanine patient will be coming today. Plan: d/c to [facility] TCU Maddi WELCH
[2022-03-23] MEDS: Carvedilol 6.25 MG Tablet PO ×2 (10:30→20:01)
[2022-03-23] MEDS: Insulin Lispro 100 UNIT/ML INSULN.PEN SC ×2 (11:45→16:40)
[2022-03-23 11:46] LABS: Bedside Glucose 234 mg/dL (74-106)
--- NOTE | 2022-03-23 12:48 | CASEMGMT ---
Per Dr. De Luna, pt can have midline placed tomorrow and can then be sent to TCU tomorrow on Cefazolin 1gram/50mL with stop date of 04/18/22. Dr. Peng atwood. Jeanine in TCU aware that pt will not come until tomorrow. SStoswaldo ROJAS CM
--- NOTE | 2022-03-23 12:58 | PCM.PN.ID ---
Physical Exam Narrative Feeling better, no fever, no n/v/d. Const no apparent distress General Appearance: cooperative Resp normal air movement and clear to auscultation bilaterally Cardio regular rate and regular rhythm GI soft to palpation, non-tender and non-distended Skin no rashes or lesions noted ID ID: Route of nutrition/ use of supplements: [] Nutritional Intake: [] IV Site: [] Zepeda Catheter: [] Assessment & Plan Assessment/Plan (1) MSSA bacteremia: PLAN: MSSA bacteremia complicated by [place]. Unclear source of bacteremia. Cont cefazolin. Repeat bcx neg since 03/21. TTE neg for veg. Plan on midline or picc tomorrow if bcx remain neg, then d/c to TCU with cefazolin, stop date 04/18/22 for 4 weeks total. Wrote rx, d/w primary team. Will follow
--- NOTE | 2022-03-23 13:31 | PN.HOSP_ITS ---
Documented by User: Yusef BUSTILLOS 03/23/22 14:04 Subjective Subjective Patient is a 71-year-old female comfortably resting in bed, alert and orient x3. Patient denies development of any new symptoms overnight. Does not appear in acute distress. Objective Data Objective Data Vital Signs: Vital Signs Temp Pulse Resp BP Pulse Ox 98.5 F 80 18 156/84 H 97 03/23/22 08:18 03/23/22 10:29 03/23/22 08:18 03/23/22 10:29 03/23/22 08:18 Oxygen Flow Rate (L/min) 2 Oxygen Delivery Method Room Air Weight: 134 lb 14.766 oz Body Mass Index (BMI) 27.1 Intake & Output: Intake and Output for Last 24 Hours 03/21/22 03/22/22 03/23/22 23:59 23:59 23:59 Intake Total 500 / 500 1050 / 1050 Output Total 2555 / 2555 1800 / 1800 400 / 400 Balance -536.87 / -536.87 -1300 / -1300 650 / 650 Lab / Micro Data Result Diagrams: 03/23/22 06:11 03/23/22 06:11 Labs: Laboratory Results - last 24 hr 03/22/22 20:45: POC Glucose 216 H 03/23/22 06:11: WBC 12.0 H, RBC 3.48 L, Hgb 10.8 L, Hct 31.7 L, MCV 91.1, MCH 31.0, MCHC 34.1, RDW Std Deviation 42.5, RDW Coeff of Janusz 12.9, Plt Count 177, MPV 9.8, Immature Gran % (Auto) 1.800 H, Neut % (Auto) 84.2 H, Lymph % (Auto) 4.8 L, Chester % (Auto) 8.5, Eos % (Auto) 0.5, Baso % (Auto) 0.2, Absolute Neuts (auto) 10.1 H, Absolute Lymphs (auto) 0.57 L, Nucleated RBC % 0, Differential Comment SCANNED 03/23/22 06:11: Sodium 130 L, Potassium 3.9, Chloride 98, Carbon Dioxide 22.0, Anion Gap 10, BUN 32 H, Creatinine 2.00 H, Estim Creat Clear Calc 24.20, Est GFR (MDRD) Af Amer 31 L, Est GFR (MDRD) Non-Af 26 L, BUN/Creatinine Ratio 16.0, Glucose 208 H, Calcium 8.2 L 03/23/22 11:39: POC Glucose 234 H Micro: Microbiology 03/21/22 12:30 Blood Culture (Wb) - Right Hand Blood Culture - Preliminary No growth in 48 hours. 03/20/22 09:15 Blood Culture (Wb) - Right Wrist Blood Culture - Preliminary Staphylococcus aureus 03/20/22 09:25 Blood Culture (Wb) - Left Hand Blood Culture - Preliminary Staphylococcus aureus 03/18/22 08:40 Blood Culture (Wb) - Left Forearm Blood Culture - Final Staphylococcus aureus 03/18/22 08:00 Blood Culture (Wb) - Anticubital Left Bacteria Detection (PCR) - Final Staphylococcus aureus 03/18/22 08:00 Blood Culture (Wb) - Anticubital Left Blood Culture - Final Staphylococcus aureus 03/18/22 08:00 Urine Catheter - Catheter Urine Culture - Final Lactobacillus gasseri 03/18/22 22:31 Urine, Random Legionella Antigen - Final 03/18/22 22:31 Urine, Random Streptococcus pneumoniae Antigen (M - Final 03/18/22 11:06 Mucosa - Nasopharyngeal - Final 03/18/22 09:00 Nasal Secretion SARS-CoV-2 & FLU Antigen (Rapid) - Final Physical Exam Const alert, oriented x3 and no apparent distress HEENT head/scalp atraumatic and moist oral mucous membranes Head and Scalp: normocephalic Eyes PERRL, EOMs intact bilaterally and conjunctivae normal Neck no lymphadenopathy, supple and no JVD Resp normal respiratory effort, no retractions and no use of accessory muscles Cardio regular rate, regular rhythm and no JVD GI normal to inspection, nondistended, normoactive bowel sounds and soft to palpation Extremity normal to inspection, full ROM and no clubbing, cyanosis or edema Skin no rashes or lesions noted, no wounds and skin turgor normal Neuro CN's II-XII intact bilaterally Psych affect normal Assessment & Plan Assessment/Plan (1) MSSA bacteremia: PLAN: Day 5 Discharge planning: Discharge to TCU on 03/24. 1) Sepsis secondary to MSSA bacteremia Unclear source of bacteremia, chest x-ray and UA/urine culture unremarkable. R epeat blood cultures from 03/21 demonstrate no growth. Patient to have midline catheter placed on 03/24 for long-term cefazolin. ID following. 2) sinus tachycardia/SVT Cardiology following, initiated on amiodarone which has since been discontinued. Likely secondary to #1, plan as above. 3) NSTEMI Cardiology following, believed type II event secondary to #1. Beta-migue therapy increased per cardiology recommendations. Continue aspirin, statin. 4) metabolic encephalopathy Secondary to #1, plan as above. 5) acute on chronic HFpEF Echocardiogram 03/20 demonstrated normal LV size and systolic function, an EF of 40% and Brig[place] artery systolic pressure of 40 mmHg. Received Lasix earlier in [place], but was stopped due to worsening creatinine. Continue beta-migue. 6) [place] on CKD stage IIIb Currently 2.0, improving. Baseline appears around 1.5. Renal ultrasound unremarkable. We will continue to trend BMP. 7) HTN Stable, continue carvedilol. 8) DM2 Home oral regimen on hold. Continue Accu-Cheks with sliding scale insulin. 9) hyperlipidemia Continue statin. 10) depression/anxiety Continue Cymbalta and bupropion. DVT prophylaxis - Heparin Patient seen by Yusef cA PA-C, under the supervision of Dr. Khoury. Time spent on patient care: 9 minutes. Documented by User: Dr. Mechelle Khoury DO 03/23/22 14:18 Subjective Subjective This patient was seen in conjunction with TRESSA Gonzáles. The following represents my independent history and physical examination. Please see below for addendum the above. No issues overnight. Patient remains off oxygen. Patient states she is overall feeling much better. We are waiting for clearance blood cultures and them to be negative for 72 hours for tunneled line placement given her need of antibiotics through 04/18/2022. Anticipate tunneled line placement tomorrow. Objective Data Lab / Micro Data Result Diagrams: 03/23/22 06:11 03/23/22 06:11 Physical Exam Const alert, oriented x3 and no apparent distress Constitutional Narrative: Overweight, older, white female who appears older than stated age, sitting up in bed, appears comfortable nontoxic, mentation appears to be back to baseline Exam Limitations: no limitations Nutritional Appearance: overweight HEENT head/scalp atraumatic and moist oral mucous membranes HEENT Narrative: Dentition is fair for age, Mallampati is 2-3, no thrush, patient is extremely hard of hearing Head and Scalp: normocephalic Resp normal respiratory effort, no retractions, no use of accessory muscles and clear to auscultation bilaterally Resp Narrative: Diffusely diminished but clear Auscultation: Negative for crackles, rales, rhonchi or wheezes Cardio regular rate, regular rhythm, S1 normal heart sound, S2 normal heart sound, no rub, no gallops, no clicks and no JVD; Negative for no murmurs Cardio Narrative: 2 out of 6 systolic murmur GI normal to inspection, nondistended, normoactive bowel sounds, soft to palpation, non-tender and non-distended Extremity normal to inspection, full ROM and no clubbing, cyanosis or edema Peripheral Pulses: Yes pulses 2+ throughout Neuro oriented x3, CN's II-XII intact bilaterally, moves all extremities and no focal motor deficits Neuro Narrative: Significant generalized weakness, mental status is much improved in response times have normalized Sensorium / Orientation: awake and alert Speech: speech normal Psych Psych Narrative: Affect is slightly flat today however interaction was appropriate with good eye contact Assessment & Plan Assessment/Plan (1) MSSA bacteremia: (2) Hyponatremia: (3) Hypokalemia: (4) Stage 3b chronic kidney disease (CKD): (5) [place] (acute kidney injury): (6) NSTEMI (non-ST elevated myocardial infarction): (7) Sepsis: PLAN: Assessment: Sepsis secondary to MSSA bacteremia Respiratory alkalosis-resolved Hyponatremia-stabilized Hypochloremia Hypokalemia Hypoglycemia-resolved [place] on CKD stage IIIa-improving Chronic heart failure with preserved ejection fraction Toxic/metabolic encephalopathy NSTEMI-suspect type II related to demand ischemia Lactic acidosis-resolved Acute anemia Acute thrombocytopenia CAD Hypertension Hyperlipidemia DM-2 Depression/anxiety Rheumatoid arthritis Plan: -Patient remains on room air -EEG showed mild irregularities of cerebral function which reflect toxic/metab olic/neurodegenerative/inflammatory/infectious/or structural abnormalities but no seizures or definitive focal lateralized or epileptiform abnormalities noted -Repeat blood cultures from 03/21/2022 are negative at 48 hours -Once negative at [address] tunneled central venous catheter for lo ng-term antibiotics -Surgical consult in place -Antibiotics with Ancef through 04/18/2022 -Echocardiogram shows no valvular vegetations with an EF of 60% and pulmonary systolic pressures of 40 mmHg -Serum creatinine down to 2.0 today and trending down -Zepeda is out -Hypokalemia has resolved -Serum sodium is stable -Appreciate ID input -Patient remains stable for discharge however we need to make sure cultures are negative at [address] line to receive long-term antibiotics -Plan is for TCU at discharge once medically stable and pre-CERT obtained -Likely tomorrow Charges/Coding Visit Charges Inpatient E&M: 39796 Subs Hosp L2
[2022-03-23 16:45] LABS: Bedside Glucose 291 mg/dL (74-106)
[2022-03-23] MEDS: 0.9% Saline Lock 10 ML Syringe IV (20:00)
[2022-03-23] MEDS: Atorvastatin Calcium 40 MG Tablet PO (20:01)
[2022-03-23 21:46] LABS: Bedside Glucose 250 mg/dL (74-106)
[2022-03-24] VITALS (8 sets, daily range): BP systolic 114–156; BP diastolic 72–85; PULSE 64–81; RESP 18–20; TEMP 36.6–36.8; O2SAT 95–98
[2022-03-24 06:34] LABS: Absolute Lymphocyte Count 0.83 X10^3/uL (0.83-4.51); Absolute Neutrophil Count 8.9 X10^3/uL (2.0-7.7); Basophil# 0.03 X10^3/uL; Basophil% 0.3 % (0-1); Eosinophil# 0.08 X10^3/uL; Eosinophils% 0.7 % (0-5); Hematocrit 31.8 % (37-47); Hemoglobin 10.6 g/dL (12.0-15.0); Lymphocyte # 0.83 X10^3/ul (0.83-4.51); Lymphocyte % 7.6 % (19-41); Mean Corp Hgb Conc 33.3 g/dL (32-36); Mean Corpuscular Hgb 30.9 pg (27.0-32.0); Mean Corpuscular Volume 92.7 fL (81-99); Mean Platelet Vol. 9.8 fl (6.2-12.0); Monocyte# 0.94 X10^3/uL; Monocyte% 8.6 % (0-10); NRBC Flagged by Analyzer 0 % (0-5); Neutrophil % 81.2 % (47-70); Platelet Count 198 K/mm3 (150-450); RBC Distribution Width CV 13.1 % (11.6-14.6); RBC Distribution Width SD 44.5 fl (35.1-43.9); Red Blood Count 3.43 M/mm3 (4.2-5.4)
[2022-03-24 07:01] LABS: Anion Gap 11 (5-15); BUN 41 mg/dL (7-18); Calcium,Total 8.5 mg/dL (8.5-10.1); Chloride 99 mmol/L (98-107); Creatinine, Serum 2.05 mg/dL (0.55-1.02); EST Glomerular Filtration Rate 25 mL/min (>60); Est Glom Filt Rate - Afr Amer 31 mL/min (>60); Estimated Creatinine Clearance 23.61 ml/min; Glucose 200 mg/dL (74-106); Potassium 3.8 mmol/L (3.5-5.1); Sodium Level 131 mmol/L (136-145)
[2022-03-24 07:25] LABS: Bedside Glucose 228 mg/dL (74-106)
[2022-03-24] MEDS: Insulin Lispro 100 UNIT/ML INSULN.PEN SC ×2 (07:25→11:18)
--- NOTE | 2022-03-24 07:33 | PCM.PN.CARD ---
Subjective Subjective Patient appears to be awake. She has no acute complaints today. She states today is a good day . Objective Data Vital Signs: Vital Signs Temp Pulse Resp BP Pulse Ox 98.2 F 73 18 156/85 H 95 03/24/22 04:59 03/24/22 07:00 03/24/22 04:59 03/24/22 04:59 03/24/22 04:59 Oxygen Flow Rate (L/min) 2 Oxygen Delivery Method Room Air Weight: 134 lb 14.766 oz Body Mass Index (BMI) 27.1 Intake & Output: Intake and Output for Last 24 Hours 03/22/22 03/23/22 03/24/22 23:59 23:59 23:59 Intake Total 500 / 500 1350 / 1410 60 / 60 Output Total 1800 / 1800 800 / 1200 550 / 550 Balance -1300 / -1300 550 / 210 -490 / -490 Lab / Micro Data Result Diagrams: 03/24/22 06:10 03/24/22 06:10 Labs: Laboratory Results - last 24 hr 03/23/22 11:39: POC Glucose 234 H 03/23/22 16:38: POC Glucose 291 H 03/23/22 19:55: POC Glucose 250 H 03/24/22 06:10: WBC 11.0, RBC 3.43 L, Hgb 10.6 L, Hct 31.8 L, MCV 92.7, MCH 30.9, MCHC 33.3, RDW Std Deviation 44.5 H, RDW Coeff of Janusz 13.1, Plt Count 198, MPV 9.8, Immature Gran % (Auto) 1.600 H, Neut % (Auto) 81.2 H, Lymph % (Auto) 7.6 L, [place] % (Auto) 8.6, Eos % (Auto) 0.7, Baso % (Auto) 0.3, Absolute Neuts (auto) 8.9 H, Absolute Lymphs (auto) 0.83, Nucleated RBC % 0 03/24/22 06:10: Sodium 131 L, Potassium 3.8, Chloride 99, Carbon Dioxide 21.0, Anion Gap 11, BUN 41 H, Creatinine 2.05 H, Estim Creat Clear Calc 23.61, Est GFR (MDRD) Af Amer 31 L, Est GFR (MDRD) Non-Af 25 L, BUN/Creatinine Ratio 20.0, Glucose 200 H, Calcium 8.5 03/24/22 07:22: POC Glucose 228 H Micro: Microbiology 03/21/22 12:30 Blood Culture (Wb) - Right Hand Blood Culture - Preliminary No growth in 48 hours. Cardiology Labs/Tests 03/24/22 06:10: WBC 11.0, RBC 3.43 L, Hgb 10.6 L, Hct 31.8 L, MCV 92.7, MCH 30.9, MCHC 33.3, Plt Count 198, MPV 9.8, Immature Gran % (Auto) 1.600 H, Neut % (Auto) 81.2 H, Lymph % (Auto) 7.6 L, [place] % (Auto) 8.6, Eos % (Auto) 0.7, Baso % (Auto) 0.3, Absolute Neuts (auto) 8.9 H, Nucleated RBC % 0 03/24/22 06:10: Sodium 131 L, Potassium 3.8, Chloride 99, Carbon Dioxide 21.0, Anion Gap 11, BUN 41 H, Creatinine 2.05 H, Est GFR (MDRD) Af Amer 31 L, Est GFR (MDRD) Non-Af 25 L, BUN/Creatinine Ratio 20.0, Glucose 200 H, Calcium 8.5 Rhythm: Sinus rhythm; narrow complex tachycardia (differential diagnosis of sinus tachycardia versus an atrial tachycardia) Physical Exam Const alert and oriented x3 General Appearance: anxious and ill appearing Orientation / Consciousness: awake HEENT hearing grossly normal bilaterally Eyes EOMs intact bilaterally Neck supple and no JVD General: normal visual inspection Chest inspection of chest normal and palpation of chest normal Resp normal respiratory effort Resp Narrative: Diminished inspiratory effort; no obvious rales or rhonchi at the moment Auscultation: diminished lung sounds Cardio regular rate, regular rhythm, S1 normal heart sound and S2 normal heart sound Jugular Venous Distention: JVD GI normal to inspection, nondistended, normoactive bowel sounds Extremity normal capillary refill and no pedal edema Skin no rashes or lesions noted Neuro oriented x3 and CN's II-XII intact bilaterally Psych Appearance: grossly normal and appropriate Assessment & Plan Assessment/Plan (1) Atherosclerotic heart disease of [place] coronary artery without angina pectoris: PLAN: The patient has a history of extensive CAD. It appears she has undergone invasive evaluation and care in the past locally and at [facility] in [place], [place]. She will need continued monitoring. She will continue medical therapy. (2) Presence of stent in coronary artery: PLAN: The patient was evaluated at [facility] in [place], [place] for possible CABG versus multivessel PCI. It appears the patient underwent multivessel PCI. At the present time she is being monitored. She will continue medical therapy. (3) NSTEMI (non-ST elevated myocardial infarction): PLAN: The patient has abnormal cardiac enzymes. At the moment there is concern this is a type II event brought out by her sepsis syndrome. She will continue to be monitored. She has undergone reassessment of her left ventricular wall motion and systolic function with a transthoracic echocardiogram. Her overall LV systolic function was reported as preserved with an estimated LVEF of 60%. She will continue medical therapy. (4) Ischemic cardiomyopathy: PLAN: The patient has had an ischemic mediated cardiomyopathy diagnosis in the past. She does appear to have had a transthoracic echocardiogram performed. Again her overall LV systolic function was reported as preserved with an estimated LVEF of 60%. She will continue medical therapy as she is able. (5) CHF (congestive heart failure), NYHA class III: PLAN: The patient was also diagnosed with CHF. There is concern this may be multifactorial secondary to IV volume status superimposed upon her history of underlying ischemic mediated cardiomyopathy. Her diuretics have been on hold secondary to fluctuations in her renal status and her potassium level. She appears to be resting comfortably from a respiratory standpoint in the supine position at this time with no evidence of acute volume overload. She will continue medical management. (6) SVT (supraventricular tachycardia): PLAN: At the present time it appears the patient is in a sinus rhythm. It appears she had intermittent episodes of a narrow complex tachycardia with a differential diagnosis including sinus tachycardia versus an underlying atrial tachycardia. She appears to be tolerating her current beta-migue dose. An attempt will be made to increase her beta-migue dose. (7) Hyperlipidemia: PLAN: The patient should continue risk factor modification medical management. (8) Essential hypertension: PLAN: The patient's blood pressure will need to be followed with her medicines being adjusted taking into consideration her multiple comorbidities and renal function. (9) Sepsis: PLAN: The patient is continuing evaluation care per internal medicine and infectious disease. (10) Chronic kidney disease, stage III (moderate): PLAN: The patient does have chronic renal insufficiency. Her creatinine level has declined overall. Her diuretics remain on hold. Thus far she appears to be without evidence of acute volume overload. (11) Anemia: PLAN: The patient's hemoglobin also requires monitoring. Her hemoglobin levels may impact her overall status. Addt'l Comments This note was generated using a voice recognition system and there may be incorrect words, spelling or punctuation that were not noted when reviewing the office note prior to saving. Procedure Criteria Type of Procedure Procedure Type: Elective Elective Risks - COVID COVID Risk Discussion: The surgeon/proceduralist and patient have discussed in detail the risk of exposure to and/or potential harm posed by the COVID-19 virus with having a surgery/procedure at this time versus the risk of delaying the surgery/procedure. It is not possible to know either the risk of delaying the surgery or procedure or chance of getting an infection with perfect accuracy, but a joint decision was made between the patient and the surgeon/proceduralist to proceed at this time with the scheduled surgery/procedure as indicated on the consent form.
[2022-03-24] MEDS: Aspirin 81 MG TAB.CHEW PO (08:29)
[2022-03-24] MEDS: 0.9% Saline Lock 10 ML Syringe IV ×2 (09:44→10:55)
[2022-03-24] MEDS: Cefazolin 1 GM/50 ML BAG IV (09:45)
[2022-03-24] MEDS: Carvedilol 12.5 MG Tablet PO (09:48)
[2022-03-24] MEDS: Clopidogrel Bisulfate 75 MG Tablet PO (09:48)
[2022-03-24] MEDS: Heparin Injection (Vial) 5,000 UNIT/ML VIAL 5000 UNIT SC (09:52)
--- NOTE | 2022-03-24 11:25 | PCM.TXEXTCAR ---
Wound(s) R Extremity: Wound Type: Skin Tear Therapies Physical Therapy: Eval and Treat Occupational Therapy: Eval and Treat Problem/Diagnosis (1) Atherosclerotic heart disease of [place] coronary artery without angina pectoris: Status: Acute (2) Presence of stent in coronary artery: Status: Acute Comment: 12/16/2020 [facility] recannulization of an old total occlusion of the RCA using bare-metal stenting, successful bare-metal stent to proximal and mid LAD, successful bare-metal stent to mid nondominant circumflex. (3) NSTEMI (non-ST elevated myocardial infarction): Status: Acute (4) Ischemic cardiomyopathy: Status: Acute (5) CHF (congestive heart failure), NYHA class III: Status: Inactive (6) SVT (supraventricular tachycardia): Status: Inactive (7) Hyperlipidemia: Status: Chronic (8) Essential hypertension: Status: Acute (9) Sepsis: Status: Acute (10) Chronic kidney disease, stage III (moderate): Status: Inactive (11) Anemia: Status: Chronic Allergies/Procedures Done in Hospital Allergies ciprofloxacin [From Cipro] Allergy (Verified 12/30/21 13:06) Hives ciprofloxacin HCl [From Cipro] Allergy (Verified 12/30/21 13:06) Hives Penicillins Allergy (Verified 12/30/21 13:06) Hives Type of Care/Length of Stay Estimated LOS: Convalescent Care Less Than 30 days Type of Care Needed: Skilled Rehab Potential: Good Prognosis: Good Additional Orders/Day of Discharge Day of Discharge: 03/24/22 Dietary and Speech Recommendations Dietitian Recommendations/Changes: Will liberalize diet to No Added Salt with consistency as per ROAD BUILDER; currently pureed food and thin liquids. Monitor need to restrict carbohydrates as PO improves. Will add ensure pudding BID with lunch and dinner. Discharge Plan Admission Admit Date/Time: 03/18/22 10:28 Primary Reason for Your Visit: Confusion Attending Provider: Mechelle Khoury Primary Care Provider: Tigre Whitley Consulting Providers: Jv Ford ; Abran Eaton ; Canelo De Luna ; Sherri Mathias IT RISK ADVISOR Instructions Additional Instructions / Restrictions: * Cefazolin stop date 04/18/2022. Discharge Orders/Prescriptions Prescriptions: New cefazolin in dextrose (iso-os) 1 gram/50 mL Piggyback 1 g IV Q12 26 Days Qty: 2600 RF: 0 carvedilol 12.5 mg Tablet 12.5 mg PO BID Qty: 60 RF: 0 acetaminophen [Tylenol] 325 mg Tablet 650 mg PO Q6H PRN PRN (Reason: Pain Score 1-10/Temp > 100.7 F) Qty: 0 RF: 0 insulin lispro [Humalog KwikPen Insulin] 100 unit/mL Insulin Pen See Protocol unit subcut TIDAC Qty: 0 RF: 0 sennosides-docusate sodium [Stool Softener-Stimulant Laxat] 8.6-50 mg Tablet 2 tab PO BID PRN PRN (Reason: Constipation) Qty: 0 RF: 0 Continued aspirin 81 mg tablet,chewable 1 ea PO DAILY RF: 0 atorvastatin 40 mg tablet 40 mg PO QHS Qty: 30 RF: 11 bupropion HCl [Wellbutrin XL] 150 mg tablet extended release 24 hr 150 mg PO QAM RF: 0 duloxetine 60 mg capsule,delayed release(DR/EC) 60 mg PO DAILY RF: 0 clopidogrel 75 mg tablet 75 mg PO DAILY Qty: 30 RF: 11 pregabalin 75 MG capsule 75 mg PO DAILY RF: 0 hydroxychloroquine 200 MG tablet 200 mg PO DAILY RF: 0 Prednisone 5 MG tablet 5 mg PO UD PRN (Reason: FLARE) RF: 0 Held furosemide [Lasix] 20 mg tablet 20 mg PO .COMPLEX Qty: 30 RF: 11 Hold Instructions: Until otherwise instructed sitagliptin 50 MG tablet 100 mg PO DAILY RF: 0 Hold Instructions: Until otherwise instructed glimepiride 4 MG tablet 4 mg PO DAILY RF: 0 Hold Instructions: Until otherwise instructed Discontinued carvedilol 6.25 mg tablet 6.25 mg PO BID Qty: 60 RF: 11 Referrals / Follow Up: Jv Ford MD [STAFF PHYSICIAN] - Within 2 Weeks Tigre Whitley [Primary Care Provider] - Within 2 Weeks Disposition Disposition (needs filled in before D/C Order can be placed): [facility]
[2022-03-24 11:26] LABS: Bedside Glucose 328 mg/dL (74-106)
--- NOTE | 2022-03-24 12:13 | PCM.TXEXTCAR ---
Diet 03/24/22 12:06 Diet: Regular - No Added Salt Food consistency:: Mechanical (Minced/Moist) Liquid Consistency:: Regular/Thin Type of Dietary Supplement:: Ensure Pudding w/ L & D Is pt able to select menu?: No Diet Comments: Direct sup/assist feeding, oral care after meals Routine Orders/Code Status O2 Frequency: PRN Keep PO Greater than or Equal to (%): 92 Code Status: DNRCC-A (No intubation) Wound(s) R Extremity: Wound Type: Skin Tear Therapies Weight Bearing: Full weight bearing Physical Therapy: Eval and Treat Occupational Therapy: Eval and Treat Problem/Diagnosis (1) Atherosclerotic heart disease of [place] coronary artery without angina pectoris: Status: Acute (2) Presence of stent in coronary artery: Status: Acute Comment: 12/16/2020 [facility] recannulization of an old total occlusion of the RCA using bare-metal stenting, successful bare-metal stent to proximal and mid LAD, successful bare-metal stent to mid nondominant circumflex. (3) NSTEMI (non-ST elevated myocardial infarction): Status: Acute (4) Ischemic cardiomyopathy: Status: Acute (5) CHF (congestive heart failure), NYHA class III: Status: Inactive (6) SVT (supraventricular tachycardia): Status: Inactive (7) Hyperlipidemia: Status: Chronic (8) Essential hypertension: Status: Acute (9) Sepsis: Status: Acute (10) Chronic kidney disease, stage III (moderate): Status: Inactive (11) Anemia: Status: Chronic Allergies/Procedures Done in Hospital Allergies ciprofloxacin [From Cipro] Allergy (Verified 12/30/21 13:06) Hives ciprofloxacin HCl [From Cipro] Allergy (Verified 12/30/21 13:06) Hives Penicillins Allergy (Verified 12/30/21 13:06) Hives Type of Care/Length of Stay Estimated LOS: Convalescent Care Less Than 30 days Type of Care Needed: Skilled Rehab Potential: Good Prognosis: Good Additional Orders/Day of Discharge Day of Discharge: 03/24/22 Dietary and Speech Recommendations Dietitian Recommendations/Changes: Will liberalize diet to No Added Salt with consistency as per CONTINUOUS CONVEYOR SCREEN DRIER; currently pureed food and thin liquids. Monitor need to restrict carbohydrates as PO improves. Will add ensure pudding BID with lunch and dinner. Discharge Plan Admission Admit Date/Time: 03/18/22 10:28 Primary Reason for Your Visit: Confusion Attending Provider: Mechelle Khoury Primary Care Provider: Tigre Whitley Consulting Providers: Jv Ford ; Abran Eaton ; Canelo De Luna ; Sherri Mathias FASHION BUYER Instructions Additional Instructions / Restrictions: * Cefazolin stop date 04/18/2022. Discharge Orders/Prescriptions Prescriptions: New cefazolin in dextrose (iso-os) 1 gram/50 mL Piggyback 1 g IV Q12 26 Days Qty: 2600 RF: 0 carvedilol 12.5 mg Tablet 12.5 mg PO BID Qty: 60 RF: 0 Continued aspirin 81 mg tablet,chewable 1 ea PO DAILY RF: 0 atorvastatin 40 mg tablet 40 mg PO QHS Qty: 30 RF: 11 bupropion HCl [Wellbutrin XL] 150 mg tablet extended release 24 hr 150 mg PO QAM RF: 0 duloxetine 60 mg capsule,delayed release(DR/EC) 60 mg PO DAILY RF: 0 clopidogrel 75 mg tablet 75 mg PO DAILY Qty: 30 RF: 11 furosemide [Lasix] 20 mg tablet 20 mg PO .COMPLEX Qty: 30 RF: 11 pregabalin 75 MG capsule 75 mg PO DAILY RF: 0 hydroxychloroquine 200 MG tablet 200 mg PO DAILY RF: 0 sitagliptin 50 MG tablet 100 mg PO DAILY RF: 0 Prednisone 5 MG tablet 5 mg PO UD PRN (Reason: FLARE) RF: 0 glimepiride 4 MG tablet 4 mg PO DAILY RF: 0 Discontinued carvedilol 6.25 mg tablet 6.25 mg PO BID Qty: 60 RF: 11 Referrals / Follow Up: Jv Ford MD [STAFF PHYSICIAN] - Within 2 Weeks Tigre Whitley [Primary Care Provider] - Within 2 Weeks Disposition Disposition (needs filled in before D/C Order can be placed): Group Home Facility
--- NOTE | 2022-03-24 13:37 | PHA.DC.MR ---
Pharmacy Service has performed discharge medication reconciliation for this patient upon transfer to TCU. Home Medications pregabalin 75 mg PO DAILY 05/11/16 hydroxychloroquine 200 mg PO DAILY 07/19/18 sitagliptin 100 mg PO DAILY 07/19/18 glimepiride 4 mg PO DAILY 12/09/20 aspirin 81 mg chewable tablet 1 ea PO DAILY 12/31/20 atorvastatin 40 mg tablet 40 mg PO QHS #30 tab 12/31/20 bupropion HCl 150 mg 24 hr tablet, extended release 150 mg PO QAM 12/30/21 clopidogrel 75 mg tablet 75 mg PO DAILY #30 tab 12/30/21 duloxetine 60 mg capsule,delayed release 60 mg PO DAILY 12/30/21 furosemide 20 mg tablet 20 mg PO .COMPLEX #30 tab 12/30/21 cefazolin in dextrose (iso-os) 1 g IV Q12 26 Days #2600 ea 03/23/22 acetaminophen [Tylenol] 650 mg PO Q6H PRN PRN #0 tab 03/24/22 carvedilol 12.5 mg PO BID #60 tab 03/24/22 insulin lispro [Humalog KwikPen Insulin] See Protocol SUBCUT TIDAC #0 ml 03/24/22 sennosides-docusate sodium [Stool Softener-Stimulant Laxat] 2 tab PO BID PRN PRN #0 tab 03/24/22 The patient's discharge medication list was reviewed for discrepancies and discrepancies were resolved.
--- NOTE | 2022-03-24 13:45 | CASEMGMT ---
Patient is ready for discharge to TCU. Patient will need a COVID test, SW notified battery recharger. Med list was copied. Patient's daughter is aware patient is going to TCU today. Plan: d/c to [facility] TCU under skilled level of care. Maddi WELCH
--- NOTE | 2022-03-24 14:02 | DS.PCM_ITS ---
Documented by User: Yusef BUSTILLOS 03/24/22 14:22 Providers Date of Admission: 03/18/22 Date of Discharge: 03/24/22 Primary Care Physician: Tigre Whitley Consultations 03/18/22 15:42 Consult: Cardiology Routine Consulting Provider: Jv Ford Reason for Consult: NSTEMI EMERGENT Consult: No Notified: Yes Date Notified: 03/18/22 Time Notified: 15:43 Method of Notification: Verbal Method of Consult:: In-Person 03/19/22 12:11 Consult: Infectious Disease Routine Consulting Provider: Canelo De Luna Reason for Consult: Staph bacteremia EMERGENT Consult: No MD Notified: Yes Date Notified: 03/20/22 Time Notified: 08:28 Method of Notification: Answering Service Reason For Visit: SEPSIS Diagnosis Discharge Diagnosis (1) Atherosclerotic heart disease of [place] coronary artery without angina pectoris: Status: Acute Code(s): I25.10 - Atherosclerotic heart disease of [place] coronary artery without angina pectoris (2) Presence of stent in coronary artery: Status: Acute Code(s): Z95.5 - Presence of coronary angioplasty implant and graft (3) NSTEMI (non-ST elevated myocardial infarction): Status: Acute Code(s): I21.4 - Non-ST elevation (NSTEMI) myocardial infarction (4) Ischemic cardiomyopathy: Status: Acute Code(s): I25.5 - Ischemic cardiomyopathy (5) CHF (congestive heart failure), NYHA class III: Status: Inactive Code(s): I50.9 - Heart failure, unspecified (6) SVT (supraventricular tachycardia): Status: Inactive Code(s): I47.1 - Supraventricular tachycardia (7) Hyperlipidemia: Status: Chronic Code(s): E78.5 - Hyperlipidemia, unspecified (8) Essential hypertension: Status: Acute Code(s): I10 - Essential (primary) hypertension (9) Sepsis: Status: Acute Code(s): A41.9 - Sepsis, unspecified organism (10) Chronic kidney disease, stage III (moderate): Status: Inactive (11) Anemia: Status: Chronic Code(s): D64.9 - Anemia, unspecified Medications at Discharge Home Medications pregabalin 75 mg PO DAILY 05/11/16 hydroxychloroquine 200 mg PO DAILY 07/19/18 sitagliptin 100 mg PO DAILY 07/19/18 glimepiride 4 mg PO DAILY 12/09/20 aspirin 81 mg chewable tablet 1 ea PO DAILY 12/31/20 atorvastatin 40 mg tablet 40 mg PO QHS #30 tab 12/31/20 bupropion HCl 150 mg 24 hr tablet, extended release 150 mg PO QAM 12/30/21 clopidogrel 75 mg tablet 75 mg PO DAILY #30 tab 12/30/21 duloxetine 60 mg capsule,delayed release 60 mg PO DAILY 12/30/21 furosemide 20 mg tablet 20 mg PO .COMPLEX #30 tab 12/30/21 cefazolin in dextrose (iso-os) 1 g IV Q12 26 Days #2600 ea 03/23/22 acetaminophen [Tylenol] 650 mg PO Q6H PRN PRN #0 tab 03/24/22 carvedilol 12.5 mg PO BID #60 tab 03/24/22 insulin lispro [Humalog KwikPen Insulin] See Protocol SUBCUT TIDAC #0 ml 03/24/22 sennosides-docusate sodium [Stool Softener-Stimulant Laxat] 2 tab PO BID PRN PRN #0 tab 03/24/22 Hospital Course Procedures 2-D Echocardiogram and Thoracentesis Summary of Care Provided Minutes Spent on Discharge: 20 Hospital Course: Patient is a 71-year-old female who was admitted to [facility] on 03/18/2022 for evaluation and management of altered mental status. Hospital course and management as below. 1) Sepsis secondary to MSSA bacteremia Unclear source of bacteremia, chest x-ray and UA/urine culture unremarkable. Repeat blood cultures from 03/21 demonstrate no growth. Echocardiogram demonstrates no mass or vegetation. PICC line to be placed for administration of snf Cefazolin, per ID recommendation. Per conversations with nephrology, there was a preference for a tunneled central venous catheter over a PICC line, however there was some dispute over which hospital service would complete this procedure as both general surgery and interventional radiology declined to perform. Per conversations with Dr. Ernestine Khoury, if tunneled CVC could not be placed, PICC line was okay. 2) sinus tachycardia/SVT Cardiology following, initiated on amiodarone which has since been discontinued. Likely secondary to #1. 3) NSTEMI Cardiology following, believed type II event secondary to #1. Beta-migue therapy increased per cardiology recommendations. Continue aspirin, statin, Coreg increased to 12.5 mg p.o. twice daily. 4) metabolic encephalopathy Resolved. Secondary to #1. 5) acute on chronic HFpEF Echocardiogram 03/20 demonstrated normal LV size and systolic function, an EF of 40% and [place] artery systolic pressure of 40 mmHg. Received Lasix earlier in admission, but was stopped due to worsening creatinine. Lasix held on discharge until patient can follow-up with primary care provider. 6) [place] on CKD stage IIIb Currently 2.0, improving. Baseline appears around 1.5. Renal ultrasound unremarkable. We will continue to trend BMP. 7) HTN Stable, continue carvedilol. 8) DM2 Patient's home glimepiride and sitagliptin held on discharge until patient can follow-up with primary care provider. Lispro insulin provided on discharge. 9) hyperlipidemia Continue statin. 10) depression/anxiety Continue Cymbalta and bupropion. Patient seen by Yusef Ac PA-C, under the supervision of Dr. Khoury. Time spent on patient care: 20 minutes. Physical Exam Const alert, oriented x3 and no apparent distress HEENT normocephalic, head/scalp atraumatic and hearing grossly normal bilaterally Eyes PERRL, EOMs intact bilaterally and conjunctivae normal Neck no lymphadenopathy, supple and no JVD Resp normal respiratory effort, no retractions and no use of accessory muscles Cardio regular rate, regular rhythm and no JVD GI normal to inspection, nondistended, normoactive bowel sounds and soft to palpation Extremity normal to inspection, full ROM and no clubbing, cyanosis or edema Skin no rashes or lesions noted, no wounds and skin turgor normal Neuro CN's II-XII intact bilaterally Psych affect normal Weight / BMI Weight Weight: 134 lb 14.766 oz Body Mass Index (BMI) 27.1 ABG / Lab / Microbiology Data Result Diagrams: 03/24/22 06:10 03/24/22 06:10 Laboratory: Laboratory Results - last 24 hr 03/23/22 16:38: POC Glucose 291 H 03/23/22 19:55: POC Glucose 250 H 03/24/22 06:10: WBC 11.0, RBC 3.43 L, Hgb 10.6 L, Hct 31.8 L, MCV 92.7, MCH 30.9, MCHC 33.3, RDW Std Deviation 44.5 H, RDW Coeff of Janusz 13.1, Plt Count 198, MPV 9.8, Immature Gran % (Auto) 1.600 H, Neut % (Auto) 81.2 H, Lymph % (Auto) 7.6 L, [place] % (Auto) 8.6, Eos % (Auto) 0.7, Baso % (Auto) 0.3, Absolute Neuts (auto) 8.9 H, Absolute Lymphs (auto) 0.83, Nucleated RBC % 0 03/24/22 06:10: Sodium 131 L, Potassium 3.8, Chloride 99, Carbon Dioxide 21.0, Anion Gap 11, BUN 41 H, Creatinine 2.05 H, Estim Creat Clear Calc 23.61, Est GFR (MDRD) Af Amer 31 L, Est GFR (MDRD) Non-Af 25 L, BUN/Creatinine Ratio 20.0, Glucose 200 H, Calcium 8.5 03/24/22 07:22: POC Glucose 228 H 03/24/22 11:16: POC Glucose 328 H Microbiology: Microbiology 03/20/22 09:25 Blood Culture (Wb) - Left Hand Blood Culture - Final Staphylococcus aureus 03/20/22 09:15 Blood Culture (Wb) - Right Wrist Blood Culture - Final Staphylococcus aureus 03/21/22 12:30 Blood Culture (Wb) - Right Hand Blood Culture - Preliminary No growth in 48 hours. 03/18/22 08:40 Blood Culture (Wb) - Left Forearm Blood Culture - Final Staphylococcus aureus 03/18/22 08:00 Blood Culture (Wb) - Anticubital Left Bacteria Detection (PCR) - Final Staphylococcus aureus 03/18/22 08:00 Blood Culture (Wb) - Anticubital Left Blood Culture - Final Staphylococcus aureus 03/18/22 08:00 Urine Catheter - Catheter Urine Culture - Final Lactobacillus gasseri 03/18/22 22:31 Urine, Random Legionella Antigen - Final 03/18/22 22:31 Urine, Random Streptococcus pneumoniae Antigen (M - Final 03/18/22 11:06 Mucosa - Nasopharyngeal - Final 03/18/22 09:00 Nasal Secretion SARS-CoV-2 & FLU Antigen (Rapid) - Final Meaningful Use Info Meaningful Use Diagnoses (Choose all that apply): None applicable Discharge Plan Admission Admit Date/Time: 03/18/22 10:28 Primary Reason for Your Visit: Confusion Attending Provider: Mechelle Khoury Primary Care Provider: Tigre Whitley Consulting Providers: Jv Ford ; Abran Eaton ; Canelo De Luna ; Sherri Mathias TRANSIT PLANNING DIRECTOR Instructions Additional Instructions / Restrictions: * Cefazolin stop date 04/18/2022. Discharge Orders/Prescriptions Prescriptions: New cefazolin in dextrose (iso-os) 1 gram/50 mL Piggyback 1 g IV Q12 26 Days Qty: 2600 RF: 0 carvedilol 12.5 mg Tablet 12.5 mg PO BID Qty: 60 RF: 0 acetaminophen [Tylenol] 325 mg Tablet 650 mg PO Q6H PRN PRN (Reason: Pain Score 1-10/Temp > 100.7 F) Qty: 0 RF: 0 insulin lispro [Humalog KwikPen Insulin] 100 unit/mL Insulin Pen See Protocol unit subcut TIDAC Qty: 0 RF: 0 sennosides-docusate sodium [Stool Softener-Stimulant Laxat] 8.6-50 mg Tablet 2 tab PO BID PRN PRN (Reason: Constipation) Qty: 0 RF: 0 Continued aspirin 81 mg tablet,chewable 1 ea PO DAILY RF: 0 atorvastatin 40 mg tablet 40 mg PO QHS Qty: 30 RF: 11 bupropion HCl [Wellbutrin XL] 150 mg tablet extended release 24 hr 150 mg PO QAM RF: 0 duloxetine 60 mg capsule,delayed release(DR/EC) 60 mg PO DAILY RF: 0 clopidogrel 75 mg tablet 75 mg PO DAILY Qty: 30 RF: 11 pregabalin 75 MG capsule 75 mg PO DAILY RF: 0 hydroxychloroquine 200 MG tablet 200 mg PO DAILY RF: 0 Held furosemide [Lasix] 20 mg tablet 20 mg PO .COMPLEX Qty: 30 RF: 11 Hold Instructions: Until otherwise instructed sitagliptin 50 MG tablet 100 mg PO DAILY RF: 0 Hold Instructions: Until otherwise instructed glimepiride 4 MG tablet 4 mg PO DAILY RF: 0 Hold Instructions: Until otherwise instructed Discontinued carvedilol 6.25 mg tablet 6.25 mg PO BID Qty: 60 RF: 11 Prednisone 5 MG tablet 5 mg PO UD PRN (Reason: FLARE) RF: 0 Referrals / Follow Up: Ernestine Khoury DO [STAFF PHYSICIAN] - Within 1 Month Jv Ford MD [STAFF PHYSICIAN] - Within 2 Weeks Tigre Whitley [Primary Care Provider] - Within 2 Weeks Disposition Disposition (needs filled in before D/C Order can be placed): [facility] Facility Documented by User: Dr. Mechelle Khoury DO 03/24/22 15:03 Providers Date of Admission: 03/18/22 Reason For Visit: SEPSIS Medications at Discharge Home Medications pregabalin 75 mg PO DAILY 05/11/16 hydroxychloroquine 200 mg PO DAILY 07/19/18 sitagliptin 100 mg PO DAILY 07/19/18 glimepiride 4 mg PO DAILY 12/09/20 aspirin 81 mg chewable tablet 1 ea PO DAILY 12/31/20 atorvastatin 40 mg tablet 40 mg PO QHS #30 tab 12/31/20 bupropion HCl 150 mg 24 hr tablet, extended release 150 mg PO QAM 12/30/21 clopidogrel 75 mg tablet 75 mg PO DAILY #30 tab 12/30/21 duloxetine 60 mg capsule,delayed release 60 mg PO DAILY 12/30/21 furosemide 20 mg tablet 20 mg PO .COMPLEX #30 tab 12/30/21 cefazolin in dextrose (iso-os) 1 g IV Q12 26 Days #2600 ea 03/23/22 acetaminophen [Tylenol] 650 mg PO Q6H PRN PRN #0 tab 03/24/22 carvedilol 12.5 mg PO BID #60 tab 03/24/22 insulin lispro [Humalog KwikPen Insulin] See Protocol SUBCUT TIDAC #0 ml 2 sennosides-docusate sodium [Stool Softener-Stimulant Laxat] 2 tab PO BID PRN PRN #0 tab 03/24/22 Hospital Course Operations None Procedures 2-D Echocardiogram and - (Retroperitoneal ultrasound) Summary of Care Provided Minutes Spent on Discharge: 45 Hospital Course: Mrs. Abreu is a 71-year-old white female with multiple chronic comorbidities who presented to the emergency department [facility] on 03/18/2022 with altered mental status. The history was provided by her daughter who was present at the time of the assessment by the admitting physician. Per her daughter she was found to be profoundly weak the night prior to being admitted. She had no fever, chills, dysuria, or shortness of breath. On the morning of presentation she was found to be delirious and was therefore brought to the emergency department. In the emergency department her vital signs were overall unremarkable however her labs showed a leukocytosis with an elevated lactate. Her chest x-ray was unremarkable. Her urinalysis had bacteriuria without pyuria and there was concern for sepsis given her presentation therefore IV fluid resuscitation and broad-spectrum antibiotics were initiated after cultures were obtained. Her troponin were cycled and trended up during her hospital course and she was maintained on telemetry as she had previous PCI at tertiary [facility] center. An echocardiogram was obtained and mistreated ejection fraction of 60% with pulmonary artery systolic pressure 40 mmHg and normal LV wall motion. She was placed on a heparin drip. Given her troponin elevation cardiology was consulted. Given her clinical picture it was suspected that her NSTEMI was type II in nature and she was maintained with medical intervention during her hospital course and to follow-up as an outpatient for further evaluation by her primary cdl b driver in the consideration of repeat cardiac catheterization in the future once her medical issues have been resolved. Her Coreg was increased from 6.25 to 12.5 mg daily by cardiology prior to discharge. Her cultures from admission showed MSSA in her blood. Infectious disease was consulted and she was maintained on broad-spectrum antibiotics including Zosyn and vancomycin whi ch was later narrowed to Ancef once sensitivities resulted. As noted previously an echocardiogram had been done and did not show any valvular vegetations. I did take a few days for her cultures to clear and her cultures were negative for 72 hours on 05/24/2022. Secondary to the volume we did have to give initially with her sepsis she developed some acute on chronic diastolic heart failure. She was given Lasix which subsequently resulted in an elevation of her serum creatinine. She also required some BiPAP for rescue but by the time of admission was on room air and having no respiratory issues. She has baseline renal dysfunction follows with Dr. Ernestine Khoury as an outpatient. It appears her baseline is anywhere from 1.3-1.5. Her maximal elevation during hospitalization was 2.3, however at the time of discharge her serum creatinine had trended down and was approximately 2. Her diuretics were held and maintained on hold at the time of discharge and she will need reevaluated perio dically with basic metabolic profiles and clinical assessment to ascertain what the appropriateness of reinitiation. She also suffered from some hypoglycemia which I suspect is related to her renal function changes. Her home oral medications were held during her hospitalization as well as at discharge in which she was maintained on a sliding scale. Infectious disease recommended continuation of her Ancef until 04/18/2022. Given her need for long-term antibiotics a PICC line was placed. We initially attempted to have a tunneled central venous catheter placed due to her CKD however that was unable to be performed here and per discussion with her outpatient cloth piecer a PICC was okay if we had to proceed with that to get her her antibiotics. She was discharged in stable condition on 03/24/2022 to TCU for continued rehab as she had experienced significant functional decline during her hospitalization given the severity of her illness. She is to follow-up with her primary care chanell alvarado in 2 weeks and we recommend she follow-up with cardiology within the next 2 weeks for further evaluation. She will need outpatient follow-up with her cloth piecer and close monitoring of her renal function during her TCU stay. Discharge diagnoses: Sepsis secondary to MSSA bacteremia-sepsis resolved Respiratory alkalosis-resolved Hyponatremia-stabilized Hypochloremia Hypokalemia Hypoglycemia-resolved [place] on CKD stage IIIa-improving Chronic heart failure with preserved ejection fraction Toxic/metabolic encephalopathy NSTEMI-suspect type II related to demand ischemia Lactic acidosis-resolved Acute anemia Acute thrombocytopenia CAD Hypertension Hyperlipidemia DM-2 Depression/anxiety Rheumatoid arthritis Physical Exam Const alert, oriented x3 and no apparent distress Constitutional Narrative: Overweight, older, white female who appears older than stated age, sitting up bedside appears comfortable nontoxic, mentation remains at baseline, patient markedly hard of hearing General Appearance: cooperative, comfortable, well kempt and well developed Exam Limitations: no limitations Nutritional Appearance: overweight HEENT normocephalic, head/scalp atraumatic, hearing grossly normal bilaterally and moist oral mucous membranes HEENT Narrative: Markedly hard of hearing, Mallampati is 2-3, dentition is poor, no thrush Eyes PERRL, EOMs intact bilaterally and conjunctivae normal Eyes Narrative: No scleral icterus Neck no lymphadenopathy, supple and no JVD Resp normal respiratory effort, no retractions, no use of accessory muscles and clear to auscultation bilaterally Resp Narrative: Diffusely diminished but clear Auscultation: Negative for crackles, rales, rhonchi or wheezes Cardio regular rate, regular rhythm, S1 normal heart sound, S2 normal heart sound, no rub, no gallops, no clicks and no JVD; Negative for no murmurs Cardio Narrative: 2 out of 6 systolic murmur GI normal to inspection, nondistended, normoactive bowel sounds, soft to palpation, non-tender and non-distended Extremity no clubbing, cyanosis or edema Skin no rashes or lesions noted, no wounds, skin turgor normal and no jaundice Neuro oriented x3, CN's II-XII intact bilaterally, moves all extremities, no focal m otor deficits and no sensory deficits noted Neuro Narrative: Significant generalized weakness, mental status is normalized Sensorium / Orientation: awake and alert Speech: speech normal Psych Psych Narrative: Affect seems a little bit brighter today but still concerns for for depression ABG / Lab / Microbiology Data Result Diagrams: 03/24/22 06:10 03/24/22 06:10 Discharge Plan Admission Admit Date/Time: 03/18/22 10:28 Primary Reason for Your Visit: Confusion Attending Provider: Mechelel Khoury Primary Care Provider: Tigre Whitley Consulting Providers: Jv Ford ; Abran Eaton ; Canelo De Luna ; Sherri Mathias TRANSIT PLANNING DIRECTOR Instructions Additional Instructions / Restrictions: * Cefazolin stop date 04/18/2022. Discharge Orders/Prescriptions Prescriptions: New cefazolin in dextrose (iso-os) 1 gram/50 mL Piggyback 1 g IV Q12 26 Days Qty: 2600 RF: 0 carvedilol 12.5 mg Tablet 12.5 mg PO BID Qty: 60 RF: 0 acetaminophen [Tylenol] 325 mg Tablet 650 mg PO Q6H PRN PRN (Reason: Pain Score 1-10/Temp > 100.7 F) Qty: 0 RF: 0 insulin lispro [Humalog KwikPen Insulin] 100 unit/mL Insulin Pen See Protocol unit subcut TIDAC Qty: 0 RF: 0 sennosides-docusate sodium [Stool Softener-Stimulant Laxat] 8.6-50 mg Tablet 2 tab PO BID PRN PRN (Reason: Constipation) Qty: 0 RF: 0 Continued aspirin 81 mg tablet,chewable 1 ea PO DAILY RF: 0 atorvastatin 40 mg tablet 40 mg PO QHS Qty: 30 RF: 11 bupropion HCl [Wellbutrin XL] 150 mg tablet extended release 24 hr 150 mg PO QAM RF: 0 duloxetine 60 mg capsule,delayed release(DR/EC) 60 mg PO DAILY RF: 0 clopidogrel 75 mg tablet 75 mg PO DAILY Qty: 30 RF: 11 pregabalin 75 MG capsule 75 mg PO DAILY RF: 0 hydroxychloroquine 200 MG tablet 200 mg PO DAILY RF: 0 Held furosemide [Lasix] 20 mg tablet 20 mg PO .COMPLEX Qty: 30 RF: 11 Hold Instructions: Until otherwise instructed sitagliptin 50 MG tablet 100 mg PO DAILY RF: 0 Hold Instructions: Until otherwise instructed glimepiride 4 MG tablet 4 mg PO DAILY RF: 0 Hold Instructions: Until otherwise instructed Discontinued carvedilol 6.25 mg tablet 6.25 mg PO BID Qty: 60 RF: 11 Prednisone 5 MG tablet 5 mg PO UD PRN (Reason: FLARE) RF: 0 Referrals / Follow Up: Ernestine Khoury DO [STAFF PHYSICIAN] - Within 1 Month Jv Ford MD [STAFF PHYSICIAN] - Within 2 Weeks Tigre Whitley [Primary Care Provider] - Within 2 Weeks Disposition Disposition (needs filled in before D/C Order can be placed): [facility] Facility Charges/Coding Visit Charges Inpatient E&M: 25780 SNF Disch >30 Min
--- NOTE | 2022-03-24 15:04 | RAD_ITS ---
EXAM: XR CHEST, 1 VIEW CLINICAL INDICATION: Picc placement #1 TECHNIQUE: Frontal view of the chest. This report was created using [employer] report generation technology. COMPARISON: 03/20/2022 FINDINGS: LUNGS AND PLEURAL SPACES: Unremarkable. No consolidation or edema. No pneumothorax. No effusion. HEART: Unremarkable. Cardiac silhouette not enlarged. MEDIASTINUM: Central airways and mediastinal contour are unremarkable. BONES/JOINTS: Unremarkable. SOFT TISSUES: Unremarkable. TUBES, LINES AND DEVICES: Right-sided PICC line has been placed with the distal tip overlying the superior vena cava. RAD/CXR for Line Placement IMPRESSION: No acute pulmonary abnormality. Right-sided PICC line in good position. Electronically Signed: Carlo Eubanks MD at 16:05 EDT ,
--- NOTE | 2022-03-24 15:20 | RAD_ITS ---
EXAM: XR CHEST, 1 VIEW CLINICAL INDICATION: PICC advanced 1 cm picc placement #2. advanced per picc nurse decision TECHNIQUE: Frontal view of the chest. This report was created using [employer] report generation technology. COMPARISON: None. FINDINGS: LUNGS AND PLEURAL SPACES: Unremarkable. No consolidation or edema. No pneumothorax. No effusion. HEART: Unremarkable. Cardiac silhouette not enlarged. MEDIASTINUM: Central airways and mediastinal contour are unremarkable. BONES/JOINTS: Unremarkable. SOFT TISSUES: Unremarkable. TUBES, LINES AND DEVICES: Right-sided PICC line in place with the distal tip overlying the superior vena cava. RAD/CXR for Line Placement IMPRESSION: No acute pulmonary abnormality. Right-sided PICC line in good position. Electronically Signed: Carlo Eubanks MD at 16:33 EDT ,
--- NOTE | 2022-03-24 16:46 | NURSING ---
This RN called report to CRYSTAL Hidalgo in TCU.
--- NOTE | 2022-03-24 16:52 | NURSING ---
This RN called pt's daughter, Kacey, and left message about pt being transferred to [facility] TCU room 22. All belongings sent with patient.
== END 2022-03-24 17:10 | disposition skilled nursing facility (03) | DRG 871 ==
LOC: ED 09:02 → PCU 10:45
PROVIDERS: Family Medicine; Nurse Practitioner Family; Physician Assistant; Admitting Provider Internal Medicine; Emergency Provider Emergency Medicine; Visit Provider Internal Medicine
DX: A41.01 Sepsis due to Methicillin susceptible Staphylococcus aureus (principal); G92.8 Other toxic encephalopathy; I50.33 Acute on chronic diastolic (congestive) heart failure; I21.A1 Myocardial infarction type 2; E87.2 Acidosis; E87.1 Hypo-osmolality and hyponatremia; I47.1 Supraventricular tachycardia; I13.0 Hypertensive heart and chronic kidney disease with heart failure and stage 1 through stage 4 chronic kidney disease, or unspecified chronic kidney disease; N17.9 Acute kidney failure, unspecified; E87.3 Alkalosis; E87.4 Mixed disorder of acid-base balance; E11.649 Type 2 diabetes mellitus with hypoglycemia without coma; D69.6 Thrombocytopenia, unspecified; E11.21 Type 2 diabetes mellitus with diabetic nephropathy; E11.22 Type 2 diabetes mellitus with diabetic chronic kidney disease; Z79.4 Long term (current) use of insulin; N18.32 Chronic kidney disease, stage 3b; M06.9 Rheumatoid arthritis, unspecified; F17.210 Nicotine dependence, cigarettes, uncomplicated; I07.1 Rheumatic tricuspid insufficiency; E87.8 Other disorders of electrolyte and fluid balance, not elsewhere classified; F41.9 Anxiety disorder, unspecified; I25.10 Atherosclerotic heart disease of native coronary artery without angina pectoris; D64.9 Anemia, unspecified; E78.5 Hyperlipidemia, unspecified; I25.5 Ischemic cardiomyopathy; E87.6 Hypokalemia; Z66 Do not resuscitate; Z79.82 Long term (current) use of aspirin; Z79.02 Long term (current) use of antithrombotics/antiplatelets; R82.71 Bacteriuria; F32.A Depression, unspecified; Z51.5 Encounter for palliative care
CPT/HCPCS: 36415; 36569; 36600; 70450; 71045; 71275; 76770; 80048; 80053; 80202; 81001; 82570; 82803; 82962; 83605; 83735; 83880; 84100; 84300; 84484; 85025; 85379; 85610; 85730; 87040; 87077; 87086; 87088; 87149; 87186; 87426; 87428; 87449; 87632; 92526; 92610; 93005; 93308; 94002; 94003; 94640; 94660; 94762; 95819; 97110; 97162; 97166; 97530; 97535; 99251; 99285; J7030; J7040; J7050; Q9957; Q9967; A4216; C8924; G0463; J1940

== ENCOUNTER 2022-03-24 17:16 | Inpatient (IN) | payer MEDICARE, SELFPAY ==
[2022-03-24 18:38] VITALS: BP 138/65; PULSE 61; RESP 20; TEMP 36.4; O2SAT 95
--- NOTE | 2022-03-24 20:24 | HP.PCM_ITS ---
HPI - General General Date of Admission: 03/24/22 HPI Narrative 03/18/2022 ERIK GARCIA, is a 71 Female who presents to [facility] Emergency Department with fever. 03/18/2022 EKG sinus tachycardia, otherwise normal EKG. Change in mental status, got up to urinate, unable to get off bathroom floor. Neighbors came to help her up, confused, febrile. Right forearm skin tear. WBC 21, BUN 24, Creatinine 1.36, sodium 130, Troponin 285. Lactate 3.3, Urine culture sent, blood cultures sent, Chest X-ray negative, CT brain negative. Rocephin given, IV fluids given. 03/18/2022 Admit to Hospital. Rocephin IV, IV fluids, for sepsis/urinary tract infection. Serial cardiac enzymes for elevated troponin. 03/18/2022 Echo Normal LV size. LVSF normal. EF 60%. PASP 40mm HG. 03/18/2022 Blood cultures x 2 gram positive cocci, on Vancomycin, Rocephin. 03/19/2022 Short of breath, tired. Vancomycin IV, Rocephin IV, Infectious Disease consult for S. Aureus bacteremia. NSTEMI secondary to demand ischemia. Lasix IV x 1 dose for fluid overload. 03/20/2022 Dr. Singh recommended Cefazolin 2gm IV Q8h, repeat blood cultures for MSSA bacteremia. 03/20/2022 Drowsy, confused, on BiPAP. SVT treated with amiodarone drip, now discontinued. Lasix prn acute on chronic diastolic congestive heart failure. 03/21/2022 Dr. De Luna MSSA bacteremia complicated by acute kidney injury. Renal dose Cefazolin, renal ultrasound, TTE negative for vegetation. 03/21/2022 Alert, better breathing, off BiPAP. IV fluid 500cc for acute kidney injury. 03/22/2022 Alert, improved. Renal ultrasound normal. Gentle IV fluids for acute kidney injury. 03/23/2022 Midline 03/24/2022 for shelter IV antibiotics. Creatinine improved to 2.0, baseline 1.5. 03/24/2022 PICC line placed right upper chest. 03/24/2022 Admit to TCU with debility, here for rehabilitation, strengthening, prior to discharge home alone. [facility] Medical History Anemia Atherosclerosis of coronary artery of pechanga heart without angina pectoris Atherosclerotic heart disease of pe[place]anga coronary artery without angina pectoris Cardiomyopathy CHF (congestive heart failure), NYHA class III Chronic back pain Chronic kidney disease, stage III (moderate) Essential hypertension Hyperlipidemia Ischemic cardiomyopathy SVT (supraventricular tachycardia) Type II diabetes mellitus Home Medications pregabalin 75 mg PO DAILY 05/11/16 [History Last Taken 03/17/22] hydroxychloroquine 200 mg PO DAILY 07/19/18 [History Last Taken 03/17/22] sitagliptin 100 mg PO DAILY 07/19/18 [History Last Taken 03/17/22] glimepiride 4 mg PO DAILY 12/09/20 [History Last Taken 03/17/22] aspirin 81 mg chewable tablet 1 ea PO DAILY 12/31/20 [History Last Taken 03/24/22] atorvastatin 40 mg tablet 40 mg PO QHS #30 tab 12/31/20 [Rx Last Taken 03/23/22] bupropion HCl 150 mg 24 hr tablet, extended release 150 mg PO QAM 12/30/21 [History Last Taken 03/17/22] duloxetine 60 mg capsule,delayed release 60 mg PO DAILY 12/30/21 [History Last Taken 03/17/22] acetaminophen [Tylenol] 650 mg PO Q6H PRN PRN #0 tab 03/24/22 [Rx Last Taken 03/21/22] carvedilol 12.5 mg PO BID 03/24/22 [History Last Taken 03/24/22] cefazolin in dextrose (iso-os) 1 g IV Q12 03/24/22 [History Last Taken 03/24/22] clopidogrel 75 mg PO DAILY 03/24/22 [History Last Taken 03/24/22] furosemide [Lasix] 20 mg PO .COMPLEX 03/24/22 [History Last Taken Unknown] insulin lispro [Humalog KwikPen Insulin] See Protocol SUBCUT TIDAC 03/24/22 [History Last Taken Unknown] sennosides-docusate sodium [Stool Softener-Stimulant Laxat] 2 tab PO BID PRN PRN #0 tab 03/24/22 [Rx Last Taken Unknown] Allergy/AdvReac Type Severity Reaction Status Date / Time ciprofloxacin [From Cipro] Allergy Hives Verified 12/30/21 13:06 ciprofloxacin HCl Allergy Hives Verified 12/30/21 13:06 [From Cipro] Penicillins Allergy Hives Verified 12/30/21 13:06 Family History Father No problems noted. Mother No problems noted. Surgical History History of left heart catheterization (12/10/20) Presence of coronary angioplasty implant and graft (~12/16/20) Presence of stent in coronary artery (~12/16/20) Social History (Updated 03/24/22 @ 20:[address] Eder Durham MD) household members: none Smoking Status: Smoker, status unknown tobacco type: cigarettes alcohol intake: never substance use type: does not use ROS Constitutional Constitutional: Denies chills, fever(s) or weight gain ENT HEENT: Denies headache(s), nasal congestion or nasal discharge Cardiovascular Cardiovascular: Denies chest pain or palpitations Respiratory/Chest Respiratory/Chest: Denies cough, excessive phlegm production or shortness of breath with exertion Gastrointestinal Gastrointestinal: Denies abdominal pain, nausea or vomiting Genitourinary Genitourinary: Denies dysuria Musculoskeletal Musculoskeletal: Denies joint pain or joint swelling Integumentary Integumentary: Denies rash or wounds Neurologic Neurologic: Denies focal weakness, numbness or tingling Psychiatric Psychiatric: Denies anxiety, auditory hallucinations, depression, homicidal ideation or suicidal ideation Vital Signs Vital Signs Vital Signs: 03/24/22 18:38 Temperature 97.5 F L Temperature Source Temporal Pulse Rate 61 Respiratory Rate 20 H Blood Pressure 138/65 H Blood Pressure Mean 89 Blood Pressure Source Monitor Blood Pressure Position Semi-Fowlers Blood Pressure Location Left Arm Pulse Ox 95 Oxygen Delivery Method Room Air Physical Exam Const alert General Appearance: cooperative HEENT normocephalic Eyes PERRL and EOMs intact bilaterally Neck supple, no JVD and no carotid bruits Resp normal respiratory effort, normal air movement and clear to auscultation bilaterally Cardio regular rate and regular rhythm GI normal to inspection, nondistended, normoactive bowel sounds, non-tender and non-distended Extremity normal capillary refill Extremity Narrative: Right proximal upper extremity PICC line. General Extremity: Negative for edema Skin no rashes or lesions noted General Skin Exam: no breakdown Psych affect normal Appearance: appropriate Assessment & Plan Assessment/Plan (1) Debility: (2) Acute encephalopathy: (3) Sepsis: (4) Hyponatremia: (5) NSTEMI (non-ST elevated myocardial infarction): (6) MSSA bacteremia: (7) [place] (acute kidney injury): (8) Coronary artery disease: (9) Diabetes mellitus: (10) Diabetic polyneuropathy: (11) Hyperlipidemia: (12) Depression: (13) Acute on chronic diastolic congestive heart failure: PLAN: 71 year old female with below past medical history hospitalized for acute encephalopathy secondary to sepsis, MSSA bacteremia, complicated by NSTEMI, acute kidney injury, admitted to TCU with debility, here for rehabilitation, strengthening, prior to discharge home alone. * Debility - PT/OT. * Pain - Tylenol 1000mg q6h prn pain (1-10). * Bowel - Senna/colace 2 tablets bid prn. * Adult immunization - Administer pneumonia vaccine, flu vaccine, covid19 vaccine. * DVT prophylaxis - Hold, on dual antiplatelet therapy. * Coronary artery disease - Coreg 12.5mg bid, Plavix 75mg daily, Aspirin 81mg daily. * Hyperlipidemia - Atorvastatin 40mg qhs. * Depression - Bupropion XL 150mg qam, stable chronic filler leaf cutter long use, GDR not recommended. * MSSA bacteremia - Cefazolin 1gm iv q12h thru 04/18/2022. * Diabetic polyneuropathy - Duloxetine 60mg daily, Lyrica 75mg daily, stable chronic shelter use, GDR not recommended. * Rheum - Plaquenil 200mg daily.
[2022-03-24] MEDS: Atorvastatin Calcium 40 MG Tablet PO (21:48)
[2022-03-24] MEDS: Carvedilol 12.5 MG Tablet PO (21:48)
[2022-03-24] MEDS: Cefazolin 1 GM/50 ML BAG IV (22:41)
[2022-03-24] MEDS: 0.9% Saline Lock 10 ML Syringe IV (23:06)
[2022-03-24 23:31] VITALS: PULSE 63; RESP 16; O2SAT 94
[2022-03-24 23:36] LABS: Bedside Glucose 238 mg/dL (74-106)
--- NOTE | 2022-03-25 01:01 | NURSING ---
Assessment completed on patient. Patient would prefer that daughter sign paperwork.
--- NOTE | 2022-03-25 01:21 | NURSING ---
Patient's HS BS 238, not on insulin or po diabetic medications at this time. Will continue to monitor.
[2022-03-25] MEDS: Carvedilol 12.5 MG Tablet PO ×2 (05:51→17:06)
[2022-03-25] MEDS: DULoxetine Hcl 60 MG Capsule PO (05:51)
[2022-03-25] MEDS: Pregabalin 75 MG Capsule PO (05:51)
[2022-03-25] MEDS: Clopidogrel Bisulfate 75 MG Tablet PO (05:51)
[2022-03-25] MEDS: Cefazolin 1 GM/50 ML BAG IV ×2 (05:51→17:05)
[2022-03-25] MEDS: 0.9% Saline Lock 10 ML Syringe IV ×2 (05:52→17:06)
[2022-03-25 06:26] LABS: Bedside Glucose 224 mg/dL (74-106)
[2022-03-25 06:52] LABS: Absolute Lymphocyte Count 0.66 X10^3/uL (0.83-4.51); Absolute Neutrophil Count 8.1 X10^3/uL (2.0-7.7); Basophil# 0.02 X10^3/uL; Basophil% 0.2 % (0-1); Eosinophil# 0.07 X10^3/uL; Eosinophils% 0.7 % (0-5); Hematocrit 29.7 % (37-47); Hemoglobin 9.5 g/dL (12.0-15.0); Lymphocyte # 0.66 X10^3/ul (0.83-4.51); Lymphocyte % 6.7 % (19-41); Mean Corpuscular Hgb 30.4 pg (27.0-32.0); Mean Corpuscular Volume 95.2 fL (81-99); Mean Platelet Vol. 9.9 fl (6.2-12.0); Monocyte# 0.86 X10^3/uL; Monocyte% 8.7 % (0-10); NRBC Flagged by Analyzer 0 % (0-5); Neutrophil # 8.08 X10^3/uL (2.7-7.7); Neutrophil % 81.8 % (47-70); Platelet Count 206 K/mm3 (150-450); RBC Distribution Width CV 13.1 % (11.6-14.6); RBC Distribution Width SD 45.1 fl (35.1-43.9); Red Blood Count 3.12 M/mm3 (4.2-5.4); White Blood Count 9.9 K/mm3 (4.4-11.0)
[2022-03-25 07:21] LABS: Anion Gap 8 (5-15); BUN 43 mg/dL (7-18); BUN/Creat Ratio 21.1 RATIO (10-20); Calcium,Total 8.3 mg/dL (8.5-10.1); Chloride 97 mmol/L (98-107); Creatinine, Serum 2.04 mg/dL (0.55-1.02); EST Glomerular Filtration Rate 25 mL/min (>60); Est Glom Filt Rate - Afr Amer 31 mL/min (>60); Glucose 233 mg/dL (74-106); Potassium 3.4 mmol/L (3.5-5.1); Sodium Level 130 mmol/L (136-145)
[2022-03-25] MEDS: Aspirin 81 MG TAB.CHEW PO (08:14)
[2022-03-25] MEDS: Hydroxychloroquine 200 MG Tablet PO (08:14)
[2022-03-25] MEDS: buPROPion (XL) 150 MG TABLET.XL PO (09:16)
[2022-03-25] MEDS: Tuberculin,Purif.prot.deriv. 50 TU/ML Vial 0.1 ML ID (09:54)
[2022-03-25 11:26] LABS: Bedside Glucose 210 mg/dL (74-106)
[2022-03-25] MEDS: Acetaminophen 500 MG Tablet 1000 MG PO (12:39)
[2022-03-25] MEDS: Potassium Chloride Oral Tablet 20 MEQ PO (14:01)
[2022-03-25 15:39] VITALS: BP 112/59; PULSE 60; RESP 16; TEMP 36.4; O2SAT 99
[2022-03-25 16:11] LABS: Bedside Glucose 228 mg/dL (74-106)
--- NOTE | 2022-03-25 17:25 | NURSING ---
Received call from lab that patient blood culture from 03/22/22 came back positive for gram positive cocci. Dr Durham notified and ordered Dr. De Luna be notified on Sunday.
[2022-03-25] MEDS: Atorvastatin Calcium 40 MG Tablet PO (21:00)
[2022-03-25 21:11] LABS: Bedside Glucose 192 mg/dL (74-106)
[2022-03-26] MEDS: Clopidogrel Bisulfate 75 MG Tablet PO (05:33)
[2022-03-26] MEDS: Acetaminophen 500 MG Tablet 1000 MG PO ×2 (05:33→19:41)
[2022-03-26 05:44] VITALS: BP 141/62; PULSE 61; RESP 20; TEMP 36.6; O2SAT 99
--- NOTE | 2022-03-26 05:45 | NURSING ---
Pt calls and c/o chest pain. Pain is midsternal and slightly to the left. Reports character as aching and rates pain at 4/10. Denies pain to any other location. In no acute distress. Vitals obtained and recorded. Pt wishes to have water. Given several sips of water. Poorly adheres to small sips recommended per ST. Refuses to have EKG done and verbalizes that she is not afraid to . Prepared AM meds and added PRN Tylenol for pain after discussing w/ pt. Medications prepared whole in applesauce. This nurse starts to administer first tablet of Tylenol and insists this nurse crushed medication. Two tiler's assistant present and witnessed this nurse prepare medication confirming medications were not crushed. Pt agreeable to taking only one tablet of Tylenol. Also refusing to have IV atb administered. Lyrica wasted per protocol w/ a second RN and documented in accudose. Will continue to monitor.
[2022-03-26 06:56] LABS: Bedside Glucose 169 mg/dL (74-106)
[2022-03-26] MEDS: Aspirin 81 MG TAB.CHEW PO (08:53)
[2022-03-26] MEDS: Hydroxychloroquine 200 MG Tablet PO (08:53)
[2022-03-26] MEDS: Potassium Chloride Oral Tablet 10 MEQ PO (08:54)
[2022-03-26] MEDS: buPROPion (XL) 150 MG TABLET.XL PO (09:01)
[2022-03-26 11:21] LABS: Bedside Glucose 210 mg/dL (74-106)
[2022-03-26 14:50] VITALS: BP 120/57; PULSE 64; RESP 14; TEMP 36.6; O2SAT 96
[2022-03-26] MEDS: 0.9% Saline Lock 10 ML Syringe IV (16:48)
[2022-03-26] MEDS: Cefazolin 1 GM/50 ML BAG IV (17:03)
[2022-03-26] MEDS: Menthol/Lanolin/Calamine/Znox 113 GM Tube 1 APPLIC TOPICAL (17:03)
[2022-03-26 17:05] LABS: Bedside Glucose 210 mg/dL (74-106)
[2022-03-26] MEDS: Atorvastatin Calcium 40 MG Tablet PO (19:41)
[2022-03-27 06:16] LABS: Bedside Glucose 166 mg/dL (74-106)
[2022-03-27 06:34] LABS: Anion Gap 8 (5-15); BUN 52 mg/dL (7-18); BUN/Creat Ratio 25.6 RATIO (10-20); Calcium,Total 8.5 mg/dL (8.5-10.1); Chloride 100 mmol/L (98-107); Creatinine, Serum 2.03 mg/dL (0.55-1.02); EST Glomerular Filtration Rate 26 mL/min (>60); Est Glom Filt Rate - Afr Amer 31 mL/min (>60); Estimated Creatinine Clearance 24.02 ml/min; Glucose 191 mg/dL (74-106); Potassium 4.3 mmol/L (3.5-5.1); Sodium Level 133 mmol/L (136-145)
[2022-03-27] MEDS: Pregabalin 75 MG Capsule PO (06:34)
[2022-03-27] MEDS: Menthol/Lanolin/Calamine/Znox 113 GM Tube 1 APPLIC TOPICAL ×2 (06:35→17:28)
[2022-03-27] MEDS: DULoxetine Hcl 60 MG Capsule PO (06:35)
[2022-03-27] MEDS: Clopidogrel Bisulfate 75 MG Tablet PO (06:35)
[2022-03-27] MEDS: Carvedilol 12.5 MG Tablet PO ×2 (06:35→17:29)
[2022-03-27] MEDS: Nystatin Powder 15gm Bottle 1 APPLIC TOPICAL ×2 (06:35→17:29)
[2022-03-27 06:40] VITALS: BP 189/77; PULSE 66
[2022-03-27] MEDS: Cefazolin 1 GM/50 ML BAG IV ×2 (06:43→17:29)
[2022-03-27] MEDS: Potassium Chloride Oral Tablet 10 MEQ PO (08:38)
[2022-03-27] MEDS: Aspirin 81 MG TAB.CHEW PO (08:38)
[2022-03-27] MEDS: Hydroxychloroquine 200 MG Tablet PO (08:38)
[2022-03-27] MEDS: buPROPion (XL) 150 MG TABLET.XL PO (08:38)
--- NOTE | 2022-03-27 10:26 | PCM.PN.RX ---
Progress Note - Pharmacy Subjective: TCU ADMISSION Objective: Allergies ciprofloxacin [From Cipro] Allergy (Verified 12/30/21 13:06) Hives ciprofloxacin HCl [From Cipro] Allergy (Verified 12/30/21 13:06) Hives Penicillins Allergy (Verified 12/30/21 13:06) Hives Current Medications Generic Name Dose Route Start Last Admin Trade Name Freq PRN Reason Stop Dose Admin Acetaminophen 1,000 mg 03/24/22 20:43 03/26/22 19:41 Acetaminophen 500 Mg Tablet PO 1,000 mg Q6H PRN PRN Administration Pain Score 1-10 Aspirin 81 mg 03/25/22 08:00 03/27/22 08:38 Aspirin 81 Mg Tab.Chew PO 81 mg 0800 FREDERICK Administration Atorvastatin Calcium 40 mg 03/24/22 22:00 03/26/22 19:41 Atorvastatin Calcium 40 Mg Tablet PO 40 mg QHS FREDERICK Administration Bupropion HCl 150 mg 03/25/22 10:00 03/27/22 08:38 Bupropion (Xl) 150 Mg Tablet.Xl PO 150 mg QAM FREDERICK Administration Calamine/Phenol 1 applic 03/26/22 18:00 03/27/22 06:35 Menthol/Lanolin/Calamine/Znox 113 Gm Tube TOPICAL 1 applic BID FREDERICK Administration Protocol Carvedilol 12.5 mg 03/24/22 18:00 03/27/22 06:35 Carvedilol 12.5 Mg Tablet PO 12.5 mg BID FREDERICK Administration Clopidogrel Bisulfate 75 mg 03/25/22 06:00 03/27/22 06:35 Clopidogrel Bisulfate 75 Mg Tablet PO 75 mg DAILY FREDERICK Administration Duloxetine HCl 60 mg 03/25/22 06:00 03/27/22 06:35 Duloxetine Hcl 60 Mg Capsule PO 60 mg DAILY FREDERICK Administration Heparin Sodium (Beef Lung) 50 units 03/24/22 22:14 Heparin Pf Lock 10 Units/Ml 50 Units/5 Ml Syringe IV UD PRN PICC Line Heparin Flush Hydroxychloroquine Sulfate 200 mg 03/25/22 08:00 03/27/22 08:38 Hydroxychloroquine 200 Mg Tablet PO 200 mg 0800 FREDERICK Administration Cefazolin Sodium 1 gm in 50 mls @ 150 mls/hr 03/24/22 22:00 03/27/22 07:03 IV 04/18/22 22:01 Infused Q12 FREDERICK Infusion Sodium Chloride 250 mls @ 15 mls/hr 03/24/22 21:58 03/27/22 08:13 IV Infused .[id number] PRN Infusion Saline Flush Nutritional Formula (Lactose Free) 118 ml 03/27/22 12:45 Ensure Compact 118 Ml Liquid PO TIDCM FREDERICK Nystatin 1 applic 03/27/22 06:00 03/27/22 06:35 Nystatin Powder 15gm Bottle TOPICAL 1 applic BID FREDERICK Administration Protocol Potassium Chloride 10 meq 03/26/22 08:00 03/27/22 08:38 Potassium Chloride Oral Tablet 10 Meq PO 10 meq DAILYCM FREDERICK Administration Pregabalin 75 mg 03/25/22 06:00 03/27/22 06:34 Pregabalin 75 Mg Capsule PO 75 mg DAILY FREDERICK Administration Senna/Docusate Sodium 2 tablet 03/24/22 17:36 Senna/Docusate Sodium 1 Tablet PO BID PRN PRN Constipation Sodium Chloride 10 - 40 ml 03/24/22 21:58 03/26/22 16:48 0.9% Saline Lock 10 Ml Syringe IV 20 ml UD PRN Administration SALINE FLUSH Sodium Chloride 10 - 40 ml 03/24/22 22:14 0.9% Saline Lock 10 Ml Syringe IV UD PRN Open End PICC Flush Sodium Chloride 10 - 40 ml 03/24/22 22:14 0.9 % Nacl (Sterile) Posiflush 10 Ml IV UD PRN Port access or dressing change Tuberculin PPD 0.1 ml 04/01/22 10:00 Tuberculin,Purif.Prot.Deriv. 50 Tu/Ml Vial ID 04/01/22 10:01 X1 ONE Problem List (Last Reviewed 03/24/22 @ 20:[address] Eder Durham MD) Acute on chronic diastolic congestive heart failure (Chronic) Depression (Acute) Hyperlipidemia (Acute) Diabetic polyneuropathy (Acute) Diabetes mellitus (Acute) Coronary artery disease (Acute) MSSA bacteremia (Acute) NSTEMI (non-ST elevated myocardial infarction) (Acute) Hyponatremia (Acute) Sepsis (Acute) Acute encephalopathy (Acute) Debility (Acute) [place] (acute kidney injury) (Acute) Vital Signs Temp Pulse Resp BP Pulse Ox 97.8 F 66 14 189/77 H 96 03/26/22 14:50 03/27/22 06:40 03/26/22 14:50 05/16/22 06:40 03/26/22 14:50 Oxygen Delivery Method Room Air Weight: 61.65 kg Sodium 133 mmol/L (136-145) L 03/27/22 05:58 Potassium 4.3 mmol/L (3.5-5.1) 03/27/22 05:58 Chloride 100 mmol/L (98-107) 03/27/22 05:58 Carbon Dioxide 25.0 mmol/L (21.0-32.0) 03/27/22 05:58 Anion Gap 8 (5-15) 03/27/22 05:58 BUN 52 mg/dL (7-18) H 03/27/22 05:58 Creatinine 2.03 mg/dL (0.55-1.02) H 03/27/22 05:58 Est GFR (MDRD) Af Amer 31 mL/min (>60) L 03/27/22 05:58 Est GFR (MDRD) Non-Af 26 mL/min (>60) L 03/27/22 05:58 BUN/Creatinine Ratio 25.6 RATIO (10-20) H 03/27/22 05:58 Glucose 191 mg/dL (74-106) H 03/27/22 05:58 Assessment/Plan: 1. Pain: Tylenol 1000mg PO Q6h PRN Pain 1-10. Please continue to monitor for increased/decreased S/S pain, PRN medication usage. Of note, the patient has only used 3 doses of Tylenol since admission. 2. CAD/HLD: Aspirin 81mg PO Daily, Lipitor 40mg PO QHS, Coreg 12.5mg PO BID, Plavix 75mg PO Daily Please continue to monitor BP (last 189/77), pulse (last 66), S/S bleeding/bruising, H/H, lipid panel annually or sooner if clinically indicated. 3. MSSA Bacteremia: Ancef 1g IV Q12hr thru 04/18/22. Please continue to monitor for resolution of infection, nausea, vomiting, diarrhea. 4. Hypokalemia: KCl 10mEq PO Daily. Please continue to monitor for GI upset, potassium levels. Current K level = 4.3 (WNL), please continue to monitor as clinically indicated. 5. Bowel Regimen: Senna/ Docusate 2 tab PO BID PRN. Please continue to monitor for increased/decreased constipation and/or diarrhea. Of note, per EMR, the patient has not had a bowel movement since admission, and has not had any documented administrations of medications. Please consider giving PRN medication to help facilitate bowel movements. Psychotropic Medications: 6. Depression: Bupropion XL 150mg PO daily. Please see note in H/P regarding GDR recommendation. 7. Diabetic Polyneuropathy: Cymbalta 60mg PO Daily, Lyrica 75mg PO Daily. Please continue to monitor for medication effectiveness. Please see note in H/P regarding GDR recommendation, thank you. Medication Discrepancies 1. Plaquenil 200mg PO Daily. No past medical history indicating a recommended labeled use per EMR chart review. Please review medication for appropriate use, thank you. 2. Diabetic Polyneuropathy: Cymbalta 60mg PO Daily, Lyrica 75mg PO Daily. Please continue to monitor for medication effectiveness. Of note, both medications are on the Beer's List and can increase risk of fractures or falls. Please continue to evaluate for appropriate use. Per H/P the patient was unable to get off the bathroom floor. Please monitor if this was possible a medication related event vs. fatigue from illness, thank you. Date of Note:: 03/27/22
--- NOTE | 2022-03-27 10:54 | CASEMGMT ---
Social Work Met with patient to complete initial assessment. Introduced self and role. Pt lying in bed and kept eyes closed for the majority of the assessment. Pt is [place] and drowsy. Some answers appropriate, other answers unclear implying cognitive impairment. Discussed code status - pt confirms DNR-CC. Pt did not want to complete MOLST. Explained [employer] insurance with NRD 03/27 and continued stay is not guaranteed with each review. The goal is for pt to return, dtr lives with her. Dtr does work crime data specialist as an IMMIGRATION CASE MANAGER at [employer]. IDT will determine DC recommendations, but this worker concerned about safety at home alone. Pt is on IV ATB until 04/18. Pt cannot administer. SW to determine dtr's work schedule if she can administer at home. Care plan meeting scheduled this week. SW to continue to follow. Triny Guadarrama, ASSEMBLY INSTRUCTIONS WRITER IT SECURITY CONSULTANT
[2022-03-27 10:56] LABS: Bedside Glucose 225 mg/dL (74-106)
[2022-03-27] MEDS: Acetaminophen 500 MG Tablet 1000 MG PO (11:29)
--- NOTE | 2022-03-27 14:41 | PCM.PN.ID ---
Physical Exam Narrative Some ongoing diarrhea. No fever, no abd pain. Daughter reports diarrhea was present prior to coming to hospital. Const no apparent distress General Appearance: cooperative Resp normal air movement and clear to auscultation bilaterally Cardio regular rate and regular rhythm GI soft to palpation, non-tender and non-distended Skin no rashes or lesions noted ID ID: Route of nutrition/ use of supplements: [] Nutritional Intake: [] IV Site: [] Zepeda Catheter: [] Assessment & Plan Assessment/Plan (1) MSSA bacteremia: PLAN: MSSA bacteremia complicated by [place]. Unclear source of bacteremia. Cont cefazolin. Repeat bcx neg since 03/21. TTE neg for veg. Cont with cefazolin, stop date 04/18/22 for 4 weeks total. With reported diarrhea, will check cdiff. Will follow
[2022-03-27 16:00] VITALS: BP 108/50; PULSE 69; RESP 14; TEMP 36.6; O2SAT 91
[2022-03-27 17:05] LABS: Bedside Glucose 258 mg/dL (74-106)
--- NOTE | 2022-03-27 17:25 | RAD_ITS ---
EXAM: XR THORACIC SPINE, 2 VIEWS CLINICAL INDICATION: Back pain TECHNIQUE: Frontal and lateral views of the thoracic spine. This report was created using [employer] report generation technology. COMPARISON: None. FINDINGS: VERTEBRAE: Diffuse bridging osteophytes throughout the thoracic spine. Preserved vertebral body height. No fracture. No spondylolisthesis. Preservation of the normal thoracic kyphosis. No significant facet arthropathy. DISC SPACES: Unremarkable. Disc spaces are maintained. TUBES, LINES AND DEVICES: PICC tip at cavoatrial junction. RAD/Thoracic Spine 2 Views IMPRESSION: 1. Diffuse degenerative changes. 2. No acute fractures or subluxations identified. Electronically Signed: Herve Harper MD at 23:18 EDT ,
[2022-03-27 21:31] LABS: Bedside Glucose 280 mg/dL (74-106)
[2022-03-27 22:00] VITALS: PULSE 69; RESP 16; O2SAT 96
--- NOTE | 2022-03-27 22:00 | RAD_ITS ---
EXAM: XR LUMBOSACRAL SPINE, 4 OR 5 VIEWS CLINICAL INDICATION: Low back pain TECHNIQUE: Frontal, lateral and bilateral oblique views of the lumbar spine. This report was created using [employer] report generation technology. COMPARISON: None. FINDINGS: VERTEBRAE: Severe spondylitic changes throughout the lumbar spine. Diffuse bilateral multilevel vertebral facet arthropathy. Mild scoliosis convex to the left. Preserved vertebral body height. No fracture. No spondylolisthesis. DISC SPACES: No acute findings. Disc spaces are maintained. GASTROINTESTINAL TRACT: Unremarkable as visualized. Included bowel gas pattern is non-obstructive. RAD/L/S Spine Min 4 Views IMPRESSION: Severe degenerative changes. No acute fractures or subluxations. Electronically Signed: Herve Harper MD at 23:19 EDT ,
--- NOTE | 2022-03-28 01:40 | NURSING ---
Patient back from xray, she refused to allow nurse to turn her for full assessment. Said she'd just had to move around and asked to no be turned because of pain. She denies pain at rest.
[2022-03-28 06:26] LABS: Bedside Glucose 173 mg/dL (74-106)
[2022-03-28] MEDS: Cefazolin 1 GM/50 ML BAG IV ×2 (06:55→18:07)
[2022-03-28] MEDS: Nystatin Powder 15gm Bottle 1 APPLIC TOPICAL ×2 (06:56→18:00)
[2022-03-28] MEDS: Menthol/Lanolin/Calamine/Znox 113 GM Tube 1 APPLIC TOPICAL ×2 (06:56→17:59)
[2022-03-28] MEDS: DULoxetine Hcl 60 MG Capsule PO (07:04)
[2022-03-28] MEDS: Clopidogrel Bisulfate 75 MG Tablet PO (07:04)
[2022-03-28] MEDS: Carvedilol 12.5 MG Tablet PO ×2 (07:04→18:00)
[2022-03-28] MEDS: Pregabalin 75 MG Capsule PO (07:04)
[2022-03-28] MEDS: buPROPion (XL) 150 MG TABLET.XL PO (10:44)
[2022-03-28 11:05] LABS: Bedside Glucose 156 mg/dL (74-106)
[2022-03-28] MEDS: Acetaminophen 500 MG Tablet 1000 MG PO ×2 (11:19→20:32)
[2022-03-28 16:00] VITALS: BP 129/66; PULSE 74; RESP 16; TEMP 36.6; O2SAT 96
[2022-03-28 16:51] LABS: Bedside Glucose 169 mg/dL (74-106)
[2022-03-28] MEDS: 0.9% Saline Lock 10 ML Syringe IV ×2 (18:13→18:48)
[2022-03-28] MEDS: Atorvastatin Calcium 40 MG Tablet PO (20:31)
[2022-03-28 21:20] LABS: Bedside Glucose 158 mg/dL (74-106)
[2022-03-29] MEDS: Nystatin Powder 15gm Bottle 1 APPLIC TOPICAL ×2 (05:28→17:35)
[2022-03-29] MEDS: Menthol/Lanolin/Calamine/Znox 113 GM Tube 1 APPLIC TOPICAL ×2 (05:29→17:35)
[2022-03-29] MEDS: Clopidogrel Bisulfate 75 MG Tablet PO (05:41)
[2022-03-29] MEDS: DULoxetine Hcl 60 MG Capsule PO (05:41)
[2022-03-29] MEDS: 0.9% Saline Lock 10 ML Syringe IV ×2 (05:41→17:30)
[2022-03-29] MEDS: Pregabalin 75 MG Capsule PO (05:41)
[2022-03-29] MEDS: Acetaminophen 500 MG Tablet 1000 MG PO ×3 (05:41→21:28)
[2022-03-29] MEDS: Cefazolin 1 GM/50 ML BAG IV ×2 (05:42→17:29)
[2022-03-29 05:45] VITALS: BP 153/71; PULSE 65
[2022-03-29 06:21] LABS: Bedside Glucose 135 mg/dL (74-106)
[2022-03-29] MEDS: Potassium Chloride Oral Tablet 10 MEQ PO (08:19)
[2022-03-29] MEDS: Hydroxychloroquine 200 MG Tablet PO (08:19)
[2022-03-29] MEDS: Carvedilol 12.5 MG Tablet PO ×2 (08:19→17:34)
[2022-03-29] MEDS: Aspirin 81 MG TAB.CHEW PO (08:19)
[2022-03-29] MEDS: buPROPion (XL) 150 MG TABLET.XL PO (08:20)
[2022-03-29 10:41] LABS: Bedside Glucose 323 mg/dL (74-106)
--- NOTE | 2022-03-29 11:28 | NURSING ---
Addendum entered by Nuvia Nguyen 03/29/22 13:36: ASKED DR CORRIGAN TO REVIEW BLOOD SUGARS. NOTIFIED HIM OF RECHECK AFTER LUNCH. N.O. FOR HUMALOG 5u TID. WILL UPDATE R'. Original Note: NOTIFIED DR CORRIGAN OF BLOOD SUGAR 323. N.O. HUMALOG 5U X1 AND RECHECK
[2022-03-29] MEDS: Insulin Lispro 100 UNIT/ML INSULN.PEN SC ×2 (11:48→17:30)
[2022-03-29 12:51] LABS: Bedside Glucose 238 mg/dL (74-106)
--- NOTE | 2022-03-29 13:02 | CASEMGMT ---
Social Work IDT met with patient and dtr for care plan meeting. Discussed patient's progress in PT/OT/ST and nursing. Explained [employer] insurance with NRD 04/04 and continued stay is not guaranteed with each review. The initial goal is for pt to return home with dtr. However, cognitive assessment and observation, pt has cognitive dysfunction, difficulty/reluctance in following directions for all therapists. Pt has some behaviors with participating with all disciplines. Referenced writing therapy times on whiteboard in pt room to prepare for therapy sessions. Explained IDT concerned with DC home with dtr as dtr does work and is only one person. Pt is dep x2 with most ADLs. Pt does have 10 steps to enter. IDT recommending SNF. Encouraged to have alternative DC plan if pt cannot get to x1 assist to return home. Explained financial liability. Pt cannot pay privately. Provided STEFFANIE application. Provided SNF list with in-network facilities, quality, and resource data. Pt expressed she does not want to be pushed'. Broached topic, if pt does not want to continue working with therapy, electing hospice to remain comfortable and providing additional staff support. This service can be at home or SNF. Dtr and pt agreeable to that option at DC. Pt wants to try and improve more functionally to DC home. IDT agreeable. Encouraged dtr to notify SW when STEFFANIE jamaal completed to submit and 3 SNF choices for SW to start referrals. Dtr expressed understanding. SW to continue to follow. Triny Guadarrama, AUGUSTINA HOOP ROLLS OPERATOR
[2022-03-29 15:51] LABS: Bedside Glucose 290 mg/dL (74-106)
[2022-03-29 16:00] VITALS: BP 129/76; PULSE 84; RESP 18; TEMP 36.2; O2SAT 97
[2022-03-29] MEDS: Insulin Glargine-YFGN 100 UNIT/ML Pen 20 UNIT SC (21:28)
[2022-03-29] MEDS: Atorvastatin Calcium 40 MG Tablet PO (21:29)
[2022-03-29 21:31] LABS: Bedside Glucose 219 mg/dL (74-106)
[2022-03-30] MEDS: Cefazolin 1 GM/50 ML BAG IV ×2 (05:32→18:08)
[2022-03-30] MEDS: 0.9% Saline Lock 10 ML Syringe IV ×2 (05:34→17:55)
[2022-03-30] MEDS: Acetaminophen 500 MG Tablet 1000 MG PO ×3 (06:23→22:09)
[2022-03-30] MEDS: Nystatin Powder 15gm Bottle 1 APPLIC TOPICAL ×2 (06:23→18:17)
[2022-03-30] MEDS: DULoxetine Hcl 60 MG Capsule PO (06:23)
[2022-03-30] MEDS: Pregabalin 75 MG Capsule PO (06:23)
[2022-03-30] MEDS: Clopidogrel Bisulfate 75 MG Tablet PO (06:23)
[2022-03-30] MEDS: Menthol/Lanolin/Calamine/Znox 113 GM Tube 1 APPLIC TOPICAL ×2 (06:23→18:09)
[2022-03-30 06:26] LABS: Bedside Glucose 127 mg/dL (74-106)
[2022-03-30 06:57] VITALS: BP 144/86
[2022-03-30] MEDS: Insulin Lispro 100 UNIT/ML INSULN.PEN 7 UNIT SC ×3 (08:58→18:16)
[2022-03-30] MEDS: Hydroxychloroquine 200 MG Tablet PO (08:59)
[2022-03-30] MEDS: Potassium Chloride Oral Tablet 10 MEQ PO (08:59)
[2022-03-30] MEDS: Carvedilol 12.5 MG Tablet PO ×2 (09:00→18:14)
[2022-03-30] MEDS: buPROPion (XL) 150 MG TABLET.XL PO (09:00)
[2022-03-30] MEDS: Aspirin 81 MG TAB.CHEW PO (09:00)
[2022-03-30 09:08] VITALS: PULSE 68; RESP 16; O2SAT 96
[2022-03-30 11:31] LABS: Bedside Glucose 187 mg/dL (74-106)
[2022-03-30 15:16] VITALS: BP 162/95; PULSE 68; RESP 18; TEMP 36.7; O2SAT 94
--- NOTE | 2022-03-30 16:21 | CASEMGMT ---
Social Work Dtr visiting pt in room. Asked if dtr had questions with completing STEFFANIE jamaal or choosing SNFs. Dtr stated she hasn't worked on it yet, but will soon. Offered assistance and encouraged to complete soon. AUGUSTINA RebollarW
[2022-03-30 16:30] LABS: Bedside Glucose 152 mg/dL (74-106)
[2022-03-30 21:40] LABS: Bedside Glucose 176 mg/dL (74-106)
[2022-03-30] MEDS: Insulin Glargine-YFGN 100 UNIT/ML Pen 20 UNIT SC (22:09)
[2022-03-30] MEDS: Atorvastatin Calcium 40 MG Tablet PO (22:09)
[2022-03-31 05:24] VITALS: BP 156/75; PULSE 72
[2022-03-31] MEDS: DULoxetine Hcl 60 MG Capsule PO (05:28)
[2022-03-31] MEDS: Acetaminophen 500 MG Tablet 1000 MG PO ×3 (05:28→21:48)
[2022-03-31] MEDS: Clopidogrel Bisulfate 75 MG Tablet PO (05:28)
[2022-03-31] MEDS: Menthol/Lanolin/Calamine/Znox 113 GM Tube 1 APPLIC TOPICAL ×2 (05:29→17:19)
[2022-03-31] MEDS: Nystatin Powder 15gm Bottle 1 APPLIC TOPICAL ×2 (05:30→17:19)
[2022-03-31] MEDS: Pregabalin 75 MG Capsule PO (05:32)
[2022-03-31] MEDS: Cefazolin 1 GM/50 ML BAG IV ×2 (05:37→17:18)
[2022-03-31 05:49] LABS: Absolute Lymphocyte Count 0.72 X10^3/uL (0.83-4.51); Absolute Neutrophil Count 6.5 X10^3/uL (2.0-7.7); Basophil# 0.03 X10^3/uL; Basophil% 0.4 % (0-1); Eosinophils% 1.3 % (0-5); Hematocrit 28.8 % (37-47); Lymphocyte # 0.72 X10^3/ul (0.83-4.51); Mean Corp Hgb Conc 31.3 g/dL (32-36); Mean Corpuscular Hgb 30.9 pg (27.0-32.0); Mean Platelet Vol. 9.7 fl (6.2-12.0); Monocyte% 7.5 % (0-10); NRBC Flagged by Analyzer 0 % (0-5); Neutrophil # 6.48 X10^3/uL (2.7-7.7); Neutrophil % 80.9 % (47-70); Platelet Count 268 K/mm3 (150-450); RBC Distribution Width CV 12.7 % (11.6-14.6); RBC Distribution Width SD 45.6 fl (35.1-43.9); Red Blood Count 2.91 M/mm3 (4.2-5.4)
[2022-03-31] MEDS: 0.9% Saline Lock 10 ML Syringe IV ×2 (06:13→17:15)
[2022-03-31 06:15] LABS: Anion Gap 8 (5-15); BUN 66 mg/dL (7-18); Calcium,Total 8.8 mg/dL (8.5-10.1); Chloride 103 mmol/L (98-107); Creatinine, Serum 2.06 mg/dL (0.55-1.02); EST Glomerular Filtration Rate 25 mL/min (>60); Est Glom Filt Rate - Afr Amer 30 mL/min (>60); Estimated Creatinine Clearance 23.67 ml/min; Glucose 97 mg/dL (74-106); Potassium 4.8 mmol/L (3.5-5.1); Sodium Level 135 mmol/L (136-145)
[2022-03-31 06:36] LABS: Bedside Glucose 97 mg/dL (74-106)
[2022-03-31] MEDS: Aspirin 81 MG TAB.CHEW PO (09:02)
[2022-03-31] MEDS: Carvedilol 12.5 MG Tablet PO ×2 (09:02→17:19)
[2022-03-31] MEDS: Potassium Chloride Oral Tablet 10 MEQ PO (09:02)
[2022-03-31] MEDS: buPROPion (XL) 150 MG TABLET.XL PO (09:03)
[2022-03-31] MEDS: Hydroxychloroquine 200 MG Tablet PO (09:03)
[2022-03-31 09:14] VITALS: BP 165/82; PULSE 80
[2022-03-31 11:36] LABS: Bedside Glucose 159 mg/dL (74-106)
[2022-03-31] MEDS: Insulin Lispro 100 UNIT/ML INSULN.PEN 7 UNIT SC ×2 (11:45→17:16)
[2022-03-31 16:00] VITALS: BP 152/65; PULSE 75; RESP 16; TEMP 36.7; O2SAT 96
[2022-03-31 16:16] LABS: Bedside Glucose 168 mg/dL (74-106)
--- NOTE | 2022-03-31 16:22 | CASEMGMT ---
Social Work Dtr in room visiting pt. Pt agreed for SW to complete BIMS and PHQ-9 while dtr present. Inquired to dtr about STEFFANIE jamaal and SNF choices. Dtr stated she tried to complete STEFFANIE jamaal with pt but pt not answering questions. advised for dtr to complete known information as she is authorized rep and provide estimates for finances so jamaal can be completed. Dtr stated I'm just scared she won't be able to come with me and I couldn't take care of her. SW agreed and reminded dtr that is why it is important to get STEFFANIE jamaal completed and SNF choices made because insurance only provides 3 day notice for DC and pt would need to admit private pay. Dtr expressed understanding. SW to continue to follow. Triny Guadarrama, TEMPERER WAITER/WAITRESS [place]
--- NOTE | 2022-03-31 17:53 | NURSING ---
R' NOTIFIED OF STAFF MEMBER TESTING POSITIVE FOR COVID. LEFT VM FOR DAUGHTER TO CALL BACK TO UPDATE HER OF R' AND STAFF MEMBER TESTING POSITIVE.
--- NOTE | 2022-03-31 18:06 | NURSING ---
Pt and family updated on positive covid staff and resident.
[2022-03-31 21:36] LABS: Bedside Glucose 172 mg/dL (74-106)
[2022-03-31] MEDS: Atorvastatin Calcium 40 MG Tablet PO (21:49)
[2022-03-31] MEDS: Insulin Glargine-YFGN 100 UNIT/ML Pen 20 UNIT SC (21:53)
[2022-04-01 05:18] VITALS: BP 160/78; PULSE 71
[2022-04-01] MEDS: Cefazolin 1 GM/50 ML BAG IV ×2 (05:19→18:23)
[2022-04-01] MEDS: Pregabalin 75 MG Capsule PO (05:26)
[2022-04-01] MEDS: Clopidogrel Bisulfate 75 MG Tablet PO (05:26)
[2022-04-01] MEDS: DULoxetine Hcl 60 MG Capsule PO (05:26)
[2022-04-01] MEDS: Acetaminophen 500 MG Tablet 1000 MG PO ×3 (05:27→21:30)
[2022-04-01] MEDS: Menthol/Lanolin/Calamine/Znox 113 GM Tube 1 APPLIC TOPICAL ×2 (05:27→18:22)
[2022-04-01] MEDS: Nystatin Powder 15gm Bottle 1 APPLIC TOPICAL ×2 (05:27→18:22)
[2022-04-01 06:31] LABS: Bedside Glucose 72 mg/dL (74-106)
[2022-04-01] MEDS: Aspirin 81 MG TAB.CHEW PO (08:26)
[2022-04-01] MEDS: Potassium Chloride Oral Tablet 10 MEQ PO (08:26)
[2022-04-01] MEDS: Carvedilol 12.5 MG Tablet PO ×2 (08:26→18:22)
[2022-04-01] MEDS: Hydroxychloroquine 200 MG Tablet PO (08:36)
[2022-04-01] MEDS: buPROPion (XL) 150 MG TABLET.XL PO (09:39)
[2022-04-01 11:05] LABS: Bedside Glucose 128 mg/dL (74-106)
[2022-04-01 11:39] VITALS: PULSE 74; RESP 16; O2SAT 96
[2022-04-01] MEDS: Tuberculin,Purif.prot.deriv. 50 TU/ML Vial 0.1 ML ID (11:57)
[2022-04-01 15:25] VITALS: BP 134/68; PULSE 74; RESP 14; TEMP 36.8; O2SAT 96
[2022-04-01 16:06] LABS: Bedside Glucose 137 mg/dL (74-106)
[2022-04-01] MEDS: Insulin Lispro 100 UNIT/ML INSULN.PEN 7 UNIT SC (18:25)
[2022-04-01] MEDS: 0.9% Saline Lock 10 ML Syringe IV (18:28)
[2022-04-01] MEDS: Insulin Glargine-YFGN 100 UNIT/ML Pen 20 UNIT SC (21:28)
[2022-04-01] MEDS: Atorvastatin Calcium 40 MG Tablet PO (21:29)
[2022-04-01 21:40] LABS: Bedside Glucose 113 mg/dL (74-106)
[2022-04-02] MEDS: Clopidogrel Bisulfate 75 MG Tablet PO (05:00)
[2022-04-02] MEDS: Nystatin Powder 15gm Bottle 1 APPLIC TOPICAL ×2 (05:00→16:48)
[2022-04-02] MEDS: Acetaminophen 500 MG Tablet 1000 MG PO ×3 (05:00→20:31)
[2022-04-02] MEDS: Pregabalin 75 MG Capsule PO (05:00)
[2022-04-02] MEDS: DULoxetine Hcl 60 MG Capsule PO (05:00)
[2022-04-02] MEDS: 0.9% Saline Lock 10 ML Syringe IV ×2 (05:01→16:48)
[2022-04-02] MEDS: Menthol/Lanolin/Calamine/Znox 113 GM Tube 1 APPLIC TOPICAL ×2 (05:01→16:47)
[2022-04-02] MEDS: Cefazolin 1 GM/50 ML BAG IV ×2 (05:08→16:46)
--- NOTE | 2022-04-02 06:34 | NURSING ---
Addendum entered by Clau Temple 04/02/22 07:05: Lab back up blood sugar is 83, pt sitting up in bed, coke and vanilla pudding given. Addendum entered by Clau Temple 04/02/22 06:49: service desk technician unable to draw blood, attempted x2. Verified with Aquarist, CRYSTAL Haley to draw from PICC. Blood drawn from PICC using sterile technique. Pt remains sitting up in bed drinking orange juice. Addendum entered by Clau Temple 04/02/22 06:35: Lab here to draw back up lab draw for blood sugar 34. Original Note: Per [place]<rn was reported by [facility] blood sugar of 34. Pt alert and oriented, skin warm and dry, denies symptoms. Lab called for back up draw, juice and peanut butter given by CRYSTAL Huddleston.
[2022-04-02 07:04] LABS: Glucose 83 mg/dL (74-106)
[2022-04-02 07:10] LABS: Bedside Glucose 48 mg/dL (74-106)
[2022-04-02] MEDS: Potassium Chloride Oral Tablet 10 MEQ PO (08:07)
[2022-04-02] MEDS: Aspirin 81 MG TAB.CHEW PO (08:07)
[2022-04-02] MEDS: Hydroxychloroquine 200 MG Tablet PO (08:08)
[2022-04-02] MEDS: buPROPion (XL) 150 MG TABLET.XL PO (08:08)
[2022-04-02] MEDS: Carvedilol 12.5 MG Tablet PO ×2 (08:08→16:46)
[2022-04-02 08:11] VITALS: BP 150/78; PULSE 77
[2022-04-02 11:31] LABS: Bedside Glucose 123 mg/dL (74-106)
--- NOTE | 2022-04-02 12:06 | NURSING ---
dr lino notified of pt low blood sugar this AM and noon check. new order to DC humalog and decrease glargine to 10 units at HS.
[2022-04-02 14:32] VITALS: BP 129/79; PULSE 75; RESP 16; TEMP 36.4; O2SAT 97
[2022-04-02 16:06] LABS: Bedside Glucose 84 mg/dL (74-106)
[2022-04-02] MEDS: Atorvastatin Calcium 40 MG Tablet PO (20:32)
--- NOTE | 2022-04-02 21:19 | NURSING ---
contacted via telephone regarding c/o sore mouth, pain with oral care, poor dentition, reviewed allergies, new order received for magic mouthwash 15mL Q4H PRN
[2022-04-02 21:35] LABS: Bedside Glucose 54 mg/dL (74-106)
--- NOTE | 2022-04-02 22:00 | NURSING ---
HS blood sugar 54. Given 8 oz of orange juice. Declined multiple snack choices offered. Given oatmeal w/ brown sugar. SHEET METAL CONTRACTOR stayed to supervise feeding and reports pt took approximately 10 bites of oatmeal. Will continue to monitor.
[2022-04-02 22:06] LABS: Bedside Glucose 106 mg/dL (74-106)
[2022-04-02 23:20] LABS: Bedside Glucose 82 mg/dL (74-106)
[2022-04-03 00:41] LABS: Bedside Glucose 113 mg/dL (74-106)
[2022-04-03 03:16] LABS: Bedside Glucose 57 mg/dL (74-106)
[2022-04-03] MEDS: Dextrose 10%-Water 250 ML 999 ML IV (03:20)
[2022-04-03] MEDS: 0.9% Saline Lock 10 ML Syringe IV ×4 (03:26→17:22)
[2022-04-03 04:51] LABS: Bedside Glucose 89 mg/dL (74-106)
--- NOTE | 2022-04-03 04:58 | NURSING ---
Blood sugar has been checked multiple times throughout the shift. Refer to lab results. Additional snack given, vanilla pudding, after blood sugar dropped after consuming orange juice and oatmeal. Dextrose 10% 125 ml administered after reading at 0300 was 57. Recheck at 0430 was 89. Pt consumed a can of coke. Alert and engages in conversation. Will continue to monitor.
[2022-04-03 05:04] VITALS: BP 140/75; PULSE 76
[2022-04-03] MEDS: Clopidogrel Bisulfate 75 MG Tablet PO (05:08)
[2022-04-03] MEDS: Acetaminophen 500 MG Tablet 1000 MG PO ×3 (05:08→20:32)
[2022-04-03] MEDS: Menthol/Lanolin/Calamine/Znox 113 GM Tube 1 APPLIC TOPICAL ×2 (05:08→16:23)
[2022-04-03] MEDS: Pregabalin 75 MG Capsule PO (05:08)
[2022-04-03] MEDS: DULoxetine Hcl 60 MG Capsule PO (05:09)
[2022-04-03] MEDS: Nystatin Powder 15gm Bottle 1 APPLIC TOPICAL ×2 (05:09→17:21)
[2022-04-03] MEDS: Cefazolin 1 GM/50 ML BAG IV ×2 (06:24→17:22)
[2022-04-03 06:35] LABS: Bedside Glucose 92 mg/dL (74-106)
[2022-04-03 07:21] LABS: Bedside Glucose 34 mg/dL (74-106)
[2022-04-03 07:21] LABS: Bedside Glucose 42 mg/dL (74-106)
[2022-04-03] MEDS: Aspirin 81 MG TAB.CHEW PO (08:02)
[2022-04-03] MEDS: Potassium Chloride Oral Tablet 10 MEQ PO (08:03)
[2022-04-03] MEDS: Carvedilol 12.5 MG Tablet PO ×2 (08:03→16:22)
[2022-04-03] MEDS: Hydroxychloroquine 200 MG Tablet PO (08:03)
[2022-04-03] MEDS: buPROPion (XL) 150 MG TABLET.XL PO (09:17)
[2022-04-03 11:05] LABS: Bedside Glucose 72 mg/dL (74-106)
[2022-04-03 15:28] VITALS: BP 124/84; PULSE 73; RESP 16; TEMP 36.7; O2SAT 95
--- NOTE | 2022-04-03 16:12 | CHAPLAIN ---
Type of Pastoral Visit _x__ Initial Visit ___ Follow-up Visit ___ On-call Visit ___ General Patient Visit ___ Spiritual Assessment ___ Family Conference ___ Bereavement ___ Rapid Response ___ Code Blue ___ Other (describe below) Pastoral Care Referral From _x__ Patient ___ Family ___ Nurse ___ Physician ___ Facilities Operations Technician ___ Payroll Lead ___ Other (describe below) Sacrament/Intervention _x__ Active listening ___ Anointing ___ Gnosticist ___ Bereavement ___ Communion ___ Kenzie exploration ___ ___ Life review _x__ Prayer ___ Reconciliation ___ Sacrament of Sick ___ Supportive presence ___ Wedding ___ Other (describe below) Pastoral Comments met patient in PCU last week; pt is [place] but does respond to questions; pt states that she is waiting for an insurance answer for going home; pt welcomes a prayer;
[2022-04-03 16:26] LABS: Bedside Glucose 71 mg/dL (74-106)
[2022-04-03 20:20] VITALS: PULSE 73; RESP 16; O2SAT 95
[2022-04-03] MEDS: Atorvastatin Calcium 40 MG Tablet PO (20:32)
[2022-04-03 21:21] LABS: Bedside Glucose 81 mg/dL (74-106)
[2022-04-04] MEDS: Menthol/Lanolin/Calamine/Znox 113 GM Tube 1 APPLIC TOPICAL ×2 (06:24→17:55)
[2022-04-04] MEDS: Cefazolin 1 GM/50 ML BAG IV ×2 (06:24→18:15)
[2022-04-04] MEDS: Nystatin Powder 15gm Bottle 1 APPLIC TOPICAL ×2 (06:25→17:57)
[2022-04-04] MEDS: Acetaminophen 500 MG Tablet 1000 MG PO ×3 (06:25→20:59)
[2022-04-04] MEDS: Clopidogrel Bisulfate 75 MG Tablet PO (06:25)
[2022-04-04] MEDS: Pregabalin 75 MG Capsule PO (06:25)
[2022-04-04] MEDS: DULoxetine Hcl 60 MG Capsule PO (06:25)
[2022-04-04 06:26] LABS: Bedside Glucose 61 mg/dL (74-106)
[2022-04-04 06:46] LABS: Bedside Glucose 75 mg/dL (74-106)
[2022-04-04] MEDS: Aspirin 81 MG TAB.CHEW PO (08:31)
[2022-04-04] MEDS: Carvedilol 12.5 MG Tablet PO ×2 (08:32→17:55)
[2022-04-04] MEDS: Hydroxychloroquine 200 MG Tablet PO (08:32)
[2022-04-04] MEDS: Potassium Chloride Oral Tablet 10 MEQ PO (08:32)
[2022-04-04] MEDS: buPROPion (XL) 150 MG TABLET.XL PO (10:27)
[2022-04-04 11:21] LABS: Bedside Glucose 103 mg/dL (74-106)
[2022-04-04 14:24] VITALS: BP 110/80; PULSE 76; RESP 14; TEMP 36.6; O2SAT 97
[2022-04-04 15:50] LABS: Bedside Glucose 85 mg/dL (74-106)
--- NOTE | 2022-04-04 16:26 | CASEMGMT ---
Addendum entered by Triny Guadarrama 04/11/22 08:33: Sherly Montanez [facility] provided MCDP# [id number]. Addendum entered by Triny Guadarrama 04/07/22 15:05: Carlene Anglin is not in-network. [facility] and [facility] can accept. Email sent to [facility] to inquire about MCDP#. Original Note: Social Work Received completed STEFFANIE application and SNF choices from dtr. Faxed STEFFANIE jamaal to [facility]. Dtr requesting referrals to [facility] and [facility]. Referrals made. Update dtr insurance NRD 04/14. SW to continue to follow. AUGUSTINA RebollarW
[2022-04-04 17:30] LABS: Bedside Glucose 61 mg/dL (74-106)
[2022-04-04 18:20] LABS: Bedside Glucose 124 mg/dL (74-106)
[2022-04-04] MEDS: NYSTATIN 500,000 UNIT/5 ML UDC 500000 UNIT PO (20:59)
[2022-04-04] MEDS: Atorvastatin Calcium 40 MG Tablet PO (20:59)
[2022-04-04 21:51] LABS: Bedside Glucose 108 mg/dL (74-106)
[2022-04-05] MEDS: Cefazolin 1 GM/50 ML BAG IV (05:03)
[2022-04-05] MEDS: Pregabalin 75 MG Capsule PO (05:03)
[2022-04-05] MEDS: 0.9% Saline Lock 10 ML Syringe IV ×2 (05:03→18:07)
[2022-04-05] MEDS: Menthol/Lanolin/Calamine/Znox 113 GM Tube 1 APPLIC TOPICAL ×2 (05:08→12:30)
[2022-04-05] MEDS: NYSTATIN 500,000 UNIT/5 ML UDC 500000 UNIT PO ×3 (05:09→17:50)
[2022-04-05] MEDS: Acetaminophen 500 MG Tablet 1000 MG PO ×3 (05:09→21:44)
[2022-04-05] MEDS: DULoxetine Hcl 60 MG Capsule PO (05:09)
[2022-04-05] MEDS: Nystatin Powder 15gm Bottle 1 APPLIC TOPICAL ×2 (05:09→12:30)
[2022-04-05] MEDS: Clopidogrel Bisulfate 75 MG Tablet PO (05:09)
[2022-04-05 06:30] LABS: Bedside Glucose 78 mg/dL (74-106)
--- NOTE | 2022-04-05 06:44 | NURSING ---
When moving this morning, pt c/o pain, crying out that it hurts in her back and low abd. Lower abd appears slight distended, pt has been icontinent throughout the night. Bladder scan shows 730ml. notified, order to straight cath and send UA/CX.
[2022-04-05 07:17] LABS: Mucous, Urine 0 SEEN /hpf (<or=2+); Squamous Epithelial Cells - UA 0 SEEN /hpf (5-10)
[2022-04-05 07:19] LABS: Color, Urine Yellow (Yellow); Glucose, Dipstick Normal (Normal); Ketone-Dipstick Negative (Negative); Leukocyte Esterase-Dipstick 500 /ul (Negative); Nitrite-Dipstick Negative (Negative); Occult Blood-Urine 150 /ul (Negative); Protein-Dipstick 30 mg/dl (Negative); Urine Bilirubin Dipstick Negative (Negative); Urine Clarity Sl. Cloudy (Clear); Urine Urobilinogen Normal (Normal)
[2022-04-05 07:27] LABS: Red Blood Cells-Urine 0-5 SEEN /hpf (0-5)
[2022-04-05 07:28] LABS: Bacteria 2+ /hpf (None Seen); White Blood Cells >100 SEEN /hpf (0-5)
[2022-04-05] MEDS: Carvedilol 12.5 MG Tablet PO ×2 (07:57→17:50)
[2022-04-05] MEDS: Aspirin 81 MG TAB.CHEW PO (07:57)
[2022-04-05] MEDS: buPROPion (XL) 150 MG TABLET.XL PO (07:58)
[2022-04-05] MEDS: Potassium Chloride Oral Tablet 10 MEQ PO (07:58)
[2022-04-05] MEDS: Hydroxychloroquine 200 MG Tablet PO (07:58)
[2022-04-05 10:56] LABS: Bedside Glucose 158 mg/dL (74-106)
--- NOTE | 2022-04-05 12:23 | NURSING ---
Family member at beside and assisting resident with lunch. She was made aware that TCU staff member tested positive for Covid.
--- NOTE | 2022-04-05 13:30 | MDS.RN ---
Information for the mds was obtained from review of the clinical record, interview of resident, staff, and direct observation of resident's care.
[2022-04-05 15:24] VITALS: BP 156/73; PULSE 72; RESP 18; TEMP 36; O2SAT 99
[2022-04-05 16:16] LABS: Bedside Glucose 146 mg/dL (74-106)
[2022-04-05] MEDS: traMADol 50 MG Tablet PO (18:10)
--- NOTE | 2022-04-05 18:13 | NURSING ---
Order given to Straight cath for bladder scan >400. Straight cathed for 500ml at this time.
[2022-04-05] MEDS: Atorvastatin Calcium 40 MG Tablet PO (21:45)
[2022-04-05 21:46] LABS: Bedside Glucose 123 mg/dL (74-106)
--- NOTE | 2022-04-06 02:50 | NURSING ---
Patient recently up to [facility], back to bed and had small incontinent episode, bladder scan 417cc after voiding. Straight cath done, 450cc drained.
[2022-04-06] MEDS: Pregabalin 75 MG Capsule PO (05:02)
[2022-04-06] MEDS: DULoxetine Hcl 60 MG Capsule PO (05:02)
[2022-04-06] MEDS: Acetaminophen 500 MG Tablet 1000 MG PO ×3 (05:02→21:02)
[2022-04-06] MEDS: Clopidogrel Bisulfate 75 MG Tablet PO (05:02)
[2022-04-06] MEDS: Nystatin Powder 15gm Bottle 1 APPLIC TOPICAL ×2 (05:03→17:57)
[2022-04-06] MEDS: NYSTATIN 500,000 UNIT/5 ML UDC 500000 UNIT PO ×2 (05:03→21:02)
[2022-04-06] MEDS: Menthol/Lanolin/Calamine/Znox 113 GM Tube 1 APPLIC TOPICAL ×2 (05:03→17:59)
[2022-04-06] MEDS: 0.9% Saline Lock 10 ML Syringe IV ×2 (05:40→14:03)
[2022-04-06 06:30] LABS: Bedside Glucose 72 mg/dL (74-106)
[2022-04-06] MEDS: Carvedilol 12.5 MG Tablet PO ×2 (08:52→17:58)
[2022-04-06] MEDS: Potassium Chloride Oral Tablet 10 MEQ PO (08:52)
[2022-04-06] MEDS: Hydroxychloroquine 200 MG Tablet PO (08:52)
[2022-04-06] MEDS: buPROPion (XL) 150 MG TABLET.XL PO (08:52)
[2022-04-06] MEDS: Aspirin 81 MG TAB.CHEW PO (08:52)
[2022-04-06 11:06] LABS: Bedside Glucose 90 mg/dL (74-106)
[2022-04-06 15:22] VITALS: BP 131/71; PULSE 73; RESP 16; TEMP 36.7; O2SAT 98
[2022-04-06 16:30] LABS: Bedside Glucose 96 mg/dL (74-106)
--- NOTE | 2022-04-06 19:12 | NURSING ---
Addendum entered by Gwen Cornejo 04/06/22 19:13: lotrimin cream started Original Note: dr lino updated on pt urinary retention, pt periarea swollen, tender with yeasty odor. new order to reinsert robison.
[2022-04-06] MEDS: Clotrimazole 1 APPLIC Tube TOPICAL (21:01)
[2022-04-06] MEDS: Atorvastatin Calcium 40 MG Tablet PO (21:02)
[2022-04-06 21:13] VITALS: PULSE 68; RESP 16; O2SAT 97
[2022-04-06 21:26] LABS: Bedside Glucose 150 mg/dL (74-106)
[2022-04-07 05:49] LABS: Absolute Lymphocyte Count 0.93 X10^3/uL (0.83-4.51); Absolute Neutrophil Count 4.4 X10^3/uL (2.0-7.7); Basophil# 0.05 X10^3/uL; Basophil% 0.8 % (0-1); Eosinophil# 0.12 X10^3/uL; Hematocrit 26.3 % (37-47); Hemoglobin 7.9 g/dL (12.0-15.0); Lymphocyte # 0.93 X10^3/ul (0.83-4.51); Lymphocyte % 15.3 % (19-41); Mean Platelet Vol. 9.2 fl (6.2-12.0); Monocyte# 0.55 X10^3/uL; Monocyte% 9.1 % (0-10); NRBC Flagged by Analyzer 0 % (0-5); Neutrophil # 4.36 X10^3/uL (2.7-7.7); Platelet Count 203 K/mm3 (150-450); RBC Distribution Width CV 12.5 % (11.6-14.6); RBC Distribution Width SD 45.3 fl (35.1-43.9); Red Blood Count 2.63 M/mm3 (4.2-5.4); White Blood Count 6.1 K/mm3 (4.4-11.0)
[2022-04-07 06:07] LABS: Anion Gap 6 (5-15); BUN 36 mg/dL (7-18); BUN/Creat Ratio 20.9 RATIO (10-20); Calcium,Total 8.7 mg/dL (8.5-10.1); Chloride 111 mmol/L (98-107); Creatinine, Serum 1.72 mg/dL (0.55-1.02); EST Glomerular Filtration Rate 31 mL/min (>60); Est Glom Filt Rate - Afr Amer 37 mL/min (>60); Estimated Creatinine Clearance 28.49 ml/min; Glucose 75 mg/dL (74-106); Sodium Level 140 mmol/L (136-145)
[2022-04-07 06:35] LABS: Bedside Glucose 76 mg/dL (74-106)
[2022-04-07] MEDS: Pregabalin 75 MG Capsule PO (06:35)
[2022-04-07] MEDS: Acetaminophen 500 MG Tablet 1000 MG PO ×3 (06:36→20:45)
[2022-04-07] MEDS: Clopidogrel Bisulfate 75 MG Tablet PO (06:36)
[2022-04-07] MEDS: DULoxetine Hcl 60 MG Capsule PO (06:36)
[2022-04-07] MEDS: Nystatin Powder 15gm Bottle 1 APPLIC TOPICAL ×2 (06:38→17:35)
[2022-04-07] MEDS: Menthol/Lanolin/Calamine/Znox 113 GM Tube 1 APPLIC TOPICAL ×2 (06:38→17:34)
[2022-04-07] MEDS: Clotrimazole 1 APPLIC Tube TOPICAL ×2 (06:39→17:35)
[2022-04-07] MEDS: NYSTATIN 500,000 UNIT/5 ML UDC 500000 UNIT PO ×4 (06:40→20:47)
[2022-04-07] MEDS: Aspirin 81 MG TAB.CHEW PO (08:59)
[2022-04-07] MEDS: Hydroxychloroquine 200 MG Tablet PO (08:59)
[2022-04-07] MEDS: Potassium Chloride Oral Tablet 10 MEQ PO (08:59)
[2022-04-07] MEDS: Carvedilol 12.5 MG Tablet PO ×2 (08:59→17:34)
[2022-04-07] MEDS: buPROPion (XL) 150 MG TABLET.XL PO (08:59)
[2022-04-07 10:16] LABS: Bedside Glucose 142 mg/dL (74-106)
[2022-04-07 15:14] VITALS: BP 154/74; PULSE 76; RESP 16; TEMP 36.8; O2SAT 95
[2022-04-07 15:31] VITALS: PULSE 76; RESP 16; O2SAT 95
[2022-04-07 16:27] LABS: Bedside Glucose 154 mg/dL (74-106)
[2022-04-07] MEDS: Atorvastatin Calcium 40 MG Tablet PO (20:46)
[2022-04-07 21:46] LABS: Bedside Glucose 127 mg/dL (74-106)
[2022-04-08] MEDS: 0.9% Saline Lock 10 ML Syringe IV ×2 (05:34→06:25)
[2022-04-08] MEDS: Pregabalin 75 MG Capsule PO (05:36)
[2022-04-08] MEDS: Acetaminophen 500 MG Tablet 1000 MG PO ×3 (05:37→20:42)
[2022-04-08] MEDS: Clopidogrel Bisulfate 75 MG Tablet PO (05:37)
[2022-04-08] MEDS: DULoxetine Hcl 60 MG Capsule PO (05:37)
[2022-04-08] MEDS: NYSTATIN 500,000 UNIT/5 ML UDC 500000 UNIT PO ×4 (05:38→20:41)
[2022-04-08] MEDS: Clotrimazole 1 APPLIC Tube TOPICAL ×2 (05:44→17:00)
[2022-04-08] MEDS: Menthol/Lanolin/Calamine/Znox 113 GM Tube 1 APPLIC TOPICAL ×2 (05:44→16:54)
[2022-04-08] MEDS: Nystatin Powder 15gm Bottle 1 APPLIC TOPICAL ×2 (05:47→16:54)
[2022-04-08 06:21] LABS: Bedside Glucose 95 mg/dL (74-106)
[2022-04-08] MEDS: Hydroxychloroquine 200 MG Tablet PO (08:24)
[2022-04-08] MEDS: Potassium Chloride Oral Tablet 10 MEQ PO (08:24)
[2022-04-08] MEDS: Aspirin 81 MG TAB.CHEW PO (08:25)
[2022-04-08] MEDS: Carvedilol 12.5 MG Tablet PO ×2 (08:25→17:00)
[2022-04-08] MEDS: buPROPion (XL) 150 MG TABLET.XL PO (08:25)
[2022-04-08 11:31] LABS: Bedside Glucose 124 mg/dL (74-106)
[2022-04-08 16:00] VITALS: BP 164/81; PULSE 74; RESP 18; TEMP 36.7; O2SAT 98
[2022-04-08 16:31] LABS: Bedside Glucose 149 mg/dL (74-106)
[2022-04-08] MEDS: Atorvastatin Calcium 40 MG Tablet PO (20:41)
[2022-04-08 20:50] VITALS: PULSE 77; RESP 16; O2SAT 99
[2022-04-08 21:26] LABS: Bedside Glucose 137 mg/dL (74-106)
[2022-04-09] MEDS: Acetaminophen 500 MG Tablet 1000 MG PO ×3 (05:18→22:19)
[2022-04-09] MEDS: traMADol 50 MG Tablet PO (05:18)
[2022-04-09] MEDS: Pregabalin 75 MG Capsule PO (05:18)
[2022-04-09] MEDS: DULoxetine Hcl 60 MG Capsule PO (05:19)
[2022-04-09] MEDS: Clotrimazole 1 APPLIC Tube TOPICAL ×2 (05:22→18:12)
[2022-04-09] MEDS: NYSTATIN 500,000 UNIT/5 ML UDC 500000 UNIT PO ×4 (05:24→22:19)
[2022-04-09] MEDS: Clopidogrel Bisulfate 75 MG Tablet PO (05:25)
[2022-04-09] MEDS: Nystatin Powder 15gm Bottle 1 APPLIC TOPICAL ×2 (05:25→18:13)
[2022-04-09] MEDS: Menthol/Lanolin/Calamine/Znox 113 GM Tube 1 APPLIC TOPICAL ×2 (05:26→18:11)
[2022-04-09 06:41] LABS: Bedside Glucose 82 mg/dL (74-106)
[2022-04-09] MEDS: Carvedilol 12.5 MG Tablet PO ×2 (08:37→18:11)
[2022-04-09] MEDS: Aspirin 81 MG TAB.CHEW PO (08:37)
[2022-04-09] MEDS: Hydroxychloroquine 200 MG Tablet PO (08:38)
[2022-04-09] MEDS: Potassium Chloride Oral Tablet 10 MEQ PO (08:38)
[2022-04-09] MEDS: buPROPion (XL) 150 MG TABLET.XL PO (10:40)
[2022-04-09 11:26] LABS: Bedside Glucose 132 mg/dL (74-106)
[2022-04-09 16:00] VITALS: BP 111/61; PULSE 72; RESP 16; TEMP 36.8; O2SAT 95
[2022-04-09 17:41] LABS: Bedside Glucose 141 mg/dL (74-106)
[2022-04-09 21:51] LABS: Bedside Glucose 136 mg/dL (74-106)
[2022-04-09] MEDS: Atorvastatin Calcium 40 MG Tablet PO (22:19)
[2022-04-09 22:30] VITALS: RESP 16; O2SAT 98
[2022-04-10] MEDS: DULoxetine Hcl 60 MG Capsule PO (05:24)
[2022-04-10] MEDS: Acetaminophen 500 MG Tablet 1000 MG PO ×3 (05:24→21:18)
[2022-04-10] MEDS: Clopidogrel Bisulfate 75 MG Tablet PO (05:24)
[2022-04-10] MEDS: Pregabalin 75 MG Capsule PO (05:24)
[2022-04-10] MEDS: NYSTATIN 500,000 UNIT/5 ML UDC 500000 UNIT PO ×3 (05:25→16:48)
[2022-04-10] MEDS: Menthol/Lanolin/Calamine/Znox 113 GM Tube 1 APPLIC TOPICAL ×2 (05:25→16:52)
[2022-04-10] MEDS: Clotrimazole 1 APPLIC Tube TOPICAL ×2 (05:25→16:53)
[2022-04-10] MEDS: Nystatin Powder 15gm Bottle 1 APPLIC TOPICAL ×3 (05:27→21:18)
[2022-04-10] MEDS: traMADol 50 MG Tablet PO (05:35)
[2022-04-10 06:36] LABS: Bedside Glucose 109 mg/dL (74-106)
[2022-04-10] MEDS: Potassium Chloride Oral Tablet 10 MEQ PO (08:37)
[2022-04-10] MEDS: Hydroxychloroquine 200 MG Tablet PO (08:37)
[2022-04-10] MEDS: Aspirin 81 MG TAB.CHEW PO (08:37)
[2022-04-10] MEDS: Carvedilol 12.5 MG Tablet PO ×2 (08:37→16:48)
[2022-04-10] MEDS: buPROPion (XL) 150 MG TABLET.XL PO (08:37)
[2022-04-10 09:57] VITALS: PULSE 68; RESP 20; TEMP 36.3; O2SAT 99
[2022-04-10 10:45] LABS: Bedside Glucose 143 mg/dL (74-106)
[2022-04-10 11:57] VITALS: BP 135/88
[2022-04-10 15:28] VITALS: RESP 20
[2022-04-10 16:31] LABS: Bedside Glucose 151 mg/dL (74-106)
[2022-04-10] MEDS: Atorvastatin Calcium 40 MG Tablet PO (21:19)
[2022-04-10 21:26] LABS: Bedside Glucose 146 mg/dL (74-106)
[2022-04-11] MEDS: Menthol/Lanolin/Calamine/Znox 113 GM Tube 1 APPLIC TOPICAL ×2 (06:14→18:25)
[2022-04-11] MEDS: Acetaminophen 500 MG Tablet 1000 MG PO ×3 (06:14→20:48)
[2022-04-11] MEDS: NYSTATIN 500,000 UNIT/5 ML UDC 500000 UNIT PO ×4 (06:14→20:48)
[2022-04-11] MEDS: Pregabalin 75 MG Capsule PO (06:14)
[2022-04-11] MEDS: DULoxetine Hcl 60 MG Capsule PO (06:15)
[2022-04-11] MEDS: Clopidogrel Bisulfate 75 MG Tablet PO (06:15)
[2022-04-11 06:16] LABS: Bedside Glucose 87 mg/dL (74-106)
[2022-04-11] MEDS: 0.9% Saline Lock 10 ML Syringe IV ×2 (06:21→17:51)
[2022-04-11] MEDS: traMADol 50 MG Tablet PO ×2 (08:19→18:52)
[2022-04-11] MEDS: Clotrimazole 1 APPLIC Tube TOPICAL ×2 (08:21→18:24)
[2022-04-11] MEDS: Carvedilol 12.5 MG Tablet PO ×2 (08:22→18:24)
[2022-04-11] MEDS: Hydroxychloroquine 200 MG Tablet PO (08:22)
[2022-04-11] MEDS: Potassium Chloride Oral Tablet 10 MEQ PO (08:22)
[2022-04-11] MEDS: Aspirin 81 MG TAB.CHEW PO (08:22)
[2022-04-11] MEDS: buPROPion (XL) 150 MG TABLET.XL PO (09:15)
[2022-04-11 11:16] LABS: Bedside Glucose 154 mg/dL (74-106)
[2022-04-11 14:22] VITALS: PULSE 73; RESP 18; O2SAT 98
[2022-04-11 15:13] VITALS: BP 143/64; PULSE 73; RESP 16; TEMP 36.6; O2SAT 98
[2022-04-11 17:05] LABS: Bedside Glucose 135 mg/dL (74-106)
[2022-04-11] MEDS: Nystatin Powder 15gm Bottle 1 APPLIC TOPICAL (18:25)
[2022-04-11] MEDS: Atorvastatin Calcium 40 MG Tablet PO (20:49)
[2022-04-11 21:31] LABS: Bedside Glucose 149 mg/dL (74-106)
[2022-04-12] MEDS: traMADol 50 MG Tablet PO ×2 (01:00→20:42)
[2022-04-12] MEDS: 0.9% Saline Lock 10 ML Syringe IV ×2 (05:42→20:58)
[2022-04-12] MEDS: Menthol/Lanolin/Calamine/Znox 113 GM Tube 1 APPLIC TOPICAL ×2 (05:46→17:16)
[2022-04-12] MEDS: Nystatin Powder 15gm Bottle 1 APPLIC TOPICAL ×2 (05:46→17:16)
[2022-04-12] MEDS: Clotrimazole 1 APPLIC Tube TOPICAL ×2 (05:47→17:16)
[2022-04-12] MEDS: NYSTATIN 500,000 UNIT/5 ML UDC 500000 UNIT PO ×4 (05:49→20:40)
[2022-04-12] MEDS: Clopidogrel Bisulfate 75 MG Tablet PO (05:49)
[2022-04-12] MEDS: DULoxetine Hcl 60 MG Capsule PO (05:49)
[2022-04-12] MEDS: Acetaminophen 500 MG Tablet 1000 MG PO ×2 (05:49→20:40)
[2022-04-12] MEDS: Pregabalin 75 MG Capsule PO (05:51)
[2022-04-12 06:16] LABS: Bedside Glucose 101 mg/dL (74-106)
[2022-04-12] MEDS: buPROPion (XL) 150 MG TABLET.XL PO (08:44)
[2022-04-12] MEDS: Aspirin 81 MG TAB.CHEW PO (08:44)
[2022-04-12] MEDS: Hydroxychloroquine 200 MG Tablet PO (08:44)
[2022-04-12] MEDS: Potassium Chloride Oral Tablet 10 MEQ PO (08:45)
[2022-04-12] MEDS: Carvedilol 12.5 MG Tablet PO ×2 (08:45→17:18)
[2022-04-12 11:05] LABS: Bedside Glucose 154 mg/dL (74-106)
[2022-04-12 14:31] VITALS: BP 149/55; PULSE 72; RESP 14; TEMP 36.3; O2SAT 98
[2022-04-12 17:05] LABS: Bedside Glucose 153 mg/dL (74-106)
[2022-04-12] MEDS: Atorvastatin Calcium 40 MG Tablet PO (20:40)
[2022-04-13 01:01] LABS: Bedside Glucose 135 mg/dL (74-106)
[2022-04-13] MEDS: 0.9% Saline Lock 10 ML Syringe IV (05:49)
[2022-04-13] MEDS: DULoxetine Hcl 60 MG Capsule PO (05:59)
[2022-04-13] MEDS: Menthol/Lanolin/Calamine/Znox 113 GM Tube 1 APPLIC TOPICAL ×2 (06:00→17:44)
[2022-04-13] MEDS: Pregabalin 75 MG Capsule PO (06:01)
[2022-04-13] MEDS: Nystatin Powder 15gm Bottle 1 APPLIC TOPICAL ×2 (06:01→17:44)
[2022-04-13] MEDS: Clotrimazole 1 APPLIC Tube TOPICAL ×2 (06:01→17:44)
[2022-04-13] MEDS: NYSTATIN 500,000 UNIT/5 ML UDC 500000 UNIT PO ×3 (06:02→20:34)
[2022-04-13] MEDS: Clopidogrel Bisulfate 75 MG Tablet PO (06:02)
[2022-04-13] MEDS: Acetaminophen 500 MG Tablet 1000 MG PO ×2 (06:02→20:34)
[2022-04-13 06:31] LABS: Bedside Glucose 91 mg/dL (74-106)
[2022-04-13 09:27] VITALS: PULSE 72; RESP 16; O2SAT 96
[2022-04-13] MEDS: buPROPion (XL) 150 MG TABLET.XL PO (10:17)
[2022-04-13] MEDS: Potassium Chloride Oral Tablet 10 MEQ PO (10:17)
[2022-04-13] MEDS: Hydroxychloroquine 200 MG Tablet PO (10:17)
[2022-04-13] MEDS: Carvedilol 12.5 MG Tablet PO ×2 (10:17→17:45)
[2022-04-13] MEDS: Aspirin 81 MG TAB.CHEW PO (10:17)
[2022-04-13 10:40] LABS: Bedside Glucose 233 mg/dL (74-106)
[2022-04-13 13:53] VITALS: BP 102/48; PULSE 69; RESP 14; TEMP 36.8; O2SAT 96
[2022-04-13] MEDS: traMADol 50 MG Tablet PO ×2 (14:36→20:36)
--- NOTE | 2022-04-13 16:08 | NURSING ---
Notified patient and of staff member testing positive for COVID
[2022-04-13 16:45] LABS: Bedside Glucose 115 mg/dL (74-106)
[2022-04-13] MEDS: cycloBENZAPRine HCl 10 MG Tablet PO (18:10)
[2022-04-13] MEDS: Atorvastatin Calcium 40 MG Tablet PO (20:35)
[2022-04-13 21:21] LABS: Bedside Glucose 139 mg/dL (74-106)
[2022-04-14] MEDS: 0.9% Saline Lock 10 ML Syringe IV (05:24)
[2022-04-14] MEDS: Acetaminophen 500 MG Tablet 1000 MG PO ×3 (05:31→20:19)
[2022-04-14] MEDS: DULoxetine Hcl 60 MG Capsule PO (05:31)
[2022-04-14] MEDS: Clopidogrel Bisulfate 75 MG Tablet PO (05:31)
[2022-04-14] MEDS: Pregabalin 75 MG Capsule PO (05:31)
[2022-04-14] MEDS: Nystatin Powder 15gm Bottle 1 APPLIC TOPICAL ×2 (05:32→18:29)
[2022-04-14] MEDS: Menthol/Lanolin/Calamine/Znox 113 GM Tube 1 APPLIC TOPICAL ×2 (05:32→18:28)
[2022-04-14] MEDS: Clotrimazole 1 APPLIC Tube TOPICAL ×2 (05:32→18:28)
[2022-04-14] MEDS: NYSTATIN 500,000 UNIT/5 ML UDC 500000 UNIT PO ×4 (05:33→20:21)
[2022-04-14] MEDS: cycloBENZAPRine HCl 10 MG Tablet PO ×3 (05:35→20:20)
[2022-04-14 05:43] LABS: Basophil# 0.04 X10^3/uL; Basophil% 0.6 % (0-1); Eosinophil# 0.15 X10^3/uL; Eosinophils% 2.2 % (0-5); Hematocrit 23.9 % (37-47); Hemoglobin 7.3 g/dL (12.0-15.0); Lymphocyte % 13.1 % (19-41); Mean Corp Hgb Conc 30.5 g/dL (32-36); Mean Corpuscular Hgb 30.5 pg (27.0-32.0); Mean Platelet Vol. 9.1 fl (6.2-12.0); Monocyte# 0.72 X10^3/uL; Monocyte% 10.5 % (0-10); NRBC Flagged by Analyzer 0 % (0-5); Neutrophil # 4.95 X10^3/uL (2.7-7.7); Platelet Count 228 K/mm3 (150-450); RBC Distribution Width CV 12.8 % (11.6-14.6); RBC Distribution Width SD 46.7 fl (35.1-43.9); Red Blood Count 2.39 M/mm3 (4.2-5.4); White Blood Count 6.9 K/mm3 (4.4-11.0)
[2022-04-14 06:06] LABS: Anion Gap 8 (5-15); BUN 28 mg/dL (7-18); BUN/Creat Ratio 26.2 RATIO (10-20); Calcium,Total 8.4 mg/dL (8.5-10.1); Chloride 110 mmol/L (98-107); Creatinine, Serum 1.07 mg/dL (0.55-1.02); EST Glomerular Filtration Rate 53 mL/min (>60); Est Glom Filt Rate - Afr Amer 65 mL/min (>60); Estimated Creatinine Clearance 43.46 ml/min; Glucose 88 mg/dL (74-106); Potassium 4.2 mmol/L (3.5-5.1); Sodium Level 138 mmol/L (136-145)
[2022-04-14 06:21] LABS: Bedside Glucose 76 mg/dL (74-106)
[2022-04-14] MEDS: buPROPion (XL) 150 MG TABLET.XL PO (07:45)
[2022-04-14] MEDS: Carvedilol 12.5 MG Tablet PO ×2 (07:45→18:23)
[2022-04-14] MEDS: Aspirin 81 MG TAB.CHEW PO (07:45)
[2022-04-14] MEDS: Potassium Chloride Oral Tablet 10 MEQ PO (07:45)
[2022-04-14] MEDS: Hydroxychloroquine 200 MG Tablet PO (07:45)
[2022-04-14 10:46] LABS: Bedside Glucose 122 mg/dL (74-106)
[2022-04-14 16:00] VITALS: BP 138/71; PULSE 76; RESP 16; TEMP 37.2; O2SAT 98
[2022-04-14 16:21] LABS: Bedside Glucose 197 mg/dL (74-106)
[2022-04-14] MEDS: Atorvastatin Calcium 40 MG Tablet PO (20:20)
[2022-04-14 21:35] LABS: Bedside Glucose 138 mg/dL (74-106)
[2022-04-15] MEDS: Menthol/Lanolin/Calamine/Znox 113 GM Tube 1 APPLIC TOPICAL ×2 (05:13→19:41)
[2022-04-15] MEDS: Nystatin Powder 15gm Bottle 1 APPLIC TOPICAL ×2 (05:13→19:42)
[2022-04-15] MEDS: Pregabalin 75 MG Capsule PO (05:14)
[2022-04-15] MEDS: Acetaminophen 500 MG Tablet 1000 MG PO ×2 (05:14→19:40)
[2022-04-15] MEDS: Clopidogrel Bisulfate 75 MG Tablet PO (05:14)
[2022-04-15] MEDS: Clotrimazole 1 APPLIC Tube TOPICAL ×2 (05:15→19:42)
[2022-04-15] MEDS: cycloBENZAPRine HCl 10 MG Tablet PO ×2 (05:15→19:43)
[2022-04-15] MEDS: DULoxetine Hcl 60 MG Capsule PO (05:15)
[2022-04-15 06:25] LABS: Bedside Glucose 98 mg/dL (74-106)
[2022-04-15] MEDS: Carvedilol 12.5 MG Tablet PO ×2 (09:05→19:40)
[2022-04-15] MEDS: buPROPion (XL) 150 MG TABLET.XL PO (09:05)
[2022-04-15] MEDS: Aspirin 81 MG TAB.CHEW PO (09:05)
[2022-04-15] MEDS: Potassium Chloride Oral Tablet 10 MEQ PO (09:05)
[2022-04-15] MEDS: Hydroxychloroquine 200 MG Tablet PO (09:05)
[2022-04-15 09:17] VITALS: PULSE 73; RESP 16; O2SAT 95
[2022-04-15] MEDS: traMADol 50 MG Tablet PO (09:45)
[2022-04-15 16:54] VITALS: BP 132/70; PULSE 73; RESP 14; TEMP 36.7; O2SAT 95
[2022-04-15] MEDS: Atorvastatin Calcium 40 MG Tablet PO (19:43)
[2022-04-15 21:41] LABS: Bedside Glucose 121 mg/dL (74-106)
[2022-04-16] MEDS: traMADol 50 MG Tablet PO ×3 (00:19→16:23)
[2022-04-16] MEDS: Menthol/Lanolin/Calamine/Znox 113 GM Tube 1 APPLIC TOPICAL ×2 (05:32→17:34)
[2022-04-16] MEDS: Pregabalin 75 MG Capsule PO (05:33)
[2022-04-16] MEDS: Clotrimazole 1 APPLIC Tube TOPICAL ×2 (05:33→17:34)
[2022-04-16] MEDS: Acetaminophen 500 MG Tablet 1000 MG PO ×3 (05:34→21:36)
[2022-04-16] MEDS: Clopidogrel Bisulfate 75 MG Tablet PO (05:34)
[2022-04-16] MEDS: DULoxetine Hcl 60 MG Capsule PO (05:34)
[2022-04-16] MEDS: Nystatin Powder 15gm Bottle 1 APPLIC TOPICAL ×2 (05:34→17:35)
[2022-04-16] MEDS: cycloBENZAPRine HCl 10 MG Tablet PO ×3 (05:34→21:36)
[2022-04-16 06:31] LABS: Bedside Glucose 116 mg/dL (74-106)
[2022-04-16] MEDS: Hydroxychloroquine 200 MG Tablet PO (08:16)
[2022-04-16] MEDS: Aspirin 81 MG TAB.CHEW PO (08:16)
[2022-04-16] MEDS: Carvedilol 12.5 MG Tablet PO ×2 (08:17→17:35)
[2022-04-16] MEDS: Potassium Chloride Oral Tablet 10 MEQ PO (08:17)
[2022-04-16] MEDS: buPROPion (XL) 150 MG TABLET.XL PO (09:16)
[2022-04-16 10:56] LABS: Bedside Glucose 138 mg/dL (74-106)
[2022-04-16 12:14] VITALS: PULSE 70; RESP 18; O2SAT 96
[2022-04-16 16:45] LABS: Bedside Glucose 158 mg/dL (74-106)
[2022-04-16 18:56] VITALS: BP 150/77; PULSE 70; RESP 18; TEMP 36.9; O2SAT 93
[2022-04-16] MEDS: Atorvastatin Calcium 40 MG Tablet PO (21:36)
[2022-04-16 21:41] LABS: Bedside Glucose 143 mg/dL (74-106)
[2022-04-17] MEDS: Menthol/Lanolin/Calamine/Znox 113 GM Tube 1 APPLIC TOPICAL ×2 (05:04→17:11)
[2022-04-17] MEDS: Clopidogrel Bisulfate 75 MG Tablet PO (05:05)
[2022-04-17] MEDS: Pregabalin 75 MG Capsule PO (05:05)
[2022-04-17] MEDS: cycloBENZAPRine HCl 10 MG Tablet PO ×3 (05:05→20:39)
[2022-04-17] MEDS: Acetaminophen 500 MG Tablet 1000 MG PO ×3 (05:05→20:39)
[2022-04-17] MEDS: Nystatin Powder 15gm Bottle 1 APPLIC TOPICAL ×2 (05:05→17:11)
[2022-04-17] MEDS: DULoxetine Hcl 60 MG Capsule PO (05:05)
[2022-04-17 06:31] LABS: Bedside Glucose 90 mg/dL (74-106)
[2022-04-17] MEDS: Potassium Chloride Oral Tablet 10 MEQ PO (08:28)
[2022-04-17] MEDS: Hydroxychloroquine 200 MG Tablet PO (08:28)
[2022-04-17] MEDS: Carvedilol 12.5 MG Tablet PO ×2 (08:28→17:11)
[2022-04-17] MEDS: Aspirin 81 MG TAB.CHEW PO (08:28)
[2022-04-17] MEDS: buPROPion (XL) 150 MG TABLET.XL PO (08:29)
[2022-04-17 11:06] LABS: Bedside Glucose 176 mg/dL (74-106)
--- NOTE | 2022-04-17 11:15 | NURSING ---
DR CORRIGAN UPDATED ON PEER TO PEER NEEDED FOR MRI AUTHORIZATION. DR CORRIGAN WANTS CT SCAN OF LUMBARSACRAL OF SPINE WITH CONTRAST, WILL START PREAUTHORIZATION.
[2022-04-17 13:20] VITALS: BP 114/72; PULSE 72; RESP 16; TEMP 36.1; O2SAT 98
[2022-04-17 15:41] LABS: Hematocrit 31.3 % (37-47); Hemoglobin 10.3 g/dL (12.0-15.0)
[2022-04-17 16:45] LABS: Bedside Glucose 147 mg/dL (74-106)
[2022-04-17] MEDS: traMADol 50 MG Tablet PO ×2 (17:10→23:59)
[2022-04-17] MEDS: Cefazolin 1 GM/50 ML BAG IV (17:11)
--- NOTE | 2022-04-17 19:30 | PN.TCU_ITS ---
Subjective Subjective Resident seen and examined for regulatory visit. She had anemia with hemoglobin 7.3, she was given 2 unit PRBC transfusion, hemoglobin 10.3 afterwards. She has intractable low back pain, she screams out in pain when I am examining her. Resident has MSSA bacteremia with unknown source. I attempted to order MRI LS spine to rule out discitis, osteomyelitis, epidural lumbar abscess, but insurance denied. Will order CT LS spine instead and see if insurance aggreeable. Objective Data Objective Data Vital Signs: Vital Signs Temp Pulse Resp BP Pulse Ox 97.0 F L 72 16 114/72 98 04/17/22 13:20 04/17/22 13:20 04/17/22 13:20 04/17/22 13:20 04/17/22 13:20 Oxygen Delivery Method Room Air Weight: 58.786 kg Intake & Output: Intake and Output for Last 24 Hours 04/15/22 04/16/22 04/17/22 23:59 23:59 23:59 Intake Total 525 / 525 710 / 710 945 / 945 Output Total 1000 / 1000 750 / 750 1050 / 1050 Balance -475 / -475 -40 / -40 -105 / -105 Lab / Micro Data Result Diagrams: 04/17/22 15:23 04/14/22 05:30 Labs: Laboratory Results - last 24 hr 04/16/22 21:35: POC Glucose 143 H 04/17/22 06:25: POC Glucose 90 04/17/22 11:01: POC Glucose 176 H 04/17/22 15:23: Hgb 10.3 L, Hct 31.3 L 04/17/22 16:35: POC Glucose 147 H Micro: Microbiology 04/17/22 12:30 Nasal Secretion SARS-CoV-2 Antigen (Rapid) - Final 04/10/22 10:00 Nasal Secretion SARS-CoV-2 Antigen (Rapid) - Final 04/05/22 07:05 Urine Catheter - Catheter Urine Culture - Final Presumptive C albicans 04/03/22 11:05 Nasal Secretion SARS-CoV-2 Antigen (Rapid) - Final 03/26/22 07:57 Blood Culture (Wb) - Anticubital Left Blood Culture - Final No growth in 5 days. 03/25/22 20:19 Blood Culture (Wb) - Anticubital Left Blood Culture - Final No growth in 5 days. 03/31/22 05:30 Nasal Secretion SARS-CoV-2 Antigen (Rapid) - Final Physical Exam Const alert General Appearance: cooperative HEENT normocephalic Eyes PERRL and EOMs intact bilaterally Neck supple, no JVD and no carotid bruits Resp normal respiratory effort, normal air movement and clear to auscultation bilaterally Cardio regular rate and regular rhythm GI normal to inspection, nondistended, normoactive bowel sounds, non-tender and non-distended Extremity normal capillary refill Extremity Narrative: Right proximal upper extremity PICC line. General Extremity: Negative for edema Skin no rashes or lesions noted General Skin Exam: no breakdown Psych affect normal Appearance: appropriate Assessment & Plan Assessment/Plan (1) Debility: (2) Acute encephalopathy: (3) Sepsis: (4) Hyponatremia: (5) NSTEMI (non-ST elevated myocardial infarction): (6) MSSA bacteremia: (7) [place] (acute kidney injury): (8) Coronary artery disease: (9) Diabetes mellitus: (10) Diabetic polyneuropathy: (11) Hyperlipidemia: (12) Depression: (13) Acute on chronic diastolic congestive heart failure: PLAN: 71 year old female with below past medical history hospitalized for acute encephalopathy secondary to sepsis, MSSA bacteremia, complicated by NSTEMI, acute kidney injury, admitted to TCU with debility, here for rehabilitation, strengthening, prior to discharge home alone. * Debility - PT/OT. * Dysarthria - ST. * Pain - Tylenol 1000mg tid, Tramadol 50mg q6h prn pain (4-10). * Bowel - Senna/colace 2 tablets bid prn. * Adult immunization - Administer pneumonia vaccine, flu vaccine, covid19 vaccine. * DVT prophylaxis - Hold, on dual antiplatelet therapy. * Coronary artery disease - Coreg 12.5mg bid, Plavix 75mg daily, Aspirin 81mg daily. * Hyperlipidemia - Atorvastatin 40mg qhs. 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 * MSSA bacteremia - Cefazolin 1gm iv q12h thru 04/18/2022. * Diabetic polyneuropathy - Duloxetine 60mg daily, Lyrica 75mg daily, stable chronic jail use, GDR not recommended. * Rheum - Plaquenil 200mg daily. * Sore throat - BMX 15ml po q4h prn. * Muscle spasm - Flexeril 10mg po tid. * Skin irritation - Calmoseptine topical bid. * Tinea Corporis - Nystatin powder topical bid. * Hypokalemia - KCL 10meq daily. * Hypoglycemia - Glucagon 1mg x 1 prn. * Intractable low back pain - 03/27/2022 X-ray lumbosacral spine showed severe degenerative changes, no fracture, no dislocation. She screams out in pain despite Tylenol 1000mg tid, Tramadol 50mg q6h prn pain (4-10), Flexeril 10mg po tid. Insurance denied MRI LS spine, now ordering CT LS spine, resident was hospitalized for MSSA bacteremia with unknown source, need to rule out discitis, osteomyelitis, epidural abscess of lumbosacral spine. Capacity Capacity Assessment Tool Can the patient make a choice & communicate that choice?: Yes Can the patient understand benefits, risks and alternatives?: Yes Can the patient make a logical, rational choice?: Yes Is the choice the patient makes consistent w/ their values?: Yes Is there an impending, emergent risk to the patient?: Yes Does the patient have an Advance Directive?: Yes Is there a Surrogate Available?: Yes i.e. HCPOA: Yes i.e. close relative (spouse, child, parent, sibling)?: Yes
[2022-04-17] MEDS: Atorvastatin Calcium 40 MG Tablet PO (20:39)
[2022-04-17 22:41] LABS: Bedside Glucose 149 mg/dL (74-106)
[2022-04-18] MEDS: 0.9% Saline Lock 10 ML Syringe IV (06:04)
[2022-04-18] MEDS: cycloBENZAPRine HCl 10 MG Tablet PO ×2 (06:06→14:31)
[2022-04-18] MEDS: Clopidogrel Bisulfate 75 MG Tablet PO (06:06)
[2022-04-18] MEDS: Acetaminophen 500 MG Tablet 1000 MG PO ×2 (06:06→14:32)
[2022-04-18] MEDS: Pregabalin 75 MG Capsule PO (06:06)
[2022-04-18] MEDS: Cefazolin 1 GM/50 ML BAG IV (06:07)
[2022-04-18] MEDS: Menthol/Lanolin/Calamine/Znox 113 GM Tube 1 APPLIC TOPICAL (06:07)
[2022-04-18] MEDS: DULoxetine Hcl 60 MG Capsule PO (06:08)
[2022-04-18] MEDS: Nystatin Powder 15gm Bottle 1 APPLIC TOPICAL (06:08)
[2022-04-18 06:25] LABS: Bedside Glucose 95 mg/dL (74-106)
[2022-04-18] MEDS: Aspirin 81 MG TAB.CHEW PO (08:13)
[2022-04-18] MEDS: Carvedilol 12.5 MG Tablet PO (08:13)
[2022-04-18] MEDS: Hydroxychloroquine 200 MG Tablet PO (08:13)
[2022-04-18] MEDS: Potassium Chloride Oral Tablet 10 MEQ PO (08:13)
[2022-04-18] MEDS: buPROPion (XL) 150 MG TABLET.XL PO (08:14)
[2022-04-18 11:40] LABS: Bedside Glucose 159 mg/dL (74-106)
[2022-04-18] MEDS: traMADol 50 MG Tablet PO (12:51)
[2022-04-18 15:15] VITALS: BP 125/73; PULSE 71; RESP 16; TEMP 36.8; O2SAT 97
[2022-04-18 15:56] LABS: Bedside Glucose 154 mg/dL (74-106)
--- NOTE | 2022-04-18 16:33 | NURSING ---
Dr. Durham updated on CT results. N.O. to send pt to Emergency Room. Daughter Called and LVM. Report called to Luis F in ER.
--- NOTE | 2022-04-19 07:49 | PCM.DC.SUM ---
Providers Date of Admission: 03/24/22 Primary Care Physician: Tigre Whitley Consultations 03/24/22 19:14 Consult: Infectious Disease Routine Consulting Provider: Canelo De Luna Reason for Consult: Antibiotic therapy & Blood culture Gram positive Cocci EMERGENT Consult: No MD Notified: Yes Date Notified: 03/27/22 Time Notified: 09:38 Method of Notification: Verbal Reason For Visit: SEPSIS Diagnosis Discharge Diagnosis (1) Debility: Status: Acute Code(s): R53.81 - Other malaise (2) Acute encephalopathy: Status: Acute Code(s): G93.40 - Encephalopathy, unspecified (3) Sepsis: Status: Acute Code(s): A41.9 - Sepsis, unspecified organism (4) Hyponatremia: Status: Acute Code(s): E87.1 - Hypo-osmolality and hyponatremia (5) NSTEMI (non-ST elevated myocardial infarction): Status: Acute Code(s): I21.4 - Non-ST elevation (NSTEMI) myocardial infarction (6) MSSA bacteremia: Status: Acute Code(s): R78.81 - Bacteremia; B95.61 - Methicillin susceptible Staphylococcus aureus infection as the cause of diseases classified elsewhere (7) [place] (acute kidney injury): Status: Acute Code(s): N17.9 - Acute kidney failure, unspecified (8) Coronary artery disease: Status: Acute Code(s): I25.10 - Atherosclerotic heart disease of [place] coronary artery without angina pectoris (9) Diabetes mellitus: Status: Acute Code(s): E11.9 - Type 2 diabetes mellitus without complications (10) Diabetic polyneuropathy: Status: Acute Code(s): E11.42 - Type 2 diabetes mellitus with diabetic polyneuropathy (11) Hyperlipidemia: Status: Acute Code(s): E78.5 - Hyperlipidemia, unspecified (12) Depression: Status: Acute Code(s): F32.A - Depression, unspecified (13) Acute on chronic diastolic congestive heart failure: Status: Chronic Code(s): I50.33 - Acute on chronic diastolic (congestive) heart failure Medications at Discharge Home Medications pregabalin 75 mg PO DAILY 05/11/16 hydroxychloroquine 200 mg PO DAILY 07/19/18 aspirin 81 mg chewable tablet 81 mg PO DAILY 12/31/20 atorvastatin 40 mg tablet 40 mg PO QHS #30 tab 12/31/20 bupropion HCl 150 mg 24 hr tablet, extended release 150 mg PO QAM 12/30/21 duloxetine 60 mg capsule,delayed release 60 mg PO DAILY 12/30/21 carvedilol 12.5 mg PO BID 03/24/22 cefazolin in dextrose (iso-os) 1 g IV Q12 03/24/22 clopidogrel 75 mg PO DAILY 03/24/22 sennosides-docusate sodium [Stool Softener-Stimulant Laxat] 2 tab PO BID PRN PRN #0 tab 03/24/22 acetaminophen 500 mg tablet 1,000 mg PO TID tab 03/30/22 menthol 0.44 %-zinc oxide 20.6 % topical ointment 1 applic TOPICAL BID PRN g 03/30/22 nystatin 100,000 unit/gram topical powder 1 applic TOPICAL BID 03/30/22 potassium chloride 10 mEq tablet,extended release 10 meq PO DAILY 03/30/22 cyclobenzaprine [Flexeril] 10 mg PO TID 04/18/22 tramadol 50 mg PO Q6H PRN 04/18/22 Hospital Course Operations None Procedures None Summary of Care Provided Minutes Spent on Discharge: 35 Hospital Course: 71 year old female with below past medical history hospitalized for acute encephalopathy secondary to sepsis, MSSA bacteremia, complicated by NSTEMI, acute kidney injury, admitted to TCU with debility, here for rehabilitation, strengthening, prior to discharge home alone. Intractable low back pain - 03/27/2022 X-ray lumbosacral spine showed severe degenerative changes, no fracture, no dislocation. She screams out in pain despite Tylenol 1000mg tid, Tramadol 50mg q6h prn pain (4-10), Flexeril 10mg po tid. Insurance denied MRI LS spine, now ordering CT LS spine, resident was hospitalized for MSSA bacteremia with unknown source, need to rule out discitis, osteomyelitis, epidural abscess of lumbosacral spine. 04/18/2022 CT LS spine shows discitis, osteomyelitis, MRI recommended. 04/18/2022 Discharge to [facility] Emergency Department for evaluation, admission to hospital for discitis, osteomyelitis, MSSA bacteremia. Physical Exam Const alert General Appearance: cooperative HEENT normocephalic Eyes PERRL and EOMs intact bilaterally Neck supple, no JVD and no carotid bruits Resp normal respiratory effort, normal air movement and clear to auscultation bilaterally Cardio regular rate and regular rhythm GI normal to inspection, nondistended, normoactive bowel sounds, non-tender and non-distended Extremity normal capillary refill General Extremity: Negative for edema Skin no rashes or lesions noted General Skin Exam: no breakdown Psych affect normal Appearance: appropriate Weight / BMI Weight Weight: 58.695 kg ABG / Lab / Microbiology Data Result Diagrams: 04/17/22 15:23 04/14/22 05:30 Laboratory: Laboratory Results - last 24 hr 04/18/22 11:36: POC Glucose 159 H 04/18/22 15:35: POC Glucose 154 H Microbiology: Microbiology 04/17/22 12:30 Nasal Secretion SARS-CoV-2 Antigen (Rapid) - Final 04/10/22 10:00 Nasal Secretion SARS-CoV-2 Antigen (Rapid) - Final 04/05/22 07:05 Urine Catheter - Catheter Urine Culture - Final Presumptive C albicans 04/03/22 11:05 Nasal Secretion SARS-CoV-2 Antigen (Rapid) - Final 03/26/22 07:57 Blood Culture (Wb) - Anticubital Left Blood Culture - Final No growth in 5 days. 03/25/22 20:19 Blood Culture (Wb) - Anticubital Left Blood Culture - Final No growth in 5 days. 03/31/22 05:30 Nasal Secretion SARS-CoV-2 Antigen (Rapid) - Final D/C Instructions Discharge Diet: No restrictions Discharge Activity: Return to Normal Activity and Use Walker Weight Bearing Status: Weight bearing as tolerated Call your doctor if you observe: Fever of 101 or Higher, Inability to urinate, Inability to have a bowel movement, Shortness of breath, Dizziness, Fainting spells, Swelling in the ankles, Chest pain and Uncontrolled pain Additional Instructions: 04/18/2022 Discharge to [facility] Emergency Department for evaluation, admission to hospital for discitis, osteomyelitis, MSSA bacteremia. Please Follow Up With: MD Parveen (Will see Batool tSout NP) When: As scheduled. Meaningful Use Info Meaningful Use Diagnoses (Choose all that apply): None applicable Discharge Plan Admission Admit Date/Time: 03/24/22 17:16 Primary Reason for Your Visit: Debility. Attending Provider: Herminio,Eder Chi Primary Care Provider: Tigre Whitley Consulting Providers: Canelo De Luna Instructions Additional Instructions / Restrictions: 04/18/2022 Discharge to [facility] Emergency Department for evaluation, admission to hospital for discitis, osteomyelitis, MSSA bacteremia. Discharge Orders/Prescriptions Prescriptions: No Action aspirin 81 mg tablet,chewable 81 mg PO DAILY RF: 0 atorvastatin 40 mg tablet 40 mg PO QHS Qty: 30 RF: 11 bupropion HCl [Wellbutrin XL] 150 mg tablet extended release 24 hr 150 mg PO QAM RF: 0 duloxetine 60 mg capsule,delayed release(DR/EC) 60 mg PO DAILY RF: 0 menthol-zinc oxide [Calmoseptine] 0.44-20.6 % ointment 1 applic topical BID PRN (Reason: Skin Cleansing) RF: 0 potassium chloride 10 mEq tablet extended release 10 meq PO DAILY RF: 0 nystatin 100,000 unit/gram powder 1 applic topical BID RF: 0 acetaminophen 500 mg tablet 1,000 mg PO TID RF: 0 pregabalin 75 MG capsule 75 mg PO DAILY RF: 0 hydroxychloroquine 200 MG tablet 200 mg PO DAILY RF: 0 sennosides-docusate sodium [Stool Softener-Stimulant Laxat] 8.6-50 mg Tablet 2 tab PO BID PRN PRN (Reason: Constipation) Qty: 0 RF: 0 carvedilol 12.5 mg tablet 12.5 mg PO BID RF: 0 clopidogrel 75 mg tablet 75 mg PO DAILY RF: 0 cefazolin in dextrose (iso-os) 1 gram/50 mL piggyback 1 g IV Q12 RF: 0 cyclobenzaprine [Flexeril] 10 mg Tablet 10 mg PO TID RF: 0 tramadol 50 mg Tablet 50 mg PO Q6H PRN (Reason: Pain) RF: 0 Disposition Disposition (needs filled in before D/C Order can be placed): Acute Care Hospital
== END 2022-04-18 16:40 | disposition short-term general hospital (02) | DRG 690 ==
PROVIDERS: Admitting Provider Family Medicine Geriatric Medicine; Visit Provider Family Medicine Geriatric Medicine
DX: N39.0 Urinary tract infection, site not specified (principal); I24.8 Other forms of acute ischemic heart disease; I13.0 Hypertensive heart and chronic kidney disease with heart failure and stage 1 through stage 4 chronic kidney disease, or unspecified chronic kidney disease; E87.1 Hypo-osmolality and hyponatremia; N17.9 Acute kidney failure, unspecified; I50.32 Chronic diastolic (congestive) heart failure; B35.4 Tinea corporis; E11.22 Type 2 diabetes mellitus with diabetic chronic kidney disease; E11.42 Type 2 diabetes mellitus with diabetic polyneuropathy; N18.30 Chronic kidney disease, stage 3 unspecified; B95.61 Methicillin susceptible Staphylococcus aureus infection as the cause of diseases classified elsewhere; I25.5 Ischemic cardiomyopathy; I25.10 Atherosclerotic heart disease of native coronary artery without angina pectoris; E78.5 Hyperlipidemia, unspecified; D64.9 Anemia, unspecified; S51.801D Unspecified open wound of right forearm, subsequent encounter; Z79.02 Long term (current) use of antithrombotics/antiplatelets; F32.A Depression, unspecified; Z79.84 Long term (current) use of oral hypoglycemic drugs; Z79.82 Long term (current) use of aspirin; X58.XXXD Exposure to other specified factors, subsequent encounter
CPT/HCPCS: 36415; 72070; 72110; 80048; 81001; 82947; 82962; 85014; 85018; 85025; 86850; 86900; 86901; 86920; 86922; 87040; 87086; 87088; 87426; 92507; 92526; 92610; 97110; 97116; 97129; 97162; 97166; 97530; 97535; 97802; J7050; A4216

== ENCOUNTER 2022-04-15 10:17 | Outpatient (CLI) | payer MEDICARE, SELFPAY ==
[2022-04-15] VITALS (8 sets, daily range): BP systolic 117–168; BP diastolic 67–87; PULSE 69–78; RESP 16–18; TEMP 36.4–36.8; O2SAT 97–100
[2022-04-15] MEDS: Furosemide 20 MG/2 ML VIAL IV (15:27)
--- NOTE | 2022-04-15 18:09 | NURSING ---
robison cath emptied 1000cc boyd urine
== END 2022-04-15 19:02 | disposition skilled nursing facility (03) ==
LOC: MEDOUTP 10:19 → MS3 10:20
PROVIDERS: Referring Provider Family Medicine Geriatric Medicine; Visit Provider Family Medicine Geriatric Medicine
DX: D64.9 Anemia, unspecified (principal)
CPT/HCPCS: 36415; 36430; 86850; 86900; 86901; 86920; 86922; P9016; P9040; J1940

== ENCOUNTER 2022-04-18 16:41 | Inpatient (IN) | payer MEDICARE, SELFPAY ==
[2022-04-18 16:42] VITALS: BP 144/91; PULSE 73; RESP 18; TEMP 36.4; O2SAT 100; BMI 30.3
--- NOTE | 2022-04-18 17:14 | MRI_ITS ---
[employer]Scriptor Unformatted Report Gender: Female Age: 71 years Exam: MR Spine Lumbar WO/W Contrast Comparison: CT today showing sclerosis of the opposing endplates and opposing 1/3-1/2 of the vertebral bodies at L1-L2, with small endplate erosions but sclerotic margins. Plain films showing sclerosis of the opposing vertebral body endplates at L2-3 and some lucency in the inferior body of L1 with marked L1-2 decreased height. History: L1-L2 discitis Lower chest 04/18/2022 Contrast: 12ML dOTAREM VIA PICC T12-L1: There is marked signal changes including hypointense signal in the opposing vertebral bodies of T12-L1 on T1-weighted images, with markedly increased signal intensity and enhancement in these bodies on the enhanced exam and complete obliteration of the disc space, new since September 12, 2014. There is a thick rim of enhancing material posterior to the vertebral bodies and disc space of roughly 6 mm in thickness, presumably due to inflammation. No discrete fluid collection is identified. There is mild narrowing of the AP diameter of the canal to roughly 1 cm at the level of the conus of the cord. The tip of the conus is at the mid body of L1. L1-L2: There is decrease T1 fast spin echo signal in the inferior body of L1, it was high signal on the prior exam, and irregular margins of the endplates around the mildly narrowed and irregular L1-L2 disc space but otherwise similar appearance. There is resolution of the previously seen hypointense signal intensity in the lower body of L2. Heterogeneous signal intensity at multiple levels. Degenerative disc changes at L2-3 through L4-5 with narrowing of the spinal canal due to degenerative changes at multiple levels, most pronounced at L3-4 and L4-5, mildly increase from prior exam. MRI/Spine Lumbar W/WO Contrast IMPRESSION: Intense vertebral body enhancement, destruction of the disc space and ventral epidural thick enhancement at T12-L1, new since prior MRI in 2013. Findings highly consistent with active discitis-osteomyelitis. Chronic changes with minimal if any residual or recurrent inflammatory change at L1-L2. No discrete drainable fluid collection. Also enhancement, circumferential epidural thickening, and presumed epidural and posterior element inflammatory change at the level of L2-L3 and L3-4 levels. N.B. : The above Results were Read Back by Marisela Pemberton MD to Dr. Chong Diallo MD, and understanding confirmed on 04/18/2022 22:35:14 (ET). Electronically Signed: Marisela Pemberton MD at 22:36 EDT ,
--- NOTE | 2022-04-18 17:18 | ED.VIS.BACK ---
HPI History of Present Illness Chief Complaint: Back Informant: patient Onset/Context/Timing Onset: Days Context: Gradual Onset Timing: Intermittent Quality: Sharp Current Severity: Moderate Maximum Severity: Moderate Worsened by: improves with Movement Relieved by: Nothing Associated Symptoms Associated Symptoms: Negative for Numbness, Tingling, Radiation to Right Leg, Radiation to Left Leg, Fever, Abdominal Pain, Dysuria, Unable to Ambulate, Unable to Transfer, Urinary Retention, Urinary Incontinence, Constipation and Fecal Incontinence Narrative Narrative: 71-year-old female from the transitional care unit. Patient herself is a poor informant. She has a history of diabetes, cardiomyopathy, CAD and CHF. Recently was hospitalized for UTI and sent cyst. Now is in the transitional care unit. Has had back pain the last several days and had a CAT scan done which showed questionable L1-L2 discitis. They have been trying to get clearance from her insurance company to do an MRI but unable to do so. Dr. Durham from the TCU center down the emergency department today to have an MRI done of her back. Patient herself is a limited informant. Prior similar symptoms: Yes Recent Illness/Hospitalization: Yes PFSH PFS Medical History Anemia Atherosclerosis of coronary artery of [place] heart without angina pectoris Atherosclerotic heart disease of [place] coronary artery without angina pectoris Cardiomyopathy CHF (congestive heart failure), NYHA class III Chronic back pain Chronic kidney disease, stage III (moderate) Essential hypertension Hyperlipidemia Ischemic cardiomyopathy SVT (supraventricular tachycardia) Type II diabetes mellitus Home Medications pregabalin 75 mg PO DAILY 05/11/16 [History Last Taken 04/18/22 06:06] hydroxychloroquine 200 mg PO DAILY 07/19/18 [History Last Taken 04/18/22 08:13] aspirin 81 mg chewable tablet 81 mg PO DAILY 12/31/20 [History Last Taken 04/18/22 08:13] atorvastatin 40 mg tablet 40 mg PO QHS #30 tab 12/31/20 [Rx Last Taken 04/17/22 20:39] bupropion HCl 150 mg 24 hr tablet, extended release 150 mg PO QAM 12/30/21 [History Last Taken 04/18/22 08:14] duloxetine 60 mg capsule,delayed release 60 mg PO DAILY 12/30/21 [History Last Taken 04/18/22 06:08] carvedilol 12.5 mg PO BID 03/24/22 [History Last Taken 04/18/22 08:13] cefazolin in dextrose (iso-os) 1 g IV Q12 03/24/22 [History Last Taken 04/18/22 07:22] clopidogrel 75 mg PO DAILY 03/24/22 [History Last Taken 04/18/22 06:06] sennosides-docusate sodium [Stool Softener-Stimulant Laxat] 2 tab PO BID PRN PRN #0 tab 03/24/22 [Rx Last Taken Unknown] acetaminophen 500 mg tablet 1,000 mg PO TID tab 03/30/22 [History Last Taken 04/18/22 14:32] menthol 0.44 %-zinc oxide 20.6 % topical ointment 1 applic TOPICAL BID PRN g 03/30/22 [History Last Taken 04/18/22 06:07] nystatin 100,000 unit/gram topical powder 1 applic TOPICAL BID 03/30/22 [History Last Taken 04/18/22 06:08] potassium chloride 10 mEq tablet,extended release 10 meq PO DAILY 03/30/22 [History Last Taken 04/18/22 08:13] cyclobenzaprine [Flexeril] 10 mg PO TID 04/18/22 [History Last Taken 04/18/22 14:31] tramadol 50 mg PO Q6H PRN 04/18/22 [History Last Taken 04/18/22 12:51] Allergy/AdvReac Type Severity Reaction Status Date / Time ciprofloxacin [From Cipro] Allergy Hives Verified 03/30/22 10:37 ciprofloxacin HCl Allergy Hives Verified 03/30/22 10:37 [From Cipro] Penicillins Allergy Hives Verified 03/30/22 10:37 Family History Father No problems noted. Mother No problems noted. Surgical History History of left heart catheterization (12/10/20) Presence of coronary angioplasty implant and graft (~12/16/20) Presence of stent in coronary artery (~12/16/20) Social History household members: none Smoking Status: Smoker, status unknown tobacco type: cigarettes alcohol intake: never substance use type: does not use ROS ROS ED ROS Narrative Back pain. Limited due to the patient's mental status Review of Systems ROS Unobtainable: due to mental status Constitutional Constitutional ED: Denies fever(s) Eyes Eyes: Denies change in vision ENT ENT ED: Denies ear pain Cardiovascular Cardiovascular: Denies chest pain Respiratory/Chest Respiratory/Chest: Denies dyspnea Gastrointestinal Gastrointestinal: Denies abdominal pain Genitourinary Genitourinary ED: Denies dysuria Musculoskeletal Musculoskeletal: Denies myalgias Integumentary Denies rash Neurologic Neurologic: Denies headache(s) Psychiatric Psychiatric: Denies depression Endocrine Endocrinology: Denies polyuria Hematologic/Lymphatic Hematologic/Lymphatic: Denies easy bruising Allergic/Immunologic Allergic/Immunologic ED: Denies urticaria EXAM Physical Exam Narrative Exam Narrative: 71 female no acute distress. Vital signs stable afebrile. H EENT exam unremarkable. Neck nontender. Lungs clear to auscultation bilaterally. Heart regular rate and rhythm no murmur. Abdomen soft nontender. Patient moving all 4 extremities. 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 Dorsi plantarflexion intact. Back is nontender. No redness or warmth. Neurologically she is awake. She answers questions follows commands. She is a limited informant. She is moving all 4 extremities. Const Vital Signs: 04/18/22 16:42 04/18/22 19:30 04/18/22 20:57 Temperature 97.6 F L Temperature Source Temporal Pulse Rate 73 73 Respiratory Rate 18 15 Blood Pressure 144/91 H 149/69 H 113/78 Blood Pressure Mean 108 95 89 Pulse Ox 100 95 Oxygen Delivery Method Room Air Room Air 04/18/22 21:57 04/18/22 22:32 Temperature Temperature Source Pulse Rate 77 75 Respiratory Rate 15 15 Blood Pressure 114/71 132/73 H Blood Pressure Mean 85 92 Pulse Ox 94 97 Oxygen Delivery Method Room Air Room Air Positive well nourished, well developed and obese; Negative for unkempt General Appearance ED: well developed and NAD; Negative for unkempt or pallor Nutritional Appearance: obese HEENT Reports dry mucous membranes Negative for trauma or tenderness Mouth ED: Yes dry mucous membranes Mouth: dry mucous membranes Eyes PERRL and EOMs intact bilaterally Neck no lymphadenopathy, supple and no JVD General: Negative for tenderness Resp normal respiratory effort and clear to auscultation bilaterally Effort and Inspection: Negative for pain with movement or other Auscultation: Negative for rales Cardio regular rate, regular rhythm, S1 normal heart sound, S2 normal heart sound and no murmurs GI normal to inspection, nondistended, normoactive bowel sounds, soft to palpation, non-tender, non-distended and no masses Palpation: Negative for tender, guarding or rebound tenderness present Back/Spine normal to inspection and no thoracic nor lumbar tenderness General Back: Negative for CVA tenderness Cervical Spine: Negative for cervical spine tenderness and Negative for paracervical muscle tenderness Thoracic Spine / Upper Back: Negative for paraspinal muscle tenderness Extremity normal to inspection General Extremety ED: Negative for edema or tenderness General Extremity: Negative for edema Neuro No oriented x3 Sensorium / Orientation: alert and confused; Negative for lethargic or stuporous Motor Exam: strength 5/5 throughout Psych mental status grossly normal Appearance: Negative for unkempt Mood & Affect: Negative for depressed or tearful Skin no rashes or lesions noted and no wounds General Skin Exam: Negative for jaundice or pallor MDM MDM MDM Narrative Medical decision making narrative: 71-year-old [facility] transitional care unit have a CAT scan of the questionable discitis. Sent to the ER by the director of the transitional care unit for a MRI of her lumbar spine. MRI per the radiologist shows a T12-L1 discitis and osteomyelitis. Patient be started on vancomycin and cephalosporin. Hours spoke to the hospitalist about admission. Repeat exam patient is doing well at 11:10 PM. Lab Data Attestation: I reviewed the patient's lab results. Lab results narrative: Chemistries unremarkable gap of 7 BUN 32 creatinine 1. Glucose 121. Labs: Laboratory Results - last 24 hr 04/18/22 17:20 Sodium 136 Potassium 4.8 Chloride 109 H Carbon Dioxide 20.0 L Anion Gap 7 BUN 32 H Creatinine 1.05 H Estim Creat Clear Calc 47.91 Est GFR (MDRD) Af Amer 66 Est GFR (MDRD) Non-Af 55 L BUN/Creatinine Ratio 30.5 H Glucose 121 H Calcium 8.2 L Radiography Diagnostic Testing: Clinical Impression(s) from Imaging Studies Lumbar Spine MRI 04/18/22 17:14 IMPRESSION: Intense vertebral body enhancement, destruction of the disc space and ventral epidural thick enhancement at T12-L1, new since prior MRI in 2013. Findings highly consistent with active discitis-osteomyelitis. Chronic changes with minimal if any residual or recurrent inflammatory change at L1-L2. No discrete drainable fluid collection. Also enhancement, circumferential epidural thickening, and presumed epidural and posterior element inflammatory change at the level of L2-L3 and L3-4 levels. N.B. : The above Results were Read Back by Marisela Pemberton MD to Dr. Chong Diallo MD, and understanding confirmed on 04/18/2022 22:35:14 (ET). Electronically Signed: Marisela Pemberton MD at 22:36 EDT , ADDENDUM: 04/18/222242 IMPRESSION: Intense vertebral body enhancement, destruction of the disc space and ventral epidural thick enhancement at T12-L1, new since prior MRI in 2013. Findings highly consistent with active discitis-osteomyelitis. Chronic changes with minimal if any residual or recurrent inflammatory change at L1-L2. No discrete drainable fluid collection. Also enhancement, circumferential epidural thickening, and presumed epidural and posterior element inflammatory change at the level of L2-L3 and L3-4 levels. N.B. : The above Results were Read Back by Marisela Pemberton MD to Dr. Chong Diallo MD, and understanding confirmed on 04/18/2022 22:35:14 (ET). Electronically Signed: Marisela Pemberton MD at 22:36 EDT , Discharge Plan Triage Chief Complaint: Back ED Provider: Bubba Diallo Dx/Rx/DC Orders Clinical Impression: Lumbar discitis, Acute osteomyelitis of lumbar spine, History of diabetes mellitus, History of cardiomyopathy Prescriptions: No Action aspirin 81 mg tablet,chewable 81 mg PO DAILY RF: 0 atorvastatin 40 mg tablet 40 mg PO QHS Qty: 30 RF: 11 bupropion HCl [Wellbutrin XL] 150 mg tablet extended release 24 hr 150 mg PO QAM RF: 0 duloxetine 60 mg capsule,delayed release(DR/EC) 60 mg PO DAILY RF: 0 menthol-zinc oxide [Calmoseptine] 0.44-20.6 % ointment 1 applic topical BID PRN (Reason: Skin Cleansing) RF: 0 potassium chloride 10 mEq tablet extended release 10 meq PO DAILY RF: 0 nystatin 100,000 unit/gram powder 1 applic topical BID RF: 0 acetaminophen 500 mg tablet 1,000 mg PO TID RF: 0 pregabalin 75 MG capsule 75 mg PO DAILY RF: 0 hydroxychloroquine 200 MG tablet 200 mg PO DAILY RF: 0 sennosides-docusate sodium [Stool Softener-Stimulant Laxat] 8.6-50 mg Tablet 2 tab PO BID PRN PRN (Reason: Constipation) Qty: 0 RF: 0 carvedilol 12.5 mg tablet 12.5 mg PO BID RF: 0 clopidogrel 75 mg tablet 75 mg PO DAILY RF: 0 cefazolin in dextrose (iso-os) 1 gram/50 mL piggyback 1 g IV Q12 RF: 0 cyclobenzaprine [Flexeril] 10 mg Tablet 10 mg PO TID RF: 0 tramadol 50 mg Tablet 50 mg PO Q6H PRN (Reason: Pain) RF: 0 Primary Care Provider: Tigre Whitley Referrals: Tigre Whitley [Primary Care Provider] -
[2022-04-18 17:59] LABS: Anion Gap 7 (5-15); BUN 32 mg/dL (7-18); BUN/Creat Ratio 30.5 RATIO (10-20); Calcium,Total 8.2 mg/dL (8.5-10.1); Chloride 109 mmol/L (98-107); Creatinine, Serum 1.05 mg/dL (0.55-1.02); EST Glomerular Filtration Rate 55 mL/min (>60); Est Glom Filt Rate - Afr Amer 66 mL/min (>60); Estimated Creatinine Clearance 47.91 ml/min; Glucose 121 mg/dL (74-106); Potassium 4.8 mmol/L (3.5-5.1); Sodium Level 136 mmol/L (136-145)
[2022-04-18 19:30] VITALS: BP 149/69
[2022-04-18] MEDS: Ondansetron 4 MG/2 ML Vial IV (19:39)
[2022-04-18] MEDS: morphine 8 MG/ML Syringe IV (19:41)
[2022-04-18 20:57] VITALS: BP 113/78; PULSE 73; RESP 15; O2SAT 95
[2022-04-18 21:57] VITALS: BP 114/71; PULSE 77; RESP 15; O2SAT 94
[2022-04-18 22:32] VITALS: BP 132/73; PULSE 75; RESP 15; O2SAT 97
--- NOTE | 2022-04-18 23:23 | PCM.HP.STD ---
HPI - General General Date of Admission: 04/18/22 HPI Narrative ERIK GARCIA, is a 71 F with a significant history of CKD stage IIIa; congestive heart failure with improved ejection fraction; CAD status post stents who presented to the emergency department with back pain. Of note patient's presented to the ED from transitional care unit of [facility]. Patient has a history of dementia and is unable to provide history. History was taken from emergency department. Upon asking the patient direct question on whether she has back pain she stated yes without any further elaboration. [facility] Medical History Anemia Atherosclerosis of coronary artery of [place] heart without angina pectoris Atherosclerotic heart disease of [place] coronary artery without angina pectoris Cardiomyopathy CHF (congestive heart failure), NYHA class III Chronic back pain Chronic kidney disease, stage III (moderate) Essential hypertension Hyperlipidemia Ischemic cardiomyopathy SVT (supraventricular tachycardia) Type II diabetes mellitus Home Medications pregabalin 75 mg PO DAILY 05/11/16 [History Last Taken 04/18/22 06:06] hydroxychloroquine 200 mg PO DAILY 07/19/18 [History Last Taken 04/18/22 08:13] aspirin 81 mg chewable tablet 81 mg PO DAILY 12/31/20 [History Last Taken 04/18/22 08:13] atorvastatin 40 mg tablet 40 mg PO QHS #30 tab 12/31/20 [Rx Last Taken 04/17/22 20:39] bupropion HCl 150 mg 24 hr tablet, extended release 150 mg PO QAM 12/30/21 [History Last Taken 04/18/22 08:14] duloxetine 60 mg capsule,delayed release 60 mg PO DAILY 12/30/21 [History Last Taken 04/18/22 06:08] carvedilol 12.5 mg PO BID 03/24/22 [History Last Taken 04/18/22 08:13] cefazolin in dextrose (iso-os) 1 g IV Q12 03/24/22 [History Last Taken 04/18/22 07:22] clopidogrel 75 mg PO DAILY 03/24/22 [History Last Taken 04/18/22 06:06] sennosides-docusate sodium [Stool Softener-Stimulant Laxat] 2 tab PO BID PRN PRN #0 tab 03/24/22 [Rx Last Taken Unknown] acetaminophen 500 mg tablet 1,000 mg PO TID tab 03/30/22 [History Last Taken 04/18/22 14:32] menthol 0.44 %-zinc oxide 20.6 % topical ointment 1 applic TOPICAL BID PRN g 03/30/22 [History Last Taken 04/18/22 06:07] nystatin 100,000 unit/gram topical powder 1 applic TOPICAL BID 03/30/22 [History Last Taken 04/18/22 06:08] potassium chloride 10 mEq tablet,extended release 10 meq PO DAILY 03/30/22 [History Last Taken 04/18/22 08:13] cyclobenzaprine [Flexeril] 10 mg PO TID 04/18/22 [History Last Taken 04/18/22 14:31] tramadol 50 mg PO Q6H PRN 04/18/22 [History Last Taken 04/18/22 12:51] Allergy/AdvReac Type Severity Reaction Status Date / Time ciprofloxacin [From Cipro] Allergy Hives Verified 03/30/22 10:37 ciprofloxacin HCl Allergy Hives Verified 03/30/22 10:37 [From Cipro] Penicillins Allergy Hives Verified 03/30/22 10:37 Family History Father No problems noted. Mother No problems noted. Surgical History History of left heart catheterization (12/10/20) Presence of coronary angioplasty implant and graft (~12/16/20) Presence of stent in coronary artery (~12/16/20) Social History household members: none Smoking Status: Smoker, status unknown tobacco type: cigarettes alcohol intake: never substance use type: does not use ROS Review of Systems ROS Unobtainable: due to encephalopathy Vital Signs Vital Signs Vital Signs: 04/18/22 16:42 04/18/22 19:30 04/18/22 20:57 Temperature 97.6 F L Temperature Source Temporal Pulse Rate 73 73 Respiratory Rate 18 15 Blood Pressure 144/91 H 149/69 H 113/78 Blood Pressure Mean 108 95 89 Pulse Ox 100 95 Oxygen Delivery Method Room Air Room Air 04/18/22 21:57 04/18/22 22:32 Temperature Temperature Source Pulse Rate 77 75 Respiratory Rate 15 15 Blood Pressure 114/71 132/73 H Blood Pressure Mean 85 92 Pulse Ox 94 97 Oxygen Delivery Method Room Air Room Air Weight Weight: 63.6 kg Body Mass Index (BMI) 30.3 Physical Exam Narrative Physical exam: General: Well-nourished, well-developed. Head: Normocephalic, atraumatic, no tenderness Eyes: Vision is grossly intact. EOMI ENT: poor dentition. No trauma, dry mucous membranes, no rhinorrhea Neck: Nontender, full range of motion, no spinal tenderness, deformities, step-off CVS: Regular rate and rhythm. S1-S2 present. No murmur, gallop or rub. Respiratory : clear to auscultation bilaterally, chest wall nontender, no wheezing Abdomen: Soft, nontender, nondistended, normal bowel sounds, no masses : Deferred Back: Nontender, no CVA tenderness, no midline spinal tenderness, deformities, step-offs Extremities: Nontender full range of motion, no trauma Skin: Excoriation on buttocks. Pale. Neuro: Alert, confused, cranial nerves II through XII grossly intact. Psychiatry: Normal mood. Normal affect. Not depressed. Not anxious. Results Lab / Micro Data Result Diagrams: 04/18/22 17:20 04/18/22 17:20 Labs: Laboratory Results - last 24 hr 04/18/22 17:20: Sodium 136, Potassium 4.8, Chloride 109 H, Carbon Dioxide 20.0 L, Anion Gap 7, BUN 32 H, Creatinine 1.05 H, Estim Creat Clear Calc 47.91, Est GFR (MDRD) Af Amer 66, Est GFR (MDRD) Non-Af 55 L, BUN/Creatinine Ratio 30.5 H, Glucose 121 H, Calcium 8.2 L Radiology Impression Lumbar Spine MRI 04/18/22 17:14 IMPRESSION: Intense vertebral body enhancement, destruction of the disc space and ventral epidural thick enhancement at T12-L1, new since prior MRI in 2013. Findings highly consistent with active discitis-osteomyelitis. Chronic changes with minimal if any residual or recurrent inflammatory change at L1-L2. No discrete drainable fluid collection. Also enhancement, circumferential epidural thickening, and presumed epidural and posterior element inflammatory change at the level of L2-L3 and L3-4 levels. N.B. : The above Results were Read Back by Marisela Pemberton MD to Dr. Chong Diallo MD, and understanding confirmed on 04/18/2022 22:35:14 (ET). Electronically Signed: Marisela Pemberton MD at 22:36 EDT , ADDENDUM: 04/18/22 2243 IMPRESSION: Intense vertebral body enhancement, destruction of the disc space and ventral epidural thick enhancement at T12-L1, new since prior MRI in 2013. Findings highly consistent with active discitis-osteomyelitis. Chronic changes with minimal if any residual or recurrent inflammatory change at L1-L2. No discrete drainable fluid collection. Also enhancement, circumferential epidural thickening, and presumed epidural and posterior element inflammatory change at the level of L2-L3 and L3-4 levels. N.B. : The above Results were Read Back by Marisela Pemberton MD to Dr. Chong Diallo MD, and understanding confirmed on 04/18/2022 22:35:14 (ET). Electronically Signed: Marisela Pemberton MD at 22:36 EDT Reading Location ID and State: [facility] / [place] Tel , Service support , Assessment & Plan Assessment/Plan (1) Acute osteomyelitis of lumbar spine: PLAN: Acute discitis/osteomyelitis of lumbar spine Lumbar spine MRI was visualized and independently interpreted and I agree with their interpretation above. Blood culture on 03/22/2022 showed MSSA bacteremia. Blood cultures ordered on presentation; follow. Discussed emergent department temperature be started on vancomycin and cefepime. Vancomycin and cefepime ordered. Of note in the past patient followed up with infectious disease. Infectious disease consult. CBC showed normal white counts. Trend. CKD stage IIIa Stable Trend BMP. Stage II pressure ulcer on coccyx Calmoseptine cream continued DVT prophylaxis: Subcutaneous Lovenox ordered. Charges/Coding Visit Charges Inpatient E&M: 55530 Init Hosp L3
[2022-04-19] VITALS: BP 122/90; PULSE 90; RESP 15; TEMP 36.6; O2SAT 97
--- NOTE | 2022-04-19 00:04 | ED.RN ---
BLOOD CULTURES X 2 DRAWN PER NEW ORDER
[2022-04-19 00:35] VITALS: BP 139/76; PULSE 80; RESP 18; TEMP 36.6; O2SAT 98
[2022-04-19 00:37] VITALS: BMI 27.5
[2022-04-19] MEDS: traMADol 50 MG Tablet PO ×3 (00:52→15:18)
--- NOTE | 2022-04-19 02:44 | PCM.RX.CS ---
Consult Pharmacy has been consulted to manage selected antiobiotic: Vancomycin Type of Consult: New start Labs: Sodium 136 mmol/L (136-145) 04/18/22 17:20 Potassium 4.8 mmol/L (3.5-5.1) 04/18/22 17:20 Chloride 109 mmol/L (98-107) H 04/18/22 17:20 Carbon Dioxide 20.0 mmol/L (21.0-32.0) L 04/18/22 17:20 Anion Gap 7 (5-15) 04/18/22 17:20 BUN 32 mg/dL (7-18) H 04/18/22 17:20 Creatinine 1.05 mg/dL (0.55-1.02) H 04/18/22 17:20 Est GFR (MDRD) Af Amer 66 mL/min (>60) 04/18/22 17:20 Est GFR (MDRD) Non-Af 55 mL/min (>60) L 04/18/22 17:20 BUN/Creatinine Ratio 30.5 RATIO (10-20) H 04/18/22 17:20 Glucose 121 mg/dL (74-106) H 04/18/22 17:20 Goal Trough: 15-20 mcg/mL Pharmacy Plan for Drug Dosing: Pharmacy Service will continue to monitor and adjust dosing as required. Medications Vancomycin HCl 750 mg/ Sodium (Chloride) 265 mls @ 250 mls/hr IV Q24H FREDERICK Discontinued Medications Vancomycin HCl 1,500 mg/ (Sodium Chloride) 530 mls @ 250 mls/hr IV X1 ONE Stop: 04/19/22 01:17 Last Admin: 04/19/22 00:42 Dose: 250 mls/hr Documented by: Follow-Up Labs: Trough Vancomycin Labs to be done on [date and time ordered]: 04/20 @ 0033
[2022-04-19] MEDS: Morphine 2 MG/ML Syringe 1 MG IV (03:59)
[2022-04-19] MEDS: Menthol/Lanolin/Calamine/Znox 113 GM Tube 1 APPLIC TOPICAL (04:05)
[2022-04-19 04:30] VITALS: BP 127/61; PULSE 90; RESP 18; TEMP 36.7; O2SAT 94
[2022-04-19] MEDS: Acetaminophen 500 MG Tablet 1000 MG PO ×3 (04:51→20:53)
[2022-04-19] MEDS: cycloBENZAPRine HCl 10 MG Tablet PO ×3 (04:51→20:53)
[2022-04-19 06:47] LABS: Absolute Lymphocyte Count 0.65 X10^3/uL (0.83-4.51); Absolute Neutrophil Count 6.9 X10^3/uL (2.0-7.7); Basophil# 0.05 X10^3/uL; Basophil% 0.6 % (0-1); Eosinophil# 0.08 X10^3/uL; Eosinophils% 0.9 % (0-5); Hematocrit 29.9 % (37-47); Hemoglobin 9.4 g/dL (12.0-15.0); Lymphocyte # 0.65 X10^3/ul (0.83-4.51); Lymphocyte % 7.4 % (19-41); Mean Corp Hgb Conc 31.4 g/dL (32-36); Mean Corpuscular Hgb 30.5 pg (27.0-32.0); Mean Corpuscular Volume 97.1 fL (81-99); Monocyte# 0.96 X10^3/uL; NRBC Flagged by Analyzer 0 % (0-5); Neutrophil # 6.94 X10^3/uL (2.7-7.7); Neutrophil % 79.2 % (47-70); Platelet Count 192 K/mm3 (150-450); RBC Distribution Width CV 13.9 % (11.6-14.6); RBC Distribution Width SD 49.2 fl (35.1-43.9); Red Blood Count 3.08 M/mm3 (4.2-5.4); White Blood Count 8.8 K/mm3 (4.4-11.0)
[2022-04-19 07:06] LABS: Anion Gap 8 (5-15); BUN 29 mg/dL (7-18); BUN/Creat Ratio 28.4 RATIO (10-20); Calcium,Total 8.1 mg/dL (8.5-10.1); Chloride 112 mmol/L (98-107); Creatinine, Serum 1.02 mg/dL (0.55-1.02); EST Glomerular Filtration Rate 56 mL/min (>60); Est Glom Filt Rate - Afr Amer 68 mL/min (>60); Estimated Creatinine Clearance 44.74 ml/min; Glucose 78 mg/dL (74-106); Sodium Level 138 mmol/L (136-145)
[2022-04-19 08:27] VITALS: BP 128/68; PULSE 78; RESP 18; TEMP 36.8; O2SAT 97
[2022-04-19] MEDS: Pregabalin 75 MG Capsule PO (08:38)
[2022-04-19] MEDS: DULoxetine Hcl 60 MG Capsule PO (08:38)
[2022-04-19] MEDS: Senna/Docusate Sodium 1 Tablet 2 TABLET PO (08:39)
[2022-04-19] MEDS: buPROPion (XL) 150 MG TABLET.XL PO (08:39)
[2022-04-19] MEDS: Enoxaparin 40 MG/0.4 ML Syringe SC (08:40)
[2022-04-19] MEDS: Potassium Chloride Oral Tablet 10 MEQ PO (08:41)
[2022-04-19] MEDS: Aspirin 81 MG TAB.CHEW PO (08:41)
[2022-04-19] MEDS: Carvedilol 12.5 MG Tablet PO ×2 (08:41→20:53)
[2022-04-19] MEDS: Clopidogrel Bisulfate 75 MG Tablet PO (08:41)
[2022-04-19] MEDS: Hydroxychloroquine 200 MG Tablet PO (08:42)
[2022-04-19] MEDS: Nystatin Powder 15gm Bottle 1 APPLIC TOPICAL ×2 (08:43→20:53)
--- NOTE | 2022-04-19 10:36 | PN.HOSP_ITS ---
Documented by User: Sherri Mathias FILLER SHREDDER HELPER, FILLER SHREDDER HELPER-C 04/19/22 11:15 Subjective Subjective Patient seen and examined. Confused this morning. Refusing medications, yelling at nursing staff and attempting to get out of bed repeatedly. Alert to self only. Objective Data Objective Data Vital Signs: Vital Signs Temp Pulse Resp BP Pulse Ox 98.2 F 78 18 128/68 H 97 04/19/22 08:27 04/19/22 08:27 04/19/22 08:27 04/19/22 08:27 04/19/22 08:27 Oxygen Delivery Method Room Air Weight: 127 lb 3.307 oz Body Mass Index (BMI) 27.5 Intake & Output: Intake and Output for Last 24 Hours 04/17/22 04/18/22 04/19/22 23:59 23:59 23:59 Intake Total 1050 / 1050 Output Total 250 / 250 Balance 800 / 800 Lab / Micro Data Result Diagrams: 04/19/22 06:15 04/19/22 06:15 Labs: Laboratory Results - last 24 hr 04/18/22 17:20: Sodium 136, Potassium 4.8, Chloride 109 H, Carbon Dioxide 20.0 L , Anion Gap 7, BUN 32 H, Creatinine 1.05 H, Estim Creat Clear Calc 47.91, Est GFR (MDRD) Af Amer 66, Est GFR (MDRD) Non-Af 55 L, BUN/Creatinine Ratio 30.5 H, Glucose 121 H, Calcium 8.2 L 04/19/22 06:15: WBC 8.8, RBC 3.08 L, Hgb 9.4 L, Hct 29.9 L, MCV 97.1, MCH 30.5, MCHC 31.4 L, RDW Std Deviation 49.2 H, RDW Coeff of Janusz 13.9, Plt Count 192, MPV 9.0, Immature Gran % (Auto) 0.900, Neut % (Auto) 79.2 H, Lymph % (Auto) 7.4 L, [place] % (Auto) 11.0 H, Eos % (Auto) 0.9, Baso % (Auto) 0.6, Absolute Neuts (auto) 6.9, Absolute Lymphs (auto) 0.65 L, Nucleated RBC % 0 04/19/22 06:15: Sodium 138, Potassium 5.0, Chloride 112 H, Carbon Dioxide 18.0 L , Anion Gap 8, BUN 29 H, Creatinine 1.02, Estim Creat Clear Calc 44.74, Est GFR (MDRD) Af Amer 68, Est GFR (MDRD) Non-Af 56 L, BUN/Creatinine Ratio 28.4 H, Gl ucose 78, Calcium 8.1 L Radiography Diagnostic Testing: Radiology Impression Lumbar Spine MRI 04/18/22 17:14 IMPRESSION: Intense vertebral body enhancement, destruction of the disc space and ventral epidural thick enhancement at T12-L1, new since prior MRI in 2013. Findings highly consistent with active discitis-osteomyelitis. Chronic changes with minimal if any residual or recurrent inflammatory change at L1-L2. No discrete drainable fluid collection. Also enhancement, circumferential epidural thickening, and presumed epidural and posterior element inflammatory change at the level of L2-L3 and L3-4 levels. N.B. : The above Results were Read Back by Marisela Pemberton MD to Dr. Chong Diallo MD, and understanding confirmed on 04/18/2022 22:35:14 (ET). Electronically Signed: Marisela Pemberton MD at 22:36 EDT , ADDENDUM: 04/18/22 2243 IMPRESSION: Intense vertebral body enhancement, destruction of the disc space and ventral epidural thick enhancement at T12-L1, new since prior MRI in 2013. Findings highly consistent with active discitis-osteomyelitis. Chronic changes with minimal if any residual or recurrent inflammatory change at L1-L2. No discrete drainable fluid collection. Also enhancement, circumferential epidural thickening, and presumed epidural and posterior element inflammatory change at the level of L2-L3 and L3-4 levels. N.B. : The above Results were Read Back by Marisela Pemberton MD to Dr. Chong Diallo MD, and understanding confirmed on 04/18/2022 22:35:14 (ET). Electronically Signed: Marisela Pemberton MD at 22:36 EDT , Physical Exam Const alert Orientation / Consciousness: awake and oriented to person Nutritional Appearance: cachectic HEENT normocephalic Mouth: dry mucous membranes Eyes PERRL, EOMs intact bilaterally and conjunctivae normal Neck no lymphadenopathy Resp clear to auscultation bilaterally Auscultation: diminished lung sounds Cardio regular rate, regular rhythm and no murmurs Peripheral Pulses: pulses 2+ throughout GI normal to inspection, nondistended, normoactive bowel sounds, non-tender and non-distended Extremity normal to inspection Skin no rashes or lesions noted Lesions: no lesions Rashes: no rashes Trauma: no lacerations or abrasions Neuro CN's II-XII intact bilaterally, no focal motor deficits, no sensory deficits noted and deep tendon reflexes 2+ bilaterally Psych Mood & Affect: anxious Assessment & Plan Assessment/Plan (1) Lumbar discitis: (2) Acute osteomyelitis of lumbar spine: PLAN: 1. Acute osteomyelitis/discitis of the lumbar spine-recent MSSA ba cteremia with unclear source. Repeat blood cultures at that time negative since 03/21/2022. Patient was continued on cefazolin through 04/18/2022. ID consulted. IV cefepime and IV vancomycin. Repeat blood culture pending. As needed pain regimen. 2. Acute metabolic encephalopathy-secondary to #1, suspect complicated by recent increased use of narcotics, muscle relaxants. 3. Intractable back pain- secondary to #1. PRN pain regimen. Frequent positional changes. 4. Chronic heart failure with preserved ejection fraction, multivessel CAD/ischemic cardiomyopathy-recent angioplasty and stenting to RCA, left anterior descending artery and left circumflex artery. Continue aspirin, statin, Plavix, beta-migue. 03/18/22 Echo with EF 60%, mild tricuspid valve insufficiency, pulmonary artery systolic pressure 40 mmHg. Not currently on lasix. 5. Chronic kidney disease stage IIIa-at baseline, stable. 6. Hypertension-stable, continue carvedilol. 7. Type 2 diabetes mellitus-previously on regimen which was discontinued due to hypoglycemia. Accu-Cheks with sliding scale insulin. 8. Hyperlipidemia- continue statin. 9. Depression/anxiety-continue Cymbalta, bupropion. 10. Rheumatoid arthritis? Chronic back pain-Plaquenil held. DVT prophylaxis-Lovenox sc This patient was seen by Sherri Stew, FILLER SHREDDER HELPER-C under the supervision of Dr. Khoury. Documented by User: Dr. Mechelle Khoury DO 04/19/22 15:32 Subjective Subjective This patient was seen in conjunction with Sherri Mathias NP. The following represents my independent history and physical examination. Please see below for addendum the above. Patient with confusion this morning. Yelling at staff intermittently and refusing to take medications. She seems to be somewhat redirectable and I would like to avoid medicating her if possible. We will plan to put a sitter at the bedside to keep her safe. Concern bed Haldol or benzodiazepines could potentially worsen in her delirium. Not currently complaining of any back pain. Objective Data Lab / Micro Data Result Diagrams: 04/19/22 06:15 04/19/22 06:15 Physical Exam Const alert and no apparent distress Constitutional Narrative: Overweight, older white female sitting on the edge of the bed eating breakfast, appears older than stated age, oriented only to self, nursing at bedside, patient appears nontoxic., Patient was cooperative with my exam Orientation / Consciousness: confused and disoriented Exam Limitations: altered mental status Nutritional Appearance: overweight HEENT head/scalp atraumatic and moist oral mucous membranes HEENT Narrative: Mallampati is 2, no thrush, dentition is fair Head and Scalp: normocephalic Resp normal respiratory effort, no retractions, no use of accessory muscles and clear to auscultation bilaterally Auscultation: Negative for crackles, rales, rhonchi or wheezes Cardio regular rate, regular rhythm, S1 normal heart sound, S2 normal heart sound, no murmurs, no rub, no gallops, no clicks and no JVD GI normal to inspection, nondistended, normoactive bowel sounds, soft to palpation, non-tender and non-distended Extremity no clubbing, cyanosis or edema Extremity Narrative: No tenderness with palpation to lumbar spine Peripheral Pulses: Yes pulses 2+ throughout Neuro CN's II-XII intact bilaterally, moves all extremities and no focal motor deficits Neuro Narrative: Reflexes in the lower extremities were 2+, speech was a bit pressured and fast at times however completely intelligible, generalized weakness noted but no focal deficits Sensorium / Orientation: awake and alert Psych Psych Narrative: Appears intermittently agitated Assessment & Plan Assessment/Plan (1) Lumbar discitis: (2) Acute osteomyelitis of lumbar spine: (3) MSSA bacteremia: PLAN: Assessment: Discitis and osteomyelitis at T12-L1 Toxic/metabolic encephalopathy Recent sepsis secondary to MSSA bacteremia CKD stage III AAA Chronic heart failure with preserved ejection fraction Chronic anemia CAD Hypertension Hyperlipidemia DM-2 Depression/anxiety Rheumatoid arthritis Plan: -Patient had been on IV cefazolin through a PICC that was to be stopped on 04/18/2022 for a total of 4 weeks -Patient had clearance blood cultures and a TTE that was negative for vegetations -New back pain developed in the last couple days--> early this week -Discitis and osteomyelitis in the lower thoracic/upper lumbar spine -No epidural abscesses -Neurological changes -Therefore no need for acute surgical intervention -Question if organism became resistant to Ancef -Patient currently on cefepime and vancomycin -Blood cultures are pending -ID consultation -Suspect encephalopathy is related to acute infection -Sitter at bedside -Delirium is more hyperactive than hypoactive which is what it was previously -Continue pain medication as needed Charges/Coding Visit Charges Inpatient E&M: 13590 [facility] Hosp L2
--- NOTE | 2022-04-19 11:53 | NURSING ---
pt daughter Kacey Granger phone call returned- updated on pt status. Kacey states i have a head cold so I'm not sure if I should come in. updated on visitor policy. Kacey states: she has pt bBIL hearing aides at home with her, but pt still very CACHIL [place], confusion and lack of pt cooperation with staff is normal for pt until she gets to know everyone, she hates applesauce, when cooperative is able to take her medications whole one by one but it takes a very long time, does not like white milk, applesauce or ensure, likes chocolate/banana pudding, cream of wheat with brown sugar, chocolate milk, scrambled eggs or any type of eggs, egg salad sandwiches, coke. She will refuse the ensure because she doesn't like it. and she will refuse to eat a pureed diet, she can eat a fingerfoods diet. Kacey states she is POA and says to call with any updates no matter what time day or night. Informed Kacey that CM/SW assists with discharge planning and will be in contact as she is listed in pt chart as field contact person. Dietary phoned to inform of pt food preferences per pt daughter report.
[2022-04-19 12:11] LABS: Bedside Glucose 144 mg/dL (74-106)
--- NOTE | 2022-04-19 13:16 | CASEMGMT ---
Social Work Patient from Transitional care Unit at [facility]. This social worker clinical to speak with patient in room. This social worker clinical introduced self and social worker clinical role. Patient appears to be confused as evidenced by patient having difficulty following conversation topic. This social worker clinical inquired if patient plans to return to TCU when medically cleared. Patient stated go right there. This social worker clinical clarified that patient is not being discharged from acute unit right now and plan is for patient to continue with care. Patient then states right now? This social worker clinical then inquired about contacting patient daughter, patient did not respond to this social worker clinical. Telephone call to patient daughterKacey. No answer. voicemail left. Telephone call to TCU, Jeanine. Jeanine states plan to hold a bed for patient, if patient would like to return. Social Work to continue to follow. Maria Del Rosario Vásquez MSW, JACQUELIN
--- NOTE | 2022-04-19 13:40 | CASEMGMT ---
Social Work Telephone call received from patient daughter, Kacey. This social service technician introduced self and social service technician role. Kacey agreeable to speak with this social service technician. Kacey confirms to be patient HCPOA and document are on chart. Kacey reports that plan is for patient to return to TCU. Kacey reports that prior to hospitalization and TCU patient was living at home with Kacey living with patient. Patient would use a walker for ambulation in the home and cane/scooter for in the community. Kacey reports to manage all patient medication and provided transportation. Kacey reports that patient is typically confused in the community. Kacey with no further questions. PLAN: TCU when medically cleared. Pre-cert will need to be obtained as well. Social Work to continue to follow. Maria Del Rosario Vásquez MSW, JACQUELIN
[2022-04-19 14:48] VITALS: BP 116/64; PULSE 81; RESP 18; TEMP 36.6; O2SAT 100
--- NOTE | 2022-04-19 15:47 | PCM.PN.ID ---
Physical Exam Narrative Moved from TCU with new onset severe lower back pain. No fever, no n/v/d. Const alert General Appearance: cooperative Resp normal air movement and clear to auscultation bilaterally Cardio regular rate and regular rhythm GI soft to palpation, non-tender and non-distended Extremity Extremity Narrative: Point tenderness over L spine Skin no rashes or lesions noted ID ID: Route of nutrition/ use of supplements: [] Nutritional Intake: [] IV Site: [] Zepeda Catheter: [] Assessment & Plan Assessment/Plan (1) MSSA bacteremia: PLAN: Has been on cefazolin for MSSA bacteremia for past 4 weeks, now with new severe lower back pain. MRI shows new lumbar osteo/discitis. Abx broadened to vanc/cefepime. Bcx sent. Will consult spine surgery for eval. Will follow, thank you (2) Acute osteomyelitis of lumbar spine:
--- NOTE | 2022-04-19 16:13 | CON.PCM.OR_ITS ---
HPI Consult Data Date of Consult: 04/19/22 HPI Narrative HPI Narrative: ERIK GARCIA, is a 71 F who presents with acute back pain. The patient was transferred from the transitional care unit to the ER for evaluation on 04/18/2022. An MRI was performed which shows enhancement of the T12-L1 level possible active discitis/osteomyelitis. She was subsequently adm itted and infectious disease was consulted. The patient has been on cefazolin for MSSA bacteremia for the past 4 weeks and antibiotics were broadened to vancomycin and cefepime. The patient has a history of dementia and is a very poor historian. At this time she is lying in bed resting comfortably. She is pleasant and talkative. She denies any pain at this time but does state that she did have an episode of severe back pain recently. She denies any acute numbness tingling weakness or changes in bowel or bladder function. [facility] Medical History Anemia Atherosclerosis of coronary artery of [place] heart without angina pectoris Atherosclerotic heart disease of [place] coronary artery without angina pectoris Cardiomyopathy CHF (congestive heart failure), NYHA class III Chronic back pain Chronic kidney disease, stage III (moderate) Essential hypertension Hyperlipidemia Ischemic cardiomyopathy SVT (supraventricular tachycardia) Type II diabetes mellitus Home Medications pregabalin 75 mg PO DAILY 05/11/16 [History Last Taken 04/18/22 06:06] hydroxychloroquine 200 mg PO DAILY 07/19/18 [History Last Taken 04/18/22 08:13] aspirin 81 mg chewable tablet 81 mg PO DAILY 12/31/20 [History Last Taken 04/18/22 08:13] atorvastatin 40 mg tablet 40 mg PO QHS #30 tab 12/31/20 [Rx Last Taken 04/17/22 20:39] bupropion HCl 150 mg 24 hr tablet, extended release 150 mg PO QAM 12/30/21 [History Last Taken 04/18/22 08:14] duloxetine 60 mg capsule,delayed release 60 mg PO DAILY 12/30/21 [History Last Taken 04/18/22 06:08] carvedilol 12.5 mg PO BID 03/24/22 [History Last Taken 04/18/22 08:13] cefazolin in dextrose (iso-os) 1 g IV Q12 03/24/22 [History Last Taken 04/18/22 07:22] clopidogrel 75 mg PO DAILY 03/24/22 [History Last Taken 04/18/22 06:06] sennosides-docusate sodium [Stool Softener-Stimulant Laxat] 2 tab PO BID PRN PRN #0 tab 03/24/22 [Rx Last Taken Unknown] acetaminophen 500 mg tablet 1,000 mg PO TID tab 03/30/22 [History Last Taken 04/18/22 14:32] menthol 0.44 %-zinc oxide 20.6 % topical ointment 1 applic TOPICAL BID PRN g 03/30/22 [History Last Taken 04/18/22 06:07] nystatin 100,000 unit/gram topical powder 1 applic TOPICAL BID 03/30/22 [History Last Taken 04/18/22 06:08] potassium chloride 10 mEq tablet,extended release 10 meq PO DAILY 03/30/22 [History Last Taken 04/18/22 08:13] cyclobenzaprine [Flexeril] 10 mg PO TID 04/18/22 [History Last Taken 04/18/22 14:31] tramadol 50 mg PO Q6H PRN 04/18/22 [History Last Taken 04/18/22 12:51] Allergy/AdvReac Type Severity Reaction Status Date / Time ciprofloxacin [From Cipro] Allergy Hives Verified 03/30/22 10:37 ciprofloxacin HCl Allergy Hives Verified 03/30/22 10:37 [From Cipro] Penicillins Allergy Hives Verified 03/30/22 10:37 Family History Father No problems noted. Mother No problems noted. Surgical History History of left heart catheterization (12/10/20) Presence of coronary angioplasty implant and graft (~12/16/20) Presence of stent in coronary artery (~12/16/20) Social History household members: none Smoking Status: Smoker, status unknown tobacco type: cigarettes alcohol intake: never substance use type: does not use Vital Signs Vital Signs Vital Signs: 04/18/22 16:42 04/18/22 19:30 04/18/22 20:57 Temperature 97.6 F L Temperature Source Temporal Pulse Rate 73 73 Respiratory Rate 18 15 Blood Pressure 144/91 H 149/69 H 113/78 Blood Pressure Mean 108 95 89 Blood Pressure Source Blood Pressure Position Blood Pressure Location Pulse Ox 100 95 Oxygen Delivery Method Room Air Room Air 04/18/22 21:57 04/18/22 22:32 04/19/22 00:00 Temperature 97.9 F Temperature Source Temporal Pulse Rate 77 75 90 Respiratory Rate 15 15 15 Blood Pressure 114/71 132/73 H 122/90 H Blood Pressure Mean 85 92 100 Blood Pressure Source Blood Pressure Position Blood Pressure Location Pulse Ox 94 97 97 Oxygen Delivery Method Room Air Room Air Room Air 04/19/22 00:35 04/19/22 04:30 04/19/22 08:27 Temperature 97.8 F 98.1 F 98.2 F Temperature Source Oral Temporal Oral Pulse Rate 80 90 78 Respiratory Rate 18 18 18 Blood Pressure 139/76 H 127/61 H 128/68 H Blood Pressure Mean 97 83 88 Blood Pressure Source Monitor Monitor Monitor Blood Pressure Position Supine Semi-Fowlers Supine Blood Pressure Location Left Arm Left Arm Left Arm Pulse Ox 98 94 97 Oxygen Delivery Method Room Air Room Air Room Air 04/19/22 14:48 Temperature 97.9 F Temperature Source Oral Pulse Rate 81 Respiratory Rate 18 Blood Pressure 116/64 Blood Pressure Mean 81 Blood Pressure Source Monitor Blood Pressure Position Semi-Fowlers Blood Pressure Location Left Arm Pulse Ox 100 Oxygen Delivery Method Room Air Weight Weight: 127 lb 3.307 oz Body Mass Index (BMI) 27.5 Physical Exam Const alert and no apparent distress General Appearance: cooperative and comfortable HEENT normocephalic and head/scalp atraumatic Eyes EOMs intact bilaterally and conjunctivae normal Neck full ROM General: normal visual inspection Chest inspection of chest normal Resp normal respiratory effort and normal air movement Effort and Inspection: able to speak in complete sentences Cardio regular rate and peripheral pulses 2+ throughout GI soft to palpation, non-tender and non-distended Back/Spine no thoracic nor lumbar tenderness Cervical Spine: cervical ROM normal Thoracic Spine / Upper Back: normal to inspection Lumbar Spine / Lower Back: normal to inspection Extremity normal to inspection, full ROM, normal capillary refill, no clubbing, cyanosis or edema and no calf tenderness Skin no rashes or lesions noted General Skin Exam: no breakdown Neuro oriented x3, CN's II-XII intact bilaterally, moves all extremities, no focal motor deficits, no sensory deficits noted and deep tendon reflexes 2+ bilaterally Motor Exam: strength 5/5 throughout and muscle tone normal throughout Medical Records Data Medical Nutrition Assessment Dietitian: Malnutrition Criteria Met Start: 04/19/22 12:03 Freq: Status: Active Protocol: Document 04/19/22 12:03 AG (Rec: 04/19/22 12:03 AG [id number]) Nutrition Malnutrition Evidence of Malnutrition Exists Yes Malnutrition (moderate): Acute Illness/Injury Evidenced By Suboptimal Energy Intake ( Moderate),Weight Loss ( Moderate) Clinical Problem Acute Disease or Injury Related Malnutrition Etiology moderate, acute malnutrition related to inadequate energy intake Signs/Symptoms as evidenced by estimated PO intake meeting <75% of estimated energy needs >1 week ; unintentional wt loss of 7.7 #/5.7% x 1 month Status Active Problem Recommendation Dietitian Recommendations/Changes will liberalize diet to regular, no added salt given acute malnutrition; ensure pudding w/ lunch and dinner and Patrick BID for additional protein/calories if consumed. Texture/consistency modifications per LENS INSPECTOR. Lab / Micro Data Result Diagrams: 04/19/22 06:15 04/19/22 06:15 Labs: Laboratory Results - last 24 hr 04/18/22 17:20: Sodium 136, Potassium 4.8, Chloride 109 H, Carbon Dioxide 20.0 L , Anion Gap 7, BUN 32 H, Creatinine 1.05 H, Estim Creat Clear Calc 47.91, Est GFR (MDRD) Af Amer 66, Est GFR (MDRD) Non-Af 55 L, BUN/Creatinine Ratio 30.5 H, Glucose 121 H, Calcium 8.2 L 04/19/22 06:15: WBC 8.8, RBC 3.08 L, Hgb 9.4 L, Hct 29.9 L, MCV 97.1, MCH 30.5, MCHC 31.4 L, RDW Std Deviation 49.2 H, RDW Coeff of Janusz 13.9, Plt Count 192, MPV 9.0, Immature Gran % (Auto) 0.900, Neut % (Auto) 79.2 H, Lymph % (Auto) 7.4 L, [place] % (Auto) 11.0 H, Eos % (Auto) 0.9, Baso % (Auto) 0.6, Absolute Neuts (auto) 6.9, Absolute Lymphs (auto) 0.65 L, Nucleated RBC % 0 04/19/22 06:15: Sodium 138, Potassium 5.0, Chloride 112 H, Carbon Dioxide 18.0 L , Anion Gap 8, BUN 29 H, Creatinine 1.02, Estim Creat Clear Calc 44.74, Est GFR (MDRD) Af Amer 68, Est GFR (MDRD) Non-Af 56 L, BUN/Creatinine Ratio 28.4 H, Glucose 78, Calcium 8.1 L 04/19/22 12:04: POC Glucose 144 H Radiology Impression Lumbar Spine MRI 04/18/22 17:14 IMPRESSION: Intense vertebral body enhancement, destruction of the disc space and ventral epidural thick enhancement at T12-L1, new since prior MRI in 2013. Findings highly consistent with active discitis-osteomyelitis. Chronic changes with minimal if any residual or recurrent inflammatory change at L1-L2. No discrete drainable fluid collection. Also enhancement, circumferential epidural thickening, and presumed epidural and posterior element inflammatory change at the level of L2-L3 and L3-4 levels. N.B. : The above Results were Read Back by Marisela Pemberton MD to Dr. Chong Diallo MD, and understanding confirmed on 04/18/2022 22:35:14 (ET). Electronically Signed: Marisela Pemberton MD at 22:36 EDT , ADDENDUM: 04/18/22 2243 IMPRESSION: Intense vertebral body enhancement, destruction of the disc space and ventral epidural thick enhancement at T12-L1, new since prior MRI in 2013. Findings highly consistent with active discitis-osteomyelitis. Chronic changes with minimal if any residual or recurrent inflammatory change at L1-L2. No discrete drainable fluid collection. Also enhancement, circumferential epidural thickening, and presumed epidural and posterior element inflammatory change at the level of L2-L3 and L3-4 levels. N.B. : The above Results were Read Back by Marisela Pemberton MD to Dr. Chong Diallo MD, and understanding confirmed on 04/18/2022 22:35:14 (ET). Electronically Signed: Marisela Pemberton MD at 22:36 EDT , Assessment & Plan Assessment/Plan (1) MSSA bacteremia: (2) Lumbar discitis: (3) Acute osteomyelitis of lumbar spine: PLAN: I had a lengthy discussion with the patient. I reviewed her imaging with her. Lumbar MRI dated 04/18/2022 shows enhancement of the T12-L1 vertebral bodies. After discussing the risk benefits and alternatives and answering all of her questions I recommend a T12-L1 vertebral bone biopsy. We discussed the procedure in detail along with expected outcome and recovery and she agrees to proceed. The plan is to take her to the OR Sunday for this procedure. The biopsy will also be sent for culture and sensitivity. In the meantime I re commend pain control and activity as tolerated. She understands and agrees with the treatment plan.
[2022-04-19 16:55] LABS: Bedside Glucose 205 mg/dL (74-106)
[2022-04-19] MEDS: Insulin Lispro 100 UNIT/ML INSULN.PEN SC ×2 (17:38→20:52)
[2022-04-19 20:45] VITALS: BP 132/96; PULSE 70; RESP 16; TEMP 36.6; O2SAT 100
[2022-04-19] MEDS: Atorvastatin Calcium 40 MG Tablet PO (20:53)
[2022-04-19 23:51] LABS: Bedside Glucose 155 mg/dL (74-106)
[2022-04-20 00:58] LABS: Vancomycin, Trough Level 16.1 ug/mL (5.0-15.0)
[2022-04-20 02:34] VITALS: BP 153/75; PULSE 78; RESP 16; TEMP 36.6; O2SAT 98
[2022-04-20 05:40] LABS: Absolute Lymphocyte Count 0.77 X10^3/uL (0.83-4.51); Absolute Neutrophil Count 5.9 X10^3/uL (2.0-7.7); Basophil# 0.03 X10^3/uL; Basophil% 0.4 % (0-1); Eosinophil# 0.18 X10^3/uL; Eosinophils% 2.3 % (0-5); Hematocrit 30.5 % (37-47); Hemoglobin 9.4 g/dL (12.0-15.0); Lymphocyte # 0.77 X10^3/ul (0.83-4.51); Lymphocyte % 9.8 % (19-41); Mean Corp Hgb Conc 30.8 g/dL (32-36); Mean Corpuscular Hgb 30.3 pg (27.0-32.0); Mean Corpuscular Volume 98.4 fL (81-99); Mean Platelet Vol. 9.1 fl (6.2-12.0); Monocyte% 11.4 % (0-10); NRBC Flagged by Analyzer 0 % (0-5); Neutrophil % 74.8 % (47-70); Platelet Count 211 K/mm3 (150-450); RBC Distribution Width CV 13.7 % (11.6-14.6); White Blood Count 7.9 K/mm3 (4.4-11.0)
[2022-04-20 06:25] LABS: Anion Gap 8 (5-15); BUN 34 mg/dL (7-18); BUN/Creat Ratio 32.4 RATIO (10-20); Calcium,Total 8.4 mg/dL (8.5-10.1); Chloride 112 mmol/L (98-107); Creatinine, Serum 1.05 mg/dL (0.55-1.02); EST Glomerular Filtration Rate 55 mL/min (>60); Est Glom Filt Rate - Afr Amer 66 mL/min (>60); Estimated Creatinine Clearance 43.47 ml/min; Glucose 98 mg/dL (74-106); Potassium 5.3 mmol/L (3.5-5.1); Sodium Level 136 mmol/L (136-145)
[2022-04-20] MEDS: cycloBENZAPRine HCl 10 MG Tablet PO ×3 (06:57→21:50)
[2022-04-20] MEDS: Acetaminophen 500 MG Tablet 1000 MG PO ×3 (06:57→21:50)
[2022-04-20 07:05] LABS: Bedside Glucose 96 mg/dL (74-106)
[2022-04-20 08:01] VITALS: BP 174/72; PULSE 81; RESP 18; TEMP 36.7; O2SAT 100
[2022-04-20] MEDS: 0.9% Normal Saline 1,000 ML 75 ML IV (08:10)
[2022-04-20] MEDS: Pregabalin 75 MG Capsule PO (08:12)
[2022-04-20] MEDS: Aspirin 81 MG TAB.CHEW PO (08:12)
[2022-04-20] MEDS: traMADol 50 MG Tablet PO (08:12)
[2022-04-20] MEDS: Senna/Docusate Sodium 1 Tablet 2 TABLET PO (08:13)
[2022-04-20] MEDS: DULoxetine Hcl 60 MG Capsule PO (08:13)
[2022-04-20] MEDS: Clopidogrel Bisulfate 75 MG Tablet PO (08:13)
[2022-04-20] MEDS: Carvedilol 12.5 MG Tablet PO ×2 (08:13→21:50)
[2022-04-20] MEDS: buPROPion (XL) 150 MG TABLET.XL PO (08:13)
[2022-04-20] MEDS: Nystatin Powder 15gm Bottle 1 APPLIC TOPICAL ×2 (08:14→21:37)
[2022-04-20] MEDS: Hydroxychloroquine 200 MG Tablet PO (08:14)
--- NOTE | 2022-04-20 10:03 | PCM.PN.ID ---
Physical Exam Narrative Not feeling well, having a lot of back pain, no fever Const alert General Appearance: cooperative Resp normal air movement and clear to auscultation bilaterally Cardio regular rate and regular rhythm GI soft to palpation, non-tender and non-distended Skin no rashes or lesions noted ID ID: Route of nutrition/ use of supplements: [] Nutritional Intake: [] IV Site: [] Zepeda Catheter: [] Assessment & Plan Assessment/Plan (1) MSSA bacteremia: PLAN: Has been on cefazolin for MSSA bacteremia for past 4 weeks, now with new severe lower back pain. MRI shows new lumbar osteo/discitis. Abx broadened to vanc/cefepime. Bcx neg so far. Seen by Dr. Bansal, plan is for OR tomorrow. Will follow (2) Acute osteomyelitis of lumbar spine:
--- NOTE | 2022-04-20 10:18 | PN.HOSP_ITS ---
Documented by User: Yusef BUSTILLOS 04/20/22 10:35 Subjective Subjective Patient is a 71-year-old female lying in bed, alert and oriented to self. Due to patient confusion, patient cannot provide much insight into current condition. Patient does complain of generalized fatigue, but does not appear in acute distress. Objective Data Objective Data Vital Signs: Vital Signs Temp Pulse Resp BP Pulse Ox 98.1 F 81 18 174/72 H 100 04/20/22 08:01 04/20/22 08:01 04/20/22 08:01 04/20/22 08:01 04/20/22 08:01 Oxygen Delivery Method Room Air Weight: 127 lb 3.307 oz Body Mass Index (BMI) 27.5 Intake & Output: Intake and Output for Last 24 Hours 04/18/22 04/19/22 04/20/22 23:59 23:59 23:59 Intake Total 1265 / 1265 519.75 / 519.75 Output Total 500 / 500 550 / 550 Balance 765 / 765 -30.25 / -30.25 Medical Nutrition Assessment Dietitian: Malnutrition Criteria Met Start: 04/19/22 12:03 Freq: Status: Active Protocol: Document 04/19/22 12:03 AG (Rec: 04/19/22 12:03 AG [id number]) Nutrition Malnutrition Evidence of Malnutrition Exists Yes Malnutrition (moderate): Acute Illness/Injury Evidenced By Suboptimal Energy Intake ( Moderate),Weight Loss ( Moderate) Clinical Problem Acute Disease or Injury Related Malnutrition Etiology moderate, acute malnutrition related to inadequate energy intake Signs/Symptoms as evidenced by estimated PO intake meeting <75% of estimated energy needs >1 week ; unintentional wt loss of 7.7 #/5.7% x 1 month Status Active Problem Recommendation Dietitian Recommendations/Changes will liberalize diet to regular, no added salt given acute malnutrition; ensure pudding w/ lunch and dinner and Patrick BID for additional protein/calories if consumed. Texture/consistency modifications per PRODUCTION STAGE MANAGER. Lab / Micro Data Result Diagrams: 04/20/22 05:23 04/20/22 05:23 Labs: Laboratory Results - last 24 hr 04/19/22 12:04: POC Glucose 144 H 04/19/22 16:50: POC Glucose 205 H 04/19/22 20:49: POC Glucose 155 H 06/09/22 00:30: Vancomycin Trough 16.1 H 04/20/22 05:23: WBC 7.9, RBC 3.10 L, Hgb 9.4 L, Hct 30.5 L, MCV 98.4, MCH 30.3, MCHC 30.8 L, RDW Std Deviation 49.0 H, RDW Coeff of Janusz 13.7, Plt Count 211, MPV 9.1, Immature Gran % (Auto) 1.300 H, Neut % (Auto) 74.8 H, Lymph % (Auto) 9.8 L, [place] % (Auto) 11.4 H, Eos % (Auto) 2.3, Baso % (Auto) 0.4, Absolute Neuts (auto) 5.9, Absolute Lymphs (auto) 0.77 L, Nucleated RBC % 0 04/20/22 05:23: Sodium 136, Potassium 5.3 H, Chloride 112 H, Carbon Dioxide 16.0 L, Anion Gap 8, BUN 34 H, Creatinine 1.05 H, Estim Creat Clear Calc 43.47, Est GFR (MDRD) Af Amer 66, Est GFR (MDRD) Non-Af 55 L, BUN/Creatinine Ratio 32.4 H, Glucose 98, Calcium 8.4 L 04/20/22 06:56: POC Glucose 96 Physical Exam Const alert and no apparent distress Orientation / Consciousness: confused and disoriented HEENT head/scalp atraumatic and moist oral mucous membranes Head and Scalp: normocephalic Eyes PERRL, EOMs intact bilaterally and conjunctivae normal Neck no lymphadenopathy, supple and no JVD Resp normal respiratory effort, no retractions and no use of accessory muscles Cardio regular rate, regular rhythm and no JVD GI normal to inspection, nondistended, normoactive bowel sounds and soft to palpation Extremity normal to inspection, full ROM and no clubbing, cyanosis or edema Skin no rashes or lesions noted, no wounds and skin turgor normal Neuro Neuro Narrative: Unable to assess due to patient confusion. Psych affect normal Assessment & Plan Assessment/Plan (1) Lumbar discitis: (2) MSSA bacteremia: (3) Acute osteomyelitis of lumbar spine: PLAN: Day 2 Discharge planning: To be determined. 1) acute osteomyelitis/discitis of T12/L1 Concerning history as patient has been on cefazolin for MSSA bacteremia for the past 4 weeks, now with severe back pain. ID and orthopedics on consult. Blood cultures negative at time of dictation. Continue with cefepime and vancomycin for broad-spectrum coverage, orthopedics will plan for bone biopsy on 04/21. 2) acute metabolic encephalopathy Combined etiology related to #1 and recent increase of patient's muscle relaxants. Plan as above. 3) chronic heart failure with preserved ejection fraction Not in acute exacerbation, currently satting 100% on room air. Echocardiogram from last month revealed an EF of 60%, mild hopi cuspid valve insufficiency, and a pulmonary artery systolic pressure 40 mmHg. Not currently on a Lasix regimen. Continue aspirin, statin, Plavix and beta-migue. 4) CKD stage IIIa Creatinine currently 1.05, stable at baseline. 5) HTN Stable but elevated, continue carvedilol. 6) DM2 Blood sugars are well controlled, continue Accu-Cheks sliding-scale insulin. 7) hyperlipidemia Continue statin. 8) depression/anxiety Continue Cymbalta and bupropion. DVT prophylaxis - Lovenox Patient seen by Yusef Ac PA-C, under the supervision of Dr. Khoury. Time spent on patient care: 10 minutes. Documented by User: Dr. Mechelle Khoury DO 04/20/22 14:12 Subjective Subjective This patient was seen in conjunction with TRESSA Gonzáles. The following represents my independent history and physical examination. Please see below for addendum the above. Patient is much more agreeable and pleasant today. Remains confused however per her daughter she has had increased confusion over the last year. Still having some back pain. States she is tired and just has not felt well over the last 24 to 48 hours. Objective Data Lab / Micro Data Result Diagrams: 04/20/22 05:23 04/20/22 05:23 Physical Exam Const alert and oriented x3 Constitutional Narrative: Overweight, older white female sitting up in a chair at the bedside, watching television, appears comfortable, only oriented to self, patient is calm but confused Orientation / Consciousness: awake, oriented to person, confused and disoriented Exam Limitations: altered mental status Nutritional Appearance: overweight HEENT normocephalic, head/scalp atraumatic and moist oral mucous membranes Head and Scalp: normocephalic Resp normal respiratory effort, no retractions, no use of accessory muscles and clear to auscultation bilaterally Auscultation: diminished lung sounds; Negative for crackles, rales, rhonchi or wheezes Cardio regular rate, regular rhythm, S1 normal heart sound, S2 normal heart sound, no murmurs, no rub, no gallops, no clicks and no JVD Peripheral Pulses: pulses 2+ throughout GI normal to inspection, nondistended, normoactive bowel sounds, soft to palpation, non-tender and non-distended Extremity no clubbing, cyanosis or edema Peripheral Pulses: Yes pulses 2+ throughout Skin Lesions: no lesions Rashes: no rashes Trauma: no lacerations or abrasions Neuro CN's II-XII intact bilaterally, moves all extremities, no focal motor deficits and deep tendon reflexes 2+ bilaterally Neuro Narrative: Unable to assess due to patient confusion. Sensorium / Orientation: awake and alert Psych mental status grossly normal Psych Narrative: Patient pleasantly confused and agreeable today, no agitation or combativeness Assessment & Plan Assessment/Plan (1) Lumbar discitis: (2) MSSA bacteremia: (3) Acute osteomyelitis of lumbar spine: (4) Hyperkalemia: (5) Low serum bicarbonate: PLAN: Assessment: Discitis and osteomyelitis at T12-L1 Toxic/metabolic encephalopathy Recent sepsis secondary to MSSA bacteremia Hyperkalemia Low serum bicarb CKD stage IIIa Chronic heart failure with preserved ejection fraction Chronic anemia CAD Hypertension Hyperlipidemia DM-2 Depression/anxiety Rheumatoid arthritis Dementia-memory loss worsening over the last year per daughter Plan: -Patient had been on IV cefazolin through a PICC that was to be stopped on 04/18/2022 for a total of 4 weeks -Patient had clearance blood cultures and a TTE that was negative for vegetations -New back pain developed in the last couple days--> early this week -Discitis and osteomyelitis in the lower thoracic/upper lumbar spine -No epidural abscesses -Neurological changes -Bone biopsy?culture pending for 04/21/2022 -Question if organism became resistant to Ancef -Patient to remain on broad-spectrum antibiotics with cefepime and vancomycin -Blood cultures remain pending -ID is following -Encephalopathy is better today and patient is closer to baseline -Mildly elevated potassium at 5.2 -Repeat BMP pending -Serum bicarb is 16 however VBG shows normal pH and she appears to be compensated -Suspect this may be related to her hyperchloremia -Repeat BMP pending -Patient appears a little dry clinically Will run IV fluids at 60 cc an hour x1 bag -Continue pain medication as needed Charges/Coding Visit Charges Inpatient E&M: 18145 Subs Hosp L2
[2022-04-20 12:10] LABS: Bedside Glucose 138 mg/dL (74-106)
[2022-04-20 14:37] LABS: Anion Gap 5 (5-15); BUN 29 mg/dL (7-18); BUN/Creat Ratio 30.2 RATIO (10-20); Chloride 112 mmol/L (98-107); Creatinine, Serum 0.96 mg/dL (0.55-1.02); EST Glomerular Filtration Rate 61 mL/min (>60); Est Glom Filt Rate - Afr Amer 73 mL/min (>60); Estimated Creatinine Clearance 47.54 ml/min; Glucose 99 mg/dL (74-106); Potassium 5.2 mmol/L (3.5-5.1); Sodium Level 136 mmol/L (136-145)
[2022-04-20 15:13] VITALS: PULSE 71; RESP 16; TEMP 36.4; O2SAT 97
--- NOTE | 2022-04-20 15:14 | NURSING ---
pt becomes agitated/uncooperative and unable to obtain BP.
[2022-04-20] MEDS: Morphine 2 MG/ML Syringe 1 MG IV ×2 (15:15→21:25)
[2022-04-20] MEDS: LORazepam 2 MG/ML Syringe 0.5 MG IV (16:02)
[2022-04-20 17:00] LABS: Bedside Glucose 78 mg/dL (74-106)
[2022-04-20] MEDS: Ondansetron 4 MG/2 ML Vial IV (18:37)
[2022-04-20] MEDS: 0.9% Saline Lock 10 ML Syringe IV (18:37)
[2022-04-20] MEDS: Dextrose 10%-Water 250 ML 999 ML IV (21:33)
[2022-04-20 21:44] VITALS: BP 128/67; PULSE 87; RESP 18; TEMP 36.8; O2SAT 93
[2022-04-20] MEDS: Atorvastatin Calcium 40 MG Tablet PO (21:50)
[2022-04-20 22:10] LABS: Bedside Glucose 68 mg/dL (74-106)
[2022-04-20 22:10] LABS: Bedside Glucose 167 mg/dL (74-106)
[2022-04-21] VITALS (12 sets, daily range): BP systolic 126–200; BP diastolic 82–149; PULSE 61–101; RESP 16–22; TEMP 36.3–37.3; O2SAT 92–100
--- NOTE | 2022-04-21 04:25 | EKG12_ITS ---
Test Reason : AM EKG Blood Pressure : / mmHG Vent. Rate : 083 BPM Atrial Rate : 083 BPM P-R Int : 154 ms QRS Dur : 080 ms QT Int : 390 ms P-R-T Axes : 039 042 024 degrees QTc Int : 458 ms Normal sinus rhythm Low voltage QRS Borderline ECG When compared with ECG of 19-MAR-2022 11:26, Nonspecific T wave abnormality, worse in Inferior leads T wave amplitude has increased in Anterior leads Confirmed by MICAELA MELGAR, DESIRAE ([id number]), editor producer SORIN GUZMAN ([id number]) on 04/24/2022 1:09:25 PM Referred By: CARMEN Confirmed By:DESIRAE HINOJOSA MD
[2022-04-21 05:51] LABS: Absolute Lymphocyte Count 1.05 X10^3/uL (0.83-4.51); Absolute Neutrophil Count 7.2 X10^3/uL (2.0-7.7); Basophil# 0.07 X10^3/uL; Basophil% 0.7 % (0-1); Eosinophil# 0.22 X10^3/uL; Eosinophils% 2.3 % (0-5); Hematocrit 33.6 % (37-47); Hemoglobin 10.5 g/dL (12.0-15.0); Lymphocyte # 1.05 X10^3/ul (0.83-4.51); Lymphocyte % 10.9 % (19-41); Mean Corp Hgb Conc 31.3 g/dL (32-36); Mean Corpuscular Hgb 30.3 pg (27.0-32.0); Mean Corpuscular Volume 96.8 fL (81-99); Mean Platelet Vol. 8.9 fl (6.2-12.0); Monocyte# 0.91 X10^3/uL; Monocyte% 9.5 % (0-10); NRBC Flagged by Analyzer 0 % (0-5); Neutrophil # 7.23 X10^3/uL (2.7-7.7); Neutrophil % 75.3 % (47-70); Platelet Count 220 K/mm3 (150-450); RBC Distribution Width CV 13.3 % (11.6-14.6); RBC Distribution Width SD 47.7 fl (35.1-43.9); Red Blood Count 3.47 M/mm3 (4.2-5.4); White Blood Count 9.6 K/mm3 (4.4-11.0)
[2022-04-21 06:02] LABS: International Normalized Ratio 1.3; Prothrombin Time (Protime)PT. 15.8 SECONDS (11.7-14.9)
[2022-04-21 06:03] LABS: Partial Thromboplast Time 37.1 Seconds (24.1-36.2)
[2022-04-21 06:13] LABS: Anion Gap 5 (5-15); BUN 27 mg/dL (7-18); Calcium,Total 8.2 mg/dL (8.5-10.1); Chloride 116 mmol/L (98-107); EST Glomerular Filtration Rate 58 mL/min (>60); Est Glom Filt Rate - Afr Amer 70 mL/min (>60); Estimated Creatinine Clearance 45.64 ml/min; Glucose 78 mg/dL (74-106); Potassium 5.4 mmol/L (3.5-5.1); Sodium Level 140 mmol/L (136-145)
[2022-04-21 06:21] LABS: Blood Gas Specimen Type VEN; SITE L Radial; VBG BASE EXCESS -10 mmol/L (-1.0-3.5); VBG Bicarbonate 16 mmol/L (22-26); VBG PO2 < 36 mmHg (25-40); VBG TCO2 16 mmol/L (23-33); VBG pH 7.37 (7.32-7.42)
[2022-04-21] MEDS: Nystatin Powder 15gm Bottle 1 APPLIC TOPICAL ×2 (09:45→20:39)
[2022-04-21 09:58] LABS: Troponin-I HS 26 pg/mL (3.0-54.0)
--- NOTE | 2022-04-21 10:11 | NURSING ---
Pt given Coreg and then physically took pill out of her mouth with her fingers and held on to it for 5 min. This nurse explained reason for pill and what it was. pt would not take it. Pill then taken from pts hands and disposed.
--- NOTE | 2022-04-21 10:34 | PN.HOSP_ITS ---
Documented by User: Yusef BUSTILLOS 04/21/22 10:42 Subjective Subjective Patient is a 71-year-old female, alert and oriented to self. Much insight into current condition and she is acutely confused. No change from yesterday. Objective Data Objective Data Vital Signs: Vital Signs Temp Pulse Resp BP Pulse Ox 97.8 F 80 18 136/82 H 95 04/21/22 02:10 04/21/22 02:10 04/21/22 02:10 04/21/22 02:10 04/21/22 02:10 Oxygen Delivery Method Room Air Weight: 127 lb 3.307 oz Body Mass Index (BMI) 27.5 Intake & Output: Intake and Output for Last 24 Hours 04/19/22 04/20/22 04/21/22 23:59 23:59 23:59 Intake Total 1265 / 1265 2344.75 / 2344.75 265 / 265 Output Total 500 / 500 1250 / 1250 400 / 400 Balance 765 / 765 1094.75 / 1094.75 -135 / -135 Medical Nutrition Assessment Dietitian: Malnutrition Criteria Met Start: 04/19/22 12:0 3 Freq: Status: Active Protocol: Document 04/19/22 12:03 AG (Rec: 04/19/22 12:03 AG [id number]) Nutrition Malnutrition Evidence of Malnutrition Exists Yes Malnutrition (moderate): Acute Illness/Injury Evidenced By Suboptimal Energy Intake ( Moderate),Weight Loss ( Moderate) Clinical Problem Acute Disease or Injury Related Malnutrition Etiology moderate, acute malnutrition related to inadequate energy intake Signs/Symptoms as evidenced by estimated PO intake meeting <75% of estimated energy needs >1 week ; unintentional wt loss of 7.7 #/5.7% x 1 month Status Active Problem Recommendation Dietitian Recommendations/Changes will liberalize diet to regular, no added salt given acute malnutrition; ensure pudding w/ lunch and dinner and Patrick BID for additional protein/calories if consumed. Texture/consistency modifications per PLUNGER SHOVEL OPERATOR. Lab / Micro Data Result Diagrams: 04/21/22 05:43 04/21/22 05:43 Labs: Laboratory Results - last 24 hr 04/20/22 12:03: POC Glucose 138 H 04/20/22 14:20: Sodium 136, Potassium 5.2 H, Chloride 112 H, Carbon Dioxide 19.0 L, Anion Gap 5, BUN 29 H, Creatinine 0.96, Estim Creat Clear Calc 47.54, Est GFR (MDRD) Af Amer 73, Est GFR (MDRD) Non-Af 61, BUN/Creatinine Ratio 30.2 H, Glucose 99, Calcium 8.0 L 04/20/22 16:50: POC Glucose 78 04/20/22 21:20: POC Glucose 68 L 04/20/22 22:05: POC Glucose 167 H 04/21/22 05:43: WBC 9.6, RBC 3.47 L, Hgb 10.5 L, Hct 33.6 L, MCV 96.8, MCH 30.3, MCHC 31.3 L, RDW Std Deviation 47.7 H, RDW Coeff of Janusz 13.3, Plt Count 220, MPV 8.9, Immature Gran % (Auto) 1.300 H, Neut % (Auto) 75.3 H, Lymph % (Auto) 10.9 L , Valley % (Auto) 9.5, Eos % (Auto) 2.3, Baso % (Auto) 0.7, Absolute Neuts (auto) 7.2, Absolute Lymphs (auto) 1.05, Nucleated RBC % 0 04/21/22 05:43: Sodium 140, Potassium 5.4 H, Chloride 116 H, Carbon Dioxide 19.0 L, Anion Gap 5, BUN 27 H, Creatinine 1.00, Estim Creat Clear Calc 45.64, Est GFR (MDRD) Af Amer 70, Est GFR (MDRD) Non-Af 58 L, BUN/Creatinine Ratio 27.0 H, Glucose 78, Calcium 8.2 L 04/21/22 05:43: PT 15.8 H, INR 1.3, APTT 37.1 H 04/21/22 05:43: Hemoglobin A1c 6.0 H 04/21/22 05:43: Troponin I High Sens 26 ABG Data ABG results: ABG 04/20/22 08:17 Specimen Type TONEY Sample Site L Radial VBG pH 7.37 VBG pO2 < 36 VBG HCO3 16 L VBG Total CO2 16 L VBG O2 Sat (Calc) TNP VBG Base Excess -10 L POC Mix VBG pCO2 Pt Tmp 27.0 L Physical Exam Const alert Orientation / Consciousness: confused, disoriented and lethargic HEENT head/scalp atraumatic and moist oral mucous membranes Head and Scalp: normocephalic Eyes PERRL, EOMs intact bilaterally and conjunctivae normal Neck no lymphadenopathy, supple and no JVD Resp normal respiratory effort, no retractions and no use of accessory muscles Cardio regular rate, regular rhythm and no JVD GI normal to inspection, nondistended, normoactive bowel sounds and soft to palpation Extremity normal to inspection, full ROM and no clubbing, cyanosis or edema Skin no rashes or lesions noted, no wounds and skin turgor normal Neuro Neuro Narrative: Unable to assess due to patient confusion. Psych Psych Narrative: Unable to assess due to patient confusion. Assessment & Plan Assessment/Plan (1) MSSA bacteremia: (2) Lumbar discitis: (3) Acute osteomyelitis of lumbar spine: PLAN: Day 3 Discharge planning: To be determined. 1) acute osteomyelitis/discitis of T12/L1 Concerning history as patient has been on cefazolin for MSSA bacteremia for the past 4 weeks, now with severe back pain. ID and orthopedics on consult. Blood cultures negative at time of dictation. Continue with cefepime and vancomycin for broad-spectrum coverage, orthopedics will plan for bone biopsy on 04/21. 2) acute metabolic encephalopathy Combined etiology related to #1 and recent increase of patient's muscle relaxants. Plan: as above. 3) Hyperkalemia Potassium is 5.4. Gentle IVF ordered, continue to monitor BMP. 4) CKD stage IIIa Creatinine currently 1.05, stable at baseline. 5) HTN Stable but elevated, continue carvedilol. 6) DM2 Blood sugars are well controlled, continue Accu-Cheks sliding-scale insulin. 7) hyperlipidemia Continue statin. 8) depression/anxiety Continue Cymbalta and bupropion. 9) chronic heart failure with preserved ejection fraction Not in acute exacerbation, currently satting 100% on room air. Echocardiogram from last month revealed an EF of 60%, mild false pass cuspid valve insufficiency, and a pulmonary artery systolic pressure 40 mmHg. Not currently on a Lasix regimen. Continue aspirin, statin, Plavix and beta-migue. DVT prophylaxis - Lovenox Patient seen by Yusef Ac PA-C, under the supervision of Dr. Solorzano. Time spent on patient care: 9 minutes. Documented by User: Dr. Manny Solorzano MD 04/21/22 15:15 Subjective Subjective Follow-up for suspected osteomyelitis. Patient has severe back pain. Just returned to floor after bone biopsy. I talked to the patient's daughter, GÓMEZ Michelle Objective Data Lab / Micro Data Result Diagrams: 04/21/22 05:43 04/21/22 05:43 Physical Exam Narrative Physical exam General: Confused, disoriented. Screaming with pain. HEENT: Atraumatic, PERRLA, EOMI, Normocephalic Oral: Dental caries. Gingivitis. Lungs: Air entry diminished in bilateral lung bases. No crepitation/rhonchi Cardiovascular: Regular rate, Regular Rhythm, Normal S1, Normal S2, No murmurs Abdomen: Bowel Sounds Present, Soft, Non Tender, Non-Distended : No renal angle tenderness. No suprapubic tenderness. Extremities: No edema, Capillary Refill Less than 3 Seconds Skin: Sacral/gluteal region skin excoriations, present on admission Musculoskeletal/spine: Tenderness over T12/L1 lumbar area. Bandages dry. Paraspinal muscle tenderness. ROM severely restricted and painful Neurological: Complete neuro exam unobtainable as patient is confused. DTR 2+. Psych/Mental Status: Flat affect. Assessment & Plan Assessment/Plan (1) Acute osteomyelitis of lumbar spine: PLAN: This patient was seen in conjunction with TRESSA Callahan. I have independently interviewed and examined the patient and reviewed pertinent history, examination findings, laboratory and plan of management. I have reviewed the note and agree with the documented findings with the few additional points. In brief, patient is admitted from TCU with recent admission for MSSA bacteremia of unknown source. Patient was on IV Ancef through PICC line for 4 weeks to be completed on 04/18/2022 but admitted with severe back pain. 1. Acute osteomyelitis/discitis of T12-L1: Patient had T12-L1 percutaneous vertebral body bone biopsy under general anesthesia on 04/21/2022. I talked to the patient's ARIEAViviana and updated about bone biopsy and it might take 2 to 3 days for bone biopsy results to come. Pain medication revised. Started on Dilaudid and oxycodone. Tramadol and morphine discontinued. 2. Acute encephalopathy, multifactorial; metabolic/possible infectious/polypharmacy encephalopathy: Medications revised. Hold opioids for sedation 3. CKD stage IIIa with hyperkalemia: Reason for hyperkalemia unclear. Tramadol discontinued. No potassium supplement. Kayexalate ordered. Other chronic comorbidities as mentioned above include chronic HFpEF, EF 60%, mild pulmonary hypertension, diverticulitis type II, hypertension: Home medication reconciliation done. Patient also has chronic sacral/gluteal region skin excoriations PALE, stage II. Dressing is on. I have discussed my assessment with TRESSA Callahan and orders have been review ed. I talked to the patient's daughter and gave the update about the diagnosis, bone biopsy procedure was explained 22 antibiotics and management plan. Living will/advanced directive/end of life care: Patient is not awake, conscious, nose benefit and risk or alternatives for treatment therefore I t alked to the patient's POA, daughter Kacey Granger over the phone, witnessed and heard by charge nurse CRYSTAL Hayes. Patient does have living will or advanced directive. After discussion of benefits/risks procedures involved with full code, DNR CC arrest and DNR CC, the patient's daughter opted for DNRCC arrest which means no BiPAP CPAP or tight mask. As per POA, patient wish does not include artificial life support including intubation, tube feed, ventilator and/chest compression, central venous catheter, vasopressor and DC shock if needed Total time spent in [id number] encounter in discussion of advanced directive 16 minutes. Capacity Capacity Assessment Tool Can the patient make a choice & communicate that choice?: No Can the patient understand benefits, risks and alternatives?: No Charges/Coding Visit Charges Inpatient E&M: 16425 Subs Hosp L2 Procedures Hospitalists Procedures: 43498 Advncd Care Plan 30 Min
[2022-04-21 11:02] LABS: Bedside Glucose 86 mg/dL (74-106)
--- NOTE | 2022-04-21 11:13 | NURSING ---
This nurse called Daughter Kacey, made her aware that pt went down to surgery early and needs consent for procedure. Kacey is not planning on coming in right now b/c she is coughing but was willing to consent to procedure. This nurse called [facility], spoke with Dalia and gave her Kacey's number to get consent.
--- NOTE | 2022-04-21 12:00 | BON_PTH ---
PATIENT: ERIK GARCIA LOC: MS3 U#:[id number] AGE/SX: 71/F ROOM: [facility] RE04/18/[address]: Dr. Abran Eaton MD : [id number] BED: 1 DIS: 04/24/2022 SPEC #: [id number] RECD: 04/21/22 15:22 STATUS: CYNTHIA REQ #: [id number] KARLIE: 04/21/22 12:[address]: Chong Bansal DEPT: SURGICAL PATHOLOGY RECD BY: Sharyn Velarde ENTERED: 04/24/22 08:08 SP TYPE: Bone OTHR DR: Elvira Enriquez, CADDY MASTER-C MD Dr. Abran Craft, MD Dr. Pam Quach Dr., MD Dr. Jeffrey Watts, DO Dr. Mechelle Khoury, MD Dr. Canelo Garcia Dr., MD Carolyn Graham, CADDY MASTER-C Kandi James, CADDY MASTER-C Val Casarez, CADDY MASTER-C Tigre Whitley Tissues: Vertebra, NOS Procedures: Decalcification bone/plaque Special Stain Group I Surgery Specimen Level V AFB Stain (control) GMS Stain (control) Comments: @ Ordering doctor for DEC edited from to @ amari DRAPER at 04/24/22 0850 @ Ordering doctor for SUIV edited from to @ by BARON at 04/24/22 0850 @ Submitting doctor edited from to DR.[email or web address] Tennille DRAPER at 04/24/22 0850 HEADER OPERATION: Biopsy, bone T12-L1 PRE-OP DIAGNOSIS: MSSA bacteremia, acute osteomyelitis of lumbar spine TISSUE SUBMITTED: Vertebral body bone L1 MICROSCOPIC DIAGNOSIS Vertebral body bone, L1, core biopsy: Pieces of bone with acute and chronic osteomyelitis and reactive changes. See comment. SJ:kadi 04/25/2022 COMMENT Special stains for acid fast bacilli and fungi are negative for organisms; matched controls are appropriate. Case has been reviewed in consultation with Dr. Bryson who concurs with the above diagnosis. IDC:AM MICROSCOPIC DESCRIPTION Slides are reviewed. GROSS DESCRIPTION Received in fixative is one container labeled with the patient's name and designated vertebral body bone L1. The specimen consists of two pieces of heredia, elongated bone measuring 0.5 and 1 cm in length and 0.1 cm in diameter. The specimen is totally submitted in one cassette after decalcification. / CHESTER:kadi 04/25/2022 TC:2 CPT: 44638, 55819 x2, 75522
--- NOTE | 2022-04-21 12:03 | CASEMGMT ---
CRYSTAL ADAMSON NOTE: Pt qualifies for a Palliative referral per the [facility] palliative screening tool at this time. TRESSA Gonzáles, aware and states ok for Palliative c/s at this time. Order placed. Referral e-mailed to Palliative/[facility] and call placed to [facility] Palliative to notify of referral. Elaine MOMIN RN CM
--- NOTE | 2022-04-21 12:20 | RAD_ITS ---
EXAM: XR THORACOLUMBAR SPINE, 2 OR MORE VIEWS CLINICAL INDICATION: BIOPSY T12-L1 TECHNIQUE: Frontal and lateral views of the thoracolumbar spine. This report was created using [employer] report generation technology. COMPARISON: None. FINDINGS: VERTEBRAE: 2 images obtained intraoperatively which show localization of the T12 and L1 vertebral bodies. Preserved vertebral body height. No fracture. No spondylolisthesis. Preservation of the normal thoracic kyphosis. No significant facet arthropathy. DISC SPACES: Unremarkable. Disc spaces are maintained. RAD/Thoracolumbar 2 Views IMPRESSION: Intraoperative localization of the T12 and L1 vertebral bodies. Electronically Signed: Carlo Eubanks MD at 17:11 EDT ,
--- NOTE | 2022-04-21 12:38 | PCM.OPRPT ---
Problems Associated Problem List Diagnoses (1) MSSA bacteremia: (2) Acute osteomyelitis of lumbar spine: Report of Operation Date of Procedure: 04/21/22 Pre-Operative Diagnosis: 1. Suspected osteomyelitis of T12 and L1 Post-Operative Diagnosis: 1. Suspected osteomyelitis of T12 and L1 Surgery/Procedure Performed:: 1. T12, L1 percutaneous vertebral body bone biopsy Description of Surgical Findings:: The patient was seen in the preop holding area. Risks and benefits of the procedure were explained to the patient and informed consent was obtained. The patient was transported to the procedure room and after general endotracheal anesthesia was established she was positioned prone on the operating table. The back was prepped and draped in a standard fashion. Fluoroscopic guidance was used to tl the pedicles of the T12 and L1 vertebral body. Jamshidi needles were used to approach the vertebral bodies via a transpedicular approach of L1 on the left and T12 on the right. The trochars were inserted and advanced using an orthopedic camera until the tip of the needle was in the upper outer quadrant of the pedicle. At no time was there any violation of the medial cortex of the pedicle. Position was intermittently confirmed in AP and lateral x-ray views to confirm placement of the trocar at all times. Once the tip of the trocar had advanced beyond the posterior margin of the vertebral body, further advancement was conducted in the lateral view. The trocar was advanced until the tip was at the junction of the anterior one third and middle one third of the vertebral bodies of T12 on the right and L1 on the left. The obturators were removed. At this time bone biopsies were obtained. These were sent for culture as well as to pathology. The trochars were removed. Pressure was held over the injection sites until all bleeding was controlled. The patient was given sterile dressings with gauze and tape. Sponge instrument and needle counts were correct at the end of the case. The patient was subsequently extubated and taken to the PACU without incident. Surgeon: Chong Bansal Type of Anesthesia: General Specimen's removed: T12 and L1 vertebral body bone Estimated Blood Loss (mL): 1 cc Fluids Replaced: 250 cc Grafts/Implants Used: None Complications None Admit VTE Documentation VTE Present on Admission: No
[2022-04-21 13:26] LABS: Acid Fast Stain SEE PATHOLOGY REPORT; Cytology, Body Fluid / CSF SEE PATHOLOGY REPORT
[2022-04-21 13:46] LABS: Bedside Glucose 75 mg/dL (74-106)
[2022-04-21] MEDS: 0.9% Normal Saline 1,000 ML 75 ML IV (14:51)
[2022-04-21] MEDS: Morphine 2 MG/ML Syringe 1 MG IV (14:53)
--- NOTE | 2022-04-21 15:11 | NURSING ---
Pt refused for staff to give her scheduled tylenol and flexeril, refused mouth care, and refused water. kept repeating, No No No and waving her hands for me to go away. Pt seems like she is in pain with minimal touch. moans/yells, grasps stomach if touched. Sometimes will just be laying there and yells like she is in pain.
[2022-04-21] MEDS: Dextrose 10%-Water 250 ML 999 ML IV (18:05)
[2022-04-21 18:06] LABS: Bedside Glucose 54 mg/dL (74-106)
--- NOTE | 2022-04-21 18:06 | NURSING ---
Pt refused to eat dinner, pt refused to drink anything. clenches mouth shut and yells. Blood sugar is 54, Started d10 per protocol.
[2022-04-21 18:50] LABS: Bedside Glucose 114 mg/dL (74-106)
[2022-04-21] MEDS: Dext 5%-0.45% NS 1,000 ML 100 ML IV (20:12)
[2022-04-21] MEDS: 0.9% Saline Lock 10 ML Syringe IV (20:16)
[2022-04-21 23:31] LABS: Bedside Glucose 141 mg/dL (74-106)
[2022-04-22] VITALS (8 sets, daily range): BP systolic 141–183; BP diastolic 99–125; PULSE 97–130; RESP 20–38; TEMP 36.4–37.2; O2SAT 94–100
[2022-04-22 01:28] LABS: Vancomycin, Trough Level 20.4 ug/mL (5.0-15.0)
--- NOTE | 2022-04-22 01:54 | PHA.PHARE_ITS ---
Consult Pharmacy has been consulted to manage selected antiobiotic: Vancomycin Type of Consult: Follow-up Suspected Infection: Osteomyelitis Prior Doses of Antibiotics Received/Current Regimen: Medications Vancomycin HCl () 500 mg in 100 mls @ 100 mls/hr IV Q24H FREDERICK Vancomycin HCl 750 mg/ Sodium (Chloride) 265 mls @ 250 mls/hr IV Q24H FREDERICK Stop: 04/22/22 03:00 Last Admin: 04/22/22 01:08 Dose: 250 mls/hr Discontinued. Labs: Sodium 140 mmol/L (136-145) 04/21/22 05:43 Potassium 5.4 mmol/L (3.5-5.1) H 04/21/22 05:43 Chloride 116 mmol/L (98-107) H 04/21/22 05:43 Carbon Dioxide 19.0 mmol/L (21.0-32.0) L 04/21/22 05:43 Anion Gap 5 (5-15) 04/21/22 05:43 BUN 27 mg/dL (7-18) H 04/21/22 05:43 Creatinine 1.00 mg/dL (0.55-1.02) 04/21/22 05:43 Est GFR (MDRD) Af Amer 70 mL/min (>60) 04/21/22 05:43 Est GFR (MDRD) Non-Af 58 mL/min (>60) L 04/21/22 05:43 BUN/Creatinine Ratio 27.0 RATIO (10-20) H 04/21/22 05:43 Glucose 78 mg/dL (74-106) 04/21/22 05:43 Vancomycin Trough 20.4 ug/mL (5.0-15.0) H 04/22/22 00:35 Microbiology: Microbiology 04/21/22 13:00 Bone - Back Gram Stain - Final 04/18/22 23:33 Blood Culture (Wb) - Right Hand Blood Culture - Preliminary No growth in 48 hours. 04/18/22 Unknown Blood Culture (Wb) - Left Hand Blood Culture - Preliminary No growth in 48 hours. Weight used for dosin.7 kg Estimated Creatinine Clearance: 45.6 Goal Trough: 15-20 mcg/mL Pharmacy Plan for Drug Dosing: Vancomycin trough level was slightly above target range of 15-20, at 20.4. Per d osing calculator, will decrease dose to 500mg q24h, and re-draw a trough level 04-24-22. Pharmacy Service will continue to monitor and adjust dosing as required. Follow-Up Labs: Trough Vancomycin Labs to be done on [date and time ordered]: 04/24/22 @0030
[2022-04-22 06:07] LABS: Absolute Lymphocyte Count 0.68 X10^3/uL (0.83-4.51); Absolute Neutrophil Count 9.5 X10^3/uL (2.0-7.7); Basophil# 0.06 X10^3/uL; Basophil% 0.5 % (0-1); Eosinophil# 0.14 X10^3/uL; Eosinophils% 1.2 % (0-5); Hematocrit 31.2 % (37-47); Hemoglobin 9.8 g/dL (12.0-15.0); Lymphocyte # 0.68 X10^3/ul (0.83-4.51); Mean Corp Hgb Conc 31.4 g/dL (32-36); Mean Corpuscular Hgb 30.2 pg (27.0-32.0); Mean Platelet Vol. 8.7 fl (6.2-12.0); Monocyte% 7.1 % (0-10); NRBC Flagged by Analyzer 0 % (0-5); Neutrophil % 84.1 % (47-70); Platelet Count 216 K/mm3 (150-450); RBC Distribution Width CV 13.2 % (11.6-14.6); RBC Distribution Width SD 46.8 fl (35.1-43.9); Red Blood Count 3.25 M/mm3 (4.2-5.4); White Blood Count 11.3 K/mm3 (4.4-11.0)
[2022-04-22 06:28] LABS: Anion Gap 6 (5-15); BUN 23 mg/dL (7-18); BUN/Creat Ratio 24.3 RATIO (10-20); Chloride 115 mmol/L (98-107); Creatinine, Serum 0.95 mg/dL (0.55-1.02); EST Glomerular Filtration Rate 61 mL/min (>60); Est Glom Filt Rate - Afr Amer 74 mL/min (>60); Estimated Creatinine Clearance 48.04 ml/min; Glucose 152 mg/dL (74-106); Potassium 4.8 mmol/L (3.5-5.1); Sodium Level 138 mmol/L (136-145)
[2022-04-22] MEDS: Dext 5%-0.45% NS 1,000 ML 100 ML IV (06:33)
[2022-04-22 08:00] LABS: Bedside Glucose 140 mg/dL (74-106)
--- NOTE | 2022-04-22 08:57 | PCM.PN.HOSP ---
Subjective Subjective ollow-up for suspected osteomyelitis. Patient back pain is controlled. She is not eating or drinking therefore on D5 half NS for nutritional purposes. Objective Data Objective Data Vital Signs: Vital Signs Temp Pulse Resp BP Pulse Ox 98.2 F 97 20 H 179/100 H 100 04/22/22 06:14 04/22/22 06:14 04/22/22 06:14 04/22/22 06:14 04/22/22 06:14 Oxygen Flow Rate (L/min) 2 Oxygen Delivery Method Room Air Weight: 127 lb 3.307 oz Body Mass Index (BMI) 27.5 Intake & Output: Intake and Output for Last 24 Hours 04/20/22 04/21/22 04/22/22 23:59 23:59 23:59 Intake Total 2344.75 / 2344.75 1543.75 / 1543.75 1265 / 1265 Output Total 1250 / 1250 1300 / 1300 650 / 650 Balance 1094.75 / 1094.75 243.75 / 243.75 615 / 615 Medical Nutrition Assessment Dietitian: Malnutrition Criteria Met Start: 04/19/22 12:03 Freq: Status: Active Protocol: Document 04/19/22 12:03 AG (Rec: 04/19/22 12:03 [id number]) Nutrition Malnutrition Evidence of Malnutrition Exists Yes Malnutrition (moderate): Acute Illness/Injury Evidenced By Suboptimal Energy Intake ( Moderate),Weight Loss ( Moderate) Clinical Problem Acute Disease or Injury Related Malnutrition Etiology moderate, acute malnutrition related to inadequate energy intake Signs/Symptoms as evidenced by estimated PO intake meeting <75% of estimated energy needs >1 week ; unintentional wt loss of 7.7 #/5.7% x 1 month Status Active Problem Recommendation Dietitian Recommendations/Changes will liberalize diet to regular, no added salt given acute malnutrition; ensure pudding w/ lunch and dinner and Patrick BID for additional protein/calories if consumed. Texture/consistency modifications per PHOTOGRAPHIC TECHNICIAN. Lab / Micro Data Result Diagrams: 04/22/22 05:52 04/22/22 05:52 Labs: Laboratory Results - last 24 hr 04/21/22 05:43: Troponin I High Sens 26 04/21/22 06:44: POC Glucose 86 04/21/22 13:41: POC Glucose 75 04/21/22 17:59: POC Glucose 54 L 04/21/22 18:42: POC Glucose 114 H 04/21/22 23:09: POC Glucose 141 H 04/22/22 00:35: Vancomycin Trough 20.4 H 04/22/22 05:52: WBC 11.3 H, RBC 3.25 L, Hgb 9.8 L, Hct 31.2 L, MCV 96.0, MCH 30.2, MCHC 31.4 L, RDW Std Deviation 46.8 H, RDW Coeff of Janusz 13.2, Plt Count 216, MPV 8.7, Immature Gran % (Auto) 1.100 H, Neut % (Auto) 84.1 H, Lymph % (Auto) 6.0 L, Hamlin % (Auto) 7.1, Eos % (Auto) 1.2, Baso % (Auto) 0.5, Absolute Neuts (auto) 9.5 H, Absolute Lymphs (auto) 0.68 L, Nucleated RBC % 0 04/22/22 05:52: Sodium 138, Potassium 4.8, Chloride 115 H, Carbon Dioxide 17.0 L, Anion Gap 6, BUN 23 H, Creatinine 0.95, Estim Creat Clear Calc 48.04, Est GFR (MDRD) Af Amer 74, Est GFR (MDRD) Non-Af 61, BUN/Creatinine Ratio 24.3 H, Glucose 152 H, Calcium 8.0 L 04/22/22 06:32: POC Glucose 140 H Micro: Microbiology 04/21/22 13:00 Bone - Back Gram Stain - Final 04/18/22 23:33 Blood Culture (Wb) - Right Hand Blood Culture - Preliminary No growth in 48 hours. 04/18/22 Unknown Blood Culture (Wb) - Left Hand Blood Culture - Preliminary No growth in 48 hours. Radiography Diagnostic Testing: Radiology Impression Thoracolumbar Spine 04/21/22 12:20 IMPRESSION: Intraoperative localization of the T12 and L1 vertebral bodies. Electronically Signed: Carlo Eubanks MD at 17:11 EDT , Physical Exam Narrative Physical exam General: Confused, disoriented. Quiet, nonverbal, noncommunicative. Seems not in pain HEENT: Atraumatic, PERRLA, EOMI, Normocephalic Oral: Dental caries. Gingivitis. Lungs: Air entry diminished in bilateral lung bases. No crepitation/rhonchi Cardiovascular: Regular rate, Regular Rhythm, Normal S1, Normal S2, No murmurs Abdomen: Bowel Sounds Present, Soft, Non Tender, Non-Distended : No renal angle tenderness. No suprapubic tenderness. Extremities: No edema, Capillary Refill Less than 3 Seconds Skin: Sacral/gluteal region skin excoriations, present on admission Musculoskeletal/spine: Tenderness over T12/L1 lumbar area. Bandages dry. Paraspinal muscle tenderness. ROM severely restricted and painful Neurological: Complete neuro exam unobtainable as patient is confused. DTR 2+. Psych/Mental Status: Flat affect. Assessment & Plan Assessment/Plan (1) Acute osteomyelitis of lumbar spine: PLAN: The patient is admitted from TCU with recent admission for MSSA bacteremia of unknown source. Patient was on IV Ancef through PICC line for 4 weeks to be completed on 04/18/2022 but admitted with severe back pain. 1. Acute osteomyelitis/discitis of T12-L1: Patient had T12-L1 percutaneous vertebral body bone biopsy under general anesthesia on 04/21/2022. I talked to the patient's ARIEAViviana and updated about bone biopsy and it might take 2 to 3 days for bone biopsy results to come. Pain medication revised. Started on Dilaudid and oxycodone. Tramadol and morphine discontinued. 04/22: Her pain is much controlled. She is not screaming. She does not answer or conversational. On IV fluid D5 half NS. 2. Acute encephalopathy, multifactorial; metabolic/possible infectious/polypharmacy encephalopathy: Medications revised. Hold opioids for sedation 04/22: She opens eyes when he stares people, still confused and disoriented. She did not look hyperactive 3. CKD stage IIIa with hyperkalemia: Reason for hyperkalemia unclear. Tramadol discontinued. No potassium supplement. Kayexalate ordered. 04/22 creatinine function normal. BUN 23. Other chronic comorbidities as mentioned above include chronic HFpEF, EF 60%, mild pulmonary hypertension, diverticulitis type II, hypertension: Home medication reconciliation done. Patient also has chronic sacral/gluteal region skin excoriations PALE, stage II. Nursing care. Dressing change Living will/advanced directive/end of life care: Patient is not awake, conscious, nose benefit and risk or alternatives for treatment therefore I talked to the patient's POA, daughter Kacey Granger over the phone, witnessed and heard by charge nurse CRYSTAL Hayes. Patient does have living will or advanced directive. After discussion of benefits/risks procedures involved with full code, DNR CC arrest and DNR CC, the patient's daughter opted for DNRCC arrest which means no BiPAP CPAP or tight mask. As per POA, patient wish does not include artificial life support including intubation, tube feed, ventilator and/chest compression, central venous catheter, vasopressor and DC shock if needed Charges/Coding Visit Charges Inpatient E&M: 61688 [facility] Hosp L2
[2022-04-22] MEDS: Enoxaparin 40 MG/0.4 ML Syringe SC (10:27)
[2022-04-22] MEDS: Nystatin Powder 15gm Bottle 1 APPLIC TOPICAL ×2 (10:28→22:49)
[2022-04-22 11:50] LABS: Bedside Glucose 145 mg/dL (74-106)
--- NOTE | 2022-04-22 13:27 | CASEMGMT ---
Social Work SW called daughter and left a message to offer support. SW remains available for support to daughter as needed. JACQUELIN Marie
--- NOTE | 2022-04-22 15:23 | NURSING ---
Consult for Hospice initiated. This RN spoke with Gabriella from Hospice. justice Erazo POA/daughter is here and spoke with this RN and Dr. Solorzano about decline and is agreeable to have hospice come see pt.
[2022-04-22] MEDS: 0.9% Saline Lock 10 ML Syringe IV (17:47)
[2022-04-22] MEDS: HYDROmorphone 0.5 MG/0.5 ML SYRINGE IV (17:47)
[2022-04-22] MEDS: hydrALAZINE 20 MG/ML Vial 10 MG IV (17:47)
[2022-04-22] MEDS: Dext 5%-0.45% NS 1,000 ML 50 ML IV (17:59)
[2022-04-22] MEDS: Insulin Lispro 100 UNIT/ML INSULN.PEN SC ×2 (18:00→22:48)
--- NOTE | 2022-04-22 18:09 | NURSING ---
Pt opens eyes but does not speak. Respirations shallow and 38/min. Apical 125. Pt feels hot to touch. Temp is 99.0. Dilauid 0.5mg Iv given to help respirations and HR slow down. Beads of sweat on pts forehead. This nurse applied o2 at 2L NC and pt kept on but fought to get off at first. Apresoline Iv given per EMAR. BP coming down. This nurse will Cortext Dr. Solorzano to make him aware. Approximately 30min ago, Lizabeth, Software Support Technician here on 3rd floor stated that videotape sales representative called and was waiting to get a hold of Kacey, Patients daughter and POA.
[2022-04-22] MEDS: Acetaminophen 650 MG Suppository RC (21:10)
[2022-04-22 22:20] LABS: Bedside Glucose 204 mg/dL (74-106)
[2022-04-23] VITALS (11 sets, daily range): BP systolic 143–182; BP diastolic 80–109; PULSE 66–110; RESP 16–30; TEMP 36.3–37.1; O2SAT 97–100
[2022-04-23 01:21] LABS: Bedside Glucose 176 mg/dL (74-106)
[2022-04-23] MEDS: Vancomycin IV 500 MG/100 ML BAG 100 MG IV (02:04)
[2022-04-23] MEDS: Insulin Lispro 100 UNIT/ML INSULN.PEN SC ×2 (06:39→15:59)
[2022-04-23 06:45] LABS: Bedside Glucose 161 mg/dL (74-106)
--- NOTE | 2022-04-23 07:36 | PN.HOSP_ITS ---
Subjective Subjective Follow-up for physical and functional decline with suspected osteomyelitis of T12-L1. Patient is still not communicative, nonverbal/mute. Opens eyes. Not eating or drinking or p.o. medication Objective Data Objective Data Vital Signs: Vital Signs Temp Pulse Resp BP Pulse Ox 98.8 F 109 H 30 H 160/96 H 100 04/23/22 06:38 04/23/22 06:38 04/23/22 06:38 04/23/22 06:38 04/23/22 06:38 Oxygen Flow Rate (L/min) 2 Oxygen Delivery Method Nasal Cannula Weight: 127 lb 3.307 oz Body Mass Index (BMI) 27.5 Intake & Output: Intake and Output for Last 24 Hours 04/21/22 04/22/22 04/23/22 23:59 23:59 23:59 Intake Total 1543.75 / 1543.75 2562.75 / 2562.75 100 / 100 Output Total 1300 / 1300 950 / 950 Balance 243.75 / 243.75 1612.75 / 1612.75 100 / 100 Medical Nutrition Assessment Dietitian: Malnutrition Criteria Met Start: 04/19/22 12:03 Freq: Status: Active Protocol: Document 04/19/22 12:03 AG (Rec: 04/19/22 12:03 AG [id number]) Nutrition Malnutrition Evidence of Malnutrition Exists Yes Malnutrition (moderate): Acute Illness/Injury Evidenced By Suboptimal Energy Intake ( Moderate),Weight Loss ( Moderate) Clinical Problem Acute Disease or Injury Related Malnutrition Etiology moderate, acute malnutrition related to inadequate energy intake Signs/Symptoms as evidenced by estimated PO intake meeting <75% of estimated energy needs >1 week ; unintentional wt loss of 7.7 #/5.7% x 1 month Status Active Problem Recommendation Dietitian Recommendations/Changes will liberalize diet to regular, no added salt given acute malnutrition; ensure pudding w/ lunch and dinner and Patrick BID for additional protein/calories if consumed. Texture/consistency modifications per REAL ESTATE OFFICE MANAGER. Lab / Micro Data Result Diagrams: 04/22/22 05:52 04/22/22 05:52 Labs: Laboratory Results - last 24 hr 04/22/22 06:32: POC Glucose 140 H 04/22/22 11:34: POC Glucose 145 H 04/22/22 17:33: POC Glucose 204 H 04/22/22 22:40: POC Glucose 176 H 04/23/22 06:34: POC Glucose 161 H Micro: Microbiology 04/21/22 13:00 Bone - Back Gram Stain - Final 04/21/22 13:00 Bone - Back Wound Culture - Preliminary No growth-Final to follow 04/18/22 23:33 Blood Culture (Wb) - Right Hand Blood Culture - Preliminary No growth in 48 hours. 04/18/22 Unknown Blood Culture (Wb) - Left Hand Blood Culture - Preliminary No growth in 48 hours. Physical Exam Narrative Physical exam General: Confused, disoriented. Quiet, nonverbal, noncommunicative. HEENT: Atraumatic, PERRLA, EOMI, Normocephalic Oral: Dental caries. Gingivitis. Lungs: Air entry diminished in bilateral lung bases. No crepitation/rhonchi Cardiovascular: Regular rate, Regular Rhythm, Normal S1, Normal S2, No murmurs Abdomen: Bowel Sounds Present, Soft, Non Tender, Non-Distended : No renal angle tenderness. No suprapubic tenderness. Extremities: No edema, Capillary Refill Less than 3 Seconds Skin: Sacral/gluteal region skin excoriations, present on admission Musculoskeletal/spine: Mild tenderness over T12/L1 lumbar area. Bandages dry. Paraspinal muscle tenderness. ROM severely restricted and painful Neurological: Complete neuro exam unobtainable as patient is confused. DTR 2+. Psych/Mental Status: Flat affect. Looks depressed Assessment & Plan Assessment/Plan (1) Acute osteomyelitis of lumbar spine: PLAN: The patient is admitted from TCU with recent admission for MSSA bacteremia of unknown source. Patient was on IV Ancef through PICC line for 4 weeks to be completed on 04/18/2022 but admitted with severe back pain. 1. Acute osteomyelitis/discitis of T12-L1: Patient had T12-L1 percutaneous vertebral body bone biopsy under general anesthesia on 04/21/2022. I talked to the patient's Viviana MAGAÑA and updated about bone biopsy and it might take 2 to 3 days for bone biopsy results to come. Pain medication revised. Started on Dilaudid and oxycodone. Tramadol and morphine discontinued. 04/22: Her pain is much controlled. She is not screaming. She does not answer or conversational. On IV fluid D5 half NS. 6/12: Medications are IV. Continue IV fluid for nutritional supplementation. 2. Acute encephalopathy, multifactorial; metabolic/possible infectious/polypharmacy encephalopathy: Medications revised. Hold opioids for sedation 04/22: She opens eyes when he stares people, still confused and disoriented. She did not look hyperactive 04/23: Patient is mute probably depressed. Discussed with the nursing staff. 3. CKD stage IIIa with hyperkalemia: Reason for hyperkalemia unclear. Tramadol discontinued. No potassium supplement. Kayexalate ordered. 04/22 creatinine function normal. BUN 23. Other chronic comorbidities as mentioned above include chronic HFpEF, EF 60%, mild pulmonary hypertension, diverticulitis type II, hypertension: Home medication reconciliation done. 4. Hypertension and functional decline: Patient blood pressure has been high, fluctuates between 140 systolic to 200 systolic. Patient also has sinus tachycardia, heart rate 130/min. Partly patient not taking oral antihypertensive and Coreg medications. Started on labetalol IV as needed for hypertension and tachycardia and hydralazine IV discontinued. Patient has been refusing oral medications, food and fluid intake. Poor prognosis. Hospice was consulted on 05/01 5 patient also has chronic sacral/gluteal region skin excoriations , stage II. Nursing care. Dressing change Living will/advanced directive/end of life care: Patient is not awake, conscious, nose benefit and risk or alternatives for treatment therefore I talked to the patient's POA, daughter Kacey Granger over the phone, witnessed and heard by charge nurse CRYSTAL Hayes. Patient does have living will or advanced directive. After discussion of benefits/risks procedures involved with full code, DNR CC arrest and DNR CC, the patient's daughter opted for DNRCC arrest which means no BiPAP CPAP or tight mask. As per POA, patient wish does not include artificial life support including intubation, tube feed, ventilator and/chest compression, central venous catheter, vasopressor and DC shock if needed Charges/Coding Visit Charges Inpatient E&M: 28094 Subs Hosp L2
[2022-04-23] MEDS: Enoxaparin 40 MG/0.4 ML Syringe SC (10:41)
[2022-04-23] MEDS: Nystatin Powder 15gm Bottle 1 APPLIC TOPICAL ×2 (10:43→22:16)
[2022-04-23] MEDS: 0.9% Saline Lock 10 ML Syringe IV ×2 (10:43→15:26)
[2022-04-23 13:21] LABS: Bedside Glucose 148 mg/dL (74-106)
--- NOTE | 2022-04-23 15:10 | NURSING ---
Lizabeth from [facility] called this nurse and stated that they did talk to patients daughter Kacey and Hospice will be coming to talk to Kacey tomorrow here at the [facility] at noon.
[2022-04-23] MEDS: Dext 5%-0.45% NS 1,000 ML 50 ML IV (15:23)
[2022-04-23] MEDS: Labetalol (Prefilled) 20 MG/4 ML IV (15:24)
[2022-04-23 16:21] LABS: Bedside Glucose 153 mg/dL (74-106)
[2022-04-23] MEDS: Menthol/Lanolin/Calamine/Znox 113 GM Tube 1 APPLIC TOPICAL (22:16)
[2022-04-24 00:06] LABS: Bedside Glucose 148 mg/dL (74-106)
[2022-04-24] MEDS: Vancomycin IV 500 MG/100 ML BAG 100 MG IV (00:17)
[2022-04-24 00:40] VITALS: PULSE 100
[2022-04-24 00:46] LABS: Vancomycin, Trough Level 21.3 ug/mL (5.0-15.0)
--- NOTE | 2022-04-24 01:35 | PCM.RX.CS ---
Consult Pharmacy has been consulted to manage selected antiobiotic: Vancomycin Type of Consult: Follow-up Suspected Infection: Osteomyelitis Prior Doses of Antibiotics Received/Current Regimen: Medications Vancomycin HCl (Vancomycin) 1,000 mg in 200 mls @ 200 mls/hr IV Q48H FREDERICK Vancomycin HCl () 500 mg in 100 mls @ 100 mls/hr IV Q24H FREDERICK Stop: 04/24/22 02:00 Last Admin: 04/24/22 00:17 Dose: 100 mls/hr Labs: Sodium 138 mmol/L (136-145) 04/22/22 05:52 Potassium 4.8 mmol/L (3.5-5.1) 04/22/22 05:52 Chloride 115 mmol/L (98-107) H 04/22/22 05:52 Carbon Dioxide 17.0 mmol/L (21.0-32.0) L 04/22/22 05:52 Anion Gap 6 (5-15) 04/22/22 05:52 BUN 23 mg/dL (7-18) H 04/22/22 05:52 Creatinine 0.95 mg/dL (0.55-1.02) 04/22/22 05:52 Est GFR (MDRD) Af Amer 74 mL/min (>60) 04/22/22 05:52 Est GFR (MDRD) Non-Af 61 mL/min (>60) 04/22/22 05:52 BUN/Creatinine Ratio 24.3 RATIO (10-20) H 04/22/22 05:52 Glucose 152 mg/dL (74-106) H 04/22/22 05:52 Vancomycin Trough 21.3 ug/mL (5.0-15.0) H 04/24/22 00:15 Microbiology: Microbiology 04/21/22 13:00 Bone - Back Gram Stain - Final 04/21/22 13:00 Bone - Back Wound Culture - Preliminary No growth-Final to follow 04/18/22 23:33 Blood Culture (Wb) - Right Hand Blood Culture - Preliminary No growth in 48 hours. 04/18/22 Unknown Blood Culture (Wb) - Left Hand Blood Culture - Preliminary No growth in 48 hours. Weight used for dosin.7 kg Estimated Creatinine Clearance: 48 Goal Trough: 15-20 mcg/mL Pharmacy Plan for Drug Dosing: Vancomycin trough level was still above target range, at 21.3, even after dose reduction to 500mg q24h. Per aminoglycoside dosing calculator, a dose of 1000mg q48h should give an estimated trough of 16.8. Will institute this new dose 36hrs after current bag. Will re-draw a trough prior to 3rd dose. Pharmacy Service will continue to monitor and adjust dosing as required. Follow-Up Labs: Trough Vancomycin Labs to be done on [date and time ordered]: 04/29/22 @1200
[2022-04-24 06:00] VITALS: PULSE 104
[2022-04-24] MEDS: Insulin Lispro 100 UNIT/ML INSULN.PEN SC ×2 (06:23→11:32)
[2022-04-24 06:51] LABS: Bedside Glucose 157 mg/dL (74-106)
--- NOTE | 2022-04-24 08:04 | PN.HOSP_ITS ---
Subjective Subjective Patient is a 71-year-old lady with recent admission for MSSA bacteremia of unknown source transferred from the transitional care unit to the ER with intractable back pain. Subsequent evaluation demonstrated acute os teomyelitis/discitis involving T12-L1 Patient seen this a.m. not communicating. Per nursing staff patient has also not been eating or drinking. Family meeting with hospice scheduled later for the day Objective Data Objective Data Vital Signs: Vital Signs Temp Pulse Resp BP Pulse Ox 98 F 104 H 18 158/100 H 99 04/23/22 20:30 04/24/22 06:00 04/23/22 20:30 04/23/22 20:30 04/23/22 20:30 Oxygen Flow Rate (L/min) 2 Oxygen Delivery Method Room Air Weight: 57.7 kg Body Mass Index (BMI) 27.5 Intake & Output: Intake and Output for Last 24 Hours 04/22/22 04/23/22 04/24/22 23:59 23:59 23:59 Intake Total 2562.75 / 2562.75 1058.33 / 1058.33 100 / 100 Output Total 950 / 950 Balance 1612.75 / 1612.75 1058.33 / 1058.33 100 / 100 Medical Nutrition Assessment Dietitian: Malnutrition Criteria Met Start: 04/19/22 12:03 Freq: Status: Active Protocol: Document 04/19/22 12:03 AG (Rec: 04/19/22 12:03 [id number]) Nutrition Malnutrition Evidence of Malnutrition Exists Yes Malnutrition (moderate): Acute Illness/Injury Evidenced By Suboptimal Energy Intake ( Moderate),Weight Loss ( Moderate) Clinical Problem Acute Disease or Injury Related Malnutrition Etiology moderate, acute malnutrition related to inadequate energy intake Signs/Symptoms as evidenced by estimated PO intake meeting <75% of estimated energy needs >1 week ; unintentional wt loss of 7.7 #/5.7% x 1 month Status Active Problem Recommendation Dietitian Recommendations/Changes will liberalize diet to regular, no added salt given acute malnutrition; ensure pudding w/ lunch and dinner and Patrick BID for additional protein/calories if consumed. Texture/consistency modifications per MAINTENANCE WORKER SWIMMING POOL. Lab / Micro Data Result Diagrams: 04/22/22 05:52 04/22/22 05:52 Labs: Laboratory Results - last 24 hr 04/23/22 11:20: POC Glucose 148 H 04/23/22 15:58: POC Glucose 153 H 04/23/22 22:26: POC Glucose 148 H 04/24/22 00:15: Vancomycin Trough 21.3 H 04/24/22 06:19: POC Glucose 157 H Micro: Microbiology 04/18/22 23:33 Blood Culture (Wb) - Right Hand Blood Culture - Final No growth in 5 days. 04/18/22 Unknown Blood Culture (Wb) - Left Hand Blood Culture - Final No growth in 5 days. 04/21/22 13:00 Bone - Back Gram Stain - Final 04/21/22 13:00 Bone - Back Wound Culture - Preliminary No growth-Final to follow Physical Exam Narrative GENERAL: Noncommunicative HEENT: Atraumatic; EYES; Anicteric, Normal Conjunctiva NECK; supple, normal thyroid, RESPIRATORY: Diminished to auscultation CARDIOVASCULAR: Regular S1 S2, GI: soft, normoactive bowel sounds, : No Renal angle tenderness; EXTREMITIES: No edema, no clubbing, MUSCULOSKELETAL: no muscle wasting NEURO: Awake; no lateralizing signs. SKIN: No Rash PSYCH; Flat affect Assessment & Plan Assessment/Plan (1) Acute osteomyelitis of lumbar spine: PLAN: Patient is a 71-year-old lady with recent admission for MSSA bacteremia of unknown source transferred from the transitional care unit to the ER with intractable back pain. Subsequent evaluation demonstrated acute osteomyelitis/discitis involving T12-L1 1. Acute osteomyelitis/discitis of T12-L1 ? Patient had previously been treated with Ancef for MSSA bacteremia. MRI demonstrated osteomyelitis/discitis involving T12-L1. Infectious disease consulted patient started on vancomycin and cefepime repeat cultures sent patient underwent percutaneous vertebral body bone biopsy under general anesthesia on 04/21/2022 results pending 2. Acute encephalopathy ? Multifactorial including infectious metabolic and possible polypharmacy patient home meds reviewed 3. Elevated troponin ? Possibly secondary to demand ischemia from from patient's underlying infection we will continue with monitoring 4. Coronary artery disease ? With previous history of non-STEMI with subsequent left heart catheterization which demonstrated multivessel disease. Patient was transferred to a tertiary care center for high risk PCI patient is on recommended medications including beta-blockers dual antiplatelet therapy atorvastatin 5. 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 Placed on long acting insulin, Accu-Cheks a.c. and at bedtime and covered with sliding scale insulin 6. Chronic kidney disease stage III AA ? Secondary to diabetic nephropathy monitoring with daily BMPs 6. Dyslipidemia -Patient is on statin therapy, continued at home dose 7. Use of rheumatoid Plaquenil ?? Rheumatoid arthritis patient's daughter was not sure of the reason why patient was on Plaquenil 8. Hypertension - Blood pressure controlled, home medications continued with dose adjustment as needed 9. Physical deconditioning - Requested for PT OT eval and social security assessor to assist with discharge planning 10. DVT prophylaxis ? Enoxaparin Charges/Coding Visit Charges Inpatient E&M: 76274 Subs Hosp L2
[2022-04-24 08:28] VITALS: BP 144/108; PULSE 97; RESP 22; TEMP 36.8; O2SAT 98
[2022-04-24 08:33] VITALS: O2SAT 98
[2022-04-24 10:00] VITALS: PULSE 125
[2022-04-24] MEDS: Nystatin Powder 15gm Bottle 1 APPLIC TOPICAL (10:24)
[2022-04-24] MEDS: Enoxaparin 40 MG/0.4 ML Syringe SC (10:25)
--- NOTE | 2022-04-24 10:40 | CASEMGMT ---
Addendum entered by Eulalia Catherine 04/24/22 14:45: ABDON spoke with [facility] nurse who states pt has been accepted to IPU and can admit today. ABDON updated physician who is agreeable to discharge. Transportation arranged with [facility] for 4:00 pharmacy picking tech via cot. Pt dgt updated on discharge time and agreeable. Nursing aware. Disposition: [facility] IPU. MIGEL Rivero Addendum entered by Eulalia Catherine 04/24/22 12:35: ABDON spoke with Felipe from [facility]. Felipe states pt dgt is not able to take pt home and is open to either Inpaitent Unit at Hospice or ECF. Hospice nurse will be in to assess for IPU appropriateness. ABDON will continue to follow to assist with discharge needs. Plan: Hospice Inpatient Unit vs ECF with hospice MIGEL Rivero Original Note: Social Work SW placed phone call to pt dgt to discuss discharge plan. Pt was admitted from TCU, but will likely not be able to return there due to decline. VM left with dgt. Hospice meeting set for today at 1200 with dgt.
[2022-04-24 11:21] LABS: Bedside Glucose 161 mg/dL (74-106)
--- NOTE | 2022-04-24 14:14 | PCM.DC.SUM ---
Providers Date of Admission: 04/18/22 Primary Care Physician: Tigre Whitley Consultations 04/19/22 00:31 Consult: Infectious Disease Routine Consulting Provider: Canelo De Luna Reason for Consult: OSTEOMYELITIS OF SPINE EMERGENT Consult: No MD Notified: Yes Date Notified: 04/19/22 Time Notified: 02:30 Method of Notification: Answering Service 04/19/22 12:53 Consult: Orthopedics Routine Consulting Provider: Chong Bansal Reason for Consult: T12-L1 osteo/discitis, MSSA bacteremia EMERGENT Consult: No MD Notified: Yes Date Notified: 04/19/22 Time Notified: 14:40 Method of Notification: Text 04/22/22 15:16 Consult: Hospice / Palliative Care Routine Consulting Provider: [facility] Reason for Consult: functional decline EMERGENT Consult: No MD Notified: Yes Date Notified: 04/22/22 Time Notified: 15:16 Method of Notification: phone Reason For Visit: OSTEOMYELITIS OF SPINE Diagnosis Discharge Diagnosis (1) Acute osteomyelitis of lumbar spine: Status: Acute Code(s): M46.26 - Osteomyelitis of vertebra, lumbar region Medications at Discharge Home Medications pregabalin 75 mg PO DAILY 05/11/16 hydroxychloroquine 200 mg PO DAILY 07/19/18 aspirin 81 mg chewable tablet 81 mg PO DAILY 12/31/20 atorvastatin 40 mg tablet 40 mg PO QHS #30 tab 12/31/20 bupropion HCl 150 mg 24 hr tablet, extended release 150 mg PO QAM 12/30/21 duloxetine 60 mg capsule,delayed release 60 mg PO DAILY 12/30/21 carvedilol 12.5 mg PO BID 03/24/22 clopidogrel 75 mg PO DAILY 03/24/22 sennosides-docusate sodium [Stool Softener-Stimulant Laxat] 2 tab PO BID PRN PRN #0 tab 03/24/22 acetaminophen 500 mg tablet 1,000 mg PO TID tab 03/30/22 menthol 0.44 %-zinc oxide 20.6 % topical ointment 1 applic TOPICAL BID PRN g 03/30/22 nystatin 100,000 unit/gram topical powder 1 applic TOPICAL BID 03/30/22 cyclobenzaprine 10 mg PO TID 04/18/22 tramadol 50 mg PO Q6H PRN 04/18/22 Hospital Course Summary of Care Provided Minutes Spent on Discharge: 35 Hospital Course: Patient is a 71-year-old lady with recent admission for MSSA bacteremia of unknown source transferred from the transitional care unit to the ER with intractable back pain. Subsequent evaluation demonstrated acute osteomyelitis/discitis involving T12-L1 1. Acute osteomyelitis/discitis of T12-L1 ? Patient had previously been treated with Ancef for MSSA bacteremia. MRI demonstrated osteomyelitis/discitis involving T12-L1. Infectious disease consulted patient started on vancomycin and cefepime repeat cultures sent patient underwent percutaneous vertebral body bone biopsy under general anesthesia on 04/21/2022 Decision was made to transfer patient to the inpatient hospice service after family meeting. Patient was not discharged with IV antibiotics 2. Acute encephalopathy ? Multifactorial including infectious metabolic and possible polypharmacy patient home meds reviewed 3. Elevated troponin ? Possibly secondary to demand ischemia from from patient's underlying infection we will continue with monitoring 4. Coronary artery disease ? With previous history of non-STEMI with subsequent left heart catheterization which demonstrated multivessel disease. Patient was transferred to a tertiary care center for high risk PCI patient is on recommended medications including beta-blockers dual antiplatelet therapy atorvastatin 5. 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 Placed on long acting insulin, Accu-Cheks a.c. and at bedtime and covered with sliding scale insulin 6. Chronic kidney disease stage III AA ? Secondary to diabetic nephropathy monitoring with daily BMPs 6. Dyslipidemia -Patient is on statin therapy, continued at home dose 7. Use of rheumatoid Plaquenil ?? Rheumatoid arthritis patient's daughter was not sure of the reason why patient was on Plaquenil 8. Hypertension - Blood pressure controlled, home medications continued with dose adjustment as needed 9. Physical deconditioning - Requested for PT OT eval and healthcare social worker to assist with discharge planning 10. DVT prophylaxis ? Enoxaparin Physical Exam Narrative GENERAL: Noncommunicative HEENT: Atraumatic; EYES; Anicteric, Normal Conjunctiva NECK; supple, normal thyroid, RESPIRATORY: Diminished to auscultation CARDIOVASCULAR: Regular S1 S2, GI: soft, normoactive bowel sounds, : No Renal angle tenderness; EXTREMITIES: No edema, no clubbing, MUSCULOSKELETAL: no muscle wasting NEURO: Awake; no lateralizing signs. SKIN: No Rash PSYCH; Flat affect Medical Records Data Medical Nutrition Assessment Dietitian: Malnutrition Criteria Met Start: 04/19/22 12:03 Freq: Status: Active Protocol: Document 04/19/22 12:03 AG (Rec: 04/19/22 12:03 AG [id number]) Nutrition Malnutrition Evidence of Malnutrition Exists Yes Malnutrition (moderate): Acute Illness/Injury Evidenced By Suboptimal Energy Intake ( Moderate),Weight Loss ( Moderate) Clinical Problem Acute Disease or Injury Related Malnutrition Etiology moderate, acute malnutrition related to inadequate energy intake Signs/Symptoms as evidenced by estimated PO intake meeting <75% of estimated energy needs >1 week ; unintentional wt loss of 7.7 #/5.7% x 1 month Status Active Problem Recommendation Dietitian Recommendations/Changes will liberalize diet to regular, no added salt given acute malnutrition; ensure pudding w/ lunch and dinner and Patrick BID for additional protein/calories if consumed. Texture/consistency modifications per BUSINESS TECHNOLOGY TEACHER. Weight / BMI Weight Weight: 57.7 kg Body Mass Index (BMI) 27.5 ABG / Lab / Microbiology Data Result Diagrams: 04/22/22 05:52 04/22/22 05:52 Laboratory: Laboratory Results - last 24 hr 04/23/22 15:58: POC Glucose 153 H 04/23/22 22:26: POC Glucose 148 H 04/24/22 00:15: Vancomycin Trough 21.3 H 04/24/22 06:19: POC Glucose 157 H 04/24/22 11:16: POC Glucose 161 H Microbiology: Microbiology 04/21/22 13:00 Bone - Back Gram Stain - Final 04/21/22 13:00 Bone - Back Wound Culture - Preliminary No growth-Final to follow 04/21/22 13:00 Bone - Back Anaerobic Culture - Preliminary No growth in 48 hours. 04/18/22 23:33 Blood Culture (Wb) - Right Hand Blood Culture - Final No growth in 5 days. 04/18/22 Unknown Blood Culture (Wb) - Left Hand Blood Culture - Final No growth in 5 days. Meaningful Use Info Meaningful Use Diagnoses (Choose all that apply): None applicable Discharge Plan Admission Admit Date/Time: 04/18/22 23:09 Attending Provider: Abran Eaton Primary Care Provider: Tigre Whitley Consulting Providers: Canelo De Luna ; Garrick Pino ; Chong Bansal ; Mechelle Khoury ; Elvira Enriquez ; Abran Torres ; Pam Abarca ; Tri Huggins ; Kandi James ; Val Casarez [employer] ; Manny Solorzano Discharge Orders/Prescriptions Prescriptions: Continued aspirin 81 mg tablet,chewable 81 mg PO DAILY RF: 0 atorvastatin 40 mg tablet 40 mg PO QHS Qty: 30 RF: 11 bupropion HCl [Wellbutrin XL] 150 mg tablet extended release 24 hr 150 mg PO QAM RF: 0 duloxetine 60 mg capsule,delayed release(DR/EC) 60 mg PO DAILY RF: 0 menthol-zinc oxide [Calmoseptine] 0.44-20.6 % ointment 1 applic topical BID PRN (Reason: Skin Cleansing) RF: 0 nystatin 100,000 unit/gram powder 1 applic topical BID RF: 0 acetaminophen 500 mg tablet 1,000 mg PO TID RF: 0 pregabalin 75 MG capsule 75 mg PO DAILY RF: 0 hydroxychloroquine 200 MG tablet 200 mg PO DAILY RF: 0 sennosides-docusate sodium [Stool Softener-Stimulant Laxat] 8.6-50 mg Tablet 2 tab PO BID PRN PRN (Reason: Constipation) Qty: 0 RF: 0 carvedilol 12.5 mg tablet 12.5 mg PO BID RF: 0 clopidogrel 75 mg tablet 75 mg PO DAILY RF: 0 cyclobenzaprine 10 mg Tablet 10 mg PO TID RF: 0 tramadol 50 mg Tablet 50 mg PO Q6H PRN (Reason: Pain) RF: 0 Discontinued potassium chloride 10 mEq tablet extended release 10 meq PO DAILY RF: 0 cefazolin in dextrose (iso-os) 1 gram/50 mL piggyback 1 g IV Q12 RF: 0 Referrals / Follow Up: Tigre Whitley [Primary Care Provider] - Disposition Disposition (needs filled in before D/C Order can be placed): Hospice in Medical Facility Charges/Coding Visit Charges Inpatient E&M: 88252 Disch Hosp
[2022-04-24 14:34] VITALS: BP 140/110; PULSE 110; RESP 20; TEMP 36.8; O2SAT 94
== END 2022-04-24 16:40 | disposition hospice, inpatient (51) | DRG 477 ==
LOC: ED 23:15 → MS3 04-19 06:57
PROVIDERS: Anesthesiology; Internal Medicine; Nurse Practitioner Family; Orthopaedic Surgery; Physician Assistant; Admitting Provider Hospitalist; Emergency Provider Emergency Medicine; Visit Provider Internal Medicine
PROC: 0QB03ZX Excision of Lumbar Vertebra, Percutaneous Approach, Diagnostic (ICD-10-PCS; principal; 2022-04-21 11:45)
DX: M46.26 Osteomyelitis of vertebra, lumbar region (principal); G92.8 Other toxic encephalopathy; E44.0 Moderate protein-calorie malnutrition; I13.0 Hypertensive heart and chronic kidney disease with heart failure and stage 1 through stage 4 chronic kidney disease, or unspecified chronic kidney disease; F05 Delirium due to known physiological condition; I24.8 Other forms of acute ischemic heart disease; I50.32 Chronic diastolic (congestive) heart failure; D63.1 Anemia in chronic kidney disease; L89.152 Pressure ulcer of sacral region, stage 2; E11.21 Type 2 diabetes mellitus with diabetic nephropathy; E11.22 Type 2 diabetes mellitus with diabetic chronic kidney disease; E11.69 Type 2 diabetes mellitus with other specified complication; F03.90 Unspecified dementia, unspecified severity, without behavioral disturbance, psychotic disturbance, mood disturbance, and anxiety; E11.42 Type 2 diabetes mellitus with diabetic polyneuropathy; N18.31 Chronic kidney disease, stage 3a; M06.9 Rheumatoid arthritis, unspecified; B95.61 Methicillin susceptible Staphylococcus aureus infection as the cause of diseases classified elsewhere; E78.5 Hyperlipidemia, unspecified; I25.10 Atherosclerotic heart disease of native coronary artery without angina pectoris; I25.5 Ischemic cardiomyopathy; F41.9 Anxiety disorder, unspecified; E87.8 Other disorders of electrolyte and fluid balance, not elsewhere classified; E87.5 Hyperkalemia; I25.2 Old myocardial infarction; F17.210 Nicotine dependence, cigarettes, uncomplicated; F32.A Depression, unspecified; G89.29 Other chronic pain; E66.3 Overweight; R77.8 Other specified abnormalities of plasma proteins; R53.81 Other malaise; Z66 Do not resuscitate; Z51.5 Encounter for palliative care; Z68.27 Body mass index [BMI] 27.0-27.9, adult; Z95.5 Presence of coronary angioplasty implant and graft; Z79.02 Long term (current) use of antithrombotics/antiplatelets; Z79.82 Long term (current) use of aspirin; Z79.84 Long term (current) use of oral hypoglycemic drugs; Z79.899 Other long term (current) drug therapy
CPT/HCPCS: 36415; 36430; 36600; 72080; 72132; 72158; 76000; 80048; 80202; 82803; 82962; 83036; 84484; 85025; 85610; 85730; 86850; 86900; 86901; 86920; 86922; 87040; 87070; 87075; 87102; 87205; 87206; 88305; 88307; 88311; 88312; 92610; 93005; 97162; 97165; 99283; A9575; J7030; J7040; J7050; P9016; P9040; A4216; J1940; J2405; J7799

== ENCOUNTER → 2022-04-18 | Outpatient (CLI) | payer MEDICARE, SELFPAY ==
--- NOTE | 2022-04-18 11:56 | CT_ITS ---
STUDY: CT LUMBAR SPINE WITH CONTRAST REASON FOR EXAM: Female, 71 years old. Low back pain. MRSA bacteremia. RADIATION DOSAGE (If Supplied By Facility): CTDIvol = ( 19.56 ) mGy, DLP = ( 500.00 ) mGycm TECHNIQUE: The patient was scanned in a multi detector CT scanner. High resolution transaxial imaging was performed following the intravenous administration of 100 CC ISOVUE 300. Images were obtained from T12 to S1 vertebral level. Sagittal and coronal images were reconstructed. Individualized dose optimization techniques were used for this CT. COMPARISON: None FINDINGS: Normal lumbar lordosis. There is a levoscoliosis of the lumbar spine. Normal vertebrae of the lumbar spine. L1-2: There is evidence of irregularity of the inferior endplate of the L1 vertebrae as well as superior endplate of the L2 vertebrae with the disc space narrowing and spondylosis. Subchondral sclerosis is seen. Osteomyelitis/discitis should be ruled out. L2-3: Moderate degree of disc space narrowing. Spondylosis. No significant stenosis seen. L3-4: Marked degree of disc space narrowing with spondylosis. Moderate degree of bilateral neural foraminal stenosis. Facet joint osteoarthritis and hypertrophy. L4-5: Minimal anterior listhesis of L4 on L5. Facet joint osteoarthritis and hypertrophy. Moderate degree of central canal stenosis due to the operative field the facet joints in the ligamentum flavum. L5-S1: Marked degree of disc space narrowing and disc degeneration. Facet joint osteoarthritis. Atherosclerotic calcification of the abdominal aorta. CT/Spine Lumbar WITH Contrast IMPRESSION: Multilevel degenerative changes, as described above. Findings suggestive of osteomyelitis/discitis at the L1-L2 level as described. Correlation with MRI is recommended. Electronically Signed: Wayne Guan MD at 13:29 EDT ,
== END | disposition home or self-care (01) ==
LOC: CT 11:49
PROVIDERS: Referring Provider Family Medicine Geriatric Medicine; Visit Provider Family Medicine Geriatric Medicine
DX: M46.46 Discitis, unspecified, lumbar region (principal); B95.61 Methicillin susceptible Staphylococcus aureus infection as the cause of diseases classified elsewhere; D64.9 Anemia, unspecified
CPT/HCPCS: 72132